=== PATIENT | male | born 1940 | race Caucasian/White ===

== ENCOUNTER 2020-02-05 08:57 | Emergency (ER) | payer OTHER, MEDICARE, SELFPAY ==
--- NOTE | ~2020-02-05 | XR_ITS ---
EXAMINATION: XR lumbar spine 2-3V DATE: 02/05/2020 09:51 INDICATION: Back pain. TECHNIQUE: 3 views of lumbar spine were obtained. COMPARISON: CT abdomen and pelvis 07/18/2018 FINDINGS: There is 6 degrees dextrocurvature of lumbar spine. There is 3 mm anterolisthesis of L5 on S1. Vertebral body heights are normal. There is mildly decreased disc height at L1-L2 and L2-L3, mode rately decreased disc height at L3-L4, and mildly decreased disc height at L4-L5. There are endplate osteophytes at all levels. There is multilevel facet joint osteoarthritis, severe in lower lumbar spi ne. Surgical clips overlie the abdomen and pelvis. IMPRESSION: 1. Moderate lumbar spondylosis. Reviewed, dictated and finalized at location A.
--- NOTE | ~2020-02-05 | XR_ITS ---
XR hip LT 2V w AP pelvis DATE: 02/05/2020 10:13 INDICATION: Left hip pain. No known injury. TECHNIQUE: AP pelvis. AP, lateral left hip COMPARISON: None FINDINGS: There is mild dextro scoliosis and multilevel degenerative disc disease of the lumbar/lumbo sacral spine. The pubic symphysis and sacroiliac joints are intact. No pelvic fracture or bone destruction is evide nt. Hip joint spaces are symmetric and relatively preserved. No fracture, dislocation, avascular necrosis or bone destruction of the left hip is evident. There is extensive abdominal aortic as well as some iliac and femoral artery calcifications. Surgical clips overlie both sides of the pelvis, likely related to prostatectomy. Status post ventral abdominal wall hernia repair. IMPRESSION: Multilevel degenerative disc disease of lumbar/lumbosacral spine Status post prostatectomy and abdominal wall repair Atherosclerosis Reviewed, dictated and finalized at location A.
[2020-02-05 09:33] VITALS: BP 149/97; PULSE 80; RESP 18; TEMP 36.9; O2SAT 96
--- NOTE | 2020-02-05 09:37 | ED.BACK ---
HPI - Back Pain/Injury General Chief Complaint: Extremity Injury, Lower Stated Complaint: Hip/leg pain Time Seen by Provider: 02/05/20 09:20 Source: patient Mode of arrival: ambulatory Limitations: no limitations History of Present Illness HPI Narrative: Patient is a 79-year-old male who presents to the emergency department with complaint of left lower back pain into his left hip. Patient reports history of sciatica in the past and states this feels similar. Patient noted onset of pain after prolonged standing when family was over to visit during the weekend. Patient had a virtual visit with his primary care physician and was prescribed a muscle relaxer and was supposed to have an x-ray done. Patient has not yet had the x-ray completed and is supposed to see his primary care physician for follow-up visit in the office Sunday. Patient has been taking acetaminophen for pain without relief. Patient states the pain is worse when he tries to walk and is better when he is sitting at rest. Pain originates in the left lower back and radiates into the left hip. He denies any radiation of pain down his thigh or leg or loss of feeling. Patient states in the past when he has had episodes like this, his prior primary care physician was given a steroid shot which would help. MD elicited complaint: back pain Pertinent past history: prior back pain and arthritis Onset (ago): day(s) Timing: constant Quality: sharp and spasming Location: left lower back (Sciatic) Radiation: buttocks (left hip) Exacerbating factors: movement and walking Relieving factors: sitting upright Context: other (After prolonged standing) Associated symptoms: denies other symptoms Treatments prior to arrival: acetaminophen Related Data Home Medications Medication Instructions Recorded Confirmed latanoprost 0.005 % eye drops 1 drop OPHTHALMIC (EYE) DAILY ml 02/04/20 02/04/20 Allergies Allergy/AdvReac Type Severity Reaction Status Date / Time grass pollen Allergy Unknown Sneezing Verified 02/04/20 14:57 pollen extracts Allergy Unknown Sneezing Verified 02/04/20 14:57 Review of Systems Review of Systems: All systems reviewed & are unremarkable except as noted in HPI and below PMFSH Past Medical History Medical History Bladder cancer COPD with asthma Essential (primary) hypertension Glaucoma Gouty arthritis Mixed hyperlipidemia Primary localized osteoarthritis of hips, bilateral Restless legs syndrome Type 2 diabetes mellitus without complications Vitamin D deficiency, unspecified Surgical History Surgical History H/O arthroscopy of knee H/O vasectomy History of bronchoscopy History of carpal tunnel surgery of right wrist History of cystoscopy With transurethral bladder resection History of hernia repair History of ileal conduit S/P radical cystoprostatectomy Family History Family History (Updated 01/23/19 @ 10:53 by DOCTOR UNKNOWN) Mother Family history of allergic disorder Father Family history of malignant neoplasm of stomach Other Asthma Family history of arthritis Social History Social History Smoking status: Former smoker Smoking end date: 09/24/90 Alcohol intake: current Gender identity (if verbalized by the patient): Male Exam Const: General: cooperative, no acute distress and alert Nutritional Appearance: well nourished Orientation/consciousness: patient oriented x3 Limitations: no limitations Resp: Effort & Inspection: normal respiratory effort Auscultation: clear to auscultation bilaterally Cardio: Rate: regular rate Rhythm: regular rhythm Back/Spine/Pelvis: Pelvis: sciatic notch tenderness on the left Skin: General skin exam: normal color Neuro: General: patient oriented x3 Cognition (Neuro): normal cognition Speech: normal spee
[2020-02-05] MEDS: ACETAMINOPHEN 325 MG TABLET 650 MG PO (10:03)
== END 2020-02-05 10:56 | disposition home or self-care (01) ==
PROVIDERS: Emergency Provider Emergency Medicine; PCP Internal Medicine
DX: M54.42 Lumbago with sciatica, left side (principal); J44.9 Chronic obstructive pulmonary disease, unspecified; I10 Essential (primary) hypertension; H40.9 Unspecified glaucoma; M10.9 Gout, unspecified; E78.2 Mixed hyperlipidemia; M16.0 Bilateral primary osteoarthritis of hip; G25.81 Restless legs syndrome; E11.9 Type 2 diabetes mellitus without complications; E55.9 Vitamin D deficiency, unspecified; M47.816 Spondylosis without myelopathy or radiculopathy, lumbar region; Z90.79 Acquired absence of other genital organ(s)
CPT/HCPCS: 72100; 73502; 99284; A9270

== ENCOUNTER 2020-08-04 07:38 | Outpatient (CLI) | payer OTHER, MEDICARE, SELFPAY ==
--- NOTE | ~2020-08-04 | CT_ITS ---
EXAMINATION: CT abdomen pelvis wo/w con EXAM DATE: 08/04/2020 08:29 INDICATION: Bladder cancer. TECHNIQUE: Spiral CT of the abdomen and pelvis was performed without and then with intravenous inject ion of 100 mL Omnipaque 350. Axial, coronal and sagittal images were reviewed. The dose-length pro duct (DLP) for this examination was 2330.36 mGy-cm. The exposure was tailored according to patient s ize (auto mA exposure control), and iterative reconstruction (ASIR) was used as additional dose reduc tion technique. Comparison is made to prior examination from 07/18/2018. FINDINGS: Cystectomy, ileal conduit. There is thickening of mid to distal aspect left ureter wall wit h some adjacent fat stranding, could be reactive from inflammation or cancer. Finding indicated on co ntrast-enhanced axial image 128, and is new compared to 2018 exam. Ileal conduit appears intact. Mult iple left renal cysts unchanged. No hydronephrosis. The liver, spleen, adrenal glands and pancreas are unremarkable. Gallbladder is unremarkable. No bi liary obstruction. Patient has likely had prostatectomy. The bladder is unremarkable. There is no retroperitoneal or pelvic lymphadenopathy. There is moderate scattered arteriosclerotic disease. The appendix is normal. The stomach and small bowel are unremarkable. There is mild sigmoid colonic diverticulosis. There is no adjacent inflammatory change to suggest diverticulitis. No free intrape ritoneal gas. The heart is normal in size. There are no pericardial or pleural effusions. Linear basilar scarring. There are no osteoblastic or osteolytic lesions identified. Anterior abdominal wal l mesh. Moderate to severe lumbar spondylosis. Mild lumbar dextroscoliosis. IMPRESSION: 1. Development of mid to distal left ureteral wall thickening, could be reactive or recurrent cancer . 2. Intact ileal conduit. Cystectomy, prostatectomy. 3. Mild sigmoid diverticulosis. Reviewed, dictated and finalized at location A. HOP IMPRESSION: 1. Development of mid to distal left ureteral wall thickening, could be reacti ve or recurrent cancer. 2. Intact ileal conduit. Cystectomy, prostatectomy. 3. Mild sigmoid diverticulosis.
--- NOTE | ~2020-08-04 | XR_ITS ---
EXAMINATION: XR chest 2V DATE: 08/04/2020 08:01 INDICATION: Bladder cancer. Asthma. TECHNIQUE: Frontal and lateral views of the chest were obtained. COMPARISON: Chest 2 views 07/28/19, CT abdomen and pelvis 08/04/2020 FINDINGS: There is mild scarring at the lung apices. There is mild atelectasis in lingula. Calcified left lung nodules are consistent with old granulomatous disease. No pleural effusion or pneumothorax. The heart size is normal. IMPRESSION: 1. Mild atelectasis in lingula and mild scarring at the lung apices. Reviewed, dictated and finalized at location B. ONATING STONE CLEANER
[2020-08-04 08:11] LABS: Estimated Glomerular Filt Rate 49
== END 2020-08-04 07:39 | disposition home or self-care (01) ==
PROVIDERS: PCP Internal Medicine; Visit Provider Urology
DX: C67.9 Malignant neoplasm of bladder, unspecified (principal); K57.30 Diverticulosis of large intestine without perforation or abscess without bleeding; R91.8 Other nonspecific abnormal finding of lung field
CPT/HCPCS: 71046; 74178; Q9967

== ENCOUNTER 2020-09-07 06:57 | Outpatient (NON) | payer OTHER, MEDICARE, SELFPAY ==
[2020-09-08 18:06] LABS: SARS-CoV-2 RNA PCR Negative
== END 2020-09-07 06:58 ==
PROVIDERS: PCP Internal Medicine; Visit Provider Internal Medicine
DX: Z20.828 Contact with and (suspected) exposure to other viral communicable diseases (principal); R09.89 Other specified symptoms and signs involving the circulatory and respiratory systems
CPT/HCPCS: 87635; C9803; U0003

== ENCOUNTER 2020-11-08 07:20 | Outpatient (CLI) | payer MEDICARE, SELFPAY ==
--- NOTE | ~2020-11-08 | XR_ITS ---
XR chest 2V DATE: 11/08/2020 07:44 INDICATION: Bladder cancer TECHNIQUE: PA and lateral views COMPARISON: 08/04/2020 PA and lateral chest FINDINGS: Normal heart size. Is aortic calcification and mild unfolding. No hilar or mediastinal enla rgement is evident. There is evidence of old pulmonary granulomatous disease. No pulmonary infiltrate or consolidation, pleural effusion or pulmonary vascular congestion or pneumothorax is detected. IMPRESSION: No active cardiopulmonary disease Reviewed, dictated and finalized at location A. HETIC PLASTERER
--- NOTE | ~2020-11-08 | CT_ITS ---
EXAMINATION: CT abdomen pelvis wo/w con DATE: 11/08/2020 08:09 INDICATION: Bladder cancer restaging TECHNIQUE: Computed tomography (CT) of the abdomen and pelvis was performed without and subsequently with 130 cc Omnipaque 350 intravenous contrast. Automated exposure control and iterative reconstructi on technique were employed. Exam dose: 1977.56 mGy-cm total exam DLP. COMPARISON: 08/04/2020 CT abdomen pelvis FINDINGS: Normal heart size. No pericardial or pleural effusion. There is mild atelectasis and/or sca rring at the lung bases. Emphysematous changes. The liver, gallbladder, bile ducts, pancreas, pancreatic duct and spleen are unremarkable. Normal morphology of the adrenal glands. There are innumerable renal cysts of variable size scattered throughout the left kidney, some septate d, some with some calcification. 11 mm upper pole right renal cyst. Status post cystectomy and ileostomy. Status post prostatectomy. There is chronic irregular soft tissue thickening at the distal left ureter; malignancy is not exclud ed. Infection would be an additional consideration. There is mesh ventral abdominal wall hernia repai r. There is atherosclerotic calcification of the abdominal aorta and at the origins of the celiac and pa rticularly the superior mesenteric and renal arteries. No abdominal aortic aneurysm. Iliac and femora l prominent arterial calcifications are noted. No intraperitoneal or retroperitoneal or pelvic mass lesion or adenopathy or ascites. Normal appendix. Diverticulosis of the sigmoid colon; no CT evidence of diverticulitis. No bowel obst ruction, bowel wall thickening, pneumatosis or intraperitoneal free air. Bilateral L5 pars interarticularis defects with minimal grade 1 anterolisthesis at L5-S1. There is de generative disc disease throughout the lumbar and lumbosacral spine as well as degenerative spurring of the lower thoracic spine. No suspicious osteolytic or osteoblastic lesions are noted. IMPRESSION: Persistent irregular soft tissue thickening of the distal left ureter, relatively stable since 08/04/2020. Malignancy is not excluded. Status post cystectomy and ileostomy Status post prostatectomy Innumerable left renal cysts again noted Diverticulosis of the sigmoid colon; no CT evidence of diverticulitis Reviewed, dictated and finalized at Location A. Reviewed, dictated and finalized at location B. GER DATABASE IMPRESSION: Persistent irregular soft tissue thickening of the distal left ure ter, relatively stable since 08/04/2020. Malignancy is not excluded. Status post cystectomy and ileostomy Status post prostatectomy Innumerable left renal cysts again noted Diverticulosis of the sigmoid colon; no CT evidence of diverticulitis
[2020-11-08 07:52] LABS: Estimated Glomerular Filt Rate 34
== END 2020-11-08 07:21 | disposition home or self-care (01) ==
PROVIDERS: PCP Internal Medicine; Visit Provider Urology
DX: C67.9 Malignant neoplasm of bladder, unspecified (principal); K57.30 Diverticulosis of large intestine without perforation or abscess without bleeding; N28.1 Cyst of kidney, acquired
CPT/HCPCS: 71046; 74178; Q9967

== ENCOUNTER 2020-11-23 13:07 | Inpatient (IN) | payer MEDICARE, SELFPAY ==
[2020-11-23] VITALS (11 sets, daily range): BP systolic 105–150; BP diastolic 60–88; PULSE 97–116; RESP 16–18; TEMP 36.3–36.8; O2SAT 89–97; BMI 27.9
--- NOTE | ~2020-11-23 | XR_ITS ---
EXAMINATION: XR chest 1V portable EXAM DATE: 11/23/2020 13:57 INDICATION: Shortness of breath. Mid abdominal pain. Bladder cancer. Asthma. Type 2 diabetes. Abdomin al distention. TECHNIQUE: Portable AP frontal chest x-ray was obtained. Comparison is made to prior examination from 11/08/2020. FINDINGS: Some prominent basilar reticulation without confluent consolidation, new compared to previo us exam. Could be mild pulmonary edema. No pneumothorax or pleural effusion. Dense mitral annular fabrice cifications. There is aortic arteriosclerosis. Cardiomediastinal silhouette is normal. There are bony degenerative changes. IMPRESSION: 1. Some prominent basilar reticulation, correlate with subsequent CT abdomen pelvis. 2. No confluent consolidation. Reviewed, dictated and finalized at location A. [employer] IMPRESSION: 1. Some prominent basilar reticulation, correlate with subsequent CT abdomen p dong. 2. No confluent consolidation.
--- NOTE | ~2020-11-23 | XR_ITS ---
EXAMINATION: XR abdomen obstructive series DATE: 11/25/2020 05:57 INDICATION: Small bowel obstruction. TECHNIQUE: Upright and supine views of the abdomen were obtained. COMPARISON: Abdomen radiographs 11/24/2020 FINDINGS: There are multiple dilated loops of small bowel. The colon is decompressed. The nasogastric tube tip is in the stomach. No free intraperitoneal gas. There are surgical clips from ventral herni a repair. Surgical clips overlie the pelvis. IMPRESSION: 1. Small bowel obstruction. Reviewed, dictated and finalized at location A. TABLE MECHANIC IMPRESSION: 1. Small bowel obstruction.
--- NOTE | ~2020-11-23 | XR_ITS ---
EXAMINATION: XR retrograde pyelo w/stent BI EXAM DATE: 11/25/2020 13:08 INDICATION: BILAT RETRO/STENT . TECHNIQUE: Fluoroscopy used during XR retrograde pyelo w/stent BI performed by Dr. Rome luther MD. The DAP for this procedure was 0.80 mGym2. FINDINGS: Images demonstrate cannulation of the left ureter and also subsequently the right ureter w ith retrograde injections. Stent or stents. Significantly distended air-filled small bowel. Correlate with procedure note. IMPRESSION: Fluoroscopy used during XR retrograde pyelo w/stent BI. Reviewed, dictated and finalized at location A. ALESCENT SITTER
--- NOTE | ~2020-11-23 | CT_ITS ---
EXAMINATION: CT abdomen pelvis wo con DATE: 11/23/2020 14:03 INDICATION: Abdominal distention and abdominal pain. TECHNIQUE: Computed tomography (CT) of the abdomen and pelvis was performed without intravenous contr ast. Automated exposure control and iterative reconstruction technique were employed. The dose-length product was 1171.18 mGy-cm. COMPARISON: 11/08/2020 FINDINGS: Again seen is mild atelectasis/scarring in the bilateral lower lungs with some architectural distorti on in the anterior right lower lobe. Heart size is normal. Atherosclerotic coronary artery calcific l esions. Aortic valve and mitral annular calcification. No pericardial or pleural effusion. Liver, gallbladder, spleen, pancreas and bilateral adrenal glands are normal. Again seen are multiple left renal cysts a few with small thin curvilinear mural calcifications. Right kidney is normal. Pos toperative change of prior cystectomy, prostatectomy and bilateral pelvic lymph node dissection. Ther e has also been ileal conduit formation which extends to a right lower quadrant ostomy. Again noted i s thickening of the distal aspect of the left ureter extending approximately 4-5 cm proximal to the a nastomosis with the ileal conduit. No hydronephrosis. Large amount of fluid distending the small bowel with reflux into the visualized distal esophagus. Th ere is dilation of the proximal small bowel measuring up to 4.7 cm in maximal diameter. There is a tr ansition to normal caliber small bowel in the anterior abdomen underlying a left paraumbilical hernia mesh repair. The remainder of the more distal small bowel is decompressed to the level of a small franki wel anastomosis in the right hemipelvis. The colon is also largely decompressed. There is mild divert iculosis with sigmoid predominance and without adjacent inflammatory change to suggest diverticulitis . Normal appendix. No free intraperitoneal gas or fluid. No pathologically enlarged abdominal or pelv ic lymphadenopathy. There is calcified atherosclerosis of the aorta and many of the other arteries. Mild lumbar dextrocurvature with severe spondylosis. IMPRESSION: 1. Small bowel obstruction with transition point in the anterior abdomen deep to a left paraumbilical ventral hernia mesh repair suggesting this may be related to effusions. 2. Persistent wall thickening of the distal left ureter extending 4-5 cm proximal to the anastomosis with a right lower quadrant ileal conduit. This could be inflammatory related to infection or recurre nt malignancy. 3. Status post cystectomy, prostatectomy and bilateral pelvic lymph node dissection. 4. Mild diverticulosis. Reviewed, dictated and finalized at location B. GENCY TECHNICIAN IMPRESSION: 1. Small bowel obstruction with transition point in the anterior abdomen deep t o a left paraumbilical ventral hernia mesh repair suggesting this may be relate d to effusions. 2. Persistent wall thickening of the distal left ureter extending 4-5 cm proxim al to the anastomosis with a right lower quadrant ileal conduit. This could be inflammatory related to infection or recurrent malignancy. 3. Status post cystectomy, prostatectomy and bilateral pelvic lymph node dissec tion. 4. Mild diverticulosis.
--- NOTE | ~2020-11-23 | US_ITS ---
EXAMINATION: US renal BI EXAM DATE: 11/26/2020 12:14 INDICATION: Elevated creatinine. TECHNIQUE: Multiple grayscale and Doppler images of the kidneys were obtained (by a technologist who performed the scan) and subsequently reviewed. Correlation is made to CT scan 11/23/2020. FINDINGS: Right kidney: There is normal contour and echogenicity. It measures 11.8 x 5.6 x 6.6 centimeters. T here are no focal renal lesions identified. There is no hydronephrosis. Left kidney: There is normal contour and echogenicity. It measures 13.5 x 7.2 x 4.9 centimeters. Mul tiple small cystic regions. There is no hydronephrosis. Bladder reportedly was resected 12 years ago. IMPRESSION: 1. Multiple left renal cystic lesions. 2. No hydronephrosis. Reviewed, dictated and finalized at location A. ION CHIEF
--- NOTE | ~2020-11-23 | XR_ITS ---
EXAMINATION: XR abdomen NG/feed tube insert EXAM DATE: 11/23/2020 15:36 INDICATION: Nasogastric tube placement. TECHNIQUE: Frontal projection(s) of the abdomen for interpretation. Comparison is made to prior exami nation from 2010. FINDINGS: Feeding tube tip projects over gastric bubble, side port is at the gastroesophageal juncti on. This could be safely advanced 5 cm. Loops of distended air-filled small bowel in the upper abdome n. Lung bases unremarkable. IMPRESSION: 1. Feeding tube tip in stomach but could be safely advanced 5 cm. 2. Dilated small bowel, determined to be obstruction by CT. Reviewed, dictated and finalized at location A. NG SUPERVISOR
--- NOTE | ~2020-11-23 | XR_ITS ---
EXAMINATION: XR abdomen obstructive series DATE: 11/24/2020 06:02 INDICATION: Small bowel obstruction. TECHNIQUE: Upright and supine views of the abdomen were obtained. COMPARISON: CT abdomen and pelvis 11/23/2020 FINDINGS: There are multiple dilated loops of small bowel. The colon is decompressed. There are surgi fabrice clips from ventral hernia repair. There are surgical clips overlying the pelvis. The nasogastric tube tip is in the stomach. No free intraperitoneal gas. IMPRESSION: 1. Small bowel obstruction. Reviewed, dictated and finalized at location A. OSOFT SYSTEMS ENGINEER IMPRESSION: 1. Small bowel obstruction.
[2020-11-23 13:24] LABS: Basophils Absolute Auto 0.1 K/mm3 (0.0-0.1); Basophils Percent Auto 0.7 % (0.2-1.2); Eosinophils Absolute Auto 0.1 K/mm3 (0-0.3); Eosinophils Percent Auto 1.2 % (0-4.4); Hematocrit 52.8 % (42.0-52.0); Hemoglobin 18.4 g/dL (14.0-18.0); Immature Granulocyte Absolute 0.11 K/mm3 (0.00-0.031); Lymphocytes Absolute Auto 0.58 K/mm3 (0.9-3.2); Lymphocytes Percent Auto 5.3 % (18.3-44.2); Mean Corpuscular HGB Conc 34.8 g/dl (32-36); Mean Corpuscular Hemoglobin 30.7 pg (26-34); Mean Corpuscular Volume 88.1 fl (80-100); Mean Platelet Volume 10.9 fl (7.4-10.4); Monocytes Percent Auto 9.1 % (2.6-8.5); Neutrophils Absolute Auto 9.1 K/mm3 (1.3-6.7); Neutrophils Percent Auto 82.7 % (45.5-73.1); Platelet Count Result 277 k/mm3 (150-375); Red Blood Count 5.99 M/mm3 (4.6-6.20); Red Cell Distribution Width 14.9 % (11.5-14.5)
--- NOTE | 2020-11-23 13:25 | ECG_ITS ---
Measurements Intervals [place] Rate: 103 P: 58 IA: 185 QRS: -60 QRSD: 97 T: 78 QT: 340 QTc: 446 Interpretive Statements SINUS TACHYCARDIA LEFT ANTERIOR FASCICULAR BLOCK BORDERLINE ST-T WAVE ABNORMALITY- HIGH LATERAL LEADS ABNORMAL ECG Electronically Signed On 11-23-2020 14:43:53 BIOMEDICAL EQUIPMENT TECHNICIAN by Marcellus Wetzel D.O.
--- NOTE | 2020-11-23 13:29 | ED.ABDPAIN ---
HPI - Abdominal Pain General Chief Complaint: Abdominal Pain Stated Complaint: blockage in his belly per his son Time Seen by Provider: 11/23/20 13:15 Source: patient Mode of arrival: ambulatory Limitations: no limitations History of Present Illness HPI narrative: This is a 80 year old male with history of bowel obstructions, bladder cancer s/p resection, hernia repair who presents for evaluation of lower abdominal pain and abdominal distension. He states his symptoms started yesterday. He developed lower abdominal pain and abdominal distension. He started having nausea and multiple episodes of emesis today. He reports initially it was nonbilious but now he is vomiting bile. He reports multiple bowel movements yesterday and today. He denies fever or chills. He reports shortness of breath due to pain with movement. He denies cough or chest pain. MD elicited complaint: abdominal pain Related Data Home Medications Medication Instructions Recorded Confirmed albuterol sulfate INHALATION 11/23/20 amlodipine 11/23/20 atorvastatin 11/23/20 brimonidine [Alphagan P] drp 11/23/20 celecoxib mg 11/23/20 colchicine mg 11/23/20 colchicine [Colcrys] mg 11/23/20 ergocalciferol (vitamin D2) 11/23/20 febuxostat mg 11/23/20 fluticasone propion-salmeterol INHALATION 11/23/20 [Wixela Inhub] icosapent ethyl [Vascepa] g PO 11/23/20 latanoprost drp 11/23/20 perindopril erbumine mg 11/23/20 pregabalin 11/23/20 ropinirole mg 11/23/20 sitagliptin [Januvia] mg 11/23/20 Allergies Allergy/AdvReac Type Severity Reaction Status Date / Time grass pollen Allergy Mild Sneezing Verified 11/23/20 18:16 pollen extracts Allergy Mild Sneezing Verified 11/23/20 18:16 Review of Systems Review of Systems: All systems reviewed & are unremarkable except as noted in HPI and below Constitutional: Constitutional: Denies chills and Denies fever(s) Cardiovascular: Cardiovascular: Denies chest pain Respiratory: Respiratory: Denies cough and Reports dyspnea Gastrointestinal: Gastrointestinal: Reports abdominal pain, Reports nausea and Reports vomiting Genitourinary: Genitourinary: Denies hematuria [facility] Past Medical History Medical History (Updated 11/23/20 @ 19:02 by Elizabeth Tarango MD) Bladder cancer 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 Chronic renal failure, stage 3 (moderate) COPD with asthma Essential (primary) hypertension Glaucoma Gouty arthritis Hepatitis Hepatitis A Mixed hyperlipidemia Other spondylosis with myelopathy, 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 Lennon in 2010 History of ileal conduit 2010 S/P radical cystoprostatectomy 2009 Family History Family History Mother Family history of allergic disorder Father Family history of malignant neoplasm of stomach Other Asthma Family history of arthritis Social History Social History Smoking status: Former smoker Smoking end date: 09/24/90 Alcohol intake: current Drinks per week: 21 Substance use: never Gender identity (if verbalized by the patient): Male Spiritual care concerns: No Exam Const: General: no acute distress and alert Orientation/consciousness: patient oriented x3 Neck: Neck: no lymphadenopathy Resp: Effort & Inspection: normal respiratory effort and no retractions Auscul
[2020-11-23 13:46] LABS: Alanine Aminotransferase 41 U/L (4-50); Albumin Level 4.8 g/dL (3.5-5.1); Alkaline Phosphatase 56 U/L (38-126); Anion Gap 14 mmol/L (8-16); Aspartate Amino Transferase 33 U/L (17-59); Bilirubin,Total 2.2 mg/dL (0.2-1.3); Blood Urea Nitrogen 44 mg/dL (9-20); Calcium 9.9 mg/dL (8.4-10.2); Carbon Dioxide 24 mmol/L (22-30); Chloride 97 mmol/L (98-107); Estimated CRCL calculation 26 ml/min; Estimated Glomerular Filt Rate 26; Glucose 182 mg/dL (75-110); Lipase 77 U/L (23-300); Potassium 4.7 mmol/L (3.4-5.0); Sodium 135 mmol/L (137-145)
[2020-11-23] MEDS: LACTATED RINGERS 1,000 ML 999 ML IV CONT ×2 (13:47→15:06)
[2020-11-23] MEDS: ONDANSETRON INJ 4 MG/2 ML VIAL IV PUSH (13:49)
[2020-11-23] MEDS: MORPHINE SULFATE (*CRX) 4 MG/ML INJ IV PUSH (13:52)
[2020-11-23 14:12] LABS: Lactic Acid Reflex 2.5 mmol/L (0.7-2.1)
[2020-11-23 14:38] LABS: Add Urine Microscopic? YES; Appearance Urine Cloudy (Clear); Bacteria Urine 2+ /hpf; Bilirubin Urine Negative (Negative); Blood Urine 2+ (Negative); Color Urine Yellow (Yellow); Glucose Urine UA Negative (Negative); Ketones Urine Negative (Negative); Leukocyte Esterase Ur 3+ LEU/UL (Negative); Mucus Urine Rare /lpf; Nitrate Urine Negative (Negative); Protein Urine 2+ mg/dL (Negative); RBC Urine 51-75 /hpf (0-2); Specific Grav Ur 1.018 (1.001-1.035); Squamous Epithelial Cell Urine Occasional /hpf (Few); Urobilinogen Urine Negative mg/dL (<2.0); WBC Urine >75 /hpf
--- NOTE | 2020-11-23 15:14 | PC.NURSE ---
Son called in regards to how father is doing, minimal information given and redirected to father. Ensured patient had phone at bedside and communicated to expect a call.
--- NOTE | 2020-11-23 16:18 | PM.CNGS ---
Assessment and Plan Assessment and plan (1) Small bowel obstruction: Code(s): K56.609 - Unspecified intestinal obstruction, unspecified as to partial versus complete obstruction Status: Acute Assessment and Plan: CT scan reviewed and discussed with the patient in detail. There is evidence of small bowel obstruction with the transition point just below the mesh of his previous ventral incisional hernia repair. This suggests that this is likely due to intraabdominal adhesions, which would be appropriate considering his previous abdominal surgeries. We will continue with conservative measures at this time, including NG tube decompression, bowel rest, IV fluids, analgesics, and antiemetics. I asked the ER nurse to advance the NG tube 5 cm. Will repeat abdominal films tomorrow morning and continue to monitor the patient with serial abdominal exams and imaging. We will also repeat a lactic acid tomorrow morning, considering this was elevated on admission. Hopefully this resolves with conservative measures, but we discussed with the patient that he could require exploratory surgery if he does not improve with the current treatment. He would be a higher risk surgical candidate due to his previous abdominal surgeries and age. Would recommend Urology consultation tomorrow as discussed below. (2) Acute kidney injury: Code(s): N17.9 - Acute kidney failure, unspecified Status: Acute Assessment and Plan: Potentially acute on chronic kidney failure. Creatinine on admission is 2.4. Continue IV fluids and avoid nephrotoxic agents. Monitor labs. Management per Hospitalist. (3) History of bladder cancer: Code(s): Z85.51 - Personal history of malignant neoplasm of bladder Status: Acute Assessment and Plan: 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. Followed by Urology as an outpatient. CT suggests an area of wall thickening in the mid to distal left ureter, which looks like it has been monitored with previous CT scans. Consider consulting Urology in the morning. If the patient fails conservative treatment for the SBO and we need to proceed with surgical exploration, then we would likely ask Urology to help with surgery due to the complexity of his history. (4) COPD with asthma: Code(s): J44.9 - Chronic obstructive pulmonary disease, unspecified Status: Acute (5) Type 2 diabetes mellitus without complications: Code(s): E11.9 - Type 2 diabetes mellitus without complications Status: Acute (6) Essential (primary) hypertension: Code(s): I10 - Essential (primary) hypertension Status: Acute Additional Plan I discussed the patient's case and plan of care with Dr. Nevarez. History of Present Illness Consult details Consult date: 11/23/20 Reason for consult: other (Small bowel obstruction) Requesting physician: Elizabeth Tarango MD Narrative: This is a 80-year-old male with a history of recently diagnosed type 2 diabetes mellitus, hypertension, and bladder cancer status post radical cystoprostatectomy with ileal conduit urinary diversion in 2009. He then had laparoscopic ventral incisional hernia repair with mesh in 2010. He reports noticing mild cramping abdominal pain yesterday afternoon. The pain continued to worsen through the night and into this morning he began to notice bloating, nausea, and multiple episodes of vomiting. The patient reports having diarrhea this morning as well, with his last BM around 11:00 am today. He then presented to the ER for further evaluation. CT scan of the abdomen and pelvis showed a small bowel obstruction with transition point in the anterior abdomen deep to a left paraumbilical ventral hernia mesh. Also noted was persistent wall thickening of the distal left ureter extending 4-5 cm proximal to the anastomosis with a right lower quadrant ileal conduit, status post cystectomy, prostatectomy and bilateral pelvic lymph node dissecti
[2020-11-23 16:59] LABS: Reflex Lactic Acid Yes or No Add Lactic
--- NOTE | 2020-11-23 17:23 | ADMGEN ---
This patient, Kevin Figueredo, was admitted to Medical Room 344-01. Patient/family oriented to hospital policies and general routines including ID bracelet, bed and alarms, visiting hours, pain management, procedures, bathroom and other care routines, personal items, smoking policy, room service/diet, and visiting hours. Information on how to activate the Rapid Response Team has been discussed. Patient/Family are encouraged to report perceived risks to care and to ask questions if they do not understand what they are told or what they should do.
[2020-11-23 17:53] LABS: Lactic Acid 2.1 mmol/L (0.7-2.1)
[2020-11-23] MEDS: LACTATED RINGERS 1,000 ML 125 ML IV CONT (18:15)
[2020-11-23 18:44] LABS: Glucose Point of Care 142 (65-105)
--- NOTE | 2020-11-23 18:54 | PM.IMHP ---
H&P: HPI History of Present Illness Date/Time: 11/23/20 18:54 Chief Complaint: Abdominal pain Narrative: Kevin Figueredo is a 80 year old male of having small-bowel obstructions in the past. He has also had bladder cancer status post resection with the ileal conduit. The patient follows with Dr. Oden. The patient stated that he was supposed to have a yearly CT scan and follow-up with Dr. Oden. The patient started having some abdominal pain today. He had lower abdominal pain and distension. Is showing me that the pain is more over his umbilical area. He started having nausea multiple episodes of emesis today. He has been vomiting bile. He had multiple bowel movements yesterday and today. He has no fever or chills. The ileal conduit is draining without difficulty. abdomen/Pelvis CT 11/23/20 14:19 IMPRESSION: 1. Small bowel obstruction with transition point in the anterior abdomen deep to a left paraumbilical ventral hernia mesh repair suggesting this may be related to effusions. 2. Persistent wall thickening of the distal left ureter extending 4-5 cm proximal to the anastomosis with a right lower quadrant ileal conduit. This could be inflammatory related to infection or recurrent malignancy. 3. Status post cystectomy, prostatectomy and bilateral pelvic lymph node dissection. 4. Mild diverticulosis. Radiologist's impression:ITS Impressions Chest X-Ray 11/23/20 13:59 IMPRESSION: 1. Some prominent basilar reticulation, correlate with subsequent CT abdomen pelvis. 2. No confluent consolidation. NG tube was placed in the right near. Surgery has been consulted and has already seen the patient. H&H is 18.4 and 52.8. Most likely hemodilutional. Patient's creatinine is 2.4 his previous 1 was 1.9. GFR 26 now had been 34. Blood sugars 142. Urine appears to be infected. IV fluids, morphine, Zofran, and Rocephin. The patient is being admitted to inpatient on the date of service of 11/23/2020 Review of Systems Review of Systems: All systems reviewed & are unremarkable except as noted in HPI and below Constitutional: Constitutional: Reports as per HPI and Reports no additional constitutional complaints Eyes: Eyes: Reports as per HPI and Reports no additional eye complaints ENT: Reports system reviewed and no additional complaints, except as documented and Reports Normal hearing present Cardiovascular: Cardiovascular: Reports no additional cardiovascular complaints Respiratory: Respiratory: Reports no additional respiratory complaints and Reports no additional respiratory complaints Gastrointestinal: Gastrointestinal: Reports as per HPI and Reports no additional gastrointestinal complaints Musculoskeletal: Musculoskeletal: Reports no additional musculoskeletal complaints Integumentary/Breasts: Skin/Breast: Reports system reviewed and no additional complaints, except as docu and Reports as per HPI Neurologic: Reports system reviewed and no additional complaints, except as documented, Reports as per HPI and Reports Normal hearing present Psychiatric: Psychiatric: Reports no additional psychiatric complaints and Reports as per HPI Endocrine: Endocrine: Reports no additional endocrine complaints Hematologic/Lymphatic: Hematologic/Lymphatic: Reports no additional hematologic/lymphatic complaints Allergic/Immunologic: Allergic/Immunologic: Reports no additional allergic/immunologic complaints [facility] Past Medical History Medical History (Updated 11/23/20 @ 19:47 by Viky Gross NP) Bladder cancer 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 Chronic renal failure, stage 3 (moderate) COPD with asthma Diabetes Essential (primary) hypertension Glaucoma Gouty arthritis Hepatitis Hepatitis A Mixed hyperlipidemia Other spondylosis with myelopathy, 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
[2020-11-23] MEDS: LATANOPROST 0.005% OP SOLN 2.5 ML BTL 1 DROP EACH EYE (21:00)
[2020-11-23 21:06] LABS: Glucose Point of Care 150 (65-105)
[2020-11-24 00:02] LABS: Glucose Point of Care 166 (65-105)
[2020-11-24] MEDS: LACTATED RINGERS 1,000 ML 125 ML IV CONT ×3 (02:14→20:41)
[2020-11-24] MEDS: MORPHINE SULFATE (*CRX) 4 MG/ML INJ IV PUSH ×3 (02:17→20:40)
[2020-11-24 05:16] LABS: Glucose Point of Care 158 (65-105)
[2020-11-24 05:53] LABS: Hematocrit 47.7 % (42.0-52.0); Hemoglobin 16.2 g/dL (14.0-18.0); Mean Corpuscular Hemoglobin 30.6 pg (26-34); Mean Platelet Volume 10.5 fl (7.4-10.4); Platelet Count Result 207 k/mm3 (150-375); Red Cell Distribution Width 15.1 % (11.5-14.5); White Blood Count 3.3 K/mm3 (4.5-10.0)
[2020-11-24 06:00] VITALS: BP 113/69; PULSE 103; RESP 18; TEMP 36.9; O2SAT 92
[2020-11-24 06:07] LABS: Lactic Acid Reflex 2.1 mmol/L (0.7-2.1)
[2020-11-24 06:08] LABS: Hemoglobin A1C 6.1 % (<5.7)
[2020-11-24 06:09] LABS: Alanine Aminotransferase 31 U/L (4-50); Albumin Level 3.9 g/dL (3.5-5.1); Alkaline Phosphatase 41 U/L (38-126); Anion Gap 12 mmol/L (8-16); Aspartate Amino Transferase 29 U/L (17-59); Bilirubin,Total 1.8 mg/dL (0.2-1.3); Blood Urea Nitrogen 59 mg/dL (9-20); Calcium 8.6 mg/dL (8.4-10.2); Carbon Dioxide 32 mmol/L (22-30); Chloride 94 mmol/L (98-107); Estimated CRCL calculation 21 ml/min; Estimated Glomerular Filt Rate 21; Glucose 153 mg/dL (75-110); Potassium 4.5 mmol/L (3.4-5.0); Sodium 138 mmol/L (137-145)
[2020-11-24 06:43] LABS: Band Neutrophils Percent 19 % (0-6); Eosinophils Absolute Manual 0.19 K/mm3 (0.02-0.5); Eosinophils Percent Manual 6 % (0-4); Lymphocytes Absolute Manual 0.29 K/mm3 (1.1-4.5); Monocytes Absolute Manual 0.26 K/mm3 (0.1-0.90); Monocytes Percent Manual 8 % (3-9); Neutrophils Absolute Manual 2.54 K/mm3 (1.3-6.7); Neutrophils Percent Manual 58 % (46-73); Total Cells Counted 100
[2020-11-24 06:44] LABS: Platelet Estimate Adequate (Adequate)
[2020-11-24 08:55] LABS: Reflex Lactic Acid Yes or No Add Lactic
[2020-11-24] MEDS: BRIMONIDINE TARTRATE 0.1% 5 ML OPHTH DROPS 1 DROP EACH EYE ×2 (09:25→18:26)
[2020-11-24 09:27] LABS: Lactic Acid 1.7 mmol/L (0.7-2.1)
--- NOTE | 2020-11-24 10:19 | PM.PNGS ---
Progress Note: A&P Assessment and Plan (1) Small bowel obstruction: Code(s): K56.609 - Unspecified intestinal obstruction, unspecified as to partial versus complete obstruction Status: Acute Assessment and Plan: Abdominal films this morning still show dilated small bowel. Still has high NG output and not showing any signs of bowel function returning as of yet. Continue NG tube decompression, bowel rest, and IV fluids today. Will repeat abdominal films tomorrow. Encouraged the patient to get up and walk the halls if he is able to tolerating clamping his NG for short amount of time. (2) Acute kidney injury: Code(s): N17.9 - Acute kidney failure, unspecified Status: Acute Assessment and Plan: Creatinine up to 2.9 today. Management per Hospitalist. (3) History of bladder cancer: Code(s): Z85.51 - Personal history of malignant neoplasm of bladder Status: Acute Assessment and Plan: 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. Followed by Urology as an outpatient. CT suggests an area of wall thickening in the mid to distal left ureter, which looks like it has been monitored with previous CT scans. Consider Urology consultation. (4) COPD with asthma: Code(s): J44.9 - Chronic obstructive pulmonary disease, unspecified Status: Acute (5) Type 2 diabetes mellitus without complications: Code(s): E11.9 - Type 2 diabetes mellitus without complications Status: Chronic (6) Essential (primary) hypertension: Code(s): I10 - Essential (primary) hypertension Status: Chronic Additional Plan I discussed the plan of care with Dr. Nevarez. Subjective Subjective Date/Time Seen: 11/24/20 10:19 Patient reports: no new complaints, feels better, pain is less, no flatus and no bowel movement Interval history: Patient feeling better today, with less abdominal pain and bloating. 575 cc documented output from NG overnight. No flatus or BM. No other complaints at this time. Review of Systems Review of Systems: All systems reviewed & are unremarkable except as noted in HPI and below Exam Const: General: no acute distress, alert and awake Orientation/consciousness: patient oriented x3 GI: Inspection: distended and scar (large midline scar) GI Palp: Yes Firmness to palpation present (GI), Yes Tenderness to palpation present (GI) (lower abdomen, improved), No Guarding due to palpation present (GI) and Yes Hernia present (soft reducible, non-tender periumbilical hernia.) Auscultation: High-pitched bowel sounds present Other: Right-sided ileal conduit with pink/moist stoma and clear yellow urine in drainage bag. Skin: General skin exam: normal color Neuro: General: moves all extremities and no focal motor deficits Extrem: General: normal to inspection and no clubbing, cyanosis or edema Psych: Mental Status: mental status grossly normal Insight: Good insight present (Psych) Judgement: Good judgement present (Psych) Objective Data Vital Signs Vital Signs: Vital Signs - 24 hr 11/23/20 13:15 11/23/20 13:31 11/23/20 14:15 Temperature 97.4 F L Pulse Rate 116 H Respiratory Rate 16 Blood Pressure 124/82 110/77 Pulse Oximetry 96 96 93 11/23/20 14:30 11/23/20 15:00 11/23/20 15:01 Temperature Pulse Rate 97 Respiratory Rate 16 Blood Pressure 148/88 H Pulse Oximetry 94 97 95 11/23/20 15:15 11/23/20 15:32 11/23/20 16:00 Temperature Pulse Rate Respiratory Rate Blood Pressure 105/77 150/82 H Pulse Oximetry 89 L 11/23/20 16:39 11/23/20 22:00 11/24/20 06:00 Temperature 98.3 F 98.5 F Pulse Rate 104 H 98 103 H Respiratory Rate 18 18 18 Blood Pressure 113/60 113/69 Pulse Oximetry 95 93 92 Intake/Output Intake/Output: Intake & Output 11/21/20 11/22/20 11/23/20 11/24/20 23:59 23:59 23:59 23:59 Intake Total 2099 1999 Output Total 2324 925 Balance -225 1075 Meds/Res
--- NOTE | 2020-11-24 12:54 | PM.IMPN ---
Progress Note: A&P Assessment and Plan (1) Small bowel obstruction: Code(s): K56.609 - Unspecified intestinal obstruction, unspecified as to partial versus complete obstruction Status: Acute Assessment and Plan: Patient has NG tube in surgery has seen the patient. The patient has had multiple abdominal surgeries in the past. Hopefully we can resolve this conservatively. Continue with pain management and IV fluids. 11/24/20 12:54 patient is 80-year-old male with history of bladder cancer status post ileal conduit with history of SBO presented emergency department with a complaint abdominal pain CT scan showed a small-bowel obstruction patient is seen by surgery team NG tube is placed for decompression, today patient states feeling little better, still not passing any gas or BM, and there is significant NG output, surgery service is recommending continue present management, will repeat abdominal x-ray tomorrow and further recommendation to follow, and also has acute kidney injury, most likely secondary to nausea, vomiting and poor p.o. intake, will gently hydrate the patient and monitor kidney function and further recommendation to follow. (2) Acute kidney injury: Code(s): N17.9 - Acute kidney failure, unspecified Status: Acute Assessment and Plan: The patient had multiple episodes of vomitus. Most likely is dehydrated. He has elevated H&H. Continue with IV fluids for now and recheck in the a.m.. It appears the patient has chronic renal failure stage 3. His creatinine and GFR worse today. (3) Acute UTI: Code(s): N39.0 - Urinary tract infection, site not specified Status: Acute Assessment and Plan: Continue with ceftriaxone and blood and urine cultures are pending (4) Diabetes: Code(s): E11.9 - Type 2 diabetes mellitus without complications Status: Chronic Assessment and Plan: Accu-Cheks q.6 hours sliding scale q.6 check A1c (5) Mixed hyperlipidemia: Code(s): E78.2 - Mixed hyperlipidemia Status: Acute Assessment and Plan: Patient is NPO. (6) Restless legs syndrome: Code(s): G25.81 - Restless legs syndrome Status: Acute Assessment and Plan: Holding home medications. (7) COPD with asthma: Code(s): J44.9 - Chronic obstructive pulmonary disease, unspecified Status: Acute Assessment and Plan: Continue with inhalers. (8) Glaucoma: Code(s): H40.9 - Unspecified glaucoma Status: Chronic Assessment and Plan: Continue with eyedrops Subjective Date/time seen: 11/24/20 12:54 patient is 80-year-old male with history of bladder cancer status post ileal conduit with history of SBO presented emergency department with a complaint abdominal pain CT scan showed a small-bowel obstruction patient is seen by surgery team NG tube is placed for decompression, today patient states feeling little better, still not passing any gas or BM, and there is significant NG output, surgery service is recommending continue present management, will repeat abdominal x-ray tomorrow and further recommendation to follow, and also has acute kidney injury, most likely secondary to nausea, vomiting and poor p.o. intake, will gently hydrate the patient and monitor kidney function and further recommendation to follow. Review of Systems Review of Systems: All systems reviewed & are unremarkable except as noted in HPI and below Exam Narrative: Exam Narrative: Elderly frail Patient is comfortable, NAD HEENT: eyes are clear and none icteric LUNGS:CTA HEART: RR S1S2 ABD: Distended bowel sounds are faint diffusely tender Lower extremities: no edema SKIN: nonjaundiced Neuro: grossly intact. Objective Data Vital Signs Vital Signs: Vital Signs - 24 hr 11/23/20 13:15 11/23/20 13:31 11/23/20 14:15 Temperature 97.4 F L Pulse Rate 116 H Respiratory Rate 16 Blood Pressure 124/82 110/77 Pulse Oximetry 9
[2020-11-24 13:43] LABS: Glucose Point of Care 152 (65-105)
[2020-11-24 14:00] VITALS: BP 118/75; PULSE 92; RESP 18; TEMP 36.9; O2SAT 95
--- NOTE | 2020-11-24 16:10 | WPDURCON ---
Assessment and Plan Assessment and plan (1) History of bladder cancer: Code(s): Z85.51 - Personal history of malignant neoplasm of bladder Status: Acute (2) Acute renal failure (ARF): Code(s): N17.9 - Acute kidney failure, unspecified Status: Acute (3) Acute UTI: Code(s): N39.0 - Urinary tract infection, site not specified Status: Acute Assessment and Plan: Continue IV antibiotics, culture results pending, tailor abx to culture results. (4) Ureteral obstruction: Code(s): N13.5 - Crossing vessel and stricture of ureter without hydronephrosis Status: Acute Assessment and Plan: If Dr. Nevarez plans to operate for his small bowel obstruction, Dr. Oden would like to also do an endoscopy of conduit, bilateral retrograde pyelogram and possible bilateral stent placement while the patient is under anesthesia. Obtain consent as a precaution. Urology Consult Note HPI Date Seen: 11/24/20 Requesting Physician: Ludy Mccoy MD Primary Care Provider: Moises Curtis Jr., MD Consult Narrative Narrative: Kevin Figueredo is a 80 year old male who was admitted and is being monitored for a small bowel obstruction. He was found to have persistent wall thickening of the distal left ureter extending 4-5 cm proximal to the anastomosis with a right lower quadrant ileal conduit. This could be inflammatory related to infection or recurrent malignancy, status post cystectomy, prostatectomy and bilateral pelvic lymph node dissection on CT from yesterday. His creatinine is elevated at 2.90 which is higher than baseline for him at 1.40 most recently in 07/2020. His WBC is normal at 3.3 and blood/urine cultures are pending. He is a patient of Dr. Oden' who did perform a cystectomy, prostatectomy and bilateral pelvic lymph node dissection on him in the past. He remains on Ceftriaxone with an NG tube in and no sign of bowel function at this time. 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 Lennon in 2010 History of ileal conduit 2009 S/P radical cystoprostatectomy 2009 Family History Family History Mother Family history of allergic disorder Father Family history of malignant neoplasm of stomach Other Asthma Family history of arthritis Social History Social History Social History: The patient lives at home with his and she is the durable power staff attorney for healthcare. He has 1 son. He is a former smoker. The patient is a full code. The patient drinks about 2 or 3 beers a night. 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 Smoking status: Former smoker Smoking end date: 09/24/90 Alcohol intake: current Drinks per week: 21 Substance use: never
[2020-11-24] MEDS: BISACODYL 10 MG SUPPOSITORY RECTAL (18:26)
[2020-11-24] MEDS: MAGNESIUM HYDROXIDE SUSP 30 ML UDC FEED TUBE (18:26)
[2020-11-24 18:41] LABS: Glucose Point of Care 146 (65-105)
[2020-11-24 20:20] VITALS: BP 112/61; PULSE 100; RESP 18; TEMP 36.5; O2SAT 94
[2020-11-24] MEDS: LATANOPROST 0.005% OP SOLN 2.5 ML BTL 1 DROP EACH EYE (20:42)
[2020-11-25] VITALS (14 sets, daily range): BP systolic 101–153; BP diastolic 53–74; PULSE 83–127; RESP 16–26; TEMP 36.4–37.2; O2SAT 90–95
[2020-11-25 00:30] LABS: Glucose Point of Care 136 (65-105)
[2020-11-25] MEDS: MORPHINE SULFATE (*CRX) 4 MG/ML INJ IV PUSH ×2 (02:53→09:00)
[2020-11-25] MEDS: LACTATED RINGERS 1,000 ML 125 ML IV CONT (05:21)
[2020-11-25 06:00] LABS: Hematocrit 44.7 % (42.0-52.0); Hemoglobin 15.3 g/dL (14.0-18.0); Mean Corpuscular HGB Conc 34.2 g/dl (32-36); Mean Corpuscular Volume 90.5 fl (80-100); Mean Platelet Volume 10.8 fl (7.4-10.4); Platelet Count Result 184 k/mm3 (150-375); Red Blood Count 4.94 M/mm3 (4.6-6.20); Red Cell Distribution Width 15.1 % (11.5-14.5)
[2020-11-25 06:30] LABS: Alanine Aminotransferase 26 U/L (4-50); Albumin Level 3.7 g/dL (3.5-5.1); Alkaline Phosphatase 47 U/L (38-126); Anion Gap 11 mmol/L (8-16); Aspartate Amino Transferase 26 U/L (17-59); Bilirubin,Total 1.5 mg/dL (0.2-1.3); Blood Urea Nitrogen 83 mg/dL (9-20); Calcium 8.2 mg/dL (8.4-10.2); Carbon Dioxide 32 mmol/L (22-30); Chloride 94 mmol/L (98-107); Estimated CRCL calculation 19 ml/min; Estimated Glomerular Filt Rate 18; Glucose 148 mg/dL (75-110); Potassium 3.8 mmol/L (3.4-5.0); Sodium 137 mmol/L (137-145)
[2020-11-25 08:30] LABS: Magnesium 2.2 mg/dL (1.6-2.3)
[2020-11-25] MEDS: PHENOL/SOD PHENO SPRAY CHERRY (*BKC) 1 SPRAY MUCOUS MEM (08:41)
[2020-11-25] MEDS: BRIMONIDINE TARTRATE 0.1% 5 ML OPHTH DROPS 1 DROP EACH EYE ×2 (08:41→22:54)
--- NOTE | 2020-11-25 09:07 | WPDHPUPDATE1 ---
History and Physical Update Update Date/Time: 11/25/20 09:07 History and Physical has been reviewed, including an updated exam of the patient. There are changes in the patient's condition. Patient's small bowel obstruction is not resolving. Also his BUN creatinine are increasing so we will be getting a nephrology consultation. Patient understands there are risks of surgery including bleeding, infection, possible injury to the misplaced her displaced ureters and possible need for open surgery. He realizes he is not getting better so he would like to proceed today. I have discussed the situation with both Dr. Stuart and Dr. Oden and we are planning to proceed this afternoon. Risks, benefits, and alternatives Of a diagnostic laparoscopy with possible lysis of adhesions and release of small-bowel obstruction. Possible laparotomy with a 50- 50 chance that we will need to do open surgery for resolution of this problem. These issues have been discussed and questions answered. Patient agrees to proceed with procedure. DJ
[2020-11-25] MEDS: LACTATED RINGERS 1,000 ML 150 ML IV CONT ×2 (10:28→22:54)
[2020-11-25] MEDS: LACTATED RINGERS 1,000 ML 30 ML IV CONT ×2 (11:10→15:11)
--- NOTE | 2020-11-25 11:29 | WPDANESEPPF ---
Anes - Initial Pre Proc Eval Procedure: Operation Date: 11/25/20 12:00 Proposed Procedures p Diagnostic Laparoscopy,Possible Lysis Of Adhesions,Release Of Small Bowel Obstruction,Possible Laparotomy - Lauro Nevarez MD s Stent Placement for Abdominal Surgery - Rome Oden MD Date/Time: 11/25/20 11:29 Pre Op Diagnosis: small bowel obstruction, UTI Patient Data Age: 80 Gender: M Height: 1.85 m Weight: 96.1 kg Last Vital Signs Temp 36.6 C 11/25/20 05:25 Pulse 127 H 11/25/20 05:25 Resp 18 11/25/20 05:25 BP 117/63 11/25/20 05:25 Pulse Ox 91 11/25/20 05:25 Allergies Allergy/AdvReac Type Severity Reaction Status Date / Time grass pollen Allergy Mild Sneezing Verified 11/23/20 18:16 pollen extracts Allergy Mild Sneezing Verified 11/23/20 18:16 Home Medications Medication Instructions Recorded Confirmed Type albuterol sulfate 1 puff INHALATION Q4-6H PRN 11/23/20 11/23/20 History amlodipine 5 mg PO DAILY 11/23/20 11/23/20 History atorvastatin 40 mg PO DAILY 11/23/20 11/23/20 History brimonidine [Alphagan P] 1 drp EACH EYE BID 11/23/20 11/23/20 History celecoxib 200 mg PO DAILY 11/23/20 11/23/20 History colchicine 0.6 mg PO BID 11/23/20 11/23/20 History ergocalciferol (vitamin D2) 1,250 mcg PO WEEKLY 11/23/20 11/23/20 History fluticasone propion-salmeterol 1 inh INHALATION BID 11/23/20 11/23/20 History [Wixela Inhub] latanoprost 1 drp EACH EYE HS 11/23/20 11/23/20 History perindopril erbumine 4 mg PO DAILY 11/23/20 11/23/20 History ropinirole 2 mg PO HS 11/23/20 11/23/20 History sitagliptin [Januvia] 50 mg PO DAILY 11/23/20 11/23/20 History Laboratory Tests 11/24/20 11/24/20 11/25/20 13:19 18:25 00:20 WBC RBC Hgb Hct MCV MCH MCHC RDW Plt Count MPV Sodium Potassium Chloride Carbon Dioxide Anion Gap BUN Creatinine Estim Creat Clear Calc Estimated GFR Glucose POC Capillary Glucose 152 mg/dl H mg/dl 146 mg/dl H mg/dl 136 mg/dl H mg/dl (65-105) (65-105) (65-105) Calcium Magnesium Total Bilirubin AST ALT Alkaline Phosphatase Total Protein Albumin 11/25/20 11/25/20 11/25/20 05:49 05:49 05:49 WBC 4.0 K/mm3 L K/mm3 (4.5-10.0) RBC 4.94 M/mm3 M/mm3 (4.6-6.20) Hgb 15.3 g/dL g/dL (14.0-18.0) Hct 44.7 % % (42.0-52.0) MCV 90.5 fl fl (80-100) MCH 31.0 pg pg (26-34) MCHC 34.2 g/dl g/dl (32-36) RDW 15.1 % H % (11.5-14.5) Plt Count 184 k/mm3 k/mm3 (150-375) MPV 10.8 fl H fl (7.4-10.4) Sodium 137 mmol/L mmol/L (137-145) Potassium 3.8 mmol/L mmol/L (3.4-5.0) Chloride 94 mmol/L L mmol/L (98-107) Carbon Dioxide 32 mmol/L H mmol/L (22-30) Anion Gap 11 mmol/L mmol/L (8-16) BUN 83 mg/dL H D mg/dL (9-20) Creatinine 3.30 mg/dL H mg/dL (0.7-1.3) Estim Creat Clear Calc 19 ml/min ml/min Estimated GFR 18 L (59 - ) Glucose 148 mg/dL H mg/dL (75-110) POC Capillary Glucose Calcium 8.2 mg/dL L mg/dL (8.4-10.2) Magnesium 2.2 mg/dL mg/dL (1.6-2.3) Total Bilirubin 1.5 mg/dL H mg/dL (0.2-1.3) AST 26 U/L U/L (17-59) ALT 26 U/L U/L (4-50) Alkaline Phosphatase 47 U/L U/L (38-126) Total Protein 7.0 g/dL g/dL (6.3-8.2) Albumin 3.7 g/dL g/dL (3.5-5.1) ECG: Date of Service: 11/23/20 Procedure(s): CA 12 lead EKG Accession Number(s): [id number] cc: ~ Measurements Intervals
[2020-11-25 11:37] LABS: Glucose Point of Care 147 (65-105)
--- NOTE | 2020-11-25 11:49 | WPDHPUPDATE1 ---
History and Physical Update Update Date/Time: 11/25/20 11:49 History and Physical has been reviewed, including an updated exam of the patient. There are NO changes in the patient's condition. Risks, benefits, and alternatives have been discussed and questions answered. Patient agrees to proceed with procedure. Will proceed with endoscopy of conduit with bilateral retrogrades and stents
--- NOTE | 2020-11-25 12:02 | PM.IMPN ---
Progress Note: A&P Assessment and Plan (1) Small bowel obstruction: Code(s): K56.609 - Unspecified intestinal obstruction, unspecified as to partial versus complete obstruction Status: Acute Assessment and Plan: 11/25/20 12:02 Patient has NG tube in surgery has seen the patient. The patient has had multiple abdominal surgeries in the past. Hopefully we can resolve this conservatively. Continue with pain management and IV fluids. 11/24/20 12:54 patient is 80-year-old male with history of bladder cancer status post ileal conduit with history of SBO presented emergency department with a complaint abdominal pain CT scan showed a small-bowel obstruction patient is seen by surgery team NG tube is placed for decompression, today patient states feeling little better, still not passing any gas or BM, and there is significant NG output, surgery service is recommending continue present management, will repeat abdominal x-ray tomorrow and further recommendation to follow, and also has acute kidney injury, most likely secondary to nausea, vomiting and poor p.o. intake, will gently hydrate the patient and monitor kidney function and further recommendation to follow. 11/25 DP since complaints of abdominal pain with nausea, no BM or passing any gas, abdominal x-ray shows persistent small bowel obstruction, there is significant NG output, discussed with Dr. Nevarez plan is to take the patient to OR for exploratory surgery as well as urologist will also reassess patient ileal conduit, patient creatinine is keep rising on IV fluid, will do renal US, will consult Dr. Ramirez for further recommendations, will continue to monitor. (2) Acute kidney injury: Code(s): N17.9 - Acute kidney failure, unspecified Status: Acute Assessment and Plan: The patient had multiple episodes of vomitus. Most likely is dehydrated. He has elevated H&H. Continue with IV fluids for now and recheck in the a.m.. It appears the patient has chronic renal failure stage 3. His creatinine and GFR worse today. (3) Acute UTI: Code(s): N39.0 - Urinary tract infection, site not specified Status: Acute Assessment and Plan: Continue with ceftriaxone and blood and urine cultures are pending (4) Diabetes: Code(s): E11.9 - Type 2 diabetes mellitus without complications Status: Chronic Assessment and Plan: Accu-Cheks q.6 hours sliding scale q.6 check A1c (5) Mixed hyperlipidemia: Code(s): E78.2 - Mixed hyperlipidemia Status: Acute Assessment and Plan: Patient is NPO. (6) Restless legs syndrome: Code(s): G25.81 - Restless legs syndrome Status: Acute Assessment and Plan: Holding home medications. (7) COPD with asthma: Code(s): J44.9 - Chronic obstructive pulmonary disease, unspecified Status: Acute Assessment and Plan: Continue with inhalers. (8) Glaucoma: Code(s): H40.9 - Unspecified glaucoma Status: Chronic Assessment and Plan: Continue with eyedrops Subjective Date/time seen: 11/25/20 12:02 Patient has NG tube in surgery has seen the patient. The patient has had multiple abdominal surgeries in the past. Hopefully we can resolve this conservatively. Continue with pain management and IV fluids. 11/24/20 12:54 patient is 80-year-old male with history of bladder cancer status post ileal conduit with history of SBO presented emergency department with a complaint abdominal pain CT scan showed a small-bowel obstruction patient is seen by surgery team NG tube is placed for decompression, today patient states feeling little better, still not passing any gas or BM, and there is significant NG output, surgery service is recommending continue present management, will repeat abdominal x-ray tomorrow and further recommendation to follow, and also has acute kidney injury, most likely secondary to nausea, vomiting and poor p.o. intake, will gently hy
[2020-11-25] MEDS: metroNIDAZOLE 500 MG/ISO 100ML 500 MG/100 ML BAG 100 MG IVPB (12:07)
[2020-11-25 12:29] LABS: Glucose Point of Care 157 (65-105)
[2020-11-25] MEDS: BUPIVACAINE/EPINEPHRINE 0.5% 30 ML VIAL 7 ML INFILTRATE (13:05)
--- NOTE | 2020-11-25 13:10 | P.OP_ITS ---
Procedure Note - Detailed Date of procedure: 11/25/20 Pre-op diagnosis: small bowel obstruction, UTI Post-op diagnosis: same Procedure performed: Endoscopy of ileal conduit, bilateral retrograde pyelograms, bilateral ureteral stents external, left ureteroscopy, Botello catheter placement Description of procedure: Patient is taken the operative suite and correctly identified. He is to be undergoing a exploration with possible adhesiolysis for small bowel obstruction. He was noted to have some thickening of the left distal ureter. We were asked to place preoperative stents and evaluate this further. He was prepped and draped usual sterile fashion. Flexible scope was inserted into the conduit. There was no tumors noted. We were able to visualize both anastomotic ureters. We placed a guidewire to both of these and followed those using fluoroscopy. We then obtained a flexible ureteral scope and looked up the left ureter. There were no tumors or other irregularities in the distal ureter at this time. We did pyelograms bilaterally to confirm placement of the stents. Five [place] stents were placed. We then placed a 16 [place] coude catheter into the conduit inflated with 8 cc of sterile water. The stents were secured using 3 0 chromic to the skin. At this point time Dr. Nevarez was to complete his portion of the procedure. He will maintain the catheter and stents and placement conduit back at termination. Anesthesia: GLMA Surgeon: Rome Oden MD Drains: Yes Packing: No Pathology: none sent Complications: No immediate complications Condition: stable Disposition: PACU
--- NOTE | 2020-11-25 13:40 | SUR.OPER ---
ILEAL CONDUIT SITE/POST PLACEMENT OF COUDE CATHETER AND BILATERAL STENTS/ATTACHED TO 2000ML U/A BAG. STENT WITH BLACK MARKING LEFT. ATTACHED TO U/A BAG. TEADERM OVER STENTS AND CATHETER RLQ/PINON SECURE TO BED/BAG TO ANESTHESIA. NO KINKS IN TUBING OR BILATERAL CATHETERS. URETERAL CATHETERS BOTH DRAINING AND SUTURED IN PLACE. NO TENSION ON PINON TUBING OR BAG.
--- NOTE | 2020-11-25 15:05 | PM.PROC ---
Procedure Note - Detailed Date of procedure: 11/25/20 Pre-op diagnosis: small bowel obstruction, UTI 2. umbilical hernia. Post-op diagnosis: same Procedure performed: 1. Laparoscopic lysis of adhesions with release of small-bowel obstruction. 2. Laparoscopic umbilical hernia repair Description of procedure: Patient was seen preoperatively any in his hospital room and marked on his belly. I entered the room after Dr. Oden had performed a [place] copy of the patient's neobladder/ileal conduit. At that point we discussed the catheters in ureters and the coude tip Botello catheter. At this point Dr. Oden and I decided to suture them to the skin and then for connected to Botello catheter bag on the right side of the table and held in place with a Tegaderm on the lateral side of the patient's abdomen. At the end of the procedure a ileostomy bag was placed around the stoma containing the 3 to is (the 2 ureteral catheters and the Botello catheter which ends in the neobladder/ileocoduit. Following this the patient's abdomen was prepped and draped widely. We made sure to place the sticky part of the drape on the blue towel inferior to the lateral left side she the right side of his abdomen so that they did not pull on the above-mentioned tubes from the ureter and ileal conduit. Following this we started by pace placing the patient slightly head-up position. His NG tube was on suction and we selected a site 2 fingerbreadths below the left costal margin for entry site for laparoscopy. Standard entry using a Veress needle was performed. This was done by carefully placing local anesthetic and then 2 towel clips on incision in the left upper quadrant these were elevated and a Veress needle was placed through the opening into the peritoneum confirming intraperitoneal access with the water drop test. Following this CO2 gas to foot to 15 mmHg pressure CO2 was insufflated. Following this a 0 degree laparoscoped over a 5 mm trocar was advanced into the abdomen without difficulty and secured. CO2 gas at 40 liters/minute was attached for operative laparoscopy. Following this we took down we placed another 5 mm port along the left lateral abdomen in a site where we could see there was free abdominal cavity approximately 8-10 cm more inferior along the anterior axillary line left abdomen. A few adhesions were lysed here it appeared that there was a wide band of adhesions of the omentum to the anterior abdominal wall up against the old mesh which was laid in the mid and lower abdomen. Following this another 5 mm port was placed again about 6 cm more inferior so they were lined up along the left anterior axillary line in along the abdomen. I then used scissors kit nurse and a [place] connected to cautery to carefully take down the adhesions from the omentum to the anterior abdominal wall and to the underlying mesh. Near the umbilicus where the CT scan reported the site of the obstruction we did run into area where there was a loop of small bowel densely adhered to the omentum into the anterior abdominal wall and mesh. This was carefully freed up with gentle dissection. At no time was there any entry into the bowel or any other enterotomies that I can tell. At this point inferiorly were able to find a loop of on this dilated small bowel and followed this back to the loop that had been somewhat kinked underneath the umbilicus. I did some more dissection on this to free it and this loop appeared to be emptying into the decompressed bowel. I followed this back further and there was only dilated bowel more proximal to this. I did not take down all the adhesions between the loops of bowel that were under this layer of omentum. I did take down to I areas of adhesions from the omentum that were up to the palpable umbilical hernia which was about a 2.5 cm defect palpable on the skin. We did not dissect too close to the ileostomy site. We left this alone. Following this since I felt that we had
--- NOTE | 2020-11-25 15:26 | SUR.PHASEI ---
1511; DR ROSEN STATES PLACE NG TO LIS. NO KUB NEEDED. NG WAS PLACED PRIOR TO SURGERY PER DR ROSEN.
--- NOTE | 2020-11-25 15:51 | SUR.PHASEI ---
SAO2 RANGES FROM 88%-92% ON ROOM AIR. O2 2L NC APPLIED. RESP EVEN UNLABORED. P,W,D.
[2020-11-25 15:56] LABS: Glucose Point of Care 125 (65-105)
--- NOTE | 2020-11-25 16:19 | PC.NURSE ---
Report given to Vannesa on IMU. Spoke with regarding patients need for a higher level of care at this time.
--- NOTE | 2020-11-25 16:27 | SUR.PHASEI ---
PT AWAKE AND ALERT. DENIES PAIN OR NAUSEA. ASKING FOR ICE CHIPS.
[2020-11-25 18:16] LABS: Glucose Point of Care 130 (65-105)
[2020-11-25] MEDS: LATANOPROST 0.005% OP SOLN 2.5 ML BTL 1 DROP EACH EYE (22:54)
[2020-11-26] VITALS (14 sets, daily range): BP systolic 119–141; BP diastolic 55–95; PULSE 81–98; RESP 18–22; TEMP 36.2–36.6; O2SAT 90–94
[2020-11-26 00:15] LABS: Glucose Point of Care 119 (65-105)
[2020-11-26] MEDS: MORPHINE SULFATE (*CRX) 2 MG/ML INJ IV PUSH ×2 (02:20→12:39)
[2020-11-26 04:54] LABS: Glucose Point of Care 129 (65-105)
[2020-11-26 04:58] LABS: Hematocrit 38.6 % (42.0-52.0); Hemoglobin 12.8 g/dL (14.0-18.0); Mean Corpuscular HGB Conc 33.2 g/dl (32-36); Mean Corpuscular Hemoglobin 30.1 pg (26-34); Mean Corpuscular Volume 90.8 fl (80-100); Mean Platelet Volume 10.5 fl (7.4-10.4); Platelet Count Result 176 k/mm3 (150-375); Red Blood Count 4.25 M/mm3 (4.6-6.20); Red Cell Distribution Width 15.1 % (11.5-14.5); White Blood Count 3.8 K/mm3 (4.5-10.0)
[2020-11-26 05:17] LABS: Lactic Acid Reflex 1.1 mmol/L (0.7-2.1)
[2020-11-26 05:33] LABS: Alanine Aminotransferase 25 U/L (4-50); Alkaline Phosphatase 57 U/L (38-126); Anion Gap 5 mmol/L (8-16); Aspartate Amino Transferase 33 U/L (17-59); Bilirubin,Total 1.6 mg/dL (0.2-1.3); Blood Urea Nitrogen 72 mg/dL (9-20); Calcium 7.6 mg/dL (8.4-10.2); Carbon Dioxide 32 mmol/L (22-30); Chloride 98 mmol/L (98-107); Estimated CRCL calculation 22 ml/min; Estimated Glomerular Filt Rate 22; Glucose 117 mg/dL (75-110); Magnesium 2.4 mg/dL (1.6-2.3); Potassium 3.7 mmol/L (3.4-5.0); Sodium 135 mmol/L (137-145)
[2020-11-26] MEDS: LACTATED RINGERS 1,000 ML 150 ML IV CONT ×2 (05:37→12:37)
[2020-11-26] MEDS: ENOXAPARIN 30 MG/0.3 ML SYRINGE SUB-Q (08:39)
[2020-11-26] MEDS: BRIMONIDINE TARTRATE 0.1% 5 ML OPHTH DROPS 1 DROP EACH EYE ×2 (08:39→17:48)
[2020-11-26] MEDS: PANTOPRAZOLE SODIUM IV 40 MG VIAL IV PUSH (08:39)
--- NOTE | 2020-11-26 09:33 | WPDANESPN ---
Anes - Prog Note Post-Op Date/Time: 11/26/20 09:33 Cardiovascular status: normal Respiratory status: other (supplemental O2 per NC) Airway patency: baseline Mental status: baseline Post-Op hydration status: normal Vital Signs: Last Vital Signs Temp 36.5 C 11/26/20 08:00 Pulse 89 11/26/20 08:00 Resp 20 11/26/20 08:00 BP 129/70 11/26/20 08:00 Pulse Ox 93 11/26/20 08:00 Pain Score (VAS): 4 I/O: Intake & Output 11/25/20 11/26/20 11/26/20 23:59 07:59 15:59 Intake Total 1100 1000 Output Total 300 1400 Balance 800 -400 Laboratory Tests 11/26/20 04:28 11/26/20 04:28 11/25/20 11/25/20 11/25/20 05:19 09:42 11:25 WBC RBC Hgb Hct MCV MCH MCHC RDW Plt Count MPV Sodium Potassium Chloride Carbon Dioxide Anion Gap BUN Creatinine Estim Creat Clear Calc Estimated GFR Glucose POC Capillary Glucose 157 H 147 H Lactic Acid Calcium Magnesium Total Bilirubin AST ALT Alkaline Phosphatase Total Protein Albumin Blood Type A Positive Antibody Screen Negative 11/25/20 11/25/20 11/26/20 15:53 18:13 00:02 WBC RBC Hgb Hct MCV MCH MCHC RDW Plt Count MPV Sodium Potassium Chloride Carbon Dioxide Anion Gap BUN Creatinine Estim Creat Clear Calc Estimated GFR Glucose POC Capillary Glucose 125 H 130 H 119 H Lactic Acid Calcium Magnesium Total Bilirubin AST ALT Alkaline Phosphatase Total Protein Albumin Blood Type Antibody Screen 11/26/20 11/26/20 11/26/20 04:28 04:28 04:28 WBC 3.8 L RBC 4.25 L Hgb 12.8 L Hct 38.6 L MCV 90.8 MCH 30.1 MCHC 33.2 RDW 15.1 H Plt Count 176 MPV 10.5 H Sodium 135 L Potassium 3.7 Chloride 98 Carbon Dioxide 32 H Anion Gap 5 L BUN 72 H D Creatinine 2.80 H Estim Creat Clear Calc 22 Estimated GFR 22 L Glucose 117 H POC Capillary Glucose Lactic Acid 1.1 Calcium 7.6 L Magnesium 2.4 H Total Bilirubin 1.6 H AST 33 ALT 25 Alkaline Phosphatase 57 Total Protein 6.0 L Albumin 3.0 L Blood Type Antibody Screen 11/26/20 04:37 WBC RBC Hgb Hct MCV MCH MCHC RDW Plt Count MPV Sodium Potassium Chloride Carbon Dioxide Anion Gap BUN Creatinine Estim Creat Clear Calc Estimated GFR Glucose POC Capillary Glucose 129 H Lactic Acid Calcium Magnesium Total Bilirubin AST ALT Alkaline Phosphatase Total Protein Albumin Blood Type Antibody Screen Post-procedural complaints: none Patient Feedback: Patient satisfied with anesthetic care.
--- NOTE | 2020-11-26 11:18 | PM.CNNEP ---
Assessment and Plan Assessment and plan (1) Acute renal failure (ARF): Code(s): N17.9 - Acute kidney failure, unspecified Status: Acute Assessment and Plan: Kevin has acute kidney injury. It looks like his creatinine is usually between 1.5 and 1.9. However on admission his creatinine was up to 2.4 and deyanira to 3.3 yesterday. There are several things that might be contributing to this rise in creatinine. He was probably dehydrated when he came in because of small-bowel obstruction, diarrhea, and not eating very well. He also was taking Celecoxib which can make the creatinine higher. his ureter was also inflamed and so may have had some obstructive issues. And finally the abdominal process may have contributed to renal insufficiency as well. Currently is getting IV fluids, he is off the celecoxib, he has had his surgery done, and his creatinine is actually a little bit better today. Hopefully this will continue to trend in the proper direction. As long as it does I do not think we needed to do any more testing besides following the creatinine at this point. (2) Ureteral obstruction: Code(s): N13.5 - Crossing vessel and stricture of ureter without hydronephrosis Status: Acute Assessment and Plan: Stents are in place (3) Complete obstruction of small intestine: Code(s): K56.601 - Complete intestinal obstruction, unspecified as to cause Status: Acute Assessment and Plan: status post laparotomy (4) Essential (primary) hypertension: Code(s): I10 - Essential (primary) hypertension Status: Chronic Assessment and Plan: blood pressure is under good control (5) Diabetes: Code(s): E11.9 - Type 2 diabetes mellitus without complications Status: Chronic Assessment and Plan: he is on Accu-Cheks and sliding-scale in History of Present Illness Reason for Consult Consult date: 11/26/20 Chief Complaint Chief complaint: small bowel obstruction History of Present Illness Narrative: Kevin is a very pleasant 80-year-old gentleman who has multiple medical problems including COPD, diabetes, hypertension, gouty arthritis, hyperlipidemia, vitamin-D deficiency, restless legs, bladder cancer status post radical cystoprostatectomy. The patient says his illness started a couple days before he came in with abdominal discomfort. He said he was eating pretty well during those 2 days but not great. He had some diarrhea during the 2 days as well. He continued to take his medications including celecoxib during these 2 days as well. The patient's symptoms became worse and so he came to the ER. He was evaluated there and admitted. It turned out he had an obstruction of the small bowel and also persistent wall thickening of the distal left ureter. The patient had an NG-tube placed and was admitted. He was seen by surgery Neurology. Yesterday he went for surgery to relieve the adhesions to improve the bowel obstruction and also had stents placed in a Botello catheter placed. The patient feels better today. He is not passing any gas. Has no chest pain or shortness of breath. Review of Systems Constitutional: Constitutional: Reports no additional constitutional complaints Eyes: Eyes: Reports no additional eye complaints ENT: Reports system reviewed and no additional complaints, except as documented Cardiovascular: Cardiovascular: Reports no additional cardiovascular complaints Respiratory: Respiratory: Reports no additional respiratory complaints Gastrointestinal: Gastrointestinal: Reports no additional gastrointestinal complaints Genitourinary: Genitourinary: Reports no additional male genitourinary complaints Musculoskeletal: Musculoskeletal: Reports no additional musculoskeletal complaints Integumentary/Breasts: Skin/Breast: Reports system reviewed and no additional complaints, except as docu Neurologic: Reports system rev
[2020-11-26 12:57] LABS: Glucose Point of Care 131 (65-105)
[2020-11-26] MEDS: BISACODYL 10 MG SUPPOSITORY RECTAL (14:54)
--- NOTE | 2020-11-26 15:20 | PM.IMPN ---
Progress Note: A&P Assessment and Plan (1) Small bowel obstruction: Code(s): K56.609 - Unspecified intestinal obstruction, unspecified as to partial versus complete obstruction Status: Acute Assessment and Plan: 11/26/20 15:20 Patient has NG tube in surgery has seen the patient. The patient has had multiple abdominal surgeries in the past. Hopefully we can resolve this conservatively. Continue with pain management and IV fluids. 11/24/20 12:54 patient is 80-year-old male with history of bladder cancer status post ileal conduit with history of SBO presented emergency department with a complaint abdominal pain CT scan showed a small-bowel obstruction patient is seen by surgery team NG tube is placed for decompression, today patient states feeling little better, still not passing any gas or BM, and there is significant NG output, surgery service is recommending continue present management, will repeat abdominal x-ray tomorrow and further recommendation to follow, and also has acute kidney injury, most likely secondary to nausea, vomiting and poor p.o. intake, will gently hydrate the patient and monitor kidney function and further recommendation to follow. 11/25 DP since complaints of abdominal pain with nausea, no BM or passing any gas, abdominal x-ray shows persistent small bowel obstruction, there is significant NG output, discussed with Dr. Nevarez plan is to take the patient to OR for exploratory surgery as well as urologist will also reassess patient ileal conduit, patient creatinine is keep rising on IV fluid, will do renal US, will consult Dr. Ramirez for further recommendations, will continue to monitor. 11/26 status post laparoscopy surgery to resolve small-bowel obstruction and repair of ileal conduit, today patient still complains of abdominal and feels nauseated, not passing any or BM, seen by surgery service patient will receive Dulcolax suppository to help with bowel movement, patient is being gently hydrated his creatinine is improving will encourage him to ambulate. patient will benefit from PT/OT. (2) Acute kidney injury: Code(s): N17.9 - Acute kidney failure, unspecified Status: Acute Assessment and Plan: The patient had multiple episodes of vomitus. Most likely is dehydrated. He has elevated H&H. Continue with IV fluids for now and recheck in the a.m.. It appears the patient has chronic renal failure stage 3. His creatinine and GFR worse today. (3) Acute UTI: Code(s): N39.0 - Urinary tract infection, site not specified Status: Acute Assessment and Plan: Continue with ceftriaxone and blood and urine cultures are pending (4) Diabetes: Code(s): E11.9 - Type 2 diabetes mellitus without complications Status: Chronic Assessment and Plan: Accu-Cheks q.6 hours sliding scale q.6 check A1c (5) Mixed hyperlipidemia: Code(s): E78.2 - Mixed hyperlipidemia Status: Acute Assessment and Plan: Patient is NPO. (6) Restless legs syndrome: Code(s): G25.81 - Restless legs syndrome Status: Acute Assessment and Plan: Holding home medications. (7) COPD with asthma: Code(s): J44.9 - Chronic obstructive pulmonary disease, unspecified Status: Acute Assessment and Plan: Continue with inhalers. (8) Glaucoma: Code(s): H40.9 - Unspecified glaucoma Status: Chronic Assessment and Plan: Continue with eyedrops Subjective Date/time seen: 11/26/20 15:20 Patient has NG tube in surgery has seen the patient. The patient has had multiple abdominal surgeries in the past. Hopefully we can resolve this conservatively. Continue with pain management and IV fluids. 11/24/20 12:54 patient is 80-year-old male with history of bladder cancer status post ileal conduit with history of SBO presented emergency department with a complaint abdominal pain CT scan showed a small-bowel obstruction patient is se
--- NOTE | 2020-11-26 15:27 | WPDUROPN2 ---
Progress Note: A&P Assessment and Plan (1) Ureteral obstruction: Code(s): N13.5 - Crossing vessel and stricture of ureter without hydronephrosis Status: Acute Assessment and Plan: Patient's endoscopy went smoothly and his urine is draining well into the catheter bag, his stents are visible through the stoma. Will keep stents in through the weekend and re-assess on Sunday. Subjective Subjective Date/Time Seen: 11/26/20 15:27 POD #1 Endoscopy of ileal conduit, bilateral retrograde pyelograms, bilateral ureteral stents external, left ureteroscopy, Botello catheter placement Patient doing well, he is up in the chair and in minimal pain. Review of Systems Cardiovascular: Cardiovascular: Denies chest pain Respiratory: Respiratory: Reports no additional respiratory complaints Gastrointestinal: Gastrointestinal: Denies abdominal pain, Denies nausea and Denies vomiting Genitourinary: Genitourinary: Denies hematuria and Denies flank pain Exam Resp: Effort & Inspection: abnormal respiratory effort Cardio: Rate: regular rate GI: GI Palp: Yes Soft to palpation and No Tenderness to palpation present (GI) : General: Yes no CVA tenderness Urinary Catheter: Urinary Catheter: patent and draining and urine pink Extrem: General: no edema Objective Data Vital Signs Vital Signs: Vital Signs - 24 hr 11/25/20 15:40 11/25/20 15:55 11/25/20 16:00 Temperature Pulse Rate 98 90 Respiratory Rate 26 H 20 Blood Pressure 123/72 117/63 Pulse Oximetry 92 94 95 11/25/20 16:18 11/25/20 16:30 11/25/20 17:12 Temperature 98 F 97.5 F L Pulse Rate 83 84 86 Respiratory Rate 18 16 18 Blood Pressure 123/61 115/57 L 115/53 L Pulse Oximetry 94 91 90 11/25/20 18:12 11/25/20 20:00 11/25/20 22:00 Temperature 97.6 F Pulse Rate 85 83 86 Respiratory Rate 16 Blood Pressure 122/59 L Pulse Oximetry 91 93 11/25/20 23:25 11/26/20 00:00 11/26/20 02:00 Temperature 97.5 F L Pulse Rate 85 90 Respiratory Rate 18 Blood Pressure 119/55 L Pulse Oximetry 93 93 11/26/20 04:00 11/26/20 06:00 11/26/20 08:00 Temperature 97.1 F L 97.7 F Pulse Rate 88 89 89 Respiratory Rate 18 20 Blood Pressure 139/59 L 129/70 Pulse Oximetry 94 93 11/26/20 09:37 11/26/20 10:00 11/26/20 12:00 Temperature 97.9 F Pulse Rate 84 81 86 Respiratory Rate 18 20 Blood Pressure 141/59 H Pulse Oximetry 93 93 11/26/20 14:00 Temperature Pulse Rate 82 Respiratory Rate Blood Pressure Pulse Oximetry Intake/Output Intake/Output: Intake & Output 11/23/20 11/24/20 11/25/20 11/26/20 23:59 23:59 23:59 23:59 Intake Total 2100 3050 3250 2050 Output Total 2325 2625 2425 1400 Balance -225 425 825 650 Meds/Results Medications: Active Medications Generic Name Dose Route Start Last Admin Trade Name Freq PRN Reason Stop Dose Admin Hydrocodone Bitart/Acetaminophen 1 tab 11/25/20 16:27 Hydrocodone/Acetaminophen (*Crx) 5-325 Mg Tablet PO Q6H PRN Pain Rated 4-6 Hydrocodone Bitart/Acetaminophen 1 tab 11/25/20 16:27 Hydrocodone/Acetaminophen (*Crx) 7.5-325 Mg Tablet PO Q6H PRN Pain Rated 7-10 Albuterol 1 puff 11/23/20 19:36 Albuterol Sulfate (*Sp) Aerosol 1 Puff INHALATION Q4-6H PRN Shortness Of Breath Or Wheezing Brimonidine Tartrate 1 drop 11/24/20 09:00 11/26/20 08:39 Brimonidine Tartrate 0.1% 5 Ml Ophth Drops EACH EYE 1 drop BID CONCHITA Administration Dextrose 12.5 gm 11/23/20 19:21 Dextrose 50% 25 Gm/50 Ml Syringe IV PUSH PRN PRN Hypoglycemia Protocol Diphenhydramine HCl 25 mg 11/25/20 16:27 Diphenhydramine Hcl Inj 50 Mg/Ml Vial IV PUSH Q6H PRN Itching Enoxaparin Sodium 30 mg 11/26/20 09:00 11/26/20 08:39 Enoxaparin 30 Mg/0.3 Ml Syringe SUB-Q 30 mg DAILY CONCHITA Administration Fentanyl Citrate 25 mcg 11/25/20 11:28 Fentanyl Citrate Inj (*Crx) 100 Mcg/2 Ml Vial IV PUSH Q2M PRN Pa
[2020-11-26 18:04] LABS: Glucose Point of Care 119 (65-105)
--- NOTE | 2020-11-26 18:45 | PM.PNGS ---
Progress Note: A&P Assessment and Plan (1) Complete obstruction of small intestine: Onset Date: ~11/22/20 Code(s): K56.601 - Complete intestinal obstruction, unspecified as to cause Status: Acute Assessment and Plan: Patient doing well postop day 1. Will begin clamping routine on his NG and check late in the day on how he tolerates it clamped.. Will perhaps either remove the NG and start sip and chips or replace it to intermittent low suction overnight and re-evaluate tomorrow morning ( Sunday) (2) Acute renal failure (ARF): Onset Date: ~11/23/20 Code(s): N17.9 - Acute kidney failure, unspecified Status: Acute Assessment and Plan: Appreciate Nephrology and Urology help. Patient appears to be improving with postop hydration and good drainage of the ureters. (3) Diabetes: Onset Date: Unknown Code(s): E11.9 - Type 2 diabetes mellitus without complications Status: Chronic Assessment and Plan: Appreciate help of hospitalist's in controlling this during postoperative period. (4) Chronic renal failure, stage 3 (moderate): Code(s): N18.30 - Chronic kidney disease, stage 3 unspecified Status: Chronic (5) Acute kidney injury: Onset Date: ~11/23/20 Code(s): N17.9 - Acute kidney failure, unspecified Status: Acute Assessment and Plan: As above and under acute renal failure. This seems to be improving (6) History of bladder cancer: Onset Date: ~2009 Code(s): Z85.51 - Personal history of malignant neoplasm of bladder Status: Acute Assessment and Plan: Status post complete cystectomy and prostatectomy with creation of ileal conduit. Question of an abnormality of the connection to the left ureter but this appeared okay on endoscopy by Dr. Oden at the time of surgery yesterday. (7) Essential (primary) hypertension: Code(s): I10 - Essential (primary) hypertension Status: Chronic (8) Type 2 diabetes mellitus without complications: Onset Date: Unknown Code(s): E11.9 - Type 2 diabetes mellitus without complications Status: Chronic Assessment and Plan: As per hospitalist. Appreciate help during the perioperative period Additional Plan hospitalist to re-evaluate use of antibiotic. If this is for possible pneumonia or UTI okay to continue if not consider stopping and re-culture ring in a few days if there are problems. Subjective Subjective Date/Time Seen: 11/26/20 18:45 Post Op day: 1 ( Doing relatively well postop day 1) Patient reports: feels better Interval history: patient is sitting up in bed when I entered the room. Thinks he has passed a little bit of flatus once through the night. Abdomen feels okay. He is not nauseated. Pain is well controlled. Review of Systems Constitutional: Constitutional: Reports no additional constitutional complaints ENT: Reports other (Mucous Membranes moist.) Cardiovascular: Cardiovascular: Denies dyspnea Respiratory: Respiratory: Denies pain on inspiration and Denies dyspnea Musculoskeletal: Musculoskeletal: Reports other (No calf swelling or edema) Integumentary/Breasts: Skin/Breast: Reports system reviewed and no additional complaints, except as docu Exam Const: General: cooperative, no acute distress, alert and awake Orientation/consciousness: patient oriented x3 and Other orientation findings ( Seems to be in good spirits.) HENMT: Mouth: Yes moist mucous membranes Neck: Neck: normal visual inspection Chest: Chest palpation & inspection: normal inspection of the chest Resp: Effort & Inspection: normal respiratory effort Auscultation: clear to auscultation bilaterally Cardio: Jugular venous distension: no JVD Rate: regular rate Rhythm: regular rhythm GI: Inspection: distended, incision ( Clean and dry with surgical glue on them) and other ( still appears moderately distended) Auscult
[2020-11-26] MEDS: FLUTICASONE/SALMETEROL 115-21 MCG INHALER 1 PUFF 2 PUFF INHALATION (19:41)
[2020-11-26] MEDS: LATANOPROST 0.005% OP SOLN 2.5 ML BTL 1 DROP EACH EYE (20:45)
[2020-11-27] VITALS (10 sets, daily range): BP systolic 128–159; BP diastolic 58–72; PULSE 71–83; RESP 15–18; TEMP 36.1–36.7; O2SAT 93–100
[2020-11-27 00:29] LABS: Glucose Point of Care 100 (65-105)
[2020-11-27] MEDS: LACTATED RINGERS 1,000 ML 150 ML IV CONT ×2 (02:55→09:53)
[2020-11-27 05:33] LABS: Hematocrit 38.4 % (42.0-52.0); Hemoglobin 12.3 g/dL (14.0-18.0); Mean Corpuscular Hemoglobin 29.6 pg (26-34); Mean Corpuscular Volume 92.3 fl (80-100); Mean Platelet Volume 10.5 fl (7.4-10.4); Platelet Count Result 181 k/mm3 (150-375); Red Blood Count 4.16 M/mm3 (4.6-6.20); White Blood Count 4.4 K/mm3 (4.5-10.0)
[2020-11-27 05:45] LABS: Alanine Aminotransferase 28 U/L (4-50); Albumin Level 3.3 g/dL (3.5-5.1); Alkaline Phosphatase 79 U/L (38-126); Anion Gap 6 mmol/L (8-16); Aspartate Amino Transferase 38 U/L (17-59); Bilirubin,Total 2.2 mg/dL (0.2-1.3); Blood Urea Nitrogen 51 mg/dL (9-20); Calcium 8.1 mg/dL (8.4-10.2); Carbon Dioxide 30 mmol/L (22-30); Chloride 104 mmol/L (98-107); Estimated CRCL calculation 31 ml/min; Estimated Glomerular Filt Rate 32; Glucose 98 mg/dL (75-110); Magnesium 2.7 mg/dL (1.6-2.3); Phosphorus 2.7 mg/dL (2.5-4.5); Potassium 3.5 mmol/L (3.4-5.0); Sodium 140 mmol/L (137-145)
[2020-11-27 06:32] LABS: Glucose Point of Care 95 (65-105)
[2020-11-27] MEDS: PANTOPRAZOLE SODIUM IV 40 MG VIAL IV PUSH (08:52)
[2020-11-27] MEDS: BRIMONIDINE TARTRATE 0.1% 5 ML OPHTH DROPS 1 DROP EACH EYE ×2 (08:52→17:11)
[2020-11-27] MEDS: FLUTICASONE/SALMETEROL 115-21 MCG INHALER 1 PUFF 2 PUFF INHALATION ×2 (08:52→20:12)
[2020-11-27] MEDS: ENOXAPARIN 30 MG/0.3 ML SYRINGE SUB-Q (08:52)
--- NOTE | 2020-11-27 11:09 | PM.IMPN ---
Progress Note: A&P Assessment and Plan (1) Small bowel obstruction: Code(s): K56.609 - Unspecified intestinal obstruction, unspecified as to partial versus complete obstruction Status: Resolved Assessment and Plan: 11/27/20 11:09 Patient has NG tube in surgery has seen the patient. The patient has had multiple abdominal surgeries in the past. Hopefully we can resolve this conservatively. Continue with pain management and IV fluids. 11/24/20 12:54 patient is 80-year-old male with history of bladder cancer status post ileal conduit with history of SBO presented emergency department with a complaint abdominal pain CT scan showed a small-bowel obstruction patient is seen by surgery team NG tube is placed for decompression, today patient states feeling little better, still not passing any gas or BM, and there is significant NG output, surgery service is recommending continue present management, will repeat abdominal x-ray tomorrow and further recommendation to follow, and also has acute kidney injury, most likely secondary to nausea, vomiting and poor p.o. intake, will gently hydrate the patient and monitor kidney function and further recommendation to follow. 11/25 DP since complaints of abdominal pain with nausea, no BM or passing any gas, abdominal x-ray shows persistent small bowel obstruction, there is significant NG output, discussed with Dr. Nevarez plan is to take the patient to OR for exploratory surgery as well as urologist will also reassess patient ileal conduit, patient creatinine is keep rising on IV fluid, will do renal US, will consult Dr. Ramirez for further recommendations, will continue to monitor. 11/26 status post laparoscopy surgery to resolve small-bowel obstruction and repair of ileal conduit, today patient still complains of abdominal and feels nauseated, not passing any or BM, seen by surgery service patient will receive Dulcolax suppository to help with bowel movement, patient is being gently hydrated his creatinine is improving will encourage him to ambulate. patient will benefit from PT/OT. 11/27 status post laparoscopy surgery to resolve small-bowel obstruction and repair of ileal conduit,on 11/25, today patient had 2 bowel movements states feeling much better abdominal pain is better no nausea or vomiting,currently on ice chips awaiting surgery team evaluation may advance diet to clear liquids, patient creatinine is improving as patient being hydrated and urinating. will PT/OT evaluate the patient and further recommendation to follow. (2) Acute kidney injury: Onset Date: ~11/23/20 Code(s): N17.9 - Acute kidney failure, unspecified Status: Acute Assessment and Plan: The patient had multiple episodes of vomitus. Most likely is dehydrated. He has elevated H&H. Continue with IV fluids for now and recheck in the a.m.. It appears the patient has chronic renal failure stage 3. His creatinine and GFR worse today. (3) Acute UTI: Code(s): N39.0 - Urinary tract infection, site not specified Status: Acute Assessment and Plan: Continue with ceftriaxone and blood and urine cultures are pending (4) Diabetes: Onset Date: Unknown Code(s): E11.9 - Type 2 diabetes mellitus without complications Status: Chronic Assessment and Plan: Accu-Cheks q.6 hours sliding scale q.6 check A1c (5) Mixed hyperlipidemia: Code(s): E78.2 - Mixed hyperlipidemia Status: Acute Assessment and Plan: Patient is NPO. (6) Restless legs syndrome: Code(s): G25.81 - Restless legs syndrome Status: Acute Assessment and Plan: Holding home medications. (7) COPD with asthma: Code(s): J44.9 - Chronic obstructive pulmonary disease, unspecified Status: Acute Assessment and Plan: Continue with inhalers. (8) Glaucoma: Code(s): H40.9 - Unspecified glaucoma Status: Chronic Assessment and Plan: Nitza
--- NOTE | 2020-11-27 11:34 | PM.PNNEP ---
Progress Note: A&P Assessment and Plan (1) Acute renal failure (ARF): Onset Date: ~11/23/20 Code(s): N17.9 - Acute kidney failure, unspecified Status: Acute Assessment and Plan: Kevin has acute kidney injury. It looks like his creatinine is usually between 1.5 and 1.9. However on admission his creatinine was up to 2.4 and deyanira to 3.3 yesterday. was likely this was mild ATN from his abdominal process, possibly pre renal azotemia from 3rd spacing, and possibly an element of obstruction. Since the surgery his belly is better and so now his kidneys are better. He is almost back to baseline. (2) Ureteral obstruction: Code(s): N13.5 - Crossing vessel and stricture of ureter without hydronephrosis Status: Acute Assessment and Plan: Stents are in place (3) Complete obstruction of small intestine: Onset Date: ~11/22/20 Code(s): K56.601 - Complete intestinal obstruction, unspecified as to cause Status: Acute Assessment and Plan: status post laparotomy His belly is starting to look better. (4) Essential (primary) hypertension: Code(s): I10 - Essential (primary) hypertension Status: Chronic Assessment and Plan: blood pressure is under good control (5) Diabetes: Onset Date: Unknown Code(s): E11.9 - Type 2 diabetes mellitus without complications Status: Chronic Assessment and Plan: he is on Accu-Cheks and sliding-scale in Subjective Date/time seen: 11/27/20 11:34 Interval history: Kevin is better today. He had a bowel movement and passed gas. he has no chest pain or shortness of Breath he is urinating well Review of Systems Cardiovascular: Cardiovascular: Reports no additional cardiovascular complaints Respiratory: Respiratory: Reports no additional respiratory complaints Gastrointestinal: Gastrointestinal: Reports no additional gastrointestinal complaints Genitourinary: Genitourinary: Reports no additional male genitourinary complaints Exam Narrative: Exam Narrative: WDWN in NAD skin no rash head ncat lungs clear bilaterally cor reg no rub abd BS+ mildly distended, nontender and soft ext no edema. Objective Data Vital Signs Vital Signs: Vital Signs - 24 hr 11/26/20 12:00 11/26/20 14:00 11/26/20 16:00 Temperature 36.6 C 36.2 C L Pulse Rate 86 82 97 Respiratory Rate 20 20 Blood Pressure 141/59 H 136/68 Pulse Oximetry 93 91 11/26/20 17:53 11/26/20 19:42 11/26/20 20:00 Temperature 36.3 C L Pulse Rate 83 91 91 Respiratory Rate 18 22 H Blood Pressure 120/95 H Pulse Oximetry 92 90 11/26/20 22:00 11/27/20 00:00 11/27/20 02:00 Temperature 36.1 C L Pulse Rate 86 76 78 Respiratory Rate 18 Blood Pressure 147/64 H Pulse Oximetry 93 11/27/20 03:54 11/27/20 04:00 11/27/20 05:48 Temperature 36.2 C L Pulse Rate 71 78 83 Respiratory Rate 15 Blood Pressure 132/64 Pulse Oximetry 95 11/27/20 08:00 11/27/20 08:51 11/27/20 10:00 Temperature 36.6 C Pulse Rate 72 78 79 Respiratory Rate 16 Blood Pressure 134/58 L Pulse Oximetry 93 Intake/Output Intake/Output: Intake & Output 11/24/20 11/25/20 11/26/20 11/27/20 23:59 23:59 23:59 23:59 Intake Total 3050 3250 3830 1450 Output Total 2625 2425 3750 850 Balance 425 825 80 600 Meds/Results Medications: Active Medications Generic Name Dose Route Start Last Admin Trade Name Freq PRN Reason Stop Dose Admin Hydrocodone Bitart/Acetaminophen 1 tab 11/25/20 16:27 Hydrocodone/Acetaminophen (*Crx) 5-325 Mg Tablet PO Q6H PRN Pain Rated 4-6 Hydrocodone Bitart/Acetaminophen 1 tab 11/25/20 16:27 Hydrocodone/Acetaminophen (*Crx) 7.5-325 Mg Tablet PO Q6H PRN Pain Rated 7-10 Albuterol 1 puff 11/23/20 19:36 Albuterol Sulfate (*Sp) Aerosol 1 Puff INHALATION Q4-6H PRN Shortness Of Breath Or Wheezing Brimonidine Tartrate 1 lucero
--- NOTE | 2020-11-27 12:20 | PM.PNGS ---
Progress Note: A&P Assessment and Plan (1) Complete obstruction of small intestine: Onset Date: ~11/22/20 Code(s): K56.601 - Complete intestinal obstruction, unspecified as to cause Status: Acute Assessment and Plan: Bowel function slowly returning. Will start clear liquids today. Increase activity. OK to transfer to Med/Surg. Await further return of bowel function. Subjective Subjective Date/Time Seen: 11/27/20 12:20 Patient reports: bowel movement Interval history: Bowels have moved twice. No nausea. Minimal bloating. Wants to get up and move more. Exam GI: Inspection: distended, incision (intact with glue) and obesity GI Palp: No Tenderness to palpation present (GI) and No Guarding due to palpation present (GI) Percussion: Yes tympanic to percussion Auscultation: Hypoactive bowel sounds present Objective Data Vital Signs Vital Signs: Vital Signs - 24 hr 11/26/20 14:00 11/26/20 16:00 11/26/20 17:53 Temperature 36.2 C L Pulse Rate 82 97 83 Respiratory Rate 20 Blood Pressure 136/68 Pulse Oximetry 91 11/26/20 19:42 11/26/20 20:00 11/26/20 22:00 Temperature 36.3 C L Pulse Rate 91 91 86 Respiratory Rate 18 22 H Blood Pressure 120/95 H Pulse Oximetry 92 90 11/27/20 00:00 11/27/20 02:00 11/27/20 03:54 Temperature 36.1 C L 36.2 C L Pulse Rate 76 78 71 Respiratory Rate 18 15 Blood Pressure 147/64 H 132/64 Pulse Oximetry 93 95 11/27/20 04:00 11/27/20 05:48 11/27/20 08:00 Temperature Pulse Rate 78 83 72 Respiratory Rate Blood Pressure Pulse Oximetry 11/27/20 08:51 11/27/20 10:00 Temperature 36.6 C Pulse Rate 78 79 Respiratory Rate 16 Blood Pressure 134/58 L Pulse Oximetry 93 Intake/Output Intake/Output: Intake & Output 11/24/20 11/25/20 11/26/20 11/27/20 23:59 23:59 23:59 23:59 Intake Total 3050 3250 3830 1450 Output Total 2625 2425 3750 850 Balance 425 825 80 600 Meds/Results Medications: Active Medications Generic Name Dose Route Start Last Admin Trade Name Freq PRN Reason Stop Dose Admin Hydrocodone Bitart/Acetaminophen 1 tab 11/25/20 16:27 Hydrocodone/Acetaminophen (*Crx) 5-325 Mg Tablet PO Q6H PRN Pain Rated 4-6 Hydrocodone Bitart/Acetaminophen 1 tab 11/25/20 16:27 Hydrocodone/Acetaminophen (*Crx) 7.5-325 Mg Tablet PO Q6H PRN Pain Rated 7-10 Albuterol 1 puff 11/23/20 19:36 Albuterol Sulfate (*Sp) Aerosol 1 Puff INHALATION Q4-6H PRN Shortness Of Breath Or Wheezing Brimonidine Tartrate 1 drop 11/24/20 09:00 11/27/20 08:52 Brimonidine Tartrate 0.1% 5 Ml Ophth Drops EACH EYE 1 drop BID CONCHITA Administration Dextrose 12.5 gm 11/23/20 19:21 Dextrose 50% 25 Gm/50 Ml Syringe IV PUSH PRN PRN Hypoglycemia Protocol Diphenhydramine HCl 25 mg 11/25/20 16:27 Diphenhydramine Hcl Inj 50 Mg/Ml Vial IV PUSH Q6H PRN Itching Enoxaparin Sodium 30 mg 11/26/20 09:00 11/27/20 08:52 Enoxaparin 30 Mg/0.3 Ml Syringe SUB-Q 30 mg DAILY CONCHITA Administration Fentanyl Citrate 25 mcg 11/25/20 11:28 Fentanyl Citrate Inj (*Crx) 100 Mcg/2 Ml Vial IV PUSH Q2M PRN Pain Glucagon 1 mg 11/23/20 19:21 Glucagon For Inj 1 Mg Vial IM PRN PRN Hypoglycemia Protocol Glucose 15 gm 11/23/20 19:21 Glucose Oral Gel 15 Gm Of Glucse In 37.5 Gm Tube PO PRN PRN Hypoglycemia Protocol Ceftriaxone Sodium/Dextrose 1 gm in 50 mls @ 100 mls/hr 11/24/20 12:00 11/26/20 13:08 Rocephin 1 Gm/D5w 50 Ml IVPB Infused Q24H CONCHITA Infusion Dextrose 1,000 mls @ 100 mls/hr 11/23/20 19:21 Dextrose 5% 1,000 Ml IVPB PRN PRN Hypoglycemia Protocol Insulin Aspart 2 - 5 units 11/23/20 19:30 11/27/20 07:43 Insulin Aspart (*Bkc) 100 Units/Ml SUB-Q Not Given Q6HR [facility] Protocol Latanoprost 1 drop 11/23/20 21:00 11/26/20 20:45 Latanoprost 0.005% Op Soln 2.5 Ml Btl EA
[2020-11-27 13:26] LABS: Glucose Point of Care 108 (65-105)
--- NOTE | 2020-11-27 15:05 | PC.NURSE ---
Patient to room via hospital chair. Patient oriented to room and policies. Belongings with patient. Report given from MIRTA Heller in IMU.
--- NOTE | 2020-11-27 15:16 | PC.NURSE ---
This patient, Kevin Figueredo, was transferred to [facility] on 11/27/20 at 1500. Personal belongings sent with patient. Report given to Angelina KIRBY. Appropriate documentation sent with patient.
[2020-11-27 17:12] LABS: Glucose Point of Care 134 (65-105)
[2020-11-27] MEDS: LATANOPROST 0.005% OP SOLN 2.5 ML BTL 1 DROP EACH EYE (20:12)
[2020-11-27 23:49] LABS: Glucose Point of Care 102 (65-105)
[2020-11-28 05:39] LABS: Hematocrit 36.9 % (42.0-52.0); Hemoglobin 12.1 g/dL (14.0-18.0); Mean Corpuscular HGB Conc 32.8 g/dl (32-36); Mean Corpuscular Hemoglobin 29.7 pg (26-34); Mean Corpuscular Volume 90.4 fl (80-100); Mean Platelet Volume 10.3 fl (7.4-10.4); Platelet Count Result 167 k/mm3 (150-375); Red Blood Count 4.08 M/mm3 (4.6-6.20); Red Cell Distribution Width 14.6 % (11.5-14.5); White Blood Count 5.7 K/mm3 (4.5-10.0)
[2020-11-28 05:58] LABS: Alanine Aminotransferase 40 U/L (4-50); Albumin Level 2.8 g/dL (3.5-5.1); Alkaline Phosphatase 94 U/L (38-126); Anion Gap 5 mmol/L (8-16); Aspartate Amino Transferase 51 U/L (17-59); Bilirubin,Total 1.8 mg/dL (0.2-1.3); Blood Urea Nitrogen 32 mg/dL (9-20); Calcium 7.6 mg/dL (8.4-10.2); Carbon Dioxide 26 mmol/L (22-30); Chloride 106 mmol/L (98-107); Estimated CRCL calculation 38 ml/min; Estimated Glomerular Filt Rate 42; Glucose 106 mg/dL (75-110); Magnesium 2.3 mg/dL (1.6-2.3); Phosphorus 2.6 mg/dL (2.5-4.5); Potassium 3.4 mmol/L (3.4-5.0); Sodium 137 mmol/L (137-145)
[2020-11-28] MEDS: FLUTICASONE/SALMETEROL 115-21 MCG INHALER 1 PUFF 2 PUFF INHALATION ×2 (07:48→20:29)
[2020-11-28] MEDS: BRIMONIDINE TARTRATE 0.1% 5 ML OPHTH DROPS 1 DROP EACH EYE ×2 (07:49→17:10)
[2020-11-28 08:00] VITALS: BP 154/65; PULSE 81; RESP 18; TEMP 36.2; O2SAT 100
[2020-11-28] MEDS: PANTOPRAZOLE SODIUM IV 40 MG VIAL IV PUSH (08:49)
[2020-11-28] MEDS: ENOXAPARIN 30 MG/0.3 ML SYRINGE SUB-Q (08:49)
[2020-11-28] MEDS: POTASSIUM CHLORIDE 20 MEQ PACKET (FOR LIQUID) 40 MEQ PO (08:49)
--- NOTE | 2020-11-28 10:41 | PM.PNNEP ---
Progress Note: A&P Assessment and Plan (1) Acute renal failure (ARF): Onset Date: ~11/23/20 Code(s): N17.9 - Acute kidney failure, unspecified Status: Acute Assessment and Plan: Kevin has acute kidney injury. It looks like his creatinine is usually between 1.5 and 1.9. This worsened with his GI and urologic issues. Now his creatinine is back to baseline. (2) Ureteral obstruction: Code(s): N13.5 - Crossing vessel and stricture of ureter without hydronephrosis Status: Acute Assessment and Plan: Stents are in place (3) Complete obstruction of small intestine: Onset Date: ~11/22/20 Code(s): K56.601 - Complete intestinal obstruction, unspecified as to cause Status: Acute Assessment and Plan: status post laparotomy Tolerating a diet now. (4) Essential (primary) hypertension: Code(s): I10 - Essential (primary) hypertension Status: Chronic Assessment and Plan: blood pressure is under good control (5) Diabetes: Onset Date: Unknown Code(s): E11.9 - Type 2 diabetes mellitus without complications Status: Chronic Assessment and Plan: he is on Accu-Cheks and sliding-scale insulin Subjective Date/time seen: 11/28/20 10:41 Interval history: Kevin is feeling well today. Passing gas and having bowel movements. Tolerating a diet. Exam Narrative: Exam Narrative: WDWN in NAD skin no rash or subcu nodules head ncat lungs clear bilaterally cor reg no rub or gallop abd BS+ mildly distended, nontender and soft ext no edema. Objective Data Vital Signs Vital Signs: Vital Signs - 24 hr 11/27/20 16:00 11/27/20 20:09 11/28/20 08:00 Temperature 36.7 C 36.2 C L 36.2 C L Pulse Rate 72 75 81 Respiratory Rate 18 18 18 Blood Pressure 128/60 159/72 H 154/65 H Pulse Oximetry 95 100 100 Intake/Output Intake/Output: Intake & Output 11/25/20 11/26/20 11/27/20 11/28/20 23:59 23:59 23:59 23:59 Intake Total 3250 3830 2922.8 1080 Output Total 2425 3750 2550 1200 Balance 825 80 372.8 -120 Meds/Results Medications: Active Medications Generic Name Dose Route Start Last Admin Trade Name Freq PRN Reason Stop Dose Admin Hydrocodone Bitart/Acetaminophen 1 tab 11/25/20 16:27 Hydrocodone/Acetaminophen (*Crx) 5-325 Mg Tablet PO Q6H PRN Pain Rated 4-6 Hydrocodone Bitart/Acetaminophen 1 tab 11/25/20 16:27 Hydrocodone/Acetaminophen (*Crx) 7.5-325 Mg Tablet PO Q6H PRN Pain Rated 7-10 Albuterol 1 puff 11/23/20 19:36 Albuterol Sulfate (*Sp) Aerosol 1 Puff INHALATION Q4-6H PRN Shortness Of Breath Or Wheezing Brimonidine Tartrate 1 drop 11/24/20 09:00 11/28/20 07:49 Brimonidine Tartrate 0.1% 5 Ml Ophth Drops EACH EYE 1 drop BID CONCHITA Administration Dextrose 12.5 gm 11/23/20 19:21 Dextrose 50% 25 Gm/50 Ml Syringe IV PUSH PRN PRN Hypoglycemia Protocol Diphenhydramine HCl 25 mg 11/25/20 16:27 Diphenhydramine Hcl Inj 50 Mg/Ml Vial IV PUSH Q6H PRN Itching Enoxaparin Sodium 30 mg 11/26/20 09:00 11/28/20 08:49 Enoxaparin 30 Mg/0.3 Ml Syringe SUB-Q 30 mg DAILY CONCHITA Administration Fentanyl Citrate 25 mcg 11/25/20 11:28 Fentanyl Citrate Inj (*Crx) 100 Mcg/2 Ml Vial IV PUSH Q2M PRN Pain Glucagon 1 mg 11/23/20 19:21 Glucagon For Inj 1 Mg Vial IM PRN PRN Hypoglycemia Protocol Glucose 15 gm 11/23/20 19:21 Glucose Oral Gel 15 Gm Of Glucse In 37.5 Gm Tube PO PRN PRN Hypoglycemia Protocol Ceftriaxone Sodium/Dextrose 1 gm in 50 mls @ 100 mls/hr 11/24/20 12:00 11/27/20 13:26 Rocephin 1 Gm/D5w 50 Ml IVPB 100 mls/hr Q24H CONCHITA Administration Dextrose 1,000 mls @ 100 mls/hr 11/23/20 19:21 Dextrose 5% 1,000 Ml IVPB PRN PRN Hypoglycemia Protocol Insulin Aspart 2 - 5 units 11/23/20 19:30 11/28/20 06:09 Insulin Aspart (*Bkc
[2020-11-28 12:22] LABS: Glucose Point of Care 117 (65-105)
--- NOTE | 2020-11-28 13:16 | PM.PNGS ---
Progress Note: A&P Assessment and Plan (1) Complete obstruction of small intestine: Onset Date: ~11/22/20 Code(s): K56.601 - Complete intestinal obstruction, unspecified as to cause Status: Acute Assessment and Plan: Advance to full liquids Increase activity Subjective Subjective Date/Time Seen: 11/28/20 13:16 Interval history: Tolerating clear liquids. Bowels moving. Pain controlled. Exam GI: Inspection: other (less distended today) GI Palp: Yes Soft to palpation, No Tenderness to palpation present (GI) and No Guarding due to palpation present (GI) Auscultation: normal bowel sounds Objective Data Vital Signs Vital Signs: Vital Signs - 24 hr 11/27/20 16:00 11/27/20 20:09 11/28/20 08:00 Temperature 36.7 C 36.2 C L 36.2 C L Pulse Rate 72 75 81 Respiratory Rate 18 18 18 Blood Pressure 128/60 159/72 H 154/65 H Pulse Oximetry 95 100 100 Intake/Output Intake/Output: Intake & Output 11/25/20 11/26/20 11/27/20 11/28/20 23:59 23:59 23:59 23:59 Intake Total 3250 3830 2972.8 1130 Output Total 2425 3750 2550 1200 Balance 825 80 422.8 -70 Meds/Results Medications: Active Medications Generic Name Dose Route Start Last Admin Trade Name Freq PRN Reason Stop Dose Admin Hydrocodone Bitart/Acetaminophen 1 tab 11/25/20 16:27 Hydrocodone/Acetaminophen (*Crx) 5-325 Mg Tablet PO Q6H PRN Pain Rated 4-6 Hydrocodone Bitart/Acetaminophen 1 tab 11/25/20 16:27 Hydrocodone/Acetaminophen (*Crx) 7.5-325 Mg Tablet PO Q6H PRN Pain Rated 7-10 Albuterol 1 puff 11/23/20 19:36 Albuterol Sulfate (*Sp) Aerosol 1 Puff INHALATION Q4-6H PRN Shortness Of Breath Or Wheezing Brimonidine Tartrate 1 drop 11/24/20 09:00 11/28/20 07:49 Brimonidine Tartrate 0.1% 5 Ml Ophth Drops EACH EYE 1 drop BID [facility] Administration Dextrose 12.5 gm 11/23/20 19:21 Dextrose 50% 25 Gm/50 Ml Syringe IV PUSH PRN PRN Hypoglycemia Protocol Diphenhydramine HCl 25 mg 11/25/20 16:27 Diphenhydramine Hcl Inj 50 Mg/Ml Vial IV PUSH Q6H PRN Itching Enoxaparin Sodium 30 mg 11/26/20 09:00 11/28/20 08:49 Enoxaparin 30 Mg/0.3 Ml Syringe SUB-Q 30 mg DAILY [facility] Administration Fentanyl Citrate 25 mcg 11/25/20 11:28 Fentanyl Citrate Inj (*Crx) 100 Mcg/2 Ml Vial IV PUSH Q2M PRN Pain Glucagon 1 mg 11/23/20 19:21 Glucagon For Inj 1 Mg Vial IM PRN PRN Hypoglycemia Protocol Glucose 15 gm 11/23/20 19:21 Glucose Oral Gel 15 Gm Of Glucse In 37.5 Gm Tube PO PRN PRN Hypoglycemia Protocol Ceftriaxone Sodium/Dextrose 1 gm in 50 mls @ 100 mls/hr 11/24/20 12:00 11/28/20 12:42 Rocephin 1 Gm/D5w 50 Ml IVPB Infused Q24H [facility] Infusion Dextrose 1,000 mls @ 100 mls/hr 11/23/20 19:21 Dextrose 5% 1,000 Ml IVPB PRN PRN Hypoglycemia Protocol Insulin Aspart 2 - 5 units 11/23/20 19:30 11/28/20 12:11 Insulin Aspart (*Bkc) 100 Units/Ml SUB-Q Not Given Q6HR [facility] Protocol Latanoprost 1 drop 11/23/20 21:00 11/27/20 20:12 Latanoprost 0.005% Op Soln 2.5 Ml Btl EACH EYE 1 drop HS [facility] Administration Morphine Sulfate 2 mg 11/25/20 16:27 11/26/20 12:39 Morphine Sulfate (*Crx) 2 Mg/Ml Inj IV PUSH 2 mg Q2H PRN Administration Pain Rated 4-6 Naloxone HCl 0.1 mg 11/25/20 16:27 Naloxone Hcl 0.4 Mg/Ml Vial IV PUSH Q2M PRN Opiate Reversal Ondansetron HCl 4 mg 11/23/20 15:28 Ondansetron Inj 4 Mg/2 Ml Vial IV PUSH Q4H PRN Nausea Ondansetron HCl 4 mg 11/25/20 11:28 Ondansetron Inj 4 Mg/2 Ml Vial IV PUSH ONCE PRN Nausea Pantoprazole Sodium 40 mg 11/26/20 09:00 11/28/20 08:49 Pantoprazole Sodium Iv 40 Mg Vial IV PUSH 40 mg QAM [facility] Administration Phenol 1 spray 11/23/20 19:21 11/25/20 08:41 Phenol/Sod Pheno [place]aez (*Bkc) MUCOUS MEM 1 spray PRN PRN Administration Yan Parks
[2020-11-28 15:16] VITALS: O2SAT 94
[2020-11-28 16:00] VITALS: BP 140/62; PULSE 75; RESP 18; TEMP 36.4; O2SAT 100
[2020-11-28 17:25] LABS: Glucose Point of Care 110 (65-105)
[2020-11-28 19:50] VITALS: BP 160/74; PULSE 75; RESP 16; TEMP 37.7; O2SAT 98
[2020-11-28] MEDS: LATANOPROST 0.005% OP SOLN 2.5 ML BTL 1 DROP EACH EYE (20:29)
[2020-11-28 20:30] VITALS: BP 146/72
[2020-11-28 23:47] LABS: Glucose Point of Care 104 (65-105)
[2020-11-29 06:13] LABS: Glucose Point of Care 119 (65-105)
[2020-11-29 06:17] LABS: Alanine Aminotransferase 68 U/L (4-50); Albumin Level 2.9 g/dL (3.5-5.1); Alkaline Phosphatase 119 U/L (38-126); Anion Gap 6 mmol/L (8-16); Aspartate Amino Transferase 74 U/L (17-59); Bilirubin,Total 1.3 mg/dL (0.2-1.3); Blood Urea Nitrogen 23 mg/dL (9-20); Calcium 7.9 mg/dL (8.4-10.2); Carbon Dioxide 25 mmol/L (22-30); Chloride 104 mmol/L (98-107); Estimated CRCL calculation 41 ml/min; Estimated Glomerular Filt Rate 45; Glucose 117 mg/dL (75-110); Magnesium 2.1 mg/dL (1.6-2.3); Potassium 3.7 mmol/L (3.4-5.0); Sodium 135 mmol/L (137-145)
[2020-11-29 06:47] LABS: Hematocrit 37.8 % (42.0-52.0); Hemoglobin 12.6 g/dL (14.0-18.0); Mean Corpuscular HGB Conc 33.3 g/dl (32-36); Mean Corpuscular Hemoglobin 30.4 pg (26-34); Mean Corpuscular Volume 91.1 fl (80-100); Mean Platelet Volume 9.8 fl (7.4-10.4); Platelet Count Result 172 k/mm3 (150-375); Red Blood Count 4.15 M/mm3 (4.6-6.20); Red Cell Distribution Width 14.7 % (11.5-14.5)
--- NOTE | 2020-11-29 07:30 | PM.PNGS ---
Progress Note: A&P Assessment and Plan (1) Complete obstruction of small intestine: Onset Date: ~11/22/20 Code(s): K56.601 - Complete intestinal obstruction, unspecified as to cause Status: Acute Assessment and Plan: Advance to soft low fat diet today Increase activity from the surgical point of view patient will be ready for discharge this afternoon once Urology has decided about removing or leaving the ureteral catheters. Additional Plan hospitalist to re-evaluate use of antibiotic. If this is for possible pneumonia or UTI okay to continue if not consider stopping and re-culturing in a few days if there are problems. Subjective Subjective Date/Time Seen: 11/29/20 07:30 Post Op day: 5 (improving nicely) Patient reports: no new complaints and feels better Review of Systems Review of Systems: All systems reviewed & are unremarkable except as noted in HPI and below Constitutional: Constitutional: Reports as per HPI, Reports no additional constitutional complaints, Denies chills, Denies fatigue, Denies fever(s) and Denies headache(s) Eyes: Eyes: Reports no additional eye complaints and Denies change in vision ENT: Denies dizziness, Denies headache(s) and Reports other (Mucous Membranes moist.) Cardiovascular: Cardiovascular: Reports no additional cardiovascular complaints, Denies chest pain, Denies leg edema, Denies lightheadedness and Denies dyspnea Respiratory: Respiratory: Reports no additional respiratory complaints, Denies cough, Denies pain on inspiration, Denies dyspnea and Denies wheezing Gastrointestinal: Gastrointestinal: Reports as per HPI, Reports no additional gastrointestinal complaints and Reports abdominal pain Comments: Although not recorded patient states that he had a good bowel movement yesterday mid morning. Genitourinary: Genitourinary: Reports no additional male genitourinary complaints and Reports hematuria ( Visible in urostomy bag today) Musculoskeletal: Musculoskeletal: Reports no additional musculoskeletal complaints, Denies deformity, Denies joint swelling, Denies radiating pain into limb, Denies tingling and Reports other (No calf swelling or edema) Integumentary/Breasts: Skin/Breast: Reports system reviewed and no additional complaints, except as docu, Denies pruritus, Denies lesions, Denies erythema, Denies wounds and Denies jaundice Neurologic: Reports system reviewed and no additional complaints, except as documented, Denies dizziness, Denies headache(s), Denies tingling and Denies tremor(s) Psychiatric: Psychiatric: Denies anxiety and Denies depression Endocrine: Endocrine: Denies fatigue Allergic/Immunologic: Allergic/Immunologic: Denies wheezing Exam Const: General: cooperative, comfortable, no acute distress, alert and awake Nutritional Appearance: overweight Orientation/consciousness: patient oriented x3 and Other orientation findings ( Seems to be in good spirits.) Limitations: no limitations HENMT: Head: normocephalic and atraumatic Ears: hearing grossly normal bilaterally and external ears normal General nose exam: Normal external nose present Mouth: Yes Normal oral and palatal mucosa present and Yes moist mucous membranes Eyes: General: appearance normal, both eyes and all related structures Conjunctivae: conjunctivae normal Sclera: sclerae normal Neck: Neck: normal visual inspection and full ROM Chest: Chest palpation & inspection: normal inspection of the chest Resp: Effort & Inspection: normal respiratory effort and able to speak in complete sentences Auscultation: clear to auscultation bilaterally Cardio: Jugular venous distension: no JVD Rate: regular rate Rhythm: regular rhythm GI: Inspection: normal to inspection, incision (intact with glue.. CLean and dry), obesity, scar (large midline scar) and other (less distended today. Site of repair of umbilical hernia w/o bulging) Auscultation: normal bowel sounds Rectal Exam: deferred Other:
[2020-11-29 08:00] VITALS: BP 156/71; PULSE 89; RESP 18; TEMP 36.2; O2SAT 98
[2020-11-29] MEDS: BRIMONIDINE TARTRATE 0.1% 5 ML OPHTH DROPS 1 DROP EACH EYE (09:18)
[2020-11-29] MEDS: PANTOPRAZOLE 40 MG TABLET PO (09:18)
[2020-11-29] MEDS: ACETAMINOPHEN 500 MG TABLET 1000 MG PO (09:19)
[2020-11-29] MEDS: ENOXAPARIN 30 MG/0.3 ML SYRINGE SUB-Q (09:19)
[2020-11-29] MEDS: FLUTICASONE/SALMETEROL 115-21 MCG INHALER 1 PUFF 2 PUFF INHALATION (09:19)
[2020-11-29 11:42] LABS: Glucose Point of Care 123 (65-105)
--- NOTE | 2020-11-29 14:51 | WPDUROPN2 ---
Progress Note: A&P Assessment and Plan (1) Ureteral obstruction: Code(s): N13.5 - Crossing vessel and stricture of ureter without hydronephrosis Status: Acute Assessment and Plan: Botello catheter removed today without difficulty as well as bilateral ureteral stents. Patient tolerated well and the procedure went without incident at the bedside. He can be discharged at any time. No further evaluation needed. Subjective Subjective Date/Time Seen: 11/29/20 14:51 POD #4 Endoscopy of ileal conduit, bilateral retrograde pyelograms, bilateral ureteral stents external, left ureteroscopy, Botello catheter placement Patient doing well, he is up in the chair and in minimal pain and ready to go home. His urine is clear but still slightly blood tinged. Review of Systems Cardiovascular: Cardiovascular: Denies chest pain Respiratory: Respiratory: Reports no additional respiratory complaints Gastrointestinal: Gastrointestinal: Denies abdominal pain Genitourinary: Genitourinary: Reports hematuria and Denies flank pain Exam Resp: Effort & Inspection: normal respiratory effort Cardio: Rhythm: regular rhythm GI: GI Palp: Yes Soft to palpation and No Tenderness to palpation present (GI) : General: Yes no CVA tenderness Urinary Catheter: Urinary Catheter: patent and draining, urine clear and urine red Extrem: General: no edema Objective Data Vital Signs Vital Signs: Vital Signs - 24 hr 11/28/20 15:16 11/28/20 16:00 11/28/20 19:50 Temperature 97.5 F L 99.8 F H Pulse Rate 75 75 Respiratory Rate 18 16 Blood Pressure 140/62 160/74 H Pulse Oximetry 94 100 98 11/28/20 20:30 11/29/20 08:00 Temperature 97.1 F L Pulse Rate 89 Respiratory Rate 18 Blood Pressure 146/72 H 156/71 H Pulse Oximetry 98 Intake/Output Intake/Output: Intake & Output 11/26/20 11/27/20 11/28/20 11/29/20 23:59 23:59 23:59 23:59 Intake Total 3830 2972.8 2400 910 Output Total 3750 2550 1200 1600 Balance 80 422.8 1200 -690 Meds/Results Medications: Active Medications Generic Name Dose Route Start Last Admin Trade Name Freq PRN Reason Stop Dose Admin Acetaminophen 1,000 mg 11/29/20 07:28 11/29/20 09:19 Acetaminophen 500 Mg Tablet PO 1,000 mg Q6H PRN Administration Mild Pain (1-3) or Fever Albuterol 1 puff 11/23/20 19:36 Albuterol Sulfate (*Sp) Aerosol 1 Puff INHALATION Q4-6H PRN Shortness Of Breath Or Wheezing Brimonidine Tartrate 1 drop 11/24/20 09:00 11/29/20 09:18 Brimonidine Tartrate 0.1% 5 Ml Ophth Drops EACH EYE 1 drop BID [facility] Administration Dextrose 12.5 gm 11/23/20 19:21 Dextrose 50% 25 Gm/50 Ml Syringe IV PUSH PRN PRN Hypoglycemia Protocol Diphenhydramine HCl 25 mg 11/25/20 16:27 Diphenhydramine Hcl Inj 50 Mg/Ml Vial IV PUSH Q6H PRN Itching Enoxaparin Sodium 30 mg 11/26/20 09:00 11/29/20 09:19 Enoxaparin 30 Mg/0.3 Ml Syringe SUB-Q 30 mg DAILY [facility] Administration Fentanyl Citrate 25 mcg 11/25/20 11:28 Fentanyl Citrate Inj (*Crx) 100 Mcg/2 Ml Vial IV PUSH Q2M PRN Pain Glucagon 1 mg 11/23/20 19:21 Glucagon For Inj 1 Mg Vial IM PRN PRN Hypoglycemia Protocol Glucose 15 gm 11/23/20 19:21 Glucose Oral Gel 15 Gm Of Glucse In 37.5 Gm Tube PO PRN PRN Hypoglycemia Protocol Ceftriaxone Sodium/Dextrose 1 gm in 50 mls @ 100 mls/hr 11/24/20 12:00 11/29/20 12:39 Rocephin 1 Gm/D5w 50 Ml IVPB Infused Q24H [facility] Infusion Dextrose 1,000 mls @ 100 mls/hr 11/23/20 19:21 Dextrose 5% 1,000 Ml IVPB PRN PRN Hypoglycemia Protocol Insulin Aspart 2 - 5 units 11/23/20 19:30 11/29/20 11:42 Insulin Aspart (*Bkc) 100 Units/Ml SUB-Q Not Given Q6HR [facility] Protocol Latanoprost 1 drop 11/23/20 21:00 11/28/20 20:29 Latanoprost 0.005% Op Soln 2.5 Ml Btl EACH EYE 1 drop HS [facility] Administration Ondansetron HCl 4 mg 11/23/20 15
--- NOTE | 2020-11-29 15:23 | PM.DS ---
DS: Admitting Diagnosis Admitting Diagnosis Admitting Diagnosis: Chief Complaint: Abdominal pain DS: Discharge Diagnosis Discharge Diagnosis (1) Small bowel obstruction: Code(s): K56.609 - Unspecified intestinal obstruction, unspecified as to partial versus complete obstruction Status: Resolved Assessment and Plan: 11/28/20 12:19 Patient has NG tube in surgery has seen the patient. The patient has had multiple abdominal surgeries in the past. Hopefully we can resolve this conservatively. Continue with pain management and IV fluids. 11/24/20 12:54 patient is 80-year-old male with history of bladder cancer status post ileal conduit with history of SBO presented emergency department with a complaint abdominal pain CT scan showed a small-bowel obstruction patient is seen by surgery team NG tube is placed for decompression, today patient states feeling little better, still not passing any gas or BM, and there is significant NG output, surgery service is recommending continue present management, will repeat abdominal x-ray tomorrow and further recommendation to follow, and also has acute kidney injury, most likely secondary to nausea, vomiting and poor p.o. intake, will gently hydrate the patient and monitor kidney function and further recommendation to follow. 11/25 DP since complaints of abdominal pain with nausea, no BM or passing any gas, abdominal x-ray shows persistent small bowel obstruction, there is significant NG output, discussed with Dr. Nevarez plan is to take the patient to OR for exploratory surgery as well as urologist will also reassess patient ileal conduit, patient creatinine is keep rising on IV fluid, will do renal US, will consult Dr. Ramirez for further recommendations, will continue to monitor. 11/26 status post laparoscopy surgery to resolve small-bowel obstruction and repair of ileal conduit, today patient still complains of abdominal and feels nauseated, not passing any or BM, seen by surgery service patient will receive Dulcolax suppository to help with bowel movement, patient is being gently hydrated his creatinine is improving will encourage him to ambulate. patient will benefit from PT/OT. 11/27 status post laparoscopy surgery to resolve small-bowel obstruction and repair of ileal conduit,on 11/25, today patient had 2 bowel movements states feeling much better abdominal pain is better no nausea or vomiting,currently on ice chips awaiting surgery team evaluation may advance diet to clear liquids, patient creatinine is improving as patient being hydrated and urinating. will PT/OT evaluate the patient and further recommendation to follow. 11/28 status post laparoscopy surgery to resolve small-bowel obstruction and repair of ileal conduit,on 11/25, on 11/27 patient had 2 bowel movements, was started on clear liquids, states feeling much better abdominal pain is better no nausea or vomiting, today stats passing lot of gas but no BM, patient will be seen by surgery team and further recommendation to follow. patient creatinine is improving as patient being hydrated and urinating. will PT/OT evaluate the patient and further recommendation to follow. (2) Acute kidney injury: Onset Date: ~11/23/20 Code(s): N17.9 - Acute kidney failure, unspecified Status: Resolved Assessment and Plan: The patient had multiple episodes of vomitus. Most likely is dehydrated. He has elevated H&H. Continue with IV fluids for now and recheck in the a.m.. It appears the patient has chronic renal failure stage 3. His creatinine and GFR worse today. (3) Acute UTI: Code(s): N39.0 - Urinary tract infection, site not specified Status: Resolved Assessment and Plan: Continue with ceftriaxone and blood and urine cultures are pending (4) Diabetes: Onset Date: Unknown Code(s): E11.9 - Type 2 diabetes mellitus without complications Status: Resolved Assessment and Plan:
== END 2020-11-29 16:07 | disposition home or self-care (01) | DRG 336 ==
LOC: ANHED 13:19 → ANH3MED 19:02 → ANHIMU 11-25 16:34 → ANH3MED 11-28 08:02 → ANHIMU 12-02 13:46
PROVIDERS: Nurse Practitioner; Nurse Practitioner Family; Surgery; Urology; Admitting Provider Internal Medicine; Emergency Provider General Practice; PCP Internal Medicine; Visit Provider Family Medicine
PROC: 0DN84ZZ Release Small Intestine, Percutaneous Endoscopic Approach (ICD-10-PCS; CPT 49320; principal; 2020-11-25 12:00)
PROC: 0T788DZ Dilation of Bilateral Ureters with Intraluminal Device, Via Natural or Artificial Opening Endoscopic (ICD-10-PCS; 2020-11-25 12:00)
DX: K56.601 Complete intestinal obstruction, unspecified as to cause (principal); N17.9 Acute kidney failure, unspecified; N39.0 Urinary tract infection, site not specified; N13.5 Crossing vessel and stricture of ureter without hydronephrosis; K42.9 Umbilical hernia without obstruction or gangrene; Z96.0 Presence of urogenital implants; J44.9 Chronic obstructive pulmonary disease, unspecified; E11.22 Type 2 diabetes mellitus with diabetic chronic kidney disease; I12.9 Hypertensive chronic kidney disease with stage 1 through stage 4 chronic kidney disease, or unspecified chronic kidney disease; N18.30 Chronic kidney disease, stage 3 unspecified; E78.2 Mixed hyperlipidemia; G25.81 Restless legs syndrome; M16.0 Bilateral primary osteoarthritis of hip; M10.9 Gout, unspecified; H40.9 Unspecified glaucoma; E55.9 Vitamin D deficiency, unspecified; Z85.51 Personal history of malignant neoplasm of bladder; Z87.891 Personal history of nicotine dependence; Z98.42 Cataract extraction status, left eye; Z98.41 Cataract extraction status, right eye; Z79.899 Other long term (current) drug therapy; Z90.6 Acquired absence of other parts of urinary tract; Z90.79 Acquired absence of other genital organ(s)
CPT/HCPCS: 36415; 71045; 74019; 74176; 74420; 76775; 80053; 81001; 82948; 83036; 83605; 83690; 83735; 84100; 85025; 85027; 86850; 86900; 86901; 87040; 87086; 87088; 93005; 94640; 96361; 96365; 96375; 97110; 97161; 97166; 97530; 99291; A9270; C1758; C1769; C9113; J0330; J0696; J1100; J1650; J2270; J2405; J2704; J2710; J3010; J7030; J7120

== ENCOUNTER 2020-12-09 09:57 | Outpatient (CLI) | payer MEDICARE, SELFPAY | END 2020-12-09 09:58 | disposition home or self-care (01) | LOC: ANHCOVIDVC 09:57 | PROVIDERS: PCP Internal Medicine | DX: Z23 Encounter for immunization (principal) | CPT/HCPCS: 0001A; 91300 ==

== ENCOUNTER 2020-12-30 09:57 | Outpatient (CLI) | payer MEDICARE, SELFPAY | END 2020-12-30 09:58 | disposition home or self-care (01) | LOC: ANHCOVIDVC 09:57 | PROVIDERS: PCP Internal Medicine | DX: Z23 Encounter for immunization (principal) | CPT/HCPCS: 0002A; 91300 ==

== ENCOUNTER 2021-08-03 06:35 | Outpatient (CLI) | payer MEDICARE, SELFPAY ==
--- NOTE | ~2021-08-03 | XR_ITS ---
EXAMINATION: XR chest 2V 08/03/2021 07:09 INDICATION: Bladder cancer PROCEDURE: 2 view chest COMPARISON: Comparison to multiple prior studies sequentially, with oldest reviewed study dated 12/2018. FINDINGS: The lungs are clear. The cardiomediastinal silhouette is within normal limits. There are no pleural effusions. There is no pneumothorax suspected. IMPRESSION: 1: NO ACUTE CARDIOPULMONARY DISEASE. Reviewed, dictated and finalized at location A. [facility]
--- NOTE | ~2021-08-03 | CT_ITS ---
EXAMINATION: CT abdomen pelvis wo/w con DATE: 08/03/2021 07:38 INDICATION: Bladder cancer TECHNIQUE: Computed tomography (CT) of the abdomen and pelvis was performed without intravenous contr ast. CT of the abdomen and pelvis was then performed with a total of 130 mL Omnipaque 350 intravenous contrast using a double-bolus technique for simultaneous opacification of the renal parenchyma and r enal collecting system. The dose-length product (DLP) was 2091.72 mGy-cm. Automated exposure control and iterative reconstruction technique were employed. COMPARISON: 11/23/2020 FINDINGS: There are patchy airspace opacities of the visualized lung bases. The heart size is normal. There is calcification of the mitral annulus. The liver, spleen, pancreas, gallbladder, and adrenal glands are normal. No stones are identified in the kidneys, ureters, or bladder. There is no hydronep hrosis or hydroureter. There are multiple stable cystic lesions of the left kidney, some of which dem onstrate thin internal septation. 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 Ther e are changes of cystectomy with ileal conduit formation. There is wall thickening and surrounding st randing involving the distal half of the left ureter. No pathologically enlarged abdominal or pelvic lymph nodes are identified. There is no free intraperitoneal gas or evidence of bowel obstruction. Th ere is severe lumbar spondylosis. IMPRESSION: 1. Right lower quadrant ileal conduit formation with wall thickening and fat stranding surrounding di stal half of the left ureter. Finding could be infectious or inflammatory however malignant involveme nt is not excluded. Reviewed, dictated and finalized at location B. [employer] IMPRESSION: 1. Right lower quadrant ileal conduit formation with wall thickening and fat st randing surrounding distal half of the left ureter. Finding could be infectious or inflammatory however malignant involvement is not excluded.
[2021-08-03 07:17] LABS: Estimated Glomerular Filt Rate 42
== END 2021-08-03 06:36 | disposition home or self-care (01) ==
PROVIDERS: PCP Family Medicine; Visit Provider Urology
DX: C67.9 Malignant neoplasm of bladder, unspecified (principal)
CPT/HCPCS: 71046; 74178; Q9967

== ENCOUNTER 2021-12-04 13:29 | Observation (INO) | payer MEDICARE, SELFPAY ==
[2021-12-04] VITALS (28 sets, daily range): BP systolic 125–146; BP diastolic 51–89; PULSE 79–108; RESP 14–17; TEMP 36.6–38.3; O2SAT 87–99; BMI 29.2
--- NOTE | ~2021-12-04 | CT_ITS ---
EXAMINATION: CT abdomen pelvis wo con DATE: 12/04/2021 15:18 INDICATION: Lower quadrant abdominal pain and weakness TECHNIQUE: Computed tomography (CT) of the abdomen and pelvis was performed without intravenous contr ast. Automated exposure control and iterative reconstruction technique were employed. The dose-length product was 1112.88 mGy-cm. COMPARISON: 08/03/2021 FINDINGS: Emphysema and mild scattered discoid atelectasis at the bilateral lung bases. Heart size is normal. A therosclerotic coronary artery calcific lesion. Dense mitral annular calcific location. No pericardia l or pleural effusion. Liver, decompressed gallbladder, spleen, pancreas and bilateral adrenal glands are normal. Status post prostatectomy and cystectomy with right lower quadrant ileal conduit formati on. Mild right hydroureter without hydronephrosis. Again seen are multiple cystic lesions of the kidn ey some demonstrating thin internal septations and minimal peripheral wall calcification consistent w ith Bosniak 2 cyst. There is persistent mild left hydroureteronephrosis extending to where the left u reter crosses the midline with wall thickening and inflammatory stranding surrounding the distal aspe ct of the left ureter. There is also bilateral perinephric stranding, moderate on the left and mild o n the right. There is altered colonic diverticulosis with a sigmoid predominance. There is no adjacen t inflammatory change to suggest diverticulitis. Right lower quadrant small bowel anastomosis likely representing the harvest site for the ileal conduit. A tiny knuckle of small bowel extends partially into a very small ventral hernia along the right side of a prior ventral hernia mesh repair. No bowel obstruction. Normal appendix. No free intraperitoneal gas or fluid. Mild increase in size of a few m ildly prominent but still normal-sized para aortic lymph nodes which are likely reactive. No patholog ically enlarged abdominal or pelvic lymphadenopathy. Surgical clips in pelvis consistent with prior b ilateral pelvic lymph node dissections. Mild lumbar dextrocurvature with severe spondylosis. IMPRESSION: 1. Status post cystectomy, prostatectomy, pelvic lymph node dissection and right lower quadrant ileal conduit formation. 2. New mild left hydroureteronephrosis and increasing left perinephric stranding likely related to ob struction at the level of the distal left ureter where there is persistent wall thickening which coul d be infectious, inflammatory or malignant in etiology. 3. Small knuckle of nonobstructed small bowel extends partially into a small ventral hernia along the right side of a prior ventral hernia mesh repair. 4. New likely reactive mild para aortic retroperitoneal lymphadenopathy low differential does include metastatic disease. 5. Emphysema. Reviewed, dictated and finalized at location A. IMPRESSION: 1. Status post cystectomy, prostatectomy, pelvic lymph node dissection and righ t lower quadrant ileal conduit formation. 2. New mild left hydroureteronephrosis and increasing left perinephric strandin g likely related to obstruction at the level of the distal left ureter where th ere is persistent wall thickening which could be infectious, inflammatory or ma lignant in etiology. 3. Small knuckle of nonobstructed small bowel extends partially into a small ve ntral hernia along the right side of a prior ventral hernia mesh repair. 4. New likely reactive mild para aortic retroperitoneal lymphadenopathy low dif ferential does include metastatic disease. 5. Emphysema.
--- NOTE | 2021-12-04 13:52 | ECG_ITS ---
Measurements Intervals [place] Rate: 94 P: 35 DE: 172 QRS: -40 QRSD: 113 T: 53 QT: 355 QTc: 446 Interpretive Statements SINUS RHYTHM MARKED LEFT AXIS DEVIATION [QRS AXIS < -30] MODERATE INTRAVENTRICULAR CONDUCTION DELAY [110+ ms QRS DURATION] COMPARED TO ECG 11/23/2020 14:16:28 SINUS RHYTHM NOW PRESENT LEFT-AXIS DEVIATION NOW PRESENT INTRAVENTRICULAR CONDUCTION DELAY NOW PRESENT Electronically Signed On 12-04-2021 17:02:11 CDT by Tita Beasley M.D.
--- NOTE | 2021-12-04 14:11 | ED.WEAKNESS ---
HPI - Weakness General Chief complaint: Weakness Stated complaint: weakness Time Seen by Provider: 12/04/21 13:40 Source: patient History of Present Illness HPI Narrative: Patient presents with abdominal pain and weakness. Patient ports that symptoms for approximately 1 week but getting progressively worse today he was been falling down so he came to the ER for evaluation. Reports his pain is in his lower abdomen left worse than right achy, constant, no clear aggravating or alleviating factors, no radiation. Denies any nausea or vomiting denies any diarrhea or constipation. Reports his weakness is primarily in his legs causing difficulty ambulating. denies any chest pain cough or shortness of breath denies any known sick contacts Related Data Home Medications Medication Instructions Recorded Confirmed Alphagan P 1 drp EACH EYE BID 11/23/20 12/04/21 albuterol sulfate 1 puff INHALATION Q4-6H PRN 11/23/20 12/04/21 latanoprost 1 drp EACH EYE HS 11/23/20 12/04/21 pregabalin [Lyrica] 75 mg PO DAILY 12/04/21 12/04/21 Allergies Allergy/AdvReac Type Severity Reaction Status Date / Time grass pollen Allergy Mild Sneezing Verified 12/04/21 20:13 pollen extracts Allergy Mild Sneezing Verified 12/04/21 20:13 Review of Systems Review of Systems: CONSTITUTIONAL: Denies fever, chills, or sweats. EYES: Denies visual changes, redness, or discharge. ENT: Denies rhinorrhea, congestion, sore throat, or otalgia. CARDIOVASCULAR: Denies chest pain, palpitations, or edema. RESPIRATORY: Denies cough or dyspnea. GASTROINTESTINAL: Denies nausea, vomiting, or diarrhea. GENITOURINARY: Denies dysuria or hematuria. SKIN: Denies rash or itching. MUSCULOSKELETAL: Denies back pain, joint pain, or myalgia. NEUROLOGIC: Denies headache, numbness, dizziness, or weakness. PSYCHIATRIC: Denies anxiety or depression. 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 Lennon in 2010 History of ileal conduit 2009 S/P radical cystoprostatectomy 2009 Family History Family History (Updated 12/04/21 @ 20:10 by Rakesh Kohli RN) Mother Family history of allergic disorder Father Family history of malignant neoplasm of stomach Social History Social History Social History: The patient lives at home with his and she is the durable power trial attorney for healthcare. He has 1 son. He is a former smoker. The patient is a full code. The patient drinks about 2 or 3 beers a night. 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 Smoking packs per day: 1.5 Smoking cigarettes per day: 30.0 Years smoked: 30 Smoking pack-years: 45.00 Smoking status: Former smoker Tobacco type: cigarettes Smoking end date: 09/24/90 Alcohol intake: current Drinks per week: 14 Alcohol use de
[2021-12-04 14:12] LABS: Basophils Absolute Auto 0.1 K/mm3 (0.0-0.1); Basophils Percent Auto 0.3 % (0.2-1.2); Eosinophils Percent Auto 0.2 % (0-4.4); Hematocrit 37.5 % (42.0-52.0); Hemoglobin 12.7 g/dL (14.0-18.0); Immature Granulocyte Absolute 0.21 K/mm3 (0.00-0.031); Immature Granulocyte Percent A 1.3 % (0-0.5); Lymphocytes Absolute Auto 0.38 K/mm3 (0.9-3.2); Lymphocytes Percent Auto 2.3 % (18.3-44.2); Mean Corpuscular HGB Conc 33.9 g/dl (32-36); Mean Corpuscular Volume 88.7 fl (80-100); Mean Platelet Volume 10.4 fl (7.4-10.4); Monocytes Absolute Auto 0.8 K/mm3 (0.1-0.6); Monocytes Percent Auto 4.6 % (2.6-8.5); Neutrophils Absolute Auto 15.2 K/mm3 (1.3-6.7); Neutrophils Percent Auto 91.3 % (45.5-73.1); Platelet Count Result 152 k/mm3 (150-375); Red Blood Count 4.23 M/mm3 (4.6-6.20); Red Cell Distribution Width 16.6 % (11.5-14.5); White Blood Count 16.7 K/mm3 (4.5-10.0)
[2021-12-04 14:21] LABS: Add Urine Microscopic? YES; Alanine Aminotransferase 24 U/L (4-50); Albumin Level 3.7 g/dL (3.5-5.1); Alkaline Phosphatase 69 U/L (38-126); Anion Gap 6 mmol/L (8-16); Appearance Urine Cloudy (Clear); Aspartate Amino Transferase 28 U/L (17-59); Bacteria Urine 3+ /hpf; Bilirubin Urine Negative (Negative); Bilirubin,Total 2.6 mg/dL (0.2-1.3); Blood Urea Nitrogen 32 mg/dL (9-20); Blood Urine 3+ (Negative); Budding Yeast Urine Present /hpf; Carbon Dioxide 21 mmol/L (22-30); Chloride 101 mmol/L (98-107); Color Urine Yellow (Yellow); Estimated CRCL calculation 31 ml/min; Estimated Glomerular Filt Rate 29; Glucose 186 mg/dL (65-110); Glucose Urine UA Negative (Negative); Ketones Urine Negative (Negative); Lactic Acid Reflex 1.2 mmol/L (0.7-2.1); Leukocyte Esterase Ur 3+ LEU/UL (Negative); Lipase 38 U/L (23-300); Mucus Urine Rare /lpf; Nitrate Urine Positive (Negative); Potassium 3.8 mmol/L (3.4-5.0); Protein Urine 2+ mg/dL (Negative); RBC Urine 21-50 /hpf (0-2); Sodium 128 mmol/L (137-145); Specific Grav Ur 1.012 (1.001-1.035); Squamous Epithelial Cell Urine Rare /hpf (Few); Urobilinogen Urine Negative mg/dL (<2.0); WBC Clumps Urine Present /HPF; WBC Urine >75 /hpf
[2021-12-04] MEDS: SODIUM CHLORIDE 0.9% IV 1,000 ML 999 ML IV CONT (14:40)
[2021-12-04] MEDS: SODIUM CHLORIDE 0.9% IV 1,000 ML 125 ML IV CONT (18:13)
--- NOTE | 2021-12-04 18:27 | PC.NURSE ---
Gave report at 182, nurse stated room was still dirty and would call back when ready.
--- NOTE | 2021-12-04 20:00 | ADMGEN ---
This patient, Kevin Figueredo, was admitted to Medical Room 245-. Patient/family oriented to hospital policies and general routines including ID bracelet, bed and alarms, visiting hours, pain management, procedures, bathroom and other care routines, personal items, smoking policy, room service/diet, and visiting hours. Information on how to activate the Rapid Response Team has been discussed. Patient/Family are encouraged to report perceived risks to care and to ask questions if they do not understand what they are told or what they should do.
--- NOTE | 2021-12-04 20:48 | PM.IMHP ---
H&P: HPI History of Present Illness Date/Time: Patient was placed observation status for expected length of stay less than 23 hours for management, will plan to re-evaluate tomorrow for improvement. 12/04/21 20:48 Chief Complaint: Weakness Narrative: Mr. Figueredo is an 81-year-old gentleman who presented to emergency room with complaints of weakness that has been increasing over the last week. Patient states that at times he has been shivering. Patient states that he has also had nasal congestion and thought he may have COVID and did at home test that was negative. Patient states that when he was shivering he did check his temperature and he never had a fever. Patient states that he has had bilateral groin pain with left being worse than right. Patient denies any flank pain. Patient denies any lightheadedness, dizziness, syncopal, or near syncopal episodes. Patient denies any chest pain, shortness a , lightheadedness, or dizziness. Upon evaluation in emergency room patient had a urinalysis performed that showed urinary tract infection and patient underwent CT of the abdomen and pelvis that showed new mild left hydroureteronephrosis and increasing left perinephric stranding likely related to obstruction at the level of the distal left ureter where there is persistent wall thickening which could be infectious, inflammatory, or malignant in etiology. New likely reactive mild periaortic retroperitoneal lymphadenopathy low differential does include metastatic disease. Patient states he has a known history of bladder cancer with ileal conduit placement approximately 14 years ago. Patient states he also has a known history of prostate cancer with prostatectomy. Patient states that he does have a history of asthma, hypertension, dyslipidemia, diabetes mellitus, restless legs syndrome, and gout. Review of Systems Review of Systems: A 12 point review of systems was completed patient all pertinent positive and negative per HPI the remainder are unremarkable. 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 Lennon in 2010 History of ileal conduit 2010 S/P radical cystoprostatectomy 2009 Family History Family History (Updated 12/04/21 @ 20:10 by Rakesh Kohli RN) Mother Family history of allergic disorder Father Family history of malignant neoplasm of stomach Social History Social History Social History: The patient lives at home with his and she is the durable power city attorney for healthcare. He has 1 son. He is a former smoker. The patient is a full code. The patient drinks about 2 or 3 beers a night. 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 Smoking packs per day: 1.5 Smoking cigarettes per day: 30.0 Years smoked: 30 Smoking pack-years: 45.00 Smoking status: Former smoker Tobacco type: cigarettes Smoking
[2021-12-04] MEDS: ATORVASTATIN 40 MG TABLET BY MOUTH (21:33)
[2021-12-04] MEDS: ERGOCALCIFEROL 50,000 UNIT CAPSULE 50000 UNITS PO (21:33)
[2021-12-04] MEDS: rOPINIRole HCL 1 MG TABLET 2 MG PO (21:33)
[2021-12-04] MEDS: LATANOPROST 0.005% OP SOLN 2.5 ML BTL 1 DROP EACH EYE (21:34)
[2021-12-04] MEDS: BRIMONIDINE TARTRATE 0.1% 5 ML OPHTH DROPS 1 DROP EACH EYE (21:35)
[2021-12-04] MEDS: HEPARIN SODIUM 5,000 UNITS/ML VIAL 5000 UNITS SUB-Q (21:35)
[2021-12-05] VITALS (7 sets, daily range): BP systolic 102–139; BP diastolic 49–85; PULSE 65–84; RESP 16–20; TEMP 36.1–37.1; O2SAT 90–99
[2021-12-05] MEDS: SODIUM CHLORIDE 0.9% IV 1,000 ML 125 ML IV CONT (02:23)
[2021-12-05 05:38] LABS: Basophils Percent Auto 0.3 % (0.2-1.2); Eosinophils Absolute Auto 0.2 K/mm3 (0-0.3); Eosinophils Percent Auto 1.8 % (0-4.4); Hematocrit 34.1 % (42.0-52.0); Immature Granulocyte Absolute 0.11 K/mm3 (0.00-0.031); Immature Granulocyte Percent A 1.1 % (0-0.5); Lymphocytes Absolute Auto 0.51 K/mm3 (0.9-3.2); Mean Corpuscular HGB Conc 32.3 g/dl (32-36); Mean Corpuscular Hemoglobin 29.6 pg (26-34); Mean Corpuscular Volume 91.9 fl (80-100); Mean Platelet Volume 10.3 fl (7.4-10.4); Monocytes Absolute Auto 0.6 K/mm3 (0.1-0.6); Neutrophils Absolute Auto 8.8 K/mm3 (1.3-6.7); Neutrophils Percent Auto 85.8 % (45.5-73.1); Platelet Count Result 135 k/mm3 (150-375); Red Blood Count 3.71 M/mm3 (4.6-6.20); Red Cell Distribution Width 16.8 % (11.5-14.5); White Blood Count 10.3 K/mm3 (4.5-10.0)
[2021-12-05 05:48] LABS: Anion Gap 5 mmol/L (8-16); Blood Urea Nitrogen 29 mg/dL (9-20); Calcium 7.6 mg/dL (8.4-10.2); Carbon Dioxide 23 mmol/L (22-30); Chloride 108 mmol/L (98-107); Estimated CRCL calculation 30 ml/min; Estimated Glomerular Filt Rate 32; Glucose 106 mg/dL (65-110); Potassium 3.3 mmol/L (3.4-5.0); Sodium 136 mmol/L (137-145)
--- NOTE | 2021-12-05 06:36 | WPDURCON ---
Assessment and Plan Assessment and plan (1) Acute kidney injury superimposed on chronic kidney disease: Code(s): N17.9 - Acute kidney failure, unspecified; N18.9 - Chronic kidney disease, unspecified Status: Acute (2) Acute pyelonephritis: Code(s): N10 - Acute pyelonephritis Status: Acute (3) Hydronephrosis: Code(s): N13.30 - Unspecified hydronephrosis Status: Acute Assessment and Plan: Clinical presentation consistent with left pyelonephritis. Finding of thickening of his left ureteral wall is unchanged since CT scan in July 2020. The scant left hydronephrosis and retroperitoneal adenopathy likely result of an upper urinary tract infection. Agree with ceftriaxone pending culture results. He appears to be improving overnight with lessening leukocytosis and improved serum creatinine. Following treatment for his current infection should follow-up in 2-3 weeks for reimaging to see if hydronephrosis and adenopathy resolved. Urology Consult Note HPI Date Seen: 12/05/21 Requesting Physician: Eren Burrows MD Primary Care Provider: Alexa Costa, Consult Narrative Narrative: Kevin Figueredo is a 81 year old male, known to Dr. Oden, long history of bladder cancer status post radical cystectomy in the remote past. Is admitted with generalized weakness, reports of low-grade fever and atypical pelvic pain. He denies nausea vomiting, change in bowel habits. Additionally he denies hematuria or foul-smelling urine. CT imaging demonstrates chronic thickening of the wall of his distal left ureter. This finding is unchanged over the last 18 months. Distally he has new scant left hydronephrosis and retroperitoneal adenopathy. Overnight, with antibiotics and supportive therapy, the patient's pelvic pain is significantly improved. Review of Systems Cardiovascular: Cardiovascular: Denies chest pain, Denies lightheadedness, Denies palpitations and Denies dyspnea Respiratory: Respiratory: Denies dyspnea Gastrointestinal: Gastrointestinal: Denies diarrhea, Denies nausea and Denies vomiting Genitourinary: Genitourinary: Denies hematuria and Denies dysuria Endocrine: Endocrine: Denies palpitations PMFSH Past Medical History Medical History Arthritis Asthma Bladder cancer 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 Cancer Chronic renal failure, stage 3 (moderate) COPD with asthma Diabetes (Unknown) Diabetes Essential (primary) hypertension Glaucoma Gouty arthritis Hepatitis Hepatitis A History of bladder cancer History of prostate cancer Mixed hyperlipidemia Other spondylosis with myelopathy, 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 Lennon in 2010 History of ileal conduit 2010 S/P radical cystoprostatectomy 2009 Family History Family History Mother Family history of allergic disorder Father Family history of malignant neoplasm of stomach Social History Social History Social History: The patient lives at home with his and she is the durable power sports attorney for healthcare. He has 1 son. He is a former smoker. The patient is a full code. The patient drinks about 2 or 3 beers a night. The patient is retired
[2021-12-05] MEDS: POTASSIUM CHLORIDE 20 MEQ TABLET PO (08:18)
[2021-12-05] MEDS: FLUTICASONE/SALMETEROL 115-21 MCG INHALER 1 PUFF 2 PUFF INHALATION ×2 (08:18→20:11)
[2021-12-05] MEDS: amLODIPine BESYLATE 5 MG TABLET BY MOUTH (08:18)
[2021-12-05] MEDS: HEPARIN SODIUM 5,000 UNITS/ML VIAL 5000 UNITS SUB-Q ×2 (08:18→20:01)
[2021-12-05] MEDS: PREGABALIN (*CRX) 75 MG CAPSULE PO (08:19)
[2021-12-05] MEDS: ACETAMINOPHEN 325 MG TABLET 650 MG PO ×2 (08:48→20:06)
[2021-12-05] MEDS: BRIMONIDINE TARTRATE 0.1% 5 ML OPHTH DROPS 1 DROP EACH EYE ×2 (08:50→17:30)
--- NOTE | 2021-12-05 10:18 | P.PNIM_ITS ---
Progress Note: A&P Assessment and Plan (1) Sepsis: Code(s): A41.9 - Sepsis, unspecified organism Status: Acute Assessment and Plan: Patient septic on presentation with fever, leukocytosis, tachycardia. Source of infection pyelonephritis. Lactic acid within normal limits * Tachycardia resolved. Patient afebrile so far today. Leukocytosis significantly improved. * He has been rehydrated with IV fluids and is now tolerating p.o. intake. Discontinue fluids at this time * Continue IV antibiotics * Blood cultures pending (2) Acute pyelonephritis: Code(s): N10 - Acute pyelonephritis Status: Acute Assessment and Plan: CT abdomen/pelvis on presentation shows new mild left hydroureteronephrosis and increased left perinephric stranding with wall thickening * Urine cultures pending * Continue IV Rocephin * Appreciate urology consultation * Supportive care. Analgesics available as needed * Per Urology, will require follow-up imaging in 2-3 weeks to assess for resolution of hydronephrosis and lymphadenopathy (3) Hydronephrosis: Code(s): N13.30 - Unspecified hydronephrosis Status: Acute Assessment and Plan: Plan as above (4) Acute kidney injury superimposed on chronic kidney disease: Code(s): N17.9 - Acute kidney failure, unspecified; N18.9 - Chronic kidney disease, unspecified Status: Acute Assessment and Plan: Baseline creatinine appears to be 1.4-1.5 * Creatinine on presentation elevated up to 2.2 * TRI me be intrinsic secondary to infection or post renal secondary to hydronephrosis * Patient has been hydrated with IV fluids and is not tolerating p.o. intake. IV fluids discontinued to avoid volume overload * Creatinine improved to 2.0 today * Continue to monitor renal function closely to ensure return back towards baseline * Consider nephrology consultation if no improvement/worsening in renal function (5) Weakness: Code(s): R53.1 - Weakness Status: Acute Assessment and Plan: Likely secondary to acute infection/sepsis * Patient reports overall improvement * He is ambulating independently now * Encourage frequent ambulation (6) Hypokalemia: Code(s): E87.6 - Hypokalemia Status: Acute Assessment and Plan: Potassium is 3.3 today * Administer 20 mEq p.o. KCl * Monitor BMP (7) Bladder cancer: Code(s): C67.9 - Malignant neoplasm of bladder, unspecified Status: Acute Assessment and Plan: 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 * He is managed by Dr. Oden * No issues with urostomy at this time (8) Diabetes: Code(s): E11.9 - Type 2 diabetes mellitus without complications Status: Acute Assessment and Plan: Last A1c September 2021 was 6.5 * Blood sugars have been well controlled this admission * Initiate Accu-Cheks, sliding scale insulin, hypoglycemic protocol * Continue home sitagliptin * Monitor glucose trends and adjust medication regimen as needed Subjective Date/time seen: 12/05/21 10:18 Interval history: Date of service: 12/05/2021 Kevin Figueredo is an 81-year-old male with a history of bladder cancer now with urostomy for many years CKD, COPD, type 2 diabetes, hypertension, hyperlipidemia, and several other medical problems who is seen in follow-up for pyelonephritis. He reports that he is feeling better today. He presented with complaints of diffuse lower abdominal tightness
--- NOTE | 2021-12-05 10:18 | PM.IMPN ---
Progress Note: A&P Assessment and Plan (1) Sepsis: Code(s): A41.9 - Sepsis, unspecified organism Status: Acute Assessment and Plan: Patient septic on presentation with fever, leukocytosis, tachycardia. Source of infection pyelonephritis. Lactic acid within normal limits Tachycardia resolved. Patient afebrile so far today. Leukocytosis significantly improved. He has been rehydrated with IV fluids and is now tolerating p.o. intake. Discontinue fluids at this time Continue IV antibiotics Blood cultures pending (2) Acute pyelonephritis: Code(s): N10 - Acute pyelonephritis Status: Acute Assessment and Plan: CT abdomen/pelvis on presentation shows new mild left hydroureteronephrosis and increased left perinephric stranding with wall thickening Urine cultures pending Continue IV Rocephin Appreciate urology consultation Supportive care. Analgesics available as needed Per Urology, will require follow-up imaging in 2-3 weeks to assess for resolution of hydronephrosis and lymphadenopathy (3) Hydronephrosis: Code(s): N13.30 - Unspecified hydronephrosis Status: Acute Assessment and Plan: Plan as above (4) Acute kidney injury superimposed on chronic kidney disease: Code(s): N17.9 - Acute kidney failure, unspecified; N18.9 - Chronic kidney disease, unspecified Status: Acute Assessment and Plan: Baseline creatinine appears to be 1.4-1.5 Creatinine on presentation elevated up to 2.2 TRI me be intrinsic secondary to infection or post renal secondary to hydronephrosis Patient has been hydrated with IV fluids and is not tolerating p.o. intake. IV fluids discontinued to avoid volume overload Creatinine improved to 2.0 today Continue to monitor renal function closely to ensure return back towards baseline Consider nephrology consultation if no improvement/worsening in renal function (5) Weakness: Code(s): R53.1 - Weakness Status: Acute Assessment and Plan: Likely secondary to acute infection/sepsis Patient reports overall improvement He is ambulating independently now Encourage frequent ambulation (6) Hypokalemia: Code(s): E87.6 - Hypokalemia Status: Acute Assessment and Plan: Potassium is 3.3 today Administer 20 mEq p.o. KCl Monitor BMP (7) Bladder cancer: Code(s): C67.9 - Malignant neoplasm of bladder, unspecified Status: Acute Assessment and Plan: 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 He is managed by Dr. Oden No issues with urostomy at this time (8) Diabetes: Code(s): E11.9 - Type 2 diabetes mellitus without complications Status: Acute Assessment and Plan: Last A1c September 2021 was 6.5 Blood sugars have been well controlled this admission Initiate Accu-Cheks, sliding scale insulin, hypoglycemic protocol Continue home sitagliptin Monitor glucose trends and adjust medication regimen as needed Subjective Date/time seen: 12/05/21 10:18 Interval history: Date of service: 12/05/2021 Kevin Figueredo is an 81-year-old male with a history of bladder cancer now with urostomy for many years CKD, COPD, type 2 diabetes, hypertension, hyperlipidemia, and several other medical problems who is seen in follow-up for pyelonephritis. He reports that he is feeling better today. He presented with complaints of diffuse lower abdominal tightness and discomfort as well as shakiness. He reports both of these symptoms have essentially resolved. He now endorses only a mild left lower quadrant pain which he rates about 5/10. He does still feel weak but significantly improved and he is able to get around better. No issues with his urostomy which has been present for over 14 years. He denies nausea, vomiting, fever, chills, dizziness, or lightheadedness. He had a regular bowel movement this morning. Denies diarr
[2021-12-05 11:14] LABS: Glucose Point of Care 96 mg/dl (65-105)
[2021-12-05 16:18] LABS: Glucose Point of Care 90 mg/dl (65-105)
[2021-12-05] MEDS: rOPINIRole HCL 1 MG TABLET 2 MG PO (20:01)
[2021-12-05] MEDS: LATANOPROST 0.005% OP SOLN 2.5 ML BTL 1 DROP EACH EYE (20:01)
[2021-12-05] MEDS: ATORVASTATIN 40 MG TABLET BY MOUTH (20:01)
[2021-12-05 21:10] LABS: Glucose Point of Care 102 mg/dl (65-105)
[2021-12-06] VITALS: BP 115/53; PULSE 72; RESP 20; TEMP 36.9; O2SAT 95
[2021-12-06 04:51] VITALS: BP 129/65; PULSE 72; RESP 20; TEMP 36.6; O2SAT 96
[2021-12-06 05:57] LABS: Hematocrit 35.2 % (42.0-52.0); Hemoglobin 11.6 g/dL (14.0-18.0); Mean Corpuscular Hemoglobin 29.3 pg (26-34); Mean Corpuscular Volume 88.9 fl (80-100); Mean Platelet Volume 11.2 fl (7.4-10.4); Platelet Count Result 172 k/mm3 (150-375); Red Blood Count 3.96 M/mm3 (4.6-6.20); Red Cell Distribution Width 16.6 % (11.5-14.5); White Blood Count 7.2 K/mm3 (4.5-10.0)
[2021-12-06 06:05] LABS: Anion Gap 6 mmol/L (8-16); Blood Urea Nitrogen 23 mg/dL (9-20); Calcium 8.2 mg/dL (8.4-10.2); Carbon Dioxide 22 mmol/L (22-30); Chloride 110 mmol/L (98-107); Estimated CRCL calculation 35 ml/min; Estimated Glomerular Filt Rate 39; Glucose 98 mg/dL (65-110); Potassium 3.6 mmol/L (3.4-5.0); Sodium 138 mmol/L (137-145)
--- NOTE | 2021-12-06 07:12 | WPDUROPN2 ---
Progress Note: A&P Assessment and Plan (1) Hydronephrosis: Code(s): N13.30 - Unspecified hydronephrosis Status: Acute (2) Acute pyelonephritis: Code(s): N10 - Acute pyelonephritis Status: Acute Assessment and Plan: Culture showing no growth and urine grew mixed stacy. Although his urine culture is unremarkable I suspect has acute pyelonephritis. I would recommend treating with cefdinir times an additional 7 days. Follow-up with Dr. Oden in 2-3 weeks to re-evaluate for resolution retroperitoneal adenopathy and left hydronephrosis. Subjective Subjective Date/Time Seen: 12/06/21 07:12 Comfortable, no complaints Review of Systems Cardiovascular: Cardiovascular: Denies chest pain, Denies lightheadedness, Denies palpitations and Denies dyspnea Respiratory: Respiratory: Denies dyspnea Gastrointestinal: Gastrointestinal: Denies diarrhea, Denies nausea and Denies vomiting Genitourinary: Genitourinary: Denies hematuria and Denies dysuria Endocrine: Endocrine: Denies palpitations Exam Const: General: no acute distress Resp: Effort & Inspection: normal respiratory effort GI: Inspection: non-distended GI Palp: No abdominal tenderness and No Guarding due to palpation present (GI) Auscultation: normal bowel sounds Objective Data Vital Signs Vital Signs: Vital Signs - 24 hr 12/05/21 08:20 12/05/21 08:24 12/05/21 15:24 Temperature 97.7 F 96.9 F L Pulse Rate 84 65 Respiratory Rate 16 16 Blood Pressure 139/70 115/62 Pulse Oximetry 94 97 98 12/05/21 20:11 12/05/21 20:29 12/06/21 00:00 Temperature 98.5 F 98.4 F Pulse Rate 83 72 Respiratory Rate 20 20 Blood Pressure 102/49 L 115/53 L Pulse Oximetry 95 94 95 12/06/21 04:51 Temperature 97.8 F Pulse Rate 72 Respiratory Rate 20 Blood Pressure 129/65 Pulse Oximetry 96 Intake/Output Intake/Output: Intake & Output 12/03/21 12/04/21 12/05/21 12/06/21 22:59 23:59 23:59 23:59 Intake Total 3160 390 Output Total 2600 1300 Balance 560 -910 Meds/Results Medications: Active Medications Generic Name Dose Route Start Last Admin Trade Name Freq PRN Reason Stop Dose Admin Acetaminophen 650 mg 12/05/21 08:30 12/05/21 20:06 Acetaminophen 325 Mg Tablet PO 650 mg Q4H PRN Administration Pain or Fever Albuterol 1 puff 12/04/21 20:44 Albuterol Sulfate (*Sp) Aerosol 1 Puff INHALATION Q4-6H PRN Shortness Of Breath Or Wheezing Amlodipine Besylate 5 mg 12/05/21 09:00 12/05/21 08:18 Amlodipine Besylate 5 Mg Tablet BY MOUTH 5 mg DAILY CONCHITA Administration Atorvastatin Calcium 40 mg 12/04/21 21:00 12/05/21 20:01 Atorvastatin 40 Mg Tablet BY MOUTH 40 mg HS CONCHITA Administration Brimonidine Tartrate 1 drop 12/04/21 20:55 12/05/21 17:30 Brimonidine Tartrate 0.1% 5 Ml Ophth Drops EACH EYE 1 drop BID CONCHITA Administration Dextrose 12.5 gm 12/05/21 10:40 Dextrose 50% 25 Gm/50 Ml Syringe IV PUSH PRN PRN Hypoglycemia Protocol Ergocalciferol 50,000 unit 12/04/21 21:00 12/04/21 21:33 Ergocalciferol 50,000 Unit Capsule PO 50,000 unit WEEKLY CONCHITA Administration Glucagon 1 mg 12/05/21 10:40 Glucagon For Inj 1 Mg Vial IM PRN PRN Hypoglycemia Protocol Glucose 15 gm 12/05/21 10:40 Glucose Oral Gel 15 Gm Of Glucse In 37.5 Gm Tube PO PRN PRN Hypoglycemia Protocol Heparin Sodium (Porcine) 5,000 units 12/04/21 21:00 12/05/21 20:01 Heparin Sodium 5,000 Units/Ml Vial SUB-Q 5,000 units Q12HR CONCHITA Administration Ceftriaxone Sodium/Dextrose 1 gm in 50 mls @ 100 mls/hr 12/05/21 18:00 12/05/21 18:01 Rocephin 1 Gm/D5w 50 Ml IVPB Infused Q24H CONCHITA Infusion Dextrose 1,000 mls @ 100 mls/hr 12/05/21 10:40 Dextrose 5% 1,000 Ml IVPB PRN PRN Hypoglycemia Protocol Insulin Aspart 2 - 5 units 12/05/21 12:00 12/05/21 17:30 Insulin Aspart (*Bkc) 100 Units/Ml SUB-Q Not
[2021-12-06 08:12] VITALS: BP 144/62; PULSE 84; RESP 16; TEMP 36.7; O2SAT 98
[2021-12-06] MEDS: FLUTICASONE/SALMETEROL 115-21 MCG INHALER 1 PUFF 2 PUFF INHALATION (08:22)
[2021-12-06 08:23] LABS: Glucose Point of Care 95 mg/dl (65-105)
[2021-12-06 08:25] VITALS: PULSE 84; O2SAT 94
[2021-12-06] MEDS: HEPARIN SODIUM 5,000 UNITS/ML VIAL 5000 UNITS SUB-Q (08:38)
[2021-12-06] MEDS: BRIMONIDINE TARTRATE 0.1% 5 ML OPHTH DROPS 1 DROP EACH EYE (08:38)
[2021-12-06] MEDS: PREGABALIN (*CRX) 75 MG CAPSULE PO (08:38)
[2021-12-06] MEDS: amLODIPine BESYLATE 5 MG TABLET BY MOUTH (08:39)
[2021-12-06] MEDS: ALBUTEROL SULFATE (*SP) AEROSOL 1 PUFF INHALATION (08:56)
--- NOTE | 2021-12-06 10:48 | P.PNIM_ITS ---
Progress Note: A&P Assessment and Plan (1) Sepsis: Code(s): A41.9 - Sepsis, unspecified organism Status: Acute Assessment and Plan: Patient septic on presentation with fever, leukocytosis, tachycardia. Source of infection pyelonephritis. Lactic acid within normal limits * Tachycardia resolved. fever resolved. Leukocytosis resolved. * He has been rehydrated with IV fluids and is now tolerating p.o. intake. Discontinued fluids * Continue IV antibiotics * Blood cultures pending (2) Acute pyelonephritis: Code(s): N10 - Acute pyelonephritis Status: Acute Assessment and Plan: CT abdomen/pelvis on presentation shows new mild left hydroureteronephrosis and increased left perinephric stranding with wall thickening * Urine cultures pending * Continue IV Rocephin * Appreciate urology consultation * Supportive care. Analgesics available as needed * Per Urology, will require follow-up imaging in 2-3 weeks to assess for resolution of hydronephrosis and lymphadenopathy (3) Hydronephrosis: Code(s): N13.30 - Unspecified hydronephrosis Status: Acute Assessment and Plan: Plan as above (4) Acute kidney injury superimposed on chronic kidney disease: Code(s): N17.9 - Acute kidney failure, unspecified; N18.9 - Chronic kidney disease, unspecified Status: Acute Assessment and Plan: Baseline creatinine appears to be 1.4-1.5 * Creatinine on presentation elevated up to 2.2, curently 1.7 and continues to improve slowly * TRI me be intrinsic secondary to infection or post renal secondary to hydronephrosis * Patient has been hydrated with IV fluids and is not tolerating p.o. intake. IV fluids discontinued to avoid volume overload * Continue to monitor renal function closely to ensure return back towards baseline * Consider nephrology consultation if no improvement/worsening in renal function (5) Weakness: Code(s): R53.1 - Weakness Status: Acute Assessment and Plan: Likely secondary to acute infection/sepsis * Patient reports overall improvement * He is ambulating independently now * Encourage frequent ambulation (6) Hypokalemia: Code(s): E87.6 - Hypokalemia Status: Acute Assessment and Plan: replace and monitor. (7) Bladder cancer: Code(s): C67.9 - Malignant neoplasm of bladder, unspecified Status: Acute Assessment and Plan: 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 * He is managed by Dr. Oden * No issues with urostomy at this time (8) Diabetes: Code(s): E11.9 - Type 2 diabetes mellitus without complications Status: Acute Assessment and Plan: Last A1c September 2021 was 6.5 * Blood sugars have been well controlled this admission * Initiate Accu-Cheks, sliding scale insulin, hypoglycemic protocol * Continue home sitagliptin * Monitor glucose trends and adjust medication regimen as needed Additional Plan DVT proph: heparin sq COde statuss: full code Subjective Date/time seen: 12/06/21 10:48 Interval history: Kevin Figueredo is an 81-year-old male with a history of bladder cancer now with urostomy for many years CKD, COPD, type 2 diabetes, hypertension, hyperlipidemia, and several other medical problems who is seen in follow-up for pyelonephritis. He reports that he is feeling better today. He presented with complaints of diffuse lower abdominal tightness and discomfort as well as shakiness. He reports bot
--- NOTE | 2021-12-06 10:48 | PM.IMPN ---
Progress Note: A&P Assessment and Plan (1) Sepsis: Code(s): A41.9 - Sepsis, unspecified organism Status: Acute Assessment and Plan: Patient septic on presentation with fever, leukocytosis, tachycardia. Source of infection pyelonephritis. Lactic acid within normal limits Tachycardia resolved. fever resolved. Leukocytosis resolved. He has been rehydrated with IV fluids and is now tolerating p.o. intake. Discontinued fluids Continue IV antibiotics Blood cultures pending (2) Acute pyelonephritis: Code(s): N10 - Acute pyelonephritis Status: Acute Assessment and Plan: CT abdomen/pelvis on presentation shows new mild left hydroureteronephrosis and increased left perinephric stranding with wall thickening Urine cultures pending Continue IV Rocephin Appreciate urology consultation Supportive care. Analgesics available as needed Per Urology, will require follow-up imaging in 2-3 weeks to assess for resolution of hydronephrosis and lymphadenopathy (3) Hydronephrosis: Code(s): N13.30 - Unspecified hydronephrosis Status: Acute Assessment and Plan: Plan as above (4) Acute kidney injury superimposed on chronic kidney disease: Code(s): N17.9 - Acute kidney failure, unspecified; N18.9 - Chronic kidney disease, unspecified Status: Acute Assessment and Plan: Baseline creatinine appears to be 1.4-1.5 Creatinine on presentation elevated up to 2.2, curently 1.7 and continues to improve slowly TRI me be intrinsic secondary to infection or post renal secondary to hydronephrosis Patient has been hydrated with IV fluids and is not tolerating p.o. intake. IV fluids discontinued to avoid volume overload Continue to monitor renal function closely to ensure return back towards baseline Consider nephrology consultation if no improvement/worsening in renal function (5) Weakness: Code(s): R53.1 - Weakness Status: Acute Assessment and Plan: Likely secondary to acute infection/sepsis Patient reports overall improvement He is ambulating independently now Encourage frequent ambulation (6) Hypokalemia: Code(s): E87.6 - Hypokalemia Status: Acute Assessment and Plan: replace and monitor. (7) Bladder cancer: Code(s): C67.9 - Malignant neoplasm of bladder, unspecified Status: Acute Assessment and Plan: 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 He is managed by Dr. Oden No issues with urostomy at this time (8) Diabetes: Code(s): E11.9 - Type 2 diabetes mellitus without complications Status: Acute Assessment and Plan: Last A1c September 2021 was 6.5 Blood sugars have been well controlled this admission Initiate Accu-Cheks, sliding scale insulin, hypoglycemic protocol Continue home sitagliptin Monitor glucose trends and adjust medication regimen as needed Additional Plan DVT proph: heparin sq COde statuss: full code Subjective Date/time seen: 12/06/21 10:48 Interval history: Kevin Figueredo is an 81-year-old male with a history of bladder cancer now with urostomy for many years CKD, COPD, type 2 diabetes, hypertension, hyperlipidemia, and several other medical problems who is seen in follow-up for pyelonephritis. He reports that he is feeling better today. He presented with complaints of diffuse lower abdominal tightness and discomfort as well as shakiness. He reports both of these symptoms have essentially resolved. He now endorses only a mild left lower quadrant pain which he rates about 5/10. He does still feel weak but significantly improved and he is able to get around better. No issues with his urostomy which has been present for over 14 years. He denies nausea, vomiting, fever, chills, dizziness, or lightheadedness. He had a regular bowel movement this morning. Denies diarrhea. He does complain of sinus congestion a
--- NOTE | 2021-12-06 11:02 | P.DS_ITS ---
DS: Admitting Diagnosis Discharge Date 12/06/2021 Admitting Diagnosis abdominal pain DS: Discharge Diagnosis Discharge Diagnosis (1) Sepsis: Code(s): A41.9 - Sepsis, unspecified organism Status: Acute Assessment and Plan: Patient septic on presentation with fever, leukocytosis, tachycardia. Source of infection pyelonephritis. Lactic acid within normal limits * Tachycardia resolved. fever resolved. Leukocytosis resolved. * He has been rehydrated with IV fluids and is now tolerating p.o. intake. Discontinued fluids * Continue IV antibiotics * Blood cultures no growth to date urine culture no growth as well (2) Acute pyelonephritis: Code(s): N10 - Acute pyelonephritis Status: Acute Assessment and Plan: CT abdomen/pelvis on presentation shows new mild left hydroureteronephrosis and increased left perinephric stranding Related to obstruction at the level of distal left ureter where there is persistent wall thickening which could be infectious inflammatory or malignant in etiology. There is associated new likely reactive mild para-aortic retroperitoneal lymphadenopathy. * Urine cultures No growth * Continue IV Rocephin will switch to cefdinir discharge for 10 days. He received 2 days course of Rocephin here in the hospital * Appreciate urology consultation * Supportive care. Analgesics available as needed * he will need to follow up with Urology and have follow-up imaging in 2-3 weeks to assess for resolution of hydronephrosis and lymphadenopathy (3) Hydronephrosis: Code(s): N13.30 - Unspecified hydronephrosis Status: Acute Assessment and Plan: Plan as above (4) Acute kidney injury superimposed on chronic kidney disease: Code(s): N17.9 - Acute kidney failure, unspecified; N18.9 - Chronic kidney disease, unspecified Status: Acute Assessment and Plan: Baseline creatinine appears to be 1.4-1.5 * Creatinine on presentation elevated up to 2.2, curently 1.7 and continues to improve slowly * TRI me be intrinsic secondary to infection or post renal secondary to hydronephrosis * Patient has been hydrated with IV fluids and is not tolerating p.o. intake. IV fluids discontinued to avoid volume overload * Continue to monitor renal function closely to ensure return back towards baseline * Consider nephrology consultation if no improvement/worsening in renal function (5) Weakness: Code(s): R53.1 - Weakness Status: Acute Assessment and Plan: Likely secondary to acute infection/sepsis * Patient reports overall improvement * He is ambulating independently now * Encourage frequent ambulation (6) Hypokalemia: Code(s): E87.6 - Hypokalemia Status: Acute Assessment and Plan: replace and monitor. (7) Bladder cancer: Code(s): C67.9 - Malignant neoplasm of bladder, unspecified Status: Acute Assessment and Plan: 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 * He is managed by Dr. Oden * No issues with urostomy at this time (8) Diabetes: Code(s): E11.9 - Type 2 diabetes mellitus without complications Status: Acute Assessment and Plan: Last A1c September 2021 was 6.5 * Blood sugars have been well controlled this admission * Initiate Accu-Cheks, sliding scale insulin, hypoglycemic protocol * Continue home sitagliptin * Monitor glucose trends and adjust medication regimen as needed DS: Summary [facility]
--- NOTE | 2021-12-06 11:02 | PM.DS ---
DS: Admitting Diagnosis Discharge Date 12/06/2021 Admitting Diagnosis abdominal pain DS: Discharge Diagnosis Discharge Diagnosis (1) Sepsis: Code(s): A41.9 - Sepsis, unspecified organism Status: Acute Assessment and Plan: Patient septic on presentation with fever, leukocytosis, tachycardia. Source of infection pyelonephritis. Lactic acid within normal limits Tachycardia resolved. fever resolved. Leukocytosis resolved. He has been rehydrated with IV fluids and is now tolerating p.o. intake. Discontinued fluids Continue IV antibiotics Blood cultures no growth to date urine culture no growth as well (2) Acute pyelonephritis: Code(s): N10 - Acute pyelonephritis Status: Acute Assessment and Plan: CT abdomen/pelvis on presentation shows new mild left hydroureteronephrosis and increased left perinephric stranding Related to obstruction at the level of distal left ureter where there is persistent wall thickening which could be infectious inflammatory or malignant in etiology. There is associated new likely reactive mild para-aortic retroperitoneal lymphadenopathy. Urine cultures No growth Continue IV Rocephin will switch to cefdinir discharge for 10 days. He received 2 days course of Rocephin here in the hospital Appreciate urology consultation Supportive care. Analgesics available as needed he will need to follow up with Urology and have follow-up imaging in 2-3 weeks to assess for resolution of hydronephrosis and lymphadenopathy (3) Hydronephrosis: Code(s): N13.30 - Unspecified hydronephrosis Status: Acute Assessment and Plan: Plan as above (4) Acute kidney injury superimposed on chronic kidney disease: Code(s): N17.9 - Acute kidney failure, unspecified; N18.9 - Chronic kidney disease, unspecified Status: Acute Assessment and Plan: Baseline creatinine appears to be 1.4-1.5 Creatinine on presentation elevated up to 2.2, curently 1.7 and continues to improve slowly TRI me be intrinsic secondary to infection or post renal secondary to hydronephrosis Patient has been hydrated with IV fluids and is not tolerating p.o. intake. IV fluids discontinued to avoid volume overload Continue to monitor renal function closely to ensure return back towards baseline Consider nephrology consultation if no improvement/worsening in renal function (5) Weakness: Code(s): R53.1 - Weakness Status: Acute Assessment and Plan: Likely secondary to acute infection/sepsis Patient reports overall improvement He is ambulating independently now Encourage frequent ambulation (6) Hypokalemia: Code(s): E87.6 - Hypokalemia Status: Acute Assessment and Plan: replace and monitor. (7) Bladder cancer: Code(s): C67.9 - Malignant neoplasm of bladder, unspecified Status: Acute Assessment and Plan: 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 He is managed by Dr. Oden No issues with urostomy at this time (8) Diabetes: Code(s): E11.9 - Type 2 diabetes mellitus without complications Status: Acute Assessment and Plan: Last A1c September 2021 was 6.5 Blood sugars have been well controlled this admission Initiate Accu-Cheks, sliding scale insulin, hypoglycemic protocol Continue home sitagliptin Monitor glucose trends and adjust medication regimen as needed DS: Summary Hospital Course Hospital Course: see above Time Spent with Patient Time attestation: Total time spent providing and/or coordinating discharge services: 45 minutes Exam Narrative: General: well-nourished, well-appearing 81 year-old male, sitting up in bed, comfortable, NARD Neuro: awake, alert and oriented x4, speech clear, no focal neuro deficits noted HEENMT: normocephalic, atraumatic, EOMI, sclerae anicteric, moist oral mucosa Respiratory: clear to auscultat
[2021-12-06 11:20] LABS: Glucose Point of Care 103 mg/dl (65-105)
== END 2021-12-06 12:19 | disposition home or self-care (01) ==
LOC: ANHED 17:10 → ANH2MED 18:08
PROVIDERS: Nurse Practitioner Adult Health; Physician Assistant; Admitting Provider Internal Medicine; Emergency Provider Emergency Medicine; PCP Family Medicine; Visit Provider Internal Medicine
DX: A41.9 Sepsis, unspecified organism (principal); N10 Acute pyelonephritis; N13.30 Unspecified hydronephrosis; N17.9 Acute kidney failure, unspecified; E87.6 Hypokalemia; R53.1 Weakness; R10.30 Lower abdominal pain, unspecified; I12.9 Hypertensive chronic kidney disease with stage 1 through stage 4 chronic kidney disease, or unspecified chronic kidney disease; E11.22 Type 2 diabetes mellitus with diabetic chronic kidney disease; N18.30 Chronic kidney disease, stage 3 unspecified; J44.9 Chronic obstructive pulmonary disease, unspecified; E78.2 Mixed hyperlipidemia; E55.9 Vitamin D deficiency, unspecified; M47.816 Spondylosis without myelopathy or radiculopathy, lumbar region; H40.9 Unspecified glaucoma; Z79.51 Long term (current) use of inhaled steroids; Z85.51 Personal history of malignant neoplasm of bladder; Z85.46 Personal history of malignant neoplasm of prostate; M16.0 Bilateral primary osteoarthritis of hip; G25.81 Restless legs syndrome; Z87.891 Personal history of nicotine dependence; Z79.84 Long term (current) use of oral hypoglycemic drugs; Z90.6 Acquired absence of other parts of urinary tract
CPT/HCPCS: 36415; 74176; 80048; 80053; 81001; 82948; 83605; 83690; 85025; 85027; 87040; 87086; 87088; 93005; 94640; 96361; 96365; 96372; 99285; A9270; G0378; J0696; J1644; J7030

== ENCOUNTER 2022-01-26 06:39 | Outpatient (CLI) | payer MEDICARE, SELFPAY ==
--- NOTE | ~2022-01-26 | CT_ITS ---
EXAMINATION: CT abdomen pelvis wo/w con DATE: 01/26/2022 07:42 INDICATION: Bladder cancer restaging TECHNIQUE: Computed tomography (CT) of the abdomen and pelvis was performed without and subsequently with 130 CC Omnipaque 350 intravenous contrast. Automated exposure control and iterative reconstructi on technique were employed. Exam dose: 1655.38 mGy-cm total exam DLP. COMPARISON: 12/04/2021 CT abdomen pelvis FINDINGS: Again noted is mild discoid atelectasis and/or scarring at the lung bases. Left lower lobe calcified pulmonary granuloma. No infiltrate or consolidation at the lung bases. Coronary artery calcification. Mitral annulus calcification. Aortic valvular and/or ascending aortic calcification. Normal heart size. No pericardial or pleural effusion. No hepatic space-occupying mass lesion or bile duct dilatation. The gallbladder appears unremarkable. Normal splenic size. No pancreatic mass lesion, calcification or ductal dilatation. Normal morphology of the adrenal glands. Approximately 12 mm upper pole right renal cyst. There are numerous left renal cysts,, measuring up to 3 cm, some septated. There is mild to moderate left hydroureteronephrosis with thickening of the distal ureteral wall and periureteral stat stranding distally. Similar findings noted on 12/04/2021 reported, with differential diagnosis of infectious, inflammatory or malignant etiology There is diverticulosis of the sigmoid colon; no CT evidence of diverticulitis. No bowel obstruction or intraperitoneal free air. Status post cystectomy, prostatectomy and ileostomy. Status post pelvic sidewall lymph node dissectio n. No abdominal aortic aneurysm. There is prominent abdominal aortic calcification and very prominent ca lcification at the origins of the celiac and particularly superior mesenteric and right renal arterie s as well as left renal artery and calcification of the iliac and femoral arteries. No diminished prominence of left periaortic lymph nodes since 12/04/2021. Intraperitoneal or retroperi toneal or pelvic mass lesion or adenopathy or ascites. Status post mesh ventral abdominal wall repair. There is herniation of fat and a portion of a short s egment of small bowel at the right lateral margin of the mesh. Degenerative change of the lower thoracic spine. Degenerative disc disease throughout the lumbar and lumbosacral area with associated minimal retrolisthesis at L3-4.. Right L5 pars interarticularis defect. Degenerative change at the apophyseal joints with grade 1 ante rolisthesis at L5-S1. Bilateral hip osteoarthritis. No suspicious osteolytic or osteoblastic lesions are noted. IMPRESSION: Status post cystectomy, prostatectomy, pelvic sidewall lymph node dissection, ileostomy Persistent mild to moderate left hydroureteronephrosis with distal left periureteral fat stranding, s ome thickening of the distal ureteral wall Diminished prominence of periaortic lymph nodes since 12/21/2021 Status post ventral abdominal wall mesh repair, with small hernia at the right lateral margin of the mesh containing fat and a portion of a short segment of small bowel Bilateral renal cysts, more numerous on the left Reviewed, dictated and finalized at [facility] Reviewed, dictated and finalized at [facility] IMPRESSION: Status post cystectomy, prostatectomy, pelvic sidewall lymph node d issection, ileostomy Persistent mild to moderate left hydroureteronephrosis with distal left periure teral fat stranding, some thickening of the distal ureteral wall Diminished prominence of periaortic lymph nodes since 12/21/2021 Status post ventral abdominal wall mesh repair, with small hernia at the right lateral margin of the mesh containing fat and a portion of a short segment of s mall franki
[2022-01-26 07:22] LABS: Estimated Glomerular Filt Rate 42
== END 2022-01-26 06:40 | disposition home or self-care (01) ==
PROVIDERS: PCP Family Medicine; Visit Provider Urology
DX: C67.9 Malignant neoplasm of bladder, unspecified (principal); R61 Generalized hyperhidrosis; N28.1 Cyst of kidney, acquired
CPT/HCPCS: 74178; Q9967

== ENCOUNTER 2022-02-03 10:16 | Outpatient (CLI) | payer MEDICARE, SELFPAY ==
[2022-02-03 10:53] LABS: INR 1.1; Prothrombin Time 13.6 Seconds (11.1-14.7)
[2022-02-03 10:54] LABS: Partial Thromboplastin Time 31.7 SECONDS (22.3-36.8)
== END 2022-02-03 10:17 | disposition home or self-care (01) ==
LOC: ANHSURGERY 10:19
PROVIDERS: Anesthesiology; PCP Family Medicine; Visit Provider Urology
DX: Z01.812 Encounter for preprocedural laboratory examination (principal); C67.9 Malignant neoplasm of bladder, unspecified; N18.30 Chronic kidney disease, stage 3 unspecified; Z51.81 Encounter for therapeutic drug level monitoring; Z79.899 Other long term (current) drug therapy
CPT/HCPCS: 36415; 85610; 85730; 87077; 87086; 87186

== ENCOUNTER 2022-02-10 09:18 | Outpatient (CLI) | payer MEDICARE, SELFPAY | END 2022-02-10 09:19 | disposition home or self-care (01) | PROVIDERS: PCP Family Medicine; Visit Provider Urology | DX: C67.9 Malignant neoplasm of bladder, unspecified (principal); Z01.818 Encounter for other preprocedural examination | CPT/HCPCS: 87086; 87088 ==

== ENCOUNTER 2022-02-14 00:46 | Day surgery (SDC) | payer MEDICARE, SELFPAY ==
[2022-02-03 08:41] VITALS: BMI 26.7
--- NOTE | 2022-02-03 09:12 | PC.NURSE ---
Report to the Outpatient Waiting Room, entrance under the green pavilion located off [facility], at time ___7:30AM____ on date __02/07/22 . OR Time: __9:30AM . - You and your visitor will be asked a series of questions to screen for COVID 19 for your protection. - Only one visitor is allowed at this time. - The patient visitor is requested to leave or wait in car when not with patient. - A mask is required within the hospital. Patients may have clear liquids (water, carbonated beverages, clear teas, apple juice) until 3 hours prior to surgery with a maximum of 20 ounces. - No food from midnight until time of surgery - Infants may have breast milk until 4 hours before surgery, formula 6 hours prior to surgery. - Children will be allowed to drink immediately following surgery. If applicable, please bring a bottle or sippy cup to assist with drinking. Juice, water, soda, and popsicles are readily available. For infants on formula, please bring formula the day of surgery. Pacifiers are allowed. Take the following medications with a SIP of water the morning of surgery: _ADVAIR DISKUS, ALBUTEROL INHALER NEEDED, AMLODIPINE, ALPHAGAN P EYE DROPS, PREGABELIN NEEDED Medications to discontinue per physician ___HOLD ALL VITAMINS/SUPPLEMENTS 3 DAYS PRE-OP Date to take last dose__02/03/22 Please no make-up, nail iraqi, hairspray, perfume, deodorant, or body powder the day of surgery. No jewelry (including any body piercings) or valuables the day of surgery, leave them at home. Please take a shower or bath the night before, or the morning of, surgery with an antibacterial soap. Wear comfortable, loose fitting clothing. Children are encouraged to wear pajamas. - Jewelry must be removed prior to entering the operating room. Rings and piercings that are not removed may be cut off. - The hospital will not accept responsibility for valuables. - Please leave all valuables, including medications, at home the day of surgery. If you are going home after surgery, a licensed [employer] delivery driver must drive you home. - NO public transportation without another adult. - We recommend that an adult stay with you for 24 hours following discharge. - We also recommend that you do not drive, make important decision, drink alcoholic beverages, or take any drugs that were not prescribed by your health care provider for at least 24 hours after your discharge time. For Pediatric surgeries, we recommend two adults accompany the child home (only one inside the building at this time). Follow any additional instructions given to you from your surgeon. If you or anyone in your household have experienced Covid symptoms in the past week, please notify your surgeon or the nurse liaison at the phone number below for possible testing. Telephone instructions given to _PATIENT and asked if any additional questions and then verbalized understanding. Patient advised to call surgeon office or pre surgery nurse liaison [phone] if any additional questions. Report to the Outpatient Waiting Room, entrance under the green pavilion located off [facility], at time on date . OR Time: . - You and your visitor will be asked a series of questions to screen for COVID 19 for your protection. - Only one visitor is allowed at this time. - The patient visitor is requested to leave or wait in car when not with patient. - A mask is required within the hospital. Patients may have clear liquids (water, carbonated beverages, clear teas, apple juice) until 3 hours prior to surgery with a maximum of 20 ounces. - No food from midnight until time of surgery - Infants may have breast milk until 4 hours before surgery, formula 6 hours prior to surgery. - Children will be allowed to drink immediately following surgery. If applicable, please bring a bottle or sippy cup to assist with dri
--- NOTE | 2022-02-03 09:16 | PC.NURSE ---
Report to the Outpatient Waiting Room, entrance under the green pavilion located off [facility], at time ___7:30AM____ on date __02/07/22 . OR Time: __9:30AM . - You and your visitor will be asked a series of questions to screen for COVID 19 for your protection. - Only one visitor is allowed at this time. - The patient visitor is requested to leave or wait in car when not with patient. - A mask is required within the hospital. Patients may have clear liquids (water, carbonated beverages, clear teas, apple juice) until 3 hours prior to surgery with a maximum of 20 ounces. - No food from midnight until time of surgery - Infants may have breast milk until 4 hours before surgery, formula 6 hours prior to surgery. - Children will be allowed to drink immediately following surgery. If applicable, please bring a bottle or sippy cup to assist with drinking. Juice, water, soda, and popsicles are readily available. For infants on formula, please bring formula the day of surgery. Pacifiers are allowed. Take the following medications with a SIP of water the morning of surgery: _ADVAIR DISKUS, ALBUTEROL INHALER NEEDED, AMLODIPINE, EYE DROPS, PREGABALIN NEEDED Medications to discontinue per physician ___HOLD ALL VITAMINS/SUPPLEMENTS 3 DAYS PRE-OP Date to take last dose___02/03/22 Please no make-up, nail syriac, hairspray, perfume, deodorant, or body powder the day of surgery. No jewelry (including any body piercings) or valuables the day of surgery, leave them at home. Please take a shower or bath the night before, or the morning of, surgery with an antibacterial soap. Wear comfortable, loose fitting clothing. Children are encouraged to wear pajamas. - Jewelry must be removed prior to entering the operating room. Rings and piercings that are not removed may be cut off. - The hospital will not accept responsibility for valuables. - Please leave all valuables, including medications, at home the day of surgery. If you are going home after surgery, a licensed grain combine driver must drive you home. - NO public transportation without another adult. - We recommend that an adult stay with you for 24 hours following discharge. - We also recommend that you do not drive, make important decision, drink alcoholic beverages, or take any drugs that were not prescribed by your health care provider for at least 24 hours after your discharge time. For Pediatric surgeries, we recommend two adults accompany the child home (only one inside the building at this time). Follow any additional instructions given to you from your surgeon. If you or anyone in your household have experienced Covid symptoms in the past week, please notify your surgeon or the nurse liaison at the phone number below for possible testing. Telephone instructions given to _PATIENT and asked if any additional questions and then verbalized understanding. Patient advised to call surgeon office or pre surgery nurse liaison [phone] if any additional questions.
[2022-02-14] VITALS (10 sets, daily range): BP systolic 114–165; BP diastolic 61–81; PULSE 61–71; RESP 12–18; TEMP 36.2–36.4; O2SAT 95–100
--- NOTE | ~2022-02-14 | XR_ITS ---
EXAMINATION: XR retrograde pyelogram LT DATE: 02/14/2022 08:22 INDICATION: Bladder cancer post ileal conduit formation with left hydronephrosis TECHNIQUE: 15 fluoroscopic images of the abdomen and pelvis were obtained during procedure performed by Dr. Oden. Radiologist was not present for the imaging or procedure. The amount of fluoroscopy time used during this procedure was 0.8 minutes. COMPARISON: CT dated 01/26/2022 FINDINGS: Initial informatics educator image demonstrates postoperative changes of a prior ventral hernia repair. Subsequent i mages demonstrate cannulation of the right lower quadrant ileal conduit with wire was advanced into t he left and right ureters. On one of the images catheter was advanced into the left ureter with retro grade injection of small amount of contrast demonstrating dilation of the proximal most left ureter. Additional surgical clips in the pelvis likely related to a pelvic lymph node dissection. IMPRESSION: 1. Left retrograde urogram performed via a right lower quadrant ileal conduit which demonstrates mild proximal left hydroureter. See procedure note for further detail. Reviewed, dictated and finalized at location B. IMPRESSION: 1. Left retrograde urogram performed via a right lower quadrant ileal conduit w the [facility] demonstrates mild proximal left hydroureter. See procedure note for furthe r detail.
[2022-02-14 06:32] LABS: Glucose Point of Care 128 mg/dl (65-105)
--- NOTE | 2022-02-14 07:01 | WPDANESEPPF ---
Anes - Initial Pre Proc Eval Procedure: Operation Date: 02/14/22 07:30 Proposed Procedures p Endoscopy Ileal Conduit with Bilateral Retrograde Pyelogram, Bilateral Ureteroscopy - Rome Oden MD Date/Time: 02/14/22 07:01 Surgeon: Rome Oden MD Pre Op Diagnosis: bladder cancer Patient Data Age: 81 Gender: M Height: 1.85 m Weight: 91.9 kg Last Vital Signs Temp 36.4 C L 02/14/22 06:07 Pulse 70 02/14/22 06:07 Resp 18 02/14/22 06:07 BP 142/73 H 02/14/22 06:07 Pulse Ox 99 02/14/22 06:07 O2 Del Method Room Air 02/14/22 06:07 Allergies Allergy/AdvReac Type Severity Reaction Status Date / Time grass pollen Allergy Mild Sneezing Verified 02/14/22 06:13 pollen extracts Allergy Mild Sneezing Verified 02/14/22 06:13 Home Medications Medication Instructions Recorded Confirmed Type brimonidine 0.1 % eye drops 1 drp EACH EYE BID 11/23/20 02/14/22 History (Alphagan P) latanoprost 0.005 % eye drops 1 drp EACH EYE HS 11/23/20 02/14/22 History ergocalciferol (vitamin D2) 1,250 1,250 mcg PO WEEKLY #3 caps 03/07/21 02/14/22 Rx mcg (50,000 unit) capsule fluticasone 250 mcg-salmeterol 50 1 inh inhalation BID #60 ea 03/14/21 02/14/22 Rx mcg/dose blistr powdr for inhalation (Advair Diskus) pregabalin 75 mg capsule (Lyrica) 75 mg PO BID 12/04/21 02/14/22 History metronidazole 0.75 % topical gel 1 applic topical DAILY #45 grams 01/16/22 02/14/22 Rx albuterol sulfate 90 mcg/actuation 1 - 2 puff inhalation Q4-6H PRN 02/02/22 02/14/22 Rx aerosol inhaler Shortness Of Breath Or Wheezing #8.5 grams amlodipine 5 mg tablet 5 mg PO QAM 02/03/22 02/14/22 History atorvastatin 40 mg tablet 40 mg PO HS 02/03/22 02/14/22 History colchicine 0.6 mg tablet 0.6 mg PO BID 02/03/22 02/14/22 History ropinirole 2 mg tablet 2 mg PO HS 02/03/22 02/14/22 History sitagliptin 50 mg tablet (Januvia) 50 mg PO BID 02/03/22 02/14/22 History nitrofurantoin 100 mg PO BID 02/07/22 02/14/22 History monohydrate/macrocrystals 100 mg capsule Laboratory Tests 02/14/22 06:28 POC Capillary Glucose 128 mg/dl H mg/dl (65-105) Patient hx anesthesia problems: none Family hx anesthesia problems: none Results Review: All pre-operative results and documents have been reviewed as part of the pre-operative evaluation. 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 Lennon in 2010 History of ileal conduit 2010 S/P radical cystoprostatectomy 2009 Family History Family History Mother Family history of allergic disorder Father Family history of malignant neoplasm of stomach Social History Social History Social History: The patient lives at home with his and she is the durable power employee benefits attorney for healthcare. He has 1 s
--- NOTE | 2022-02-14 07:28 | WPDHPUPDATE1 ---
History and Physical Update Update Date/Time: 02/14/22 07:28 History and Physical has been reviewed, including an updated exam of the patient. There are NO changes in the patient's condition. Risks, benefits, and alternatives have been discussed and questions answered. Patient agrees to proceed with procedure.
[2022-02-14] MEDS: ceFAZolin 2 GM/D5W 50 ML 2 GM/50 ML BAG IVPB (07:37)
--- NOTE | 2022-02-14 08:22 | W.PM.PROC2 ---
Procedure Note - Detailed Date of Procedure 02/14/22 Pre-op Diagnosis bladder cancer, left hydronephrosis Post-op Diagnosis Same Procedure Performed Endoscopy of ileal conduit, left retrograde pyelogram, left ureteroscopy Surgeon Rome Oden MD Anesthesia General Findings No ureteral tumors noted at this time, no tumors of ileal conduit Description of Procedure Patient is taken the operative suite correctly identified. Once anesthesia was obtained was prepped draped usual sterile fashion. A flexible cystoscope was inserted into the ileal conduit. It tracks a little laterally prior to going medially. We were able to visualized the entire conduit without any evidence of tumors. The right ureteral orifice was visualized. A guidewire was inserted into the for identification. The left orifice was also visualized the guidewire placed. He was dilated with an [address] a 2nd wire. In the mini flexible ureteral scope was then inserted all the way up to the kidney. The kidney was inspected. There was no tumors noted pyelogram was performed in case we wanted to place a stent. Inspection of the ureter revealed no evidence of tumors. There was some mild erythema at the insertion site due to the dilation. Otherwise no tumors were noted. Wires were removed. Patient is taken recovery stable condition. I will have Kevin follow up in 6 months time and make a decision whether to reimage him at that time. Estimated Blood Loss 0 Drains No Packing No Pathology None sent Complications No immediate complications Condition Stable Disposition PACU
[2022-02-14] MEDS: LACTATED RINGERS 1,000 ML 30 ML IV CONT ×2 (08:27→09:00)
[2022-02-14 09:43] LABS: Glucose Point of Care 112 mg/dl (65-105)
[2022-02-14] MEDS: oxyCODONE HCL (*CRX) 5 MG TAB IR PO (09:51)
== END 2022-02-14 10:35 | disposition home or self-care (01) ==
PROVIDERS: PCP Family Medicine; Visit Provider Urology
PROC: (CPT 52352; principal; 2022-02-14 07:30)
DX: Z08 Encounter for follow-up examination after completed treatment for malignant neoplasm (principal); N13.30 Unspecified hydronephrosis; Z85.51 Personal history of malignant neoplasm of bladder; I12.9 Hypertensive chronic kidney disease with stage 1 through stage 4 chronic kidney disease, or unspecified chronic kidney disease; E11.22 Type 2 diabetes mellitus with diabetic chronic kidney disease; N18.30 Chronic kidney disease, stage 3 unspecified; J44.9 Chronic obstructive pulmonary disease, unspecified; E78.2 Mixed hyperlipidemia; E55.9 Vitamin D deficiency, unspecified; G25.81 Restless legs syndrome; H40.9 Unspecified glaucoma; M10.9 Gout, unspecified; Z87.891 Personal history of nicotine dependence; Z79.51 Long term (current) use of inhaled steroids; Z79.84 Long term (current) use of oral hypoglycemic drugs
CPT/HCPCS: 52005; 36415; 74420; 82948; 85610; 85730; 87077; 87086; 87088; 87186; A9270; C1769; J0690; J1100; J2370; J2405; J2704; J3010; J7120; Q9966

== ENCOUNTER → 2022-05-30 09:29 | Outpatient (CLI) | payer MEDICARE, SELFPAY ==
--- NOTE | ~2022-05-30 | XR_ITS ---
EXAMINATION: XR chest 2V DATE: 05/30/2022 09:43 INDICATION: Abnormal lung sounds. TECHNIQUE: Frontal and lateral views of the chest were obtained. COMPARISON: CT abdomen and pelvis 01/26/2022 FINDINGS: A calcified left lung nodule and calcified left hilar lymph nodes are consistent with old g ranulomatous disease. No pleural effusion or pneumothorax. The heart size is normal. IMPRESSION: 1. No acute cardiopulmonary disease. Reviewed, dictated and finalized at location A.
== END ==
PROVIDERS: PCP Internal Medicine; Visit Provider Internal Medicine
DX: R09.89 Other specified symptoms and signs involving the circulatory and respiratory systems (principal)
CPT/HCPCS: 71046

== ENCOUNTER 2022-08-09 07:13 | Outpatient (CLI) | payer MEDICARE, SELFPAY ==
--- NOTE | ~2022-08-09 | CT_ITS ---
EXAMINATION: CT abdomen pelvis wo/w con DATE: 08/09/2022 08:04 INDICATION: Status post cystectomy for bladder cancer TECHNIQUE: Computed tomography (CT) of the abdomen and pelvis was performed without and subsequently with 130 CC Omnipaque 350 intravenous contrast. Automated exposure control and iterative reconstructi on technique were employed. Exam dose: 1673.53 mGy-cm total exam DLP. COMPARISON: 02/10/2022 left retrograde pyelogram 01/26/2022 CT abdomen pelvis without and with IV contrast material FINDINGS: New focal patchy infiltrate in the posterior lateral right lung base, right lower lobe. Chr onic discoid atelectasis or scarring, posterior left lung base. Normal heart size. Aortic valvular and/or proximal ascending aortic calcification is again noted. Jeffy ral annulus calcification. No pericardial or pleural effusion. The liver, gallbladder, bile ducts, pancreas, pancreatic duct and spleen appear normal. Normal morphology of the adrenal glands. No right renal space-occupying mass lesion. There are numerous left renal cysts. Status post cystectomy, bilateral pelvic sidewall lymph node resection and ileal conduit. Mild left p elviectasis and left ureterectasis. There is atherosclerotic calcification of the abdominal aorta and at the origin of the celiac and par ticularly superior mesenteric and renal arteries. No abdominal aortic aneurysm. No intraperitoneal or retroperitoneal or pelvic mass lesion or adenopathy or ascites. There is diverticulosis of the sigmoid colon; no CT evidence of diverticulitis. No bowel obstruction or intraperitoneal free air is detected. Status post ventral abdominal wall repair. The right lateral margin of the abdominal wall hernia repa ir there is partial herniation of a small bowel segments without strangulation or obstruction. Moderately severe to severe degenerative disc disease throughout the lumbar and lumbosacral spine. Ri ght L5 pars interarticularis defect and minimal grade 1 anterolisthesis at L5-S1. IMPRESSION: Small focal infiltrate, right lower lobe Chronic mild discoid atelectasis or scarring, posterior basilar left lower lobe Emphysema Status post cystectomy and ileal conduit as well as stable mild left hydroureter and pelviectasis Numerous left renal cysts Diverticulosis of sigmoid colon; no CT evidence of diverticulitis Reviewed, dictated and finalized at Location A. Reviewed, dictated and finalized at location A. CAL PARASITOLOGIST IMPRESSION: Small focal infiltrate, right lower lobe Chronic mild discoid atelectasis or scarring, posterior basilar left lower lobe Emphysema Status post cystectomy and ileal conduit as well as stable mild left hydrourete r and pelviectasis Numerous left renal cysts Diverticulosis of sigmoid colon; no CT evidence of diverticulitis
[2022-08-09 07:42] LABS: Estimated Glomerular Filt Rate 39
== END 2022-08-09 07:14 | disposition home or self-care (01) ==
PROVIDERS: PCP Internal Medicine; Visit Provider Urology
DX: C67.9 Malignant neoplasm of bladder, unspecified (principal); R91.8 Other nonspecific abnormal finding of lung field; J43.9 Emphysema, unspecified; N28.1 Cyst of kidney, acquired; K57.30 Diverticulosis of large intestine without perforation or abscess without bleeding
CPT/HCPCS: 74178; Q9967

== ENCOUNTER 2022-08-30 09:12 | Outpatient (CLI) | payer MEDICARE, SELFPAY ==
[2022-08-30 18:47] LABS: Hematocrit 42.4 % (42.0-52.0); Hemoglobin 14.1 g/dL (14.0-18.0); Mean Corpuscular HGB Conc 33.3 g/dl (32-36); Mean Corpuscular Hemoglobin 30.3 pg (26-34); Mean Platelet Volume 10.3 fl (7.4-10.4); Platelet Count Result 275 k/mm3 (150-375); Red Blood Count 4.66 M/mm3 (4.6-6.20); Red Cell Distribution Width 14.9 % (11.5-14.5); White Blood Count 6.9 K/mm3 (4.5-10.0)
[2022-08-30 19:08] LABS: Hemoglobin A1C 6.6 % (<5.7)
[2022-08-30 19:53] LABS: Alanine Aminotransferase 44 U/L (6-50); Albumin Level 4.3 g/dL (3.5-5.1); Alkaline Phosphatase 80 U/L (38-126); Anion Gap 7 mmol/L (8-16); Aspartate Amino Transferase 62 U/L (17-59); Blood Urea Nitrogen 24 mg/dL (9-20); Calcium 9.1 mg/dL (8.4-10.2); Carbon Dioxide 27 mmol/L (22-30); Chloride 105 mmol/L (98-107); Cholesterol 121 mg/dL (0-200); Estimated Glomerular Filt Rate 39; Glucose 112 mg/dL (65-110); HDL Direct 40 mg/dL; Potassium 4.3 mmol/L (3.4-5.0); Sodium 139 mmol/L (137-145); Triglycerides 89 mg/dL (<150)
[2022-08-30 20:06] LABS: LDL Cholesterol Direct 51 mg/dL
[2022-08-30 20:25] LABS: Prostate Specific Antigen < 0.1 ng/mL (< OR = 4.0)
== END 2022-08-30 09:13 | disposition home or self-care (01) ==
LOC: ANHGOSHLAB 09:14
PROVIDERS: PCP Internal Medicine; Visit Provider Internal Medicine
DX: E03.9 Hypothyroidism, unspecified (principal); E11.21 Type 2 diabetes mellitus with diabetic nephropathy; Z90.79 Acquired absence of other genital organ(s); Z12.5 Encounter for screening for malignant neoplasm of prostate
CPT/HCPCS: 36415; 80053; 80061; 83036; 84153; 84443; 85027; G0103

== ENCOUNTER 2022-09-02 12:55 | Observation (INO) | payer MEDICARE, SELFPAY ==
[2022-09-02] VITALS (19 sets, daily range): BP systolic 111–148; BP diastolic 56–88; PULSE 90–114; RESP 16–25; TEMP 36.8–39.3; O2SAT 92–98; BMI 27.6
--- NOTE | ~2022-09-02 | CT_ITS ---
EXAMINATION: CT abdomen pelvis wo con DATE: 09/02/2022 15:29 INDICATION: LLQ pain, fever TECHNIQUE: Computed tomography (CT) of the abdomen and pelvis was performed without intravenous contr ast. Automated exposure control and iterative reconstruction technique were employed. The dose-length product was 1121.43 mGy-cm. COMPARISON: 08/09/2022 and 01/26/2022. FINDINGS: Lower thorax: Emphysematous and senescent change. Bibasilar scar/atelectasis. Aortic valve and nam ry artery calcifications. Liver: Normal. Biliary/Gallbladder: Gallbladder is mostly contracted, with some wall thickening and surrounding fat stranding. No bile duct dilation. Pancreas: No mass or duct dilation. Spleen: Normal. Adrenals:No mass. Kidneys: Increased left perinephric stranding. Slightly increased left ureteral stranding. Multiple l eft renal cysts that appear grossly stable. GI tract: Right lower quadrant ostomy. Ileal conduit No small or large bowel dilation. Normal appendi x. Diverticulosis without diverticulitis. Mesentery/Peritoneum: No ascites, mass, or free air. Retroperitoneum: No mass. Retroperitoneal lymphadenopathy adjacent to the left kidney. Atheroscleroti c abdominal aortic and/or arterial calcifications. Pelvis: Bladder and prostate are surgically absent. Bilateral pelvic sidewall lymph node resection Soft Tissues: Anterior abdominal wall hernia mesh. Bones: No acute osseous finding. IMPRESSION: 1. Worsening left perinephric stranding and left periureteral stranding with adjacent lymphadenopathy which may be secondary to ascending infection. Inflammatory or malignant causes should also be consi dered in the differential. 2. Contracted but possibly mildly inflamed gallbladder, correlate with biliary labs. Reviewed, dictated and finalized at location K. LATORY AND COMPLIANCE TECHNICIAN IMPRESSION: 1. Worsening left perinephric stranding and left periureteral stranding with ad jacent lymphadenopathy which may be secondary to ascending infection. Inflammat ory or malignant causes should also be considered in the differential. 2. Contracted but possibly mildly inflamed gallbladder, correlate with biliary labs.
--- NOTE | ~2022-09-02 | US_ITS ---
EXAMINATION: US renal BI DATE: 09/04/2022 09:55 INDICATION: Acute kidney injury TECHNIQUE: Multiple ultrasound grayscale images of the kidneys were obtained. COMPARISON: CT dated 09/02/2022 FINDINGS: The right kidney measures 13.8 x 5.8 x 4.8 cm. The left kidney measures 14.0 x 6.7 x 5.2 cm. The kidn eys demonstrate normal echogenicity. Again seen are multiple anechoic cysts at the left kidney, the l argest measuring 2.6 cm in maximal diameter. There is no hydronephrosis in either kidney. No stones identified. The bladder is nonvisualized consistent with provided history of prior cystoprostatectomy . IMPRESSION: 1. Several left renal cyst. Left hydronephrosis seen on prior CT has resolved. 2. Normal right kidney with no hydronephrosis. Reviewed, dictated and finalized at location A. NESS SERVICES OFFICER
[2022-09-02 13:19] LABS: Basophils Percent Auto 0.3 % (0.2-1.2); Eosinophils Absolute Auto 0.1 K/mm3 (0-0.3); Eosinophils Percent Auto 0.4 % (0-4.4); Hematocrit 35.3 % (42.0-52.0); Hemoglobin 11.8 g/dL (14.0-18.0); Immature Granulocyte Absolute 0.21 K/mm3 (0.00-0.031); Immature Granulocyte Percent A 1.3 % (0-0.5); Lymphocytes Absolute Auto 0.41 K/mm3 (0.9-3.2); Lymphocytes Percent Auto 2.6 % (18.3-44.2); Mean Corpuscular HGB Conc 33.4 g/dl (32-36); Mean Corpuscular Hemoglobin 30.4 pg (26-34); Mean Platelet Volume 10.3 fl (7.4-10.4); Monocytes Absolute Auto 0.8 K/mm3 (0.1-0.6); Monocytes Percent Auto 4.8 % (2.6-8.5); Neutrophils Absolute Auto 14.4 K/mm3 (1.3-6.7); Neutrophils Percent Auto 90.6 % (45.5-73.1); Platelet Count Result 210 k/mm3 (150-375); Red Blood Count 3.88 M/mm3 (4.6-6.20); Red Cell Distribution Width 15.3 % (11.5-14.5); White Blood Count 15.9 K/mm3 (4.5-10.0)
[2022-09-02 13:41] LABS: Alanine Aminotransferase 44 U/L (6-50); Albumin Level 3.8 g/dL (3.5-5.1); Alkaline Phosphatase 120 U/L (38-126); Anion Gap 8 mmol/L (8-16); Aspartate Amino Transferase 37 U/L (17-59); Bilirubin,Total 1.2 mg/dL (0.2-1.3); Blood Urea Nitrogen 19 mg/dL (9-20); Calcium 8.1 mg/dL (8.4-10.2); Carbon Dioxide 21 mmol/L (22-30); Chloride 103 mmol/L (98-107); Estimated CRCL calculation 30 ml/min; Estimated Glomerular Filt Rate 32; Glucose 236 mg/dL (65-110); Lipase 59 U/L (23-300); Potassium 3.9 mmol/L (3.4-5.0); Sodium 132 mmol/L (137-145)
[2022-09-02 13:53] LABS: Appearance Urine Clear (Clear); Bilirubin Urine Negative (Negative); Blood Urine 3+ (Negative); Color Urine Yellow (Yellow); Glucose Urine UA Negative (Negative); Ketones Urine Trace mg/dL (Negative); Leukocyte Esterase Ur 3+ LEU/UL (Negative); Nitrate Urine Positive (Negative); Protein Urine 3+ mg/dL (Negative); Specific Grav Ur 1.015 (1.001-1.035); Urobilinogen Urine 0.2 mg/dL (<2.0); pH Urine 5.5 (5.0-9.0)
[2022-09-02 13:56] LABS: Bacteria Urine Trace /hpf; Mucus Urine Rare /lpf; RBC Urine >75 /hpf (0-2); WBC Urine >75 /hpf
[2022-09-02 13:58] LABS: Add Urine Microscopic? YES
--- NOTE | 2022-09-02 14:27 | ED.ABDPAIN ---
HPI - Abdominal Pain General Chief Complaint: Abdominal Pain Stated Complaint: abdominal pain Time Seen by Provider: 09/02/22 13:52 History of Present Illness HPI narrative: Patient is an 82-year-old male with a history of bladder and prostate cancer status post cystectomy with urostomy in place, asthma, hypertension, gout, hyperlipidemia presenting with abdominal pain. Patient states that for the last couple of days he has had on and off fevers and chills. States that he has had worsening lower abdominal pain that he states is worse in the left lower quadrant. States that it feels like something is pressing against his bowels. Last had a bowel movement this morning and still passing flatus. Endorses an episode of nausea but no vomiting. Patient and his is concerned that he has a kidney infection as this is how he has presented in the past. He denies headache, chest pain, shortness of breath, cough, rashes, leg swelling. Related Data Home Medications Medication Instructions Recorded Confirmed brimonidine 0.1 % eye drops 1 drp EACH EYE BID 11/23/20 09/02/22 (Alphagan P) latanoprost 0.005 % eye drops 1 drp EACH EYE HS 11/23/20 09/02/22 amlodipine 10 mg tablet 10 mg PO DAILY 05/21/22 09/02/22 Allergies Allergy/AdvReac Type Severity Reaction Status Date / Time grass pollen Allergy Mild Sneezing Verified 09/02/22 22:09 pollen extracts Allergy Mild Sneezing Verified 09/02/22 22:09 Review of Systems Review of Systems: All systems reviewed & are unremarkable except as noted in HPI and below PMFSH Past Medical History Medical History Acquired hypothyroidism Allergies Arthritis Asthma Bladder cancer 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 Cancer Chronic renal failure, stage 3 (moderate) COPD with asthma Diabetes (Unknown) Essential (primary) hypertension Glaucoma Gouty arthritis Hepatitis Hepatitis A History of bladder cancer History of prostate cancer Mixed hyperlipidemia Other spondylosis with myelopathy, 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 Lennon in 2010 History of ileal conduit 2009 S/P radical cystoprostatectomy 2009 Status of other artificial opening of urinary tract Family History Family History Mother Family history of allergic disorder Father Family history of malignant neoplasm of stomach Hypertension Social History Social History (Updated 09/02/22 @ 23:59 by Viky Gross NP) Social History: The patient lives at home with his and she is the durable power assistant county attorney for healthcare. He has 1 son. He is a former smoker. The patient is a full code. The patient drinks about 2 or 3 beers a night. 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 Code status full code Smoking packs per day: 2 Smoking cigarettes per day: 40.0 Years smoked: 30 Smoking pack-years: 60.00 Smoking status: Former smoker Tobacco type: cigarettes Smoking end date: 09/02/82 Alcohol intake: current Drinks per week: 21 Alcohol use details: 3 CANS BEER/DAY Substance use: never Substance use type: does not use Lack of Transportation: No Lack of Food: Never True Current Housing: I Do Not Have Housing Concerned About Future Housing: No Difficulty Paying Gas/Cara
[2022-09-02] MEDS: cefTRIAXone 2 GM in SODIUM CHLORIDE 0.9% IV 100 ML 200 ML IVPB (15:39)
--- NOTE | 2022-09-02 17:50 | PM.IMHP ---
H&P: HPI History of Present Illness Date/Time: 09/02/22 17:50 Chief Complaint: Abdominal pain Narrative: This is a 82-year-old male patient who has a history of bladder and prostate cancer status post cystectomy and urostomy tube in place. He has a history of hypertension and asthma. The patient has been having abdominal pain for last couple days and having fever and chills as well. Patient feels distended. He did have a bowel movement this morning and was passing a lot of gas. Patient also had nausea but no vomiting. There was concern about a kidney infection. The patient stated that he has had 2 kidney infections since his ileostomy. His white count is 15.9. H&H is 11.8 and 35.3. Sodium 132. His creatinine is 2.0 with a baseline around 1.7. GFR is 32 with a baseline around 39. His blood sugar was 236. A1c earlier this month was 6.6. Urine was positive for infection. The patient was negative for influenza A/B and COVID. The patient was started on Rocephin and IV fluids. He is also given IV Tylenol. The patient is being admitted for observation status on the date of service of 09/02/2022. Review of Systems Review of Systems: See HPI All systems reviewed & are unremarkable except as noted in HPI and below Constitutional: Constitutional: Reports as per HPI and Reports no additional constitutional complaints Eyes: Eyes: Reports as per HPI and Reports no additional eye complaints ENT: Reports system reviewed and no additional complaints, except as documented and Reports Normal hearing present Cardiovascular: Cardiovascular: Reports no additional cardiovascular complaints Respiratory: Respiratory: Reports no additional respiratory complaints and Reports no additional respiratory complaints Gastrointestinal: Gastrointestinal: Reports as per HPI and Reports no additional gastrointestinal complaints Musculoskeletal: Musculoskeletal: Reports no additional musculoskeletal complaints Integumentary/Breasts: Skin/Breast: Reports system reviewed and no additional complaints, except as docu and Reports as per HPI Neurologic: Reports system reviewed and no additional complaints, except as documented, Reports as per HPI and Reports Normal hearing present Psychiatric: Psychiatric: Reports no additional psychiatric complaints and Reports as per HPI Endocrine: Endocrine: Reports no additional endocrine complaints Hematologic/Lymphatic: Hematologic/Lymphatic: Reports no additional hematologic/lymphatic complaints Allergic/Immunologic: Allergic/Immunologic: Reports no additional allergic/immunologic complaints [facility] Past Medical History Medical History Acquired hypothyroidism Allergies Arthritis Asthma Bladder cancer 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 Cancer Chronic renal failure, stage 3 (moderate) COPD with asthma Diabetes (Unknown) Essential (primary) hypertension Glaucoma Gouty arthritis Hepatitis Hepatitis A History of bladder cancer History of prostate cancer Mixed hyperlipidemia Other spondylosis with myelopathy, 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 Lennon in 2010 History of ileal conduit 2010 S/P radical cystoprostatectomy 2010 Status of other artificial opening of urinary tract Family History Family History (Reviewed 09/02/22 @ 23:58 by Viky Gross, N
[2022-09-02] MEDS: SODIUM CHLORIDE 0.9% IV 1,000 ML 999 ML IV CONT (18:06)
[2022-09-02 18:42] LABS: Influenza A QL RT-PCR Negative (Negative); Influenza B QL RT-PCR Negative (Negative); SARS-CoV-2 RNA PCR Negative
--- NOTE | 2022-09-02 21:39 | PC.NURSE ---
Patient Arrived on unit at 21:15
[2022-09-03] VITALS (9 sets, daily range): BP systolic 95–130; BP diastolic 43–84; PULSE 73–97; RESP 18–20; TEMP 35.9–37.1; O2SAT 88–98
[2022-09-03 03:17] LABS: Glucose Point of Care 118 mg/dl (65-105)
[2022-09-03 04:52] LABS: Hemoglobin A1C 6.7 % (<5.7)
[2022-09-03 07:08] LABS: Basophils Absolute Auto 0.1 K/mm3 (0.0-0.1); Basophils Percent Auto 0.5 % (0.2-1.2); Eosinophils Absolute Auto 0.1 K/mm3 (0-0.3); Eosinophils Percent Auto 0.8 % (0-4.4); Hematocrit 31.9 % (42.0-52.0); Hemoglobin 10.3 g/dL (14.0-18.0); Immature Granulocyte Absolute 0.24 K/mm3 (0.00-0.031); Immature Granulocyte Percent A 1.9 % (0-0.5); Lymphocytes Absolute Auto 0.92 K/mm3 (0.9-3.2); Lymphocytes Percent Auto 7.1 % (18.3-44.2); Mean Corpuscular HGB Conc 32.3 g/dl (32-36); Mean Corpuscular Hemoglobin 29.3 pg (26-34); Mean Corpuscular Volume 90.6 fl (80-100); Mean Platelet Volume 10.3 fl (7.4-10.4); Monocytes Absolute Auto 0.9 K/mm3 (0.1-0.6); Monocytes Percent Auto 6.8 % (2.6-8.5); Neutrophils Absolute Auto 10.7 K/mm3 (1.3-6.7); Neutrophils Percent Auto 82.9 % (45.5-73.1); Platelet Count Result 188 k/mm3 (150-375); Red Blood Count 3.52 M/mm3 (4.6-6.20); Red Cell Distribution Width 15.3 % (11.5-14.5); White Blood Count 12.9 K/mm3 (4.5-10.0)
[2022-09-03 07:17] LABS: Alanine Aminotransferase 34 U/L (6-50); Alkaline Phosphatase 97 U/L (38-126); Anion Gap 5 mmol/L (8-16); Aspartate Amino Transferase 22 U/L (17-59); Bilirubin,Total 1.1 mg/dL (0.2-1.3); Blood Urea Nitrogen 20 mg/dL (9-20); Carbon Dioxide 22 mmol/L (22-30); Chloride 110 mmol/L (98-107); Estimated CRCL calculation 28 ml/min; Estimated Glomerular Filt Rate 30; Glucose 117 mg/dL (65-110); Phosphorus 3.1 mg/dL (2.5-4.5); Potassium 3.4 mmol/L (3.4-5.0); Sodium 137 mmol/L (137-145)
[2022-09-03 08:16] LABS: Glucose Point of Care 138 mg/dl (65-105)
[2022-09-03] MEDS: amLODIPine BESYLATE 5 MG TABLET 10 MG PO (08:42)
[2022-09-03] MEDS: BRIMONIDINE TARTRATE 0.1% 5 ML OPHTH DROPS 1 DROP EACH EYE ×2 (08:42→17:11)
[2022-09-03] MEDS: PREGABALIN (*CRX) 75 MG CAPSULE PO ×2 (08:43→17:11)
--- NOTE | 2022-09-03 10:15 | WPDURCON ---
Assessment and Plan Assessment and plan (1) Pyelonephritis: Code(s): N12 - Tubulo-interstitial nephritis, not specified as acute or chronic Status: Acute Assessment and Plan: Kevin is feeling better today. Cultures are pending. Will continue with IV antibiotics pending the culture. If his white count improves and remains afebrile possibly being discharged tomorrow with oral antibiotics. (2) Leukocytosis (leucocytosis): Qualifiers: Leukocytosis type: unspecified Qualified Code(s): D72.829 - Elevated white blood cell count, unspecified Code(s): D72.829 - Elevated white blood cell count, unspecified Status: Acute Assessment and Plan: See above Urology Consult Note HPI Date Seen: 09/03/22 Requesting Physician: Jada Silveira PA-C Primary Care Provider: Arsen Viveros DO Consult Narrative Narrative: Kevin Figueredo is a 82 year old male with history of bladder and prostate carcinoma who had a radical cystoprostatectomy with ileal conduit at least 10-15 years ago. Kevin was admitted with some chills and elevated white count. In addition a CT scan revealed increasing stranding around the left kidney consistent with possible pyelonephritis. Cultures are pending at this time. patient is actually feeling much better this morning. 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 Lennon in 2010 History of ileal conduit 2010 S/P radical cystoprostatectomy 2010 Status of other artificial opening of urinary tract Family History Family History Mother Family history of allergic disorder Father Family history of malignant neoplasm of stomach Hypertension Social History Social History (Updated 09/02/22 @ 23:59 by Viky Gross NP) Social History: The patient lives at home with his and she is the durable power hand alterations tailor for healthcare. He has 1 son. He is a former smoker. The patient is a full code. The patient drinks about 2 or 3 beers a night. 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 Code status full code Smoking packs per day: 2 Smoking cigarettes per day: 40.0 Years smoked: 30 Smoking pack-years: 60.00 Smoking status: Former smoker Tobacco type: cigarettes Smoking end date: 09/02/82 Alcohol intake: current Drinks per week: 21 Alcohol use details: 3 CANS BEER/DAY Substance use: never Substance use type: does not use Lack of Transportation: No Lack of Food: Never True Current Housing: I Do Not Have Housing Concerned About Future Housing: No Difficulty Paying Gas/Electric Bills: No Difficulty Paying for Meds: No Currently Unemployed: No Education: High
[2022-09-03 11:57] LABS: Glucose Point of Care 160 mg/dl (65-105)
--- NOTE | 2022-09-03 16:24 | PM.IMPN ---
Progress Note: A&P Assessment and Plan (1) Sepsis: Code(s): A41.9 - Sepsis, unspecified organism Status: Acute Assessment and Plan: Patient septic on presentation evident by fever, leukocytosis, elevated serum creatinine In the setting of pyelonephritis lactic is within normal limits blood culture pending patient was appropriately rehydrated with IV fluids continue IV antibiotics as below (2) Pyelonephritis: Code(s): N12 - Tubulo-interstitial nephritis, not specified as acute or chronic Status: Acute Assessment and Plan: Urinalysis abnormal on presentation CT of the abdomen/ pelvis showed worsening left perinephric stranding and left Sharri ureteral stranding concerning for ascending infection appreciate urology consultation continue with IV ceftriaxone urine culture pending, will await results and tailor antibiotics accordingly (3) Presence of urostomy: Code(s): Z93.6 - Other artificial openings of urinary tract status Status: Acute Assessment and Plan: secondary to history of bladder and prostate cancer appreciate urology consultation bloody output noted which patient believes is due to manipulation of urostomy bag rather than hematuria. Monitor (4) Acute kidney injury superimposed on chronic kidney disease: Code(s): N17.9 - Acute kidney failure, unspecified; N18.9 - Chronic kidney disease, unspecified Status: Acute Assessment and Plan: baseline creatinine appears to be 1.6-1.7 creatinine on presentation is 2.0 creatinine today is 2.1. likely secondary to acute infection. Patient is not on any nephrotoxic agents. continue with IV fluids. will obtain renal ultrasound consider urology consultation if no improvement (5) Diabetes: Qualifiers: Diabetes mellitus type: type 2 Diabetes mellitus usp insulin use: without usp use Diabetes mellitus complication status: with kidney complications Diabetes mellitus complication detail: with chronic kidney disease Chronic kidney disease stage: stage 3 (moderate) Chronic kidney disease stage 3 subtype: stage 3b (GFR 30-44) Qualified Code(s): E11.22 - Type 2 diabetes mellitus with diabetic chronic kidney disease; N18.32 - Chronic kidney disease, stage 3b Code(s): E11.9 - Type 2 diabetes mellitus without complications Status: Acute Assessment and Plan: A1c is 6.7. continue with Accu-Cheks, sliding scale insulin, hypoglycemic protocol (6) Essential (primary) hypertension: Code(s): I10 - Essential (primary) hypertension Status: Chronic Assessment and Plan: blood pressure stable. Continue home amlodipine Subjective Date/time seen: 09/03/22 16:24 Interval history: date of service: 09/03/2022 Kevin Figueredo is an 82-year-old male with a history of bladder cancer and prostate cancer s/p cystoprostatectomy and ileal conduit, type 2 diabetes mellitus, hypertension, hypothyroidism, hepatitis, and several other medical problems who is seen in follow-up for pyelonephritis. He is feeling better today. He previously endorsed abdominal pain in left flank pain but reports marked improvement today. States his pain is maybe 3/10. He is having bloody output from his urostomy. Denies nausea, vomiting, fever, or chills. Tolerating his diet. No shortness of breath, cough, chest pain. Review of Systems Review of Systems: All systems reviewed & are unremarkable except as noted in HPI and below Exam Narrative: General: Well-nourished, well-appearing 82-year-old male, sitting up in bed, comfortable, NARD Neuro: awake, alert and oriented x4, speech clear, no focal neuro deficits noted HEENMT: normocephalic, atraumatic, EOMI, sclerae anicteric, moist oral mucosa Respiratory: clear to auscultation bilaterally, nonlabored breathing Cardio: regular rate, regular rhythm with S1-S2 Abdomen: nond
[2022-09-03 16:29] LABS: Glucose Point of Care 127 mg/dl (65-105)
[2022-09-03] MEDS: SODIUM CHLORIDE 0.9% IV 1,000 ML 95 ML IV CONT (19:54)
[2022-09-03] MEDS: LATANOPROST 0.005% OP SOLN 2.5 ML BTL 1 DROP EACH EYE (19:55)
[2022-09-03 20:43] LABS: Glucose Point of Care 150 mg/dl (65-105)
[2022-09-04] VITALS: PULSE 71
[2022-09-04 04:00] VITALS: PULSE 67
[2022-09-04 06:00] VITALS: BP 90/57; PULSE 85; RESP 18; TEMP 36.2; O2SAT 97
[2022-09-04 06:59] LABS: Basophils Absolute Auto 0.1 K/mm3 (0.0-0.1); Basophils Percent Auto 0.8 % (0.2-1.2); Eosinophils Absolute Auto 0.4 K/mm3 (0-0.3); Hematocrit 36.8 % (42.0-52.0); Hemoglobin 11.6 g/dL (14.0-18.0); Immature Granulocyte Absolute 0.16 K/mm3 (0.00-0.031); Immature Granulocyte Percent A 1.8 % (0-0.5); Lymphocytes Absolute Auto 0.74 K/mm3 (0.9-3.2); Lymphocytes Percent Auto 8.1 % (18.3-44.2); Mean Corpuscular HGB Conc 31.5 g/dl (32-36); Mean Corpuscular Hemoglobin 29.3 pg (26-34); Mean Corpuscular Volume 92.9 fl (80-100); Mean Platelet Volume 10.6 fl (7.4-10.4); Monocytes Absolute Auto 0.5 K/mm3 (0.1-0.6); Monocytes Percent Auto 5.2 % (2.6-8.5); Neutrophils Absolute Auto 7.3 K/mm3 (1.3-6.7); Neutrophils Percent Auto 80.1 % (45.5-73.1); Platelet Count Result 238 k/mm3 (150-375); Red Blood Count 3.96 M/mm3 (4.6-6.20); Red Cell Distribution Width 15.5 % (11.5-14.5); White Blood Count 9.1 K/mm3 (4.5-10.0)
[2022-09-04 07:00] LABS: Alanine Aminotransferase 64 U/L (6-50); Albumin Level 3.6 g/dL (3.5-5.1); Alkaline Phosphatase 132 U/L (38-126); Anion Gap 11 mmol/L (8-16); Aspartate Amino Transferase 60 U/L (17-59); Bilirubin,Total 0.9 mg/dL (0.2-1.3); Blood Urea Nitrogen 23 mg/dL (9-20); Calcium 8.2 mg/dL (8.4-10.2); Carbon Dioxide 20 mmol/L (22-30); Chloride 108 mmol/L (98-107); Estimated CRCL calculation 31 ml/min; Estimated Glomerular Filt Rate 34; Glucose 103 mg/dL (65-110); Magnesium 2.3 mg/dL (1.6-2.3); Potassium 3.3 mmol/L (3.4-5.0); Sodium 139 mmol/L (137-145)
[2022-09-04] MEDS: SODIUM CHLORIDE 0.9% IV 1,000 ML 95 ML IV CONT ×2 (07:31→19:54)
[2022-09-04 07:37] LABS: Glucose Point of Care 109 mg/dl (65-105)
[2022-09-04 08:45] VITALS: PULSE 76
[2022-09-04] MEDS: PREGABALIN (*CRX) 75 MG CAPSULE PO ×2 (08:51→16:35)
[2022-09-04] MEDS: POTASSIUM CHLORIDE 20 MEQ TABLET PO (08:51)
[2022-09-04] MEDS: BRIMONIDINE TARTRATE 0.1% 5 ML OPHTH DROPS 1 DROP EACH EYE ×2 (08:52→16:35)
[2022-09-04 11:21] LABS: Glucose Point of Care 155 mg/dl (65-105)
--- NOTE | 2022-09-04 13:39 | PM.IMPN ---
Progress Note: A&P Assessment and Plan (1) Sepsis: Code(s): A41.9 - Sepsis, unspecified organism Status: Acute Assessment and Plan: Patient septic on presentation evident by fever, leukocytosis, elevated serum creatinine in the setting of pyelonephritis lactic is within normal limits blood culture pending, negative to date patient was appropriately rehydrated with IV fluids continue IV antibiotics as below (2) Pyelonephritis: Code(s): N12 - Tubulo-interstitial nephritis, not specified as acute or chronic Status: Acute Assessment and Plan: Urinalysis abnormal on presentation and CT of the abdomen/ pelvis showed worsening left perinephric stranding and left periureteral stranding concerning for ascending infection appreciate urology consultation continue with IV ceftriaxone urine culture with mixed genital stacy isolated. Will continue with IV ceftriaxone. Unlikely to be beneficial to repeat urine culture as patient has received 48 hours of antibiotics, but will defer to Urology recommendations (3) Presence of urostomy: Code(s): Z93.6 - Other artificial openings of urinary tract status Status: Acute Assessment and Plan: secondary to history of bladder and prostate cancer appreciate urology consultation 09/03 bloody output noted which patient believes is due to manipulation of urostomy bag rather than hematuria. Urine output is clear today (4) Acute kidney injury superimposed on chronic kidney disease: Code(s): N17.9 - Acute kidney failure, unspecified; N18.9 - Chronic kidney disease, unspecified Status: Acute Assessment and Plan: baseline creatinine appears to be 1.6-1.7 creatinine elevated up to 2.1 slowly trending down today, creatinine 1.9 likely secondary to acute infection. Patient is not on any nephrotoxic agents. continue with IV fluids. renal ultrasound with several left renal cysts, resolution of left hydronephrosis seen on initial CT scan, and normal right kidney consider nephrology consultation if no improvement (5) Diabetes: Qualifiers: Diabetes mellitus type: type 2 Diabetes mellitus ferry terminal agent insulin use: without ferry terminal agent use Diabetes mellitus complication status: with kidney complications Diabetes mellitus complication detail: with chronic kidney disease Chronic kidney disease stage: stage 3 (moderate) Chronic kidney disease stage 3 subtype: stage 3b (GFR 30-44) Qualified Code(s): E11.22 - Type 2 diabetes mellitus with diabetic chronic kidney disease; N18.32 - Chronic kidney disease, stage 3b Code(s): E11.9 - Type 2 diabetes mellitus without complications Status: Acute Assessment and Plan: A1c is 6.7. continue with Accu-Cheks, sliding scale insulin, hypoglycemic protocol (6) Essential (primary) hypertension: Code(s): I10 - Essential (primary) hypertension Status: Chronic Assessment and Plan: blood pressure slightly soft this morning. Improved this afternoon with last BP 123/78 Home amlodipine not given this morning due to systolic BP in the 90s Continue amlodipine with parameters Subjective Date/time seen: 09/04/22 13:39 Interval history: date of service: 09/04/2022 Kevin Figueredo is an 82-year-old male with a history of bladder cancer and prostate cancer s/p cystoprostatectomy and ileal conduit, type 2 diabetes mellitus, hypertension, hypothyroidism, hepatitis, and several other medical problems who is seen in follow-up for pyelonephritis. He is feeling better today. He has no abdominal or flank pain. Notes output from his urostomy bag is clear today. Denies nausea or vomiting. Does complain of increased thirst, though states this is typical for him to drink lots of water. He is tolerating his diet He denies shortness of breath. No chest pain. No dizziness or lightheadedness. He has some mouth sores from his dentures that
[2022-09-04 13:57] VITALS: BP 123/78; PULSE 77; RESP 18; TEMP 36.4; O2SAT 100
--- NOTE | 2022-09-04 16:13 | WPDUROPN2 ---
Progress Note: A&P Assessment and Plan (1) Pyelonephritis: Code(s): N12 - Tubulo-interstitial nephritis, not specified as acute or chronic Status: Acute Assessment and Plan: CT shows left pyelonephritis, however urine and blood cultures are negative, he is afebrile. Ok to discharge from a urologic standpoint. F/U in one month in the office, otherwise no need to follow at this time. (2) Sepsis: Code(s): A41.9 - Sepsis, unspecified organism Status: Acute (3) Presence of urostomy: Code(s): Z93.6 - Other artificial openings of urinary tract status Status: Acute Subjective Subjective Date/Time Seen: 09/04/22 16:13 Patient presenting with pyelonephritis on CT from 09/02/22, however urine and blood cultures are negative. Patient doing well, afebrile. Review of Systems Cardiovascular: Cardiovascular: Denies chest pain Gastrointestinal: Gastrointestinal: Denies abdominal pain, Denies nausea and Denies vomiting Genitourinary: Genitourinary: Denies hematuria, Denies genital pain, Denies dysuria, Denies flank pain, Denies urinary frequency, Denies urinary hesitancy and Denies urinary urgency Exam Const: General: cooperative and comfortable Resp: Effort & Inspection: normal respiratory effort Cardio: Rate: regular rate GI: GI Palp: Yes Soft to palpation and No Tenderness to palpation present (GI) : General: Yes no CVA tenderness Urinary Catheter: Urinary Catheter: urine clear and other (urostomy) Extrem: Right lower extremity: no edema Left lower extremity: no edema Objective Data Vital Signs Vital Signs: Vital Signs - 24 hr 09/03/22 20:05 09/03/22 22:00 09/03/22 20:00 Temperature 98.7 F Pulse Rate 75 73 Respiratory Rate 18 Blood Pressure 95/43 L Pulse Oximetry 88 L Oxygen Delivery Room Air 09/04/22 00:00 09/04/22 04:00 09/04/22 06:00 Temperature 97.1 F L Pulse Rate 71 67 85 Respiratory Rate 18 Blood Pressure 90/57 L Pulse Oximetry 97 Oxygen Delivery 09/04/22 08:45 09/04/22 13:57 Temperature 97.5 F L Pulse Rate 76 77 Respiratory Rate 18 Blood Pressure 123/78 Pulse Oximetry 100 Oxygen Delivery Intake/Output Intake/Output: Intake & Output 09/01/22 09/02/22 09/03/22 09/04/22 23:59 23:59 23:59 23:59 Intake Total 1100 2490 2440 Output Total 1999 1124 Balance 4038 398 5896 Meds/Results Medications: Active Medications Generic Name Dose Route Start Last Admin Trade Name Freq PRN Reason Stop Dose Admin Albuterol 1 - 2 puff 09/02/22 23:59 Albuterol Sulfate (*Sp) Aerosol 1 Puff INHALATION Q4-6H PRN Shortness Of Breath Or Wheezing Amlodipine Besylate 10 mg 09/03/22 09:00 09/03/22 08:42 Amlodipine Besylate 5 Mg Tablet PO 10 mg DAILY CONCHITA Administration Benzocaine 1 applic 09/04/22 12:01 Benzocaine 20% Dental Gel 9 Gm Tube BY MOUTH QID PRN Oral Pain Brimonidine Tartrate 1 drop 09/03/22 09:00 09/04/22 08:52 Brimonidine Tartrate 0.1% 5 Ml Ophth Drops EACH EYE 1 drop BID CONCHITA Administration Dextrose 12.5 gm 09/03/22 01:26 Dextrose 50% 25 Gm/50 Ml Syringe IV PUSH PRN PRN Hypoglycemia Protocol Ergocalciferol 50,000 units 09/12/22 09:00 Ergocalciferol 50,000 Units Capsule PO Tu@0900 CONCHITA Glucagon 1 mg 09/03/22 01:26 Glucagon For Inj 1 Mg Vial IM PRN PRN Hypoglycemia Protocol Glucose 15 gm 09/03/22 01:26 Glucose Oral Gel 15 Gm Of Glucse In 37.5 Gm Tube PO PRN PRN Hypoglycemia Protocol Ceftriaxone Sodium/Dextrose 1 gm in 50 mls @ 100 mls/hr 09/03/22 12:00 09/04/22 11:38 Rocephin 1 Gm/D5w 50 Ml IVPB 100 mls/hr Q24H CONCHITA Administration Dextrose 1,000 mls @ 100 mls/hr 09/03/22 01:26 Dextrose 5% 1,000 Ml IVPB PRN PRN Hypoglycemia Protocol Sodium Chloride 1,000 mls @ 95 mls/hr 09/03/22 16:35 09/04/22 07:31 Normal Saline Iv IV CONT 95 mls/hr
[2022-09-04 16:34] LABS: Glucose Point of Care 71 mg/dl (65-105)
[2022-09-04] MEDS: LATANOPROST 0.005% OP SOLN 2.5 ML BTL 1 DROP EACH EYE (19:55)
[2022-09-04 20:22] LABS: Glucose Point of Care 168 mg/dl (65-105)
[2022-09-04 22:00] VITALS: BP 114/57; PULSE 78; RESP 16; TEMP 37.4; O2SAT 95
[2022-09-05 06:00] VITALS: BP 128/58; PULSE 78; RESP 20; TEMP 36.8; O2SAT 94
[2022-09-05 06:08] LABS: Hemoglobin 10.8 g/dL (14.0-18.0); Mean Corpuscular HGB Conc 32.7 g/dl (32-36); Mean Corpuscular Hemoglobin 29.9 pg (26-34); Mean Corpuscular Volume 91.4 fl (80-100); Mean Platelet Volume 10.2 fl (7.4-10.4); Platelet Count Result 241 k/mm3 (150-375); Red Blood Count 3.61 M/mm3 (4.6-6.20); Red Cell Distribution Width 15.4 % (11.5-14.5); White Blood Count 6.3 K/mm3 (4.5-10.0)
[2022-09-05 06:13] LABS: Anion Gap 6 mmol/L (8-16); Blood Urea Nitrogen 20 mg/dL (9-20); Carbon Dioxide 22 mmol/L (22-30); Chloride 108 mmol/L (98-107); Estimated CRCL calculation 35 ml/min; Estimated Glomerular Filt Rate 39; Glucose 113 mg/dL (65-110); Potassium 3.7 mmol/L (3.4-5.0); Sodium 136 mmol/L (137-145)
[2022-09-05 07:32] LABS: Glucose Point of Care 114 mg/dl (65-105)
[2022-09-05] MEDS: amLODIPine BESYLATE 5 MG TABLET 10 MG PO (08:21)
[2022-09-05] MEDS: PREGABALIN (*CRX) 75 MG CAPSULE PO (08:22)
[2022-09-05] MEDS: BRIMONIDINE TARTRATE 0.1% 5 ML OPHTH DROPS 1 DROP EACH EYE (08:22)
--- NOTE | 2022-09-05 11:14 | PM.DS ---
DS: Admitting Diagnosis Discharge Date 09/05/2022 Admitting Diagnosis pyelonephritis DS: Discharge Diagnosis Discharge Diagnosis (1) Sepsis: Code(s): A41.9 - Sepsis, unspecified organism Status: Acute Assessment and Plan: Patient septic on presentation evident by fever, leukocytosis, elevated serum creatinine in the setting of pyelonephritis lactic within normal limits blood culture negative patient was appropriately rehydrated with IV fluids continue antibiotics as below (2) Pyelonephritis: Code(s): N12 - Tubulo-interstitial nephritis, not specified as acute or chronic Status: Acute Assessment and Plan: Urinalysis abnormal on presentation and CT of the abdomen/ pelvis showed worsening left perinephric stranding and left periureteral stranding concerning for ascending infection seen in consultation by urology received IV ceftriaxone urine culture with mixed genital stacy isolated. Repeat urine culture not collected as patient received 48 hours of antibiotics continue cefdinir to complete 7 day course (3) Presence of urostomy: Code(s): Z93.6 - Other artificial openings of urinary tract status Status: Acute Assessment and Plan: secondary to history of bladder and prostate cancer appreciate urology consultation 09/03 bloody output noted which patient believes is due to manipulation of urostomy bag rather than hematuria. This resolved and subsequent urine output clear (4) Acute kidney injury superimposed on chronic kidney disease: Code(s): N17.9 - Acute kidney failure, unspecified; N18.9 - Chronic kidney disease, unspecified Status: Acute Assessment and Plan: baseline creatinine appears to be 1.6-1.7 creatinine elevated up to 2.1 renal function improved with IV flu back to baseline colchicine held likely secondary to acute infection renal ultrasound with several left renal cysts, resolution of left hydronephrosis seen on initial CT scan, and normal right kidney (5) Diabetes: Qualifiers: Diabetes mellitus type: type 2 Diabetes mellitus intermodal customer service insulin use: without snf use Diabetes mellitus complication status: with kidney complications Diabetes mellitus complication detail: with chronic kidney disease Chronic kidney disease stage: stage 3 (moderate) Chronic kidney disease stage 3 subtype: stage 3b (GFR 30-44) Qualified Code(s): E11.22 - Type 2 diabetes mellitus with diabetic chronic kidney disease; N18.32 - Chronic kidney disease, stage 3b Code(s): E11.9 - Type 2 diabetes mellitus without complications Status: Acute Assessment and Plan: A1c is 6.7. Accu-Cheks, sliding scale insulin, hypoglycemic protocol (6) Essential (primary) hypertension: Code(s): I10 - Essential (primary) hypertension Status: Chronic Assessment and Plan: Continue amlodipine DS: Summary Hospital Course Hospital Course: date of admission: 09/02/2022 date of discharge: 09/05/2022 Kevin Figueredo is an 82-year-old male with a history of bladder cancer and prostate cancer s/p cystoprostatectomy and ileal conduit, type 2 diabetes mellitus, hypertension, hypothyroidism, hepatitis, and several other medical problems? who presented to the emergency department on 09/02/2022 with complaints of fever and chills with worsening left flank pain. On presentation to the ED, he was febrile at 102.7?, tachycardic, additional vital signs stable, white blood cell count 15.9, creatinine 2.0, urinalysis was abnormal, CT of the abdomen/ pelvis showed worsening left perinephric stranding and left periureteral stranding likely secondary to ascending infection. He was admitted to the hospitalist service for further evaluation and management was seen in consultation by Urology. Please see above for further details. He was treated with IV ceftriaxone with symptomatic improvement. Sepsis resolved
[2022-09-05 11:30] LABS: Glucose Point of Care 159 mg/dl (65-105)
== END 2022-09-05 11:50 | disposition home or self-care (01) ==
LOC: ANHED 13:53 → ANH3MEDSUR 09-03 08:07
PROVIDERS: Nurse Practitioner; Admitting Provider Internal Medicine; Emergency Provider Emergency Medicine; PCP Internal Medicine; Visit Provider Physician Assistant
DX: N12 Tubulo-interstitial nephritis, not specified as acute or chronic (principal); A41.9 Sepsis, unspecified organism; R10.9 Unspecified abdominal pain; I21.9 Acute myocardial infarction, unspecified; Z90.6 Acquired absence of other parts of urinary tract; Z93.6 Other artificial openings of urinary tract status; J45.909 Unspecified asthma, uncomplicated; D63.1 Anemia in chronic kidney disease; N28.1 Cyst of kidney, acquired; Z20.822 Contact with and (suspected) exposure to COVID-19; E87.1 Hypo-osmolality and hyponatremia; E03.9 Hypothyroidism, unspecified; I12.9 Hypertensive chronic kidney disease with stage 1 through stage 4 chronic kidney disease, or unspecified chronic kidney disease; N17.9 Acute kidney failure, unspecified; E11.22 Type 2 diabetes mellitus with diabetic chronic kidney disease; N18.30 Chronic kidney disease, stage 3 unspecified; D72.829 Elevated white blood cell count, unspecified; G25.81 Restless legs syndrome; M19.90 Unspecified osteoarthritis, unspecified site; M10.9 Gout, unspecified; Z90.79 Acquired absence of other genital organ(s); E78.2 Mixed hyperlipidemia; E55.9 Vitamin D deficiency, unspecified; R50.9 Fever, unspecified; R94.4 Abnormal results of kidney function studies; F10.90 Alcohol use, unspecified, uncomplicated; Z87.891 Personal history of nicotine dependence; Z79.899 Other long term (current) drug therapy; Z85.51 Personal history of malignant neoplasm of bladder; Z85.46 Personal history of malignant neoplasm of prostate
CPT/HCPCS: 36415; 74176; 76775; 80048; 80053; 81001; 82948; 83036; 83605; 83690; 83735; 84100; 84443; 85025; 85027; 87040; 87086; 87088; 87636; 96361; 96365; 96366; 96376; 97161; 99285; A9270; G0378; J0696; J7030

== ENCOUNTER 2022-09-07 10:30 | Outpatient (CLI) | payer MEDICARE, SELFPAY ==
[2022-09-07 20:48] LABS: Add Urine Microscopic? YES; Appearance Urine Clear (Clear); Bilirubin Urine Negative (Negative); Blood Urine 2+ (Negative); Color Urine Light Yellow (Yellow); Glucose Urine UA Negative (Negative); Ketones Urine Negative (Negative); Leukocyte Esterase Ur Trace LEU/UL (NEGATIVE); Nitrate Urine Negative (Negative); Protein Urine Negative (Negative); Urobilinogen Urine 0.2 mg/dL (<2.0)
[2022-09-07 21:00] LABS: Bacteria Urine Trace /hpf
== END 2022-09-07 10:31 | disposition home or self-care (01) ==
LOC: ANHGOSHLAB 10:32
PROVIDERS: PCP Internal Medicine; Visit Provider Internal Medicine
DX: N12 Tubulo-interstitial nephritis, not specified as acute or chronic (principal)
CPT/HCPCS: 81001

== ENCOUNTER → 2022-10-26 15:50 | Outpatient (CLI) | payer MEDICARE, SELFPAY ==
--- NOTE | ~2022-10-26 | XR_ITS ---
EXAMINATION: XR knee LT 3V DATE: 10/26/2022 16:02 INDICATION: Left knee pain and swelling. TECHNIQUE: 3 views of left knee were obtained. COMPARISON: None. FINDINGS: Bone alignment is normal. No fracture. There is mild tricompartmental osteoarthritis charac terized by tiny osteophytes. No joint space narrowing. There is a moderate-sized knee joint effusion. IMPRESSION: 1. Mild left knee osteoarthritis. 2. Moderate-sized left knee joint effusion. Reviewed, dictated and finalized at location A. IFIED JUVENILE PROBATION OFFICER
== END ==
PROVIDERS: PCP Internal Medicine; Visit Provider Clinical Nurse Specialist
DX: M17.12 Unilateral primary osteoarthritis, left knee (principal); M25.462 Effusion, left knee
CPT/HCPCS: 73562

== ENCOUNTER 2023-02-09 08:12 | Outpatient (CLI) | payer MEDICARE, SELFPAY ==
[2023-02-05 08:50] LABS: Estimated Glomerular Filt Rate 25
--- NOTE | ~2023-02-09 | CT_ITS ---
EXAMINATION: CT abdomen pelvis wo con DATE: 02/09/2023 09:07 INDICATION: Bladder cancer TECHNIQUE: Computed tomography (CT) of the abdomen and pelvis was performed without intravenous contr ast. The dose-length product was 838.29 mGy-cm. Automated exposure control and iterative reconstructi on technique were employed. COMPARISON: CT dated 09/02/2022. FINDINGS: Bibasilar atelectasis. Heart size normal. No significant pleural or pericardial effusion. T here are changes of cystoprostatectomy with ureteral diversion. There is mild bilateral perinephric s tranding. The left ureter is thickened with surrounding inflammation, suspicious for ascending urinar y tract infection. There are multiple left renal cysts. There are multiple left renal calcifications. There are changes of ventral abdominal wall hernia repair with recurrent herniations to the right lat eral margin of the mesh. Nonobstructive bowel gas. There is left lower lobe atelectasis/scarring. The liver, spleen, pancreas, adrenal glands are unrema rkable. Diverticulosis without evidence for diverticulitis. There is atherosclerosis of the aorta wit hout aneurysm. No significant lymphadenopathy. IMPRESSION: 1. Progression of left hydronephrosis with urothelial thickening and surrounding inflammation, suspic ious for ascending urinary tract infection. Underlying recurrent malignancy not excluded. Status post cystoprostatectomy. 2: Right anterior abdominal wall hernia containing nonobstructed bowel. The hernia is just to the rig ht and lateral of mesh from previous ventral hernia repair. Reviewed, dictated and finalized at location B. IMPRESSION: 1. Progression of left hydronephrosis with urothelial thickening and surroundin g inflammation, suspicious for ascending urinary tract infection. Underlying re current malignancy not excluded. Status post cystoprostatectomy. 2: Right anterior abdominal wall hernia containing nonobstructed bowel. The her aleksandr is just to the right and lateral of mesh from previous ventral hernia misael carballo
[2023-02-09 08:52] LABS: Estimated Glomerular Filt Rate 20
== END 2023-02-09 08:13 | disposition home or self-care (01) ==
PROVIDERS: PCP Internal Medicine; Visit Provider Urology
DX: C67.9 Malignant neoplasm of bladder, unspecified (principal)
CPT/HCPCS: 74176

== ENCOUNTER 2023-03-05 12:24 | Outpatient (CLI) | payer MEDICARE, SELFPAY ==
--- NOTE | ~2023-03-05 | NM_ITS ---
EXAMINATION: KARRIE tierney renal scan DATE: 03/05/2023 14:36 INDICATION: Left hydronephrosis. TECHNIQUE: 8.1 mCi Tc-99m MAG3 was administered IV. 40 mg furosemide was administered IV immediately afterward. The patient was scanned in the supine position. A posterior abdominal radionuclide angiog tarun was obtained. A subsequent time course of static images of the kidneys, ureters, and bladder was obtained. COMPARISON: CT abdomen and pelvis 02/09/2023, 11/08/2020 FINDINGS: The posterior abdominal radionuclide angiogram and sequential static images show mild atrop hy of left kidney. Peak renal parenchymal uptake was 2 min in right kidney and 7 min in left kidney ( normal peak 3-5 minutes). The relative early renal uptake was 80% on the right and 20% on the left ( <40% is abnormal). No abnormalities of the ureters or bladder are seen. T1/2 for clearance of activity from the right kidney and proximal collecting system was 7 minutes. T1/2 for clearance of activity from the left kidney and proximal collecting system was >>20 minutes. IMPRESSION: 1. Decreased left kidney function, which is 20% of total renal function. 2. Delayed contrast clearance from left kidney, which is an expected result given the decreased left kidney function. This finding does not rule in or rule out fixed ureteral obstruction. Reviewed, dictated and finalized at location A. IMPRESSION: 1. Decreased left kidney function, which is 20% of total renal function. 2. Delayed contrast clearance from left kidney, which is an expected result gi karen the decreased left kidney function. This finding does not rule in or rule o ut fixed ureteral obstruction.
== END 2023-03-05 12:25 | disposition home or self-care (01) ==
PROVIDERS: PCP Internal Medicine; Visit Provider Urology
DX: N13.30 Unspecified hydronephrosis (principal); R93.422 Abnormal radiologic findings on diagnostic imaging of left kidney
CPT/HCPCS: 78708; A9562; J1940

== ENCOUNTER 2023-09-04 07:13 | Outpatient (CLI) | payer MEDICARE, SELFPAY ==
--- NOTE | ~2023-09-04 | CT_ITS ---
EXAMINATION: CT abdomen pelvis wo con DATE: 09/04/2023 08:34 INDICATION: Bladder cancer TECHNIQUE: Computed tomography (CT) of the abdomen and pelvis was performed without intravenous contr ast. The dose-length product (DLP) was 490.64 mGy-cm. Automated exposure control and iterative recons truction technique were employed. COMPARISON: 02/09/2023 FINDINGS: Minimal dependent atelectasis is present in the lung bases. The heart size is normal. The l iver, spleen, pancreas, gallbladder, and adrenal glands are normal. Cysts of the kidneys measure up t o 2.7 cm on the left. There are changes of cystectomy and right lower quadrant ileal conduit formatio n. There is chronic moderate dilation of the proximal left ureter and chronic moderate left hydroneph rosis. There is a focal area of eccentric wall thickening of the left ureter which has a somewhat chr onic appearance and may reflect chronic inflammation (image 96). No pathologically enlarged abdominal or pelvic lymph nodes are identified. Colonic diverticulosis is present without evidence of divertic ulitis. No free intraperitoneal gas or evidence of bowel obstruction. There are changes of mesh ventr al hernia repair with herniation of a short segment of nondistended small bowel the right of the mesh . There is severe lumbar spondylosis. IMPRESSION: 1. Chronic moderate left hydronephrosis and proximal left hydroureter with wall thickening in the mid left ureter which could reflect chronic inflammation versus urothelial lesion. 2. Mesh ventral hernia repair with small recurrent ventral hernia containing nonobstructed small jareth l. Reviewed, dictated and finalized at location L. ENGRAVER IMPRESSION: 1. Chronic moderate left hydronephrosis and proximal left hydroureter with wall thickening in the mid left ureter which could reflect chronic inflammation hannah mark urothelial lesion. 2. Mesh ventral hernia repair with small recurrent ventral hernia containing no nobstructed small bowel.
[2023-09-04 07:42] LABS: Estimated Glomerular Filt Rate 21
== END 2023-09-04 07:14 | disposition home or self-care (01) ==
PROVIDERS: PCP Internal Medicine; Visit Provider Urology
DX: C67.9 Malignant neoplasm of bladder, unspecified (principal); N13.30 Unspecified hydronephrosis; K43.2 Incisional hernia without obstruction or gangrene
CPT/HCPCS: 74176

== ENCOUNTER 2023-09-26 09:58 | Outpatient (CLI) | payer MEDICARE, SELFPAY | END 2023-09-26 09:59 | disposition home or self-care (01) | LOC: ANHLAB 09:59 | PROVIDERS: PCP Internal Medicine; Visit Provider Internal Medicine Nephrology | DX: R82.81 Pyuria (principal); M54.89 Other dorsalgia | CPT/HCPCS: 87077; 87086; 87186 ==

== ENCOUNTER → 2023-10-11 12:04 | Outpatient (CLI) | payer MEDICARE, SELFPAY ==
--- NOTE | ~2023-10-11 | XR_ITS ---
XR chest 2V DATE: 10/11/2023 12:17 INDICATION: Chest symptoms and signs TECHNIQUE: 2 views COMPARISON: 05/30/2022 2 view chest FINDINGS: Heart size is within normal limits. There is aortic arch calcification, mild aortic unfoldi ng. The lungs are moderately hyperinflated. No pulmonary infiltrate or consolidation, pleural effusion or pulmonary vascular congestion or pneumothorax is detected. Diffuse osteopenia. There is degenerative spurring of the thoracic spine.. IMPRESSION: No active cardiac pulmonary disease or significant change since 05/30/2022 Reviewed, dictated and finalized at location L. SHABLE FRUIT INSPECTOR
== END ==
PROVIDERS: PCP Clinical Nurse Specialist; Visit Provider Clinical Nurse Specialist
DX: R09.89 Other specified symptoms and signs involving the circulatory and respiratory systems (principal)
CPT/HCPCS: 71046

== ENCOUNTER 2024-09-15 08:23 | Outpatient (CLI) | payer MEDICARE, SELFPAY ==
--- NOTE | ~2024-09-15 | CT_ITS ---
CT abdomen pelvis wo con Ordering provider: Rome Oden MD History: 84 years Male with . BLADDER CANCER . Comparison: September 04, 2023 Technique: CT abdomen and pelvis without IV and without oral contrast. Automated exposure control and iterative reconstruction technique were employed. The dose-length product was 1024.00 mGy-cm. Findings: VISUALIZED LOWER CHEST: Nodule versus fibrotic changes seen in the oblique fissure on the right and l eft side. Follow-up advised. 6 months follow-up CT is advised. UPPER ABDOMINAL ORGANS: Liver: Normal. Gallbladder: Normal. Spleen: Normal. Stomach/duodenum: Normal. Pancreas: Normal. Adrenals: Slightly prominent medial limb of the left adrenal gland. Kidneys: Hydronephrotic changes in the left kidney with slightly smaller size than the right. Ileal c onduit is seen on the right side. Cyst is seen in the left kidney lower pole area. PELVIC ORGANS: Status post cystectomy. BOWEL AND MESENTERY: Colon: No evidence of diverticulitis. Fecal material is loaded in the colon which may indicate coliti s patient. No evidence of appendicitis. Small Bowel: Normal. No obstruction. Peritoneum/mesentery: No free air or free fluid. No mesenteric lymphadenopathy. RETROPERITONEUM: Moderate atheromatous disease of the abdominal aorta. No retroperitoneal lymphaden opathy. MUSCULOSKELETAL: Superficial soft tissues: Hernia repair is seen in the anterior abdominal wall. Small bowel loop is s een to the right of the mesh suggestive of herniation. Slightly enlarged inguinal lymph nodes the lar gest on the left measures 1.4 cm. Otherwise, The superficial soft tissues are normal. Bones: Age appropriate degenerative changes of the spine. IMPRESSION: 1. No evidence of appendicitis, diverticulitis or intestinal obstruction. 2. Status post cystectomy. Right ileal conduit is noted. 3. Left hydronephrotic changes unchanged from previous examination. 4. Pleural thickening is seen in the area of the oblique fissures. No change from previous examinati on. 6-12 months follow-up advised. 5. Slightly enlarged left inguinal nodes Reviewed, dictated and finalized at location A. C DEVELOPER IMPRESSION: 1. No evidence of appendicitis, diverticulitis or intestinal obstruction. 2. Status post cystectomy. Right ileal conduit is noted. 3. Left hydronephrotic changes unchanged from previous examination. 4. Pleural thickening is seen in the area of the oblique fissures. No change f rom previous examination. 6-12 months follow-up advised. 5. Slightly enlarged left inguinal nodes
== END 2024-09-15 08:24 | disposition home or self-care (01) ==
PROVIDERS: PCP Clinical Nurse Specialist; Visit Provider Urology
DX: C67.9 Malignant neoplasm of bladder, unspecified (principal); J92.9 Pleural plaque without asbestos; Z90.6 Acquired absence of other parts of urinary tract
CPT/HCPCS: 74176

== ENCOUNTER 2025-01-14 08:54 | Outpatient (CLI) | payer MEDICARE, SELFPAY ==
--- OUTSIDE RECORDS SUMMARY | 2025-01-14 09:34 | XMS_ITS | Clinical Summary ---
Author Organization [facility] Address [address], [place] [address] Phone Care Team Providers Care Records Clerk Name Role Phone Alxea Costa MD Primary Care Provider [phone] Allergies No known active allergies Medications albuterol HFA (PROVENTIL HFA) 108 (90 Base) MCG/ACT inhaler INHALE 1 PUFF BY MOUTH EVERY 4 TO 6 HOURS NEEDED FOR SHORTNESS OF BREATH OR WHEEZING 1 Active atorvastatin (LIPITOR) 40 MG tablet Take 40 mg by mouth 1 (one) time each day 1 Active Alphagan P 0.1 % ophthalmic solution INSTILL 1 DROP INTO EACH EYE TWICE DAILY 1 Active ergocalciferol (VITAMIN D2) 1.25 MG (17016 UT) capsule TAKE 1 CAPSULE ONCE WEEKLY 1 Active Febuxostat (ULORIC) 40 MG tablet 1 Active Wixela Inhub 250-50 MCG/DOSE diskus inhaler INHALE 1 PUFF BY MOUTH TWICE DAILY. RINSE AND SPIT 1 Active latanoprost (XALATAN) 0.005 % ophthalmic solution Administer 1 drop into both eyes every night 1 Active perindopril (ACEON) 4 MG tablet Take 4 mg by mouth 1 (one) time each day 1 Active pregabalin (LYRICA) 75 MG capsule Take 75 mg by mouth 2 (two) times a day 1 Active rOPINIRole (REQUIP) 2 MG tablet Take 2 mg by mouth every night 1 Active Januvia 50 MG tablet Take 50 mg by mouth 1 (one) time each day 1 Active amLODIPine (NORVASC) 10 MG tablet Take 1 tablet (10 mg total) by mouth 1 (one) time each day 90 tablet 3 2 Active Active Problems Problem Noted Date Diagnosed Date Other and unspecified hyperlipidemia 05/06/2021 Stage 3a chronic kidney disease 01/06/2021 Immunizations Immunization Administration Dates Next Due Influenza TIV (IM) 05/25/2021 Pneumococcal Conjugate 13-Valent 05/25/2019 Social History Tobacco Use Types Packs/Day Years Used Date Smoking Tobacco: Former Smokeless Tobacco: Never Alcohol Use Standard Drinks/Week Comments Yes 14 (1 standard drink = 0.6 oz pu re alcohol) Sex and Gender Information Value Date Recorded Sex Assigned at Not on file Legal Sex Male 12:43 PM MDT Gender Identity Not on file Sexual Orientation Not on file Last Filed Vital Signs Vital Sign Reading Time Taken Comments Blood Pressure 136/70 05/08/2022 9:25 AM CDT Pulse 84 05/08/2022 9:25 AM CDT Temperature 36.4 C (97.5 F) 05/08/2022 9:25 AM CDT Respiratory Rate - - Oxygen Saturation - - Inhaled Oxygen Concentration - - Weight 91.6 kg (202 lb) 05/08/2022 9:25 AM CDT Height 185.4 cm (6' 1 ) 05/08/2022 9:25 AM CDT Body Mass Index 26.65 05/08/2022 9:25 AM CDT Plan of Treatment Health Maintenance Due Date Last Done Comments Pneumococcal PPSV23/PCV13 65 + Years / Low and Medium Risk (2 of 3 - PPSV23) 05/25/2020 05/25/2019 Influenza Vaccine (Season Ended) 2025 05/25/20 21 Insurance [employer] MEDICARE Care Teams Records Clerk Relationship Specialty Start Date End Date Alexa Costa MD [address] [place] [id number] PCP - General Family Medicine 11/07/21
[2025-01-14 20:58] LABS: Anion Gap 11 mmol/L (4-12); Blood Urea Nitrogen 32 mg/dL (9-20); Calcium 8.7 mg/dL (8.4-10.2); Carbon Dioxide 23 mmol/L (22-30); Chloride 98 mmol/L (98-107); Estimated Glomerular Filt Rate 37; Glucose 92 mg/dL (65-110); Potassium 4.4 mmol/L (3.4-5.0); Sodium 132 mmol/L (137-145)
== END 2025-01-14 08:55 | disposition home or self-care (01) ==
LOC: ANHGOSHLAB 08:55
PROVIDERS: PCP Clinical Nurse Specialist; Visit Provider Clinical Nurse Specialist
DX: N18.30 Chronic kidney disease, stage 3 unspecified (principal)
CPT/HCPCS: 36415; 80048

== ENCOUNTER 2025-01-14 09:22 | Outpatient (CLI) | payer MEDICARE, SELFPAY ==
--- NOTE | ~2025-01-14 | CT_ITS ---
CT Scan of the Chest without Contrast: Clinical Indication: COPD Technique: Contiguous sections were acquired throughout the chest without intravenous contrast. Dose reduction technique was used on this scan by utilizing automated exposure control and iterative recon struction technique. The dose-length product (DLP) was 334.73 mGy-cm. Findings: There is no evidence of any significant mediastinal, hilar or axillary lymphadenopathy. There are ext ensive atherosclerotic calcifications of the aorta and coronary arteries. There is no evidence of pleural or pericardial effusion. There is moderate to advanced emphysema. Probable opacification of several left upper lobe segmental bronchi with surrounding consolidation. There are tree-in-bud opacities in the left upper lobe. Images through the upper abdomen reveal no abnormalities. Impression: Moderate to advanced emphysema. Probable opacification of several left upper lobe segmental bronchi with surrounding consolidation, w hich could reflect neoplasm versus atelectasis or pneumonia. Consider contrast enhanced exam or PET/C T for further evaluation. Comparison with any prior chest CT to be useful to assess for interval kyle ge. Tree-in-bud opacities left upper lobe, compatible with scars infectious process. Reviewed, dictated and finalized at [facility]. Impression: Moderate to advanced emphysema. Probable opacification of several left upper lobe segmental bronchi with surrou nding consolidation, which could reflect neoplasm versus atelectasis or pneumon ia. Consider contrast enhanced exam or PET/CT for further evaluation. Compariso n with any prior chest CT to be useful to assess for interval change. Tree-in-bud opacities left upper lobe, compatible with scars infectious process .
--- NOTE | ~2025-01-14 | XR_ITS ---
3 VIEWS THORACIC SPINE Ordering provider: JAKE [place] History: . G89.29 - Other chronic pain . Comparison: None. FINDINGS: VERTEBRAL BODIES: Normal height and alignment. No visible fracture or subluxation. Degenerative park es of the spine. DISK SPACES: Normal. Multilevel narrowing of the disc spaces in the midthoracic area. Soft tissues: Normal. IMPRESSION: No acute osseous abnormality of the thoracic spine. Multilevel Degenerative disc disease Reviewed, dictated and finalized at location A.
== END 2025-01-14 09:23 | disposition home or self-care (01) ==
LOC: GOSHIMG 09:23
PROVIDERS: PCP Clinical Nurse Specialist; Visit Provider Clinical Nurse Specialist
DX: M51.34 Other intervertebral disc degeneration, thoracic region (principal); G89.29 Other chronic pain; J43.9 Emphysema, unspecified; J44.9 Chronic obstructive pulmonary disease, unspecified; R07.81 Pleurodynia; M79.2 Neuralgia and neuritis, unspecified
CPT/HCPCS: 71250; 72070

== ENCOUNTER 2025-01-17 21:08 | Emergency (ER) | payer MEDICARE, SELFPAY ==
--- NOTE | ~2025-01-17 | CT_ITS ---
EXAMINATION: CT abdomen pelvis w con DATE: 01/18/2025 05:33 INDICATION: Abdominal pain. Bandlike regions of burning sensation across the umbilicus. TECHNIQUE: Computed tomography (CT) of the abdomen and pelvis was performed with 100 mL Omnipaque-350 intravenous contrast. Automated exposure control and iterative reconstruction technique were employe d. The dose-length product was 830.60 mGy-cm. COMPARISON: 09/15/2024 FINDINGS: Emphysema with bibasilar atelectasis, left greater than right. Heart size is normal. Atherosclerotic coronary artery calcium location and dense mitral annular calcification. No pericardial or pleural ef fusion. Liver, gallbladder, spleen, pancreas and bilateral adrenal glands are normal. 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 Postoperative change of prior cystectomy and right lowe r quadrant ileal conduit. Multiple surgical clips in the pelvis consistent with associated pelvic lym ph node dissections. There is persistent moderate left hydronephrosis which extends to a 3.7 x 2.1 cm enhancing mass along the mid left ureter which focally dilated ureter with peripheral spiculated mar gins concerning for recurrent malignancy. There is moderate cortical atrophy at the left kidney with multiple renal cysts the largest measuring up to 3.0 cm. No bowel obstruction. There are few divertic gema along the sigmoid colon without adjacent from trace stranding to suggest diverticulitis. Ventral hernia mesh repair. No free intraperitoneal gas or fluid. Bilateral hydroceles. No pathologically enl arged abdominal or pelvic lymphadenopathy. Severe lumbar spondylosis. Bilateral L5 pars interarticula ris defects without spondylolisthesis. IMPRESSION: 1. Moderate left hydronephrosis which appears to result from a 3.7 x 2.1 cm enhancing mass within the mid left ureter which is concerning for recurrent malignancy. 2. Status post cystectomy with pelvic lymph node dissection and right lower quadrant ileal conduit fo rmation. 3. Moderate-sized bilateral hydroceles. 4. Emphysema. Reviewed, dictated and finalized at location A. IMPRESSION: 1. 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 2. Status post cystectomy with pelvic lymph node dissection and right lower hugo drant ileal conduit formation. 3. Moderate-sized bilateral hydroceles. 4. Emphysema.
--- NOTE | ~2025-01-17 | XR_ITS ---
EXAMINATION: XR chest 1V portable DATE: 01/18/2025 03:49 INDICATION: Syncope TECHNIQUE: frontal view of the chest was obtained. COMPARISON: Chest radiograph dated 10/11/[address] dated 10/11/2023 FINDINGS: Chronic elevation the left hemidiaphragm. Airspace opacities in the left mid and lower lung zone cons istent with pneumonia. Right lung remains clear. No pleural effusion or pneumothorax. The cardiomedia stinal silhouette is normal. Moderate thoracic spondylosis. IMPRESSION: 1. Opacity left mid and lower lung zones consistent with pneumonia. Reviewed, dictated and finalized at location A.
--- NOTE | ~2025-01-17 | CT_ITS ---
EXAMINATION: CT brain wo con DATE: 01/18/2025 03:10 INDICATION: Fall TECHNIQUE: Computed tomography (CT) of the head was performed without intravenous contrast. Sagittal and coronal reconstructions were performed. The mA was adjusted according to patient size. Iterative reconstruction technique was employed. The dose-length product was 605.33 mGy-cm. COMPARISON: None FINDINGS: No acute intracranial hemorrhage, acute infarction or abnormal extra axial fluid collection. There is mild scattered white matter hypoattenuation consistent with chronic small vessel ischemic disease. S ymmetric prominence of the sulci and ventricles consistent with mild age-appropriate diffuse cerebral volume loss. Ventricles are normal and symmetric. No mass/mass effect. Changes of left intraocular l ens replacement, possibly also on the right of the right globe is only incompletely visualized. The m astoid air cells and middle ear cavities are clear. There is mucosal thickening in the partially visu alized right maxillary sinus. IMPRESSION: 1. Normal aging brain. No acute intracranial process. Reviewed, dictated and finalized at location A.
--- OUTSIDE RECORDS SUMMARY | 2025-01-17 21:12 | XMS_ITS | Clinical Summary ---
Author Organization [facility] Address [address], [place] [address] Phone Care Team Providers Care Rubber Roller Grinder Operator Name Role Phone Alexa Costa MD Primary Care Provider [phone]- [phone] Allergies No known active allergies Medications albuterol [...] 1 Active ergocalciferol (VITAMIN D2) 1.25 MG (61516 UT) capsule TAKE 1 CAPSULE ONCE WEEKLY [...] 21 Insurance [employer] MEDICARE Care Teams Rubber Roller Grinder Operator Relationship Specialty Start Date End Date Alexa Costa MD [address] [place] [phone] PCP - General Family Medicine 11/07/21
[2025-01-17 21:31] VITALS: BP 113/80; PULSE 80; RESP 18; TEMP 36.4; O2SAT 98
[2025-01-18 02:04] VITALS: BP 111/52; BP 111/55; PULSE 75; PULSE 77; RESP 13; RESP 15; O2SAT 100
[2025-01-18 02:16] VITALS: BP 118/60; PULSE 78; RESP 16; O2SAT 95
[2025-01-18 02:31] VITALS: BP 118/64; PULSE 75; RESP 15; O2SAT 94
--- OUTSIDE RECORDS SUMMARY | 2025-01-18 02:40 | XMS_ITS | Clinical Summary ---
Author Organization [facility] Address [address], [place] [address] Phone Care Team Providers Care Leaf Sorter Name Role Phone Alexa Costa MD Primary Care Provider [phone]- [phone] Allergies No known active allergies Medications albuterol [...] 1 Active ergocalciferol (VITAMIN D2) 1.25 MG (62116 UT) capsule TAKE 1 CAPSULE ONCE WEEKLY [...] 22 Insurance [employer] MED[employer]ARE Care Teams Leaf Sorter Relationship Specialty Start Date End Date Alexa Costa MD [address] [place] [phone] PCP - General Family Medicine 11/07/21
[2025-01-18 04:41] LABS: Basophils Absolute Auto 0.1 K/mm3 (0.0-0.1); Basophils Percent Auto 0.7 % (0.2-1.2); Eosinophils Absolute Auto 0.3 K/mm3 (0-0.3); Hematocrit 34.9 % (42.0-52.0); Hemoglobin 11.1 g/dL (14.0-18.0); Immature Granulocyte Absolute 0.24 K/mm3 (0.00-0.031); Immature Granulocyte Percent A 2.4 % (0-0.5); Lymphocytes Absolute Auto 0.81 K/mm3 (0.9-3.2); Lymphocytes Percent Auto 8.3 % (18.3-44.2); Mean Corpuscular HGB Conc 31.8 g/dl (32-36); Mean Corpuscular Volume 87.9 fl (80-100); Mean Platelet Volume 9.6 fl (7.4-10.4); Monocytes Absolute Auto 0.7 K/mm3 (0.1-0.6); Monocytes Percent Auto 7.1 % (2.6-8.5); Neutrophils Absolute Auto 7.7 K/mm3 (1.3-6.7); Neutrophils Percent Auto 78.5 % (45.5-73.1); Platelet Count Result 243 k/mm3 (150-375); Red Blood Count 3.97 M/mm3 (4.6-6.20); Red Cell Distribution Width 16.2 % (11.5-14.5); White Blood Count 9.8 K/mm3 (4.5-10.0)
[2025-01-18] MEDS: SODIUM CHLORIDE 0.9% IV 1,000 ML 999 ML IV CONT (04:44)
[2025-01-18 04:45] VITALS: PULSE 78; RESP 17; O2SAT 98
[2025-01-18 04:51] LABS: Alanine Aminotransferase 32 U/L (6-50); Albumin Level 3.9 g/dL (3.5-5.1); Alkaline Phosphatase 70 U/L (38-126); Anion Gap 10 mmol/L (4-12); Aspartate Amino Transferase 24 U/L (17-59); Bilirubin,Total 0.8 mg/dL (0.2-1.3); Blood Urea Nitrogen 32 mg/dL (9-20); Carbon Dioxide 21 mmol/L (22-30); Chloride 101 mmol/L (98-107); Estimated CRCL calculation 30 ml/min; Estimated Glomerular Filt Rate 35; Glucose 104 mg/dL (65-110); Lipase 167 U/L (23-300); Potassium 4.2 mmol/L (3.4-5.0); Sodium 132 mmol/L (137-145)
[2025-01-18 04:55] LABS: Partial Thromboplastin Time 29.3 Seconds (22.3-36.8)
[2025-01-18 04:57] LABS: Add Urine Microscopic? YES; Appearance Urine Clear (Clear); Bacteria Urine None Seen /hpf; Bilirubin Urine Negative (Negative); Blood Urine 1+ (Negative); Color Urine Yellow (Yellow); Glucose Urine UA 3+ mg/dL (Negative); Ketones Urine Negative (Negative); Leukocyte Esterase Ur Trace LEU/UL (Negative); Nitrate Urine Negative (Negative); Non Pathogenic Casts 0-2; Protein Urine Trace mg/dL (Negative); RBC Urine 0-2 /hpf (0-2); Squamous Epithelial Cell Urine None Seen /hpf (Few); Urobilinogen Urine 0.2 mg/dL (<2.0); WBC Urine 0-5 /hpf (0-3); pH Urine 5.5 (5.0-9.0)
[2025-01-18 05:01] LABS: Device ROOM AIR; Fractional Inspired Oxygen 21 %; PO2 VBG 33.3 mmHg (35.0-45.0); pH VBG 7.401 (7.300-7.400)
[2025-01-18 05:03] LABS: NT Pro B Type Natriuretic Pept 477 pg/mL (19.9-100); Troponin I < 0.012 ng/mL (0.000-0.034)
--- NOTE | 2025-01-18 05:23 | ED.GENADULT ---
HPI - General Adult General Chief complaint: Fall <Malik Gutierrez MD - Last Filed: 01/30/25 19:00> Stated complaint: fall stool to ground, -loc, skin tear to L elbow <Malik Gutierrez MD - Last Filed: 01/30/25 19:00> Time Seen by Provider: 01/18/25 01:59 <Malik Gutierrez MD - Last Filed: 01/30/25 19:00> History of Present Illness HPI narrative: An 84-year-old male presenting after a ground level fall. Patient says that he got up with his kitchen he dizzy. He fell to his knees. He did not lose consciousness. He did not strike his head. He did not have palpitations chest pain or difficulty breathing. He denies any fevers chills nausea vomiting or diarrhea. He does have a burning pain that is bandlike across his abdomen which he attributes to shingles. The patient had brought up his primary care physician she decide of steroids which improved his pain. Says and <Malik Gutierrez MD - Last Filed: 01/30/25 19:00> Related Data Home medications: Home Medications ?Medication ?Instructions ?Recorded ?Confirmed ?Last Taken ?Type brimonidine 0.1 % eye drops 1 drp EACH EYE BID 11/23/20 01/01/25 09/02/22 08:00 History (Alphagan P) latanoprost 0.005 % eye drops 1 drp EACH EYE HS 11/23/20 01/01/25 09/01/22 20:00 History <Malik Gutierrez MD - Last Filed: 01/30/25 19:00> Allergies/adverse reactions: Allergies Allergy/AdvReac Type Severity Reaction Status Date / Time grass pollen Allergy Mild Sneezing Verified 01/20/25 09:48 pollen extracts Allergy Mild Sneezing Verified 01/20/25 09:48 <Malik Gutierrez MD - Last Filed: 01/30/25 19:00> [facility] Past Medical History Medical History: Medical History DM renal manif type II Acquired hypothyroidism Allergies Sepsis Cancer Arthritis Asthma History of prostate cancer History of bladder cancer Diabetes (Unknown) Chronic renal failure, stage 3 (moderate) Hepatitis Hepatitis A Other spondylosis with myelopathy, lumbar region Bladder cancer 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 Lennon in 2010 History of ileal conduit 2010 S/P radical cystoprostatectomy 2009 History of bronchoscopy History of cystoscopy With transurethral bladder resection History of carpal tunnel surgery of right wrist H/O vasectomy H/O arthroscopy of knee <Malik Gutierrez MD - Last Filed: 01/30/25 19:00> Family History Family History: Family History Mother Family history of allergic disorder Father Family history of malignant neoplasm of stomach Hypertension <Malik Gutierrez MD - Last Filed: 01/30/25 19:00> Social History Social History: Social History Social History: The patient lives at home with his and she is the durable power associate attorney for healthcare. He has 1 son. He is a former smoker. The patient is a full code. The patient drinks about 2 or 3 beers a night. 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 Code status full code Smoking packs per day: 2 Smoking cigarettes per day: 40.0 Years smoked: 30 Smoking pack-years: 60.00 Smoking status: Former smoker Tobacco type: cigarettes Smoking end date: 09/02/82 Alcohol intake: current Drinks per week: 21 Alcohol use details: 3 CANS BEER/DAY Substance use: never Substance use type: does not use Do You Feel Safe in your Home?: Yes Lack of Transportation: No Lack of Food: Never True Current Housing: I Do Not Have Housing Concerned About Future Housing: No Difficulty Paying Gas/Electric Bills: No Difficulty Paying for Meds: No Currently Unemployed: No Education: High School Diploma/GED Difficulty w/ Childcare or Family Care: No Living arrangements: with family Additional living arrangements comments: Occupation/Education: retired Gender identity (if verbalized by the patient): Male Spiritual care concerns: No Agree to blood products: Yes <Malik Gutierrez MD - Last Filed: 01/30/25 19:00> Exam Narrative: APPEARANCE: No apparent distress. Head: atraumatic. EYES: EOMI, NOSE: Atraumatic NECK: Trachea midline RESPIRATORY: No increased rate of breathing CTAB CARDIOVASCULAR: RRR, no peripheral edema ABDOMINAL: Soft nontender, urostomy bag in place, ventral hernia, no CVA tenderness MUSCULOSKELETAl: No obvious deformities NEURO: Alert. Cranial nerves 2-12 grossly intact. Sensation light touch, motor function cerebellar function intact for 4 extremities. Gait exam was normal. SKIN:: Warm, dry. Normal color PSYCHIATRIC: Normal affect <Malik Gutierrez MD - Last Filed: 01/30/25 19:00> Course Reevaluation(s) Reevaluation #1: On re-evaluation patient states he does feel improved patient was able to ambulate in the emergency department about that issue. At time of sign out disposition was pending the patient's repeat troponin. Patient's troponin at 9:00 a.m. was 0.012. Patient was comfortable the plan with discharge and follow-up. All questions concerns were addressed. <Erick Rosado MD - Last Filed: 01/18/25 11:13> Vital Signs Vital signs: Vital Signs Temperature 97.6 F 01/17/25 21:31 Pulse Rate 80 01/17/25 21:31 Respiratory Rate 18 01/17/25 21:31 Blood Pressure 113/80 01/17/25 21:31 Pulse Oximetry 98 01/17/25 21:31 Oxygen Delivery Room Air 01/17/25 21:31 Temperature 97.6 F 01/17/25 21:31 Pulse Rate 88 01/18/25 08:15 Respiratory Rate 14 01/18/25 08:15 Blood Pressure 135/75 01/18/25 08:15 Pulse Oximetry 98 01/18/25 08:15 Oxygen Delivery Room Air 01/17/25 21:31 <Malik Gutierrez MD - Last Filed: 01/30/25 19:00> Vital Signs Temperature 97.6 F 01/17/25 21:31 Pulse Rate 80 01/17/25 21:31 Respiratory Rate 18 01/17/25 21:31 Blood Pressure 113/80 01/17/25 21:31 Pulse Oximetry 98 01/17/25 21:31 Oxygen Delivery Room Air 01/17/25 21:31 Temperature 97.6 F 01/17/25 21:31 Pulse Rate 88 01/18/25 08:15 Respiratory Rate 14 01/18/25 08:15 Blood Pressure 135/75 01/18/25 08:15 Pulse Oximetry 98 01/18/25 08:15 Oxygen Delivery Room Air 01/17/25 21:31 <Erick Rosado MD - Last Filed: 01/18/25 11:13> Medical Decision Making MDM Narrative Medical decision making narrative: -Course: A a 4-year-old male presenting after an episode of dizziness and a fall. Patient is also complaining of a burning sensation over his abdomen that has been present for several weeks. He believes shingles although does not consistent with classic shingles presentation. This is being managed by his primary care physician and I do not think is contributory to his presentation today. Patient says he received a shot from his primary care physician which improved his pain for several days is requesting another 1. Given 40 mg of IM triamcinolone. Workup did not reveal a definitive cause of his dizziness and fall. CT brain negative for acute traumatic injury. White count 9.8. VBG within normal limits. Kidney function baseline. Lactic 1.0. Initial troponin negative. BNP within age adjusted limits. Urine not indicative infection. Viral swabs negative. On re-evaluation patient has been resting comfortably in our emergency department for 10 hours. He was able to ambulate around the department without feeling weak or dizzy. At this time no findings on his workup. Patient signed out to the on-call physician for a repeat troponin and an official read of his imaging. If that is negative for the patient can be discharged home. This was discussed with patient and he is in agreement. We discussed admission versus discharge and the patient is comfortable being discharged home to follow up with primary care physician. -DDX includes but is not limited to: Sepsis dehydration pneumonia UTI viral syndrome acute kidney injury intracranial hemorrhage Independent EKG interpretation: Rhythm [sinus], Rate [83], [place] -[normal], CO -[normal], QRS [narrow], QTC [normal], T waves -[negative for concerning inversions], ST Segments - [Negative for concerning elevations] Final interpretations: Normal sinus rhythm with occasional PACs. By the computer as atrial fibrillation which I disagree with. <Malik Gutierrez MD - Last Filed: 01/30/25 19:00> Vital Signs Vital Signs: Vital Signs Temperature 97.6 F 01/17/25 21:31 Pulse Rate 80 01/17/25 21:31 Respiratory Rate 18 01/17/25 21:31 Blood Pressure 113/80 01/17/25 21:31 Pulse Oximetry 98 01/17/25 21:31 Oxygen Delivery Room Air 01/17/25 21:31 Temperature 97.6 F 01/17/25 21:31 Pulse Rate 88 01/18/25 08:15 Respiratory Rate 14 01/18/25 08:15 Blood Pressure 135/75 01/18/25 08:15 Pulse Oximetry 98 01/18/25 08:15 Oxygen Delivery Room Air 01/17/25 21:31 <Malik Gutierrez MD - Last Filed: 01/30/25 19:00> Vital Signs Temperature 97.6 F 01/17/25 21:31 Pulse Rate 80 01/17/25 21:31 Respiratory Rate 18 01/17/25 21:31 Blood Pressure 113/80 01/17/25 21:31 Pulse Oximetry 98 01/17/25 21:31 Oxygen Delivery Room Air 01/17/25 21:31 Temperature 97.6 F 01/17/25 21:31 Pulse Rate 88 01/18/25 08:15 Respiratory Rate 14 01/18/25 08:15 Blood Pressure 135/75 01/18/25 08:15 Pulse Oximetry 98 01/18/25 08:15 Oxygen Delivery Room Air 01/17/25 21:31 <Erick Rosado MD - Last Filed: 01/18/25 11:13> Lab Data Result diagrams: 01/18/25 04:33 01/18/25 04:33 <Malik Gutierrez MD - Last Filed: 01/30/25 19:00> Labs: Lab Results 01/18/25 01/18/25 01/18/25 Range/Units 04:33 04:41 09:04 WBC 9.8 (4.5-10.0) K/mm3 RBC 3.97 L (4.6-6.20) M/mm3 Hgb 11.1 L (14.0-18.0) g/dL Hct 34.9 L (42.0-52.0) % MCV 87.9 (80-100) fl MCH 28.0 (26-34) pg MCHC 31.8 L (32-36) g/dl RDW 16.2 H (11.5-14.5) % Plt Count 243 (150-375) k/mm3 MPV 9.6 (7.4-10.4) fl Immature Gran % (Auto) 2.4 H (0-0.5) % Neut % (Auto) 78.5 H (45.5-73.1) % Lymph % (Auto) 8.3 L (18.3-44.2) % Bradley % (Auto) 7.1 (2.6-8.5) % Eos % (Auto) 3.0 (0-4.4) % Baso % (Auto) 0.7 (0.2-1.2) % Lymph # (Auto) 0.81 L (0.9-3.2) K/mm3 Bradley # (Auto) 0.7 H (0.1-0.6) K/mm3 Eos # (Auto) 0.3 (0-0.3) K/mm3 Baso # (Auto) 0.1 (0.0-0.1) K/mm3 Abs Immat Gran (auto) 0.24 H (0.00-0.031) K/mm3 Absolute Neuts (auto) 7.7 H (1.3-6.7) K/mm3 Absolute Nucleated RBC 0.000 (0.0-0.012) K/mm3 Nucleated RBC % 0.0 (0.0-0.2) % APTT 29.3 (22.3-36.8) Seconds Sodium 132 L (137-145) mmol/L Potassium 4.2 (3.4-5.0) mmol/L Chloride 101 (98-107) mmol/L Carbon Dioxide 21 L (22-30) mmol/L Anion Gap 10 (4-12) mmol/L BUN 32 H (9-20) mg/dL Creatinine 1.86 H (0.7-1.3) mg/dL Estim Creat Clear Calc 30 ml/min Estimated GFR 35 L (59 - ) Glucose 104 (65-110) mg/dL Lactic Acid 1.0 (0.7-2.0) mmol/L Calcium 9.0 (8.4-10.2) mg/dL Magnesium 2.0 (1.6-2.3) mg/dL Total Bilirubin 0.8 (0.2-1.3) mg/dL AST 24 (17-59) U/L ALT 32 (6-50) U/L Alkaline Phosphatase 70 (38-126) U/L Troponin I < 0.012 < 0.012 (0.000-0.034) ng/mL NT-Pro-B Natriuret Pep 477 H (19.9-100) pg/mL Total Protein 7.0 (6.3-8.2) g/dL Albumin 3.9 (3.5-5.1) g/dL Lipase 167 (23-300) U/L Urine Color Yellow (Yellow) Urine Appearance Clear (Clear) Urine pH 5.5 (5.0-9.0) Ur Specific Fletcher 1.010 (1.001-1.035) Urine Protein Trace (Negative) mg/dL Urine Glucose (UA) 3+ H (Negative) mg/dL Urine Ketones Negative (Negative) mg/dL Ur Blood (Man) 1+ H (Negative) Urine Nitrate Negative (Negative) Urine Bilirubin Negative (Negative) Urine Urobilinogen 0.2 (<2.0) mg/dL Leukocyte Esterase Rfl Trace H (Negative) RAZA/UL Urine RBC 0-2 (0-2) /hpf Urine WBC 0-5 (0-3) /hpf Ur Squamous Epith Cells None seen (Few) /hpf Urine Bacteria None seen /hpf Urine Casts 0-2 Influenza A (RT-PCR) Negative (Negative) Influenza B (RT-PCR) Negative (Negative) RSV (RT-PCR) Negative (Negative) SARS-CoV-2 RNA (RT-PCR) Negative (Negative) <Malik Gutierrez MD - Last Filed: 01/30/25 19:00> Lab Results 01/18/25 01/18/25 01/18/25 Range/Units 04:33 04:41 09:04 WBC 9.8 (4.5-10.0) K/mm3 RBC 3.97 L (4.6-6.20) M/mm3 Hgb 11.1 L (14.0-18.0) g/dL Hct 34.9 L (42.0-52.0) % MCV 87.9 (80-100) fl MCH 28.0 (26-34) pg MCHC 31.8 L (32-36) g/dl RDW 16.2 H (11.5-14.5) % Plt Count 243 (150-375) k/mm3 MPV 9.6 (7.4-10.4) fl Immature Gran % (Auto) 2.4 H (0-0.5) % Neut % (Auto) 78.5 H (45.5-73.1) % Lymph % (Auto) 8.3 L (18.3-44.2) % Bradley % (Auto) 7.1 (2.6-8.5) % Eos % (Auto) 3.0 (0-4.4) % Baso % (Auto) 0.7 (0.2-1.2) % Lymph # (Auto) 0.81 L (0.9-3.2) K/mm3 Bradley # (Auto) 0.7 H (0.1-0.6) K/mm3 Eos # (Auto) 0.3 (0-0.3) K/mm3 Baso # (Auto) 0.1 (0.0-0.1) K/mm3 Abs Immat Gran (auto) 0.24 H (0.00-0.031) K/mm3 Absolute Neuts (auto) 7.7 H (1.3-6.7) K/mm3 Absolute Nucleated RBC 0.000 (0.0-0.012) K/mm3 Nucleated RBC % 0.0 (0.0-0.2) % APTT 29.3 (22.3-36.8) Seconds Sodium 132 L (137-145) mmol/L Potassium 4.2 (3.4-5.0) mmol/L Chloride 101 (98-107) mmol/L Carbon Dioxide 21 L (22-30) mmol/L Anion Gap 10 (4-12) mmol/L BUN 32 H (9-20) mg/dL Creatinine 1.86 H (0.7-1.3) mg/dL Estim Creat Clear Calc 30 ml/min Estimated GFR 35 L (59 - ) Glucose 104 (65-110) mg/dL Lactic Acid 1.0 (0.7-2.0) mmol/L Calcium 9.0 (8.4-10.2) mg/dL Magnesium 2.0 (1.6-2.3) mg/dL Total Bilirubin 0.8 (0.2-1.3) mg/dL AST 24 (17-59) U/L ALT 32 (6-50) U/L Alkaline Phosphatase 70 (38-126) U/L Troponin I < 0.012 < 0.012 (0.000-0.034) ng/mL NT-Pro-B Natriuret Pep 477 H (19.9-100) pg/mL Total Protein 7.0 (6.3-8.2) g/dL Albumin 3.9 (3.5-5.1) g/dL Lipase 167 (23-300) U/L Urine Color Yellow (Yellow) Urine Appearance Clear (Clear) Urine pH 5.5 (5.0-9.0) Ur Specific Fletcher 1.010 (1.001-1.035) Urine Protein Trace (Negative) mg/dL Urine Glucose (UA) 3+ H (Negative) mg/dL Urine Ketones Negative (Negative) mg/dL Ur Blood (Man) 1+ H (Negative) Urine Nitrate Negative (Negative) Urine Bilirubin Negative (Negative) Urine Urobilinogen 0.2 (<2.0) mg/dL Leukocyte Esterase Rfl Trace H (Negative) RAZA/UL Urine RBC 0-2 (0-2) /hpf Urine WBC 0-5 (0-3) /hpf Ur Squamous Epith Cells None seen (Few) /hpf Urine Bacteria None seen /hpf Urine Casts 0-2 Influenza A (RT-PCR) Negative (Negative) Influenza B (RT-PCR) Negative (Negative) RSV (RT-PCR) Negative (Negative) SARS-CoV-2 RNA (RT-PCR) Negative (Negative) <Erick Rosado MD - Last Filed: 01/18/25 11:13> ABG Data ABG results: 01/18/25 04:33 VBG pH 7.401 H VBG pCO2 33.0 L VBG pO2 33.3 L VBG HCO3 20.0 L O2 Delivery Device Room air O2 Liters/Min Not Reportable FiO2 21 <Malik Gutierrez MD - Last Filed: 01/30/25 19:00> 01/18/25 04:33 VBG pH 7.401 H VBG pCO2 33.0 L VBG pO2 33.3 L VBG HCO3 20.0 L O2 Delivery Device Room air O2 Liters/Min Not Reportable FiO2 21 <Erick Rosado MD - Last Filed: 01/18/25 11:13> Discharge Plan Discharge Clinical Impression: Fall, Dizziness <Malik Gutierrez MD - Last Filed: 01/30/25 19:00> Patient Disposition: Home <Malik Gutierrez MD - Last Filed: 01/30/25 19:00> Condition: Stable <Malik Gutierrez MD - Last Filed: 01/30/25 19:00> Instructions: Antibiotic Form, Fall Prevention (ED) <Malik Gutierrez MD - Last Filed: 01/30/25 19:00> Additional Instructions: You were seen emergency department after a fall. Your workup here was reassuring. If you develop any new or worsening symptoms please return to ED for re-evaluation. You continue to have burning abdominal pain. Please follow-up with your primary care physician in 24-48 hours for further management. You can take a dose of Medrol Dosepak to see if that improves your pain. Please continue to check her sugars at home esterase can elevate her blood sugar. <Malik Gutierrez MD - Last Filed: 01/30/25 19:00> Patient Language: Yakut <Malik Gutierrez MD - Last Filed: 01/30/25 19:00> Prescriptions: New methylprednisolone [Medrol (Anurag)] 4 mg tablets,dose pack See Rx Instructions .ROUTE .COMPLEX Qty: 21 0RF Rx Instructions: for 6 days No Action ergocalciferol (vitamin D2) 1,250 mcg (50,000 unit) capsule 50,000 unit PO WEEKLY Qty: 12 1RF clobetasol 0.05 % cream 1 applic topical DAILY PRN (Reason: dry skin on hands) Qty: 30 1RF allopurinol 100 mg tablet 100 mg PO DAILY Qty: 90 3RF Rx Instructions: start 6 days after starting the colchicine methylprednisolone [Medrol (Anurag)] 4 mg tablets,dose pack See Rx Instructions PO PER PKG DIR Qty: 21 0RF Rx Instructions: PO PER PKG DIR tramadol 50 mg tablet 50 mg PO Q12H PRN (Reason: pain) Qty: 20 0RF fluticasone propion-salmeterol [Wixela Inhub] 500-50 mcg/dose blister with device 1 inh inhalation Q12H Qty: 60 12RF Rx Instructions: rinse and spit Jardiance 10 mg tablet 10 mg PO DAILY Qty: 90 1RF metronidazole 0.75 % gel 1 applic topical DAILY Qty: 45 2RF latanoprost 0.005 % drops 1 drp EACH EYE HS Alphagan P 0.1 % drops 1 drp EACH EYE BID diltiazem HCl 240 mg capsule,extended release 24hr 240 mg PO DAILY Qty: 30 11RF hydrochlorothiazide 12.5 mg capsule 12.5 mg PO DAILY Qty: 30 11RF amlodipine 10 mg tablet See Rx Instructions .ROUTE .COMPLEX Qty: 90 3RF Dose Instruction: TAKE 1 TABLET(10 MG) BY MOUTH 1 TIME EACH DAY Rx Instructions: TAKE 1 TABLET(10 MG) BY MOUTH 1 TIME EACH DAY albuterol sulfate 90 mcg/actuation HFA aerosol inhaler 1 - 2 puff INHALATION Q4-6H PRN (Reason: Shortness Of Breath Or Wheezing) Qty: 8.5 5RF perindopril erbumine 8 mg tablet See Rx Instructions .ROUTE .COMPLEX Qty: 180 3RF Dose Instruction: TAKE 1 TABLET BY MOUTH TWICE DAILY Rx Instructions: TAKE 1 TABLET BY MOUTH TWICE DAILY ropinirole 2 mg tablet See Rx Instructions .ROUTE .COMPLEX Qty: 90 1RF Dose Instruction: TAKE 1 TABLET BY MOUTH EVERY DAY AT BEDTIME Rx Instructions: TAKE 1 TABLET BY MOUTH EVERY DAY AT BEDTIME atorvastatin 40 mg tablet 40 mg PO DAILY Qty: 90 1RF pregabalin 75 mg capsule 75 mg PO BID Qty: 180 1RF <Malik Gutierrez MD - Last Filed: 01/30/25 19:00> Follow-up/Referrals: Deepika Guerrero, PSYCHOLOGY LECTURER-C [Primary Care Provider] - <Malik Gutierrez MD - Last Filed: 01/30/25 19:00>
[2025-01-18 05:27] LABS: Influenza A QL RT-PCR Negative (Negative); Influenza B QL RT-PCR Negative (Negative); RSV RNA, RT-PCR Negative (Negative); SARS-CoV-2 RNA PCR Negative (Negative)
--- NOTE | 2025-01-18 06:45 | ECG_ITS ---
Test Date: 2025-01-18 06:58:11 Measurements Intervals [place] Rate: 83 P: 0 UT: 0 QRS: -46 QRSD: 111 T: 55 QT: 368 QTc: 434 Interpretive Statements SINUS RHYTHM WITH ATRIAL PREMATURE COMPLEXES LEFT ANTERIOR FASCICULAR BLOCK BASELINE ARTIFACT- I, II, III, AVR, AVL, AVF, V-V3 ABNORMAL ECG No previous ECG available for comparison Electronically Signed On 01-18-2025 07:58:21 CDT by Marcellus Wetzel D.O.
--- NOTE | 2025-01-18 07:06 | PC.NURSE ---
patient able to ambulate with a steady unassisted gait. edp dr. myers witnessed ambulation test.
[2025-01-18] MEDS: TRIAMCINOLONE ACET INJ SUSP 50 MG/5 ML VIAL 40 MG IM (08:04)
[2025-01-18 08:15] VITALS: BP 135/75; PULSE 88; RESP 14; O2SAT 98
[2025-01-18 09:32] LABS: Troponin I < 0.012 ng/mL (0.000-0.034)
== END 2025-01-18 10:12 | disposition home or self-care (01) ==
PROVIDERS: Emergency Provider Emergency Medicine; PCP Clinical Nurse Specialist
DX: R42 Dizziness and giddiness (principal); Z20.822 Contact with and (suspected) exposure to COVID-19; E11.22 Type 2 diabetes mellitus with diabetic chronic kidney disease; I12.9 Hypertensive chronic kidney disease with stage 1 through stage 4 chronic kidney disease, or unspecified chronic kidney disease; N18.30 Chronic kidney disease, stage 3 unspecified; J44.9 Chronic obstructive pulmonary disease, unspecified; E11.39 Type 2 diabetes mellitus with other diabetic ophthalmic complication; H42 Glaucoma in diseases classified elsewhere; E55.9 Vitamin D deficiency, unspecified; E78.2 Mixed hyperlipidemia; G25.81 Restless legs syndrome; M16.0 Bilateral primary osteoarthritis of hip; Z85.51 Personal history of malignant neoplasm of bladder; Z85.46 Personal history of malignant neoplasm of prostate; Z87.891 Personal history of nicotine dependence; Z98.42 Cataract extraction status, left eye; Z98.41 Cataract extraction status, right eye; Z79.899 Other long term (current) drug therapy; Z79.84 Long term (current) use of oral hypoglycemic drugs; I49.1 Atrial premature depolarization; I44.4 Left anterior fascicular block; W18.39XA Other fall on same level, initial encounter
CPT/HCPCS: 36415; 70450; 71045; 74177; 80053; 81001; 82803; 83605; 83690; 83735; 83880; 84484; 85025; 85730; 87040; 87637; 93005; 96360; 96372; 99284; J3301; J7030; Q9967

== ENCOUNTER 2025-02-05 08:54 | Outpatient (CLI) | payer MEDICARE, SELFPAY ==
--- NOTE | ~2025-02-05 | PE_ITS ---
EXAMINATION: PET skull to mid thigh DATE: 02/05/2025 10:52 INDICATION: Malignant neoplasm of the prostate TECHNIQUE: Blood glucose level was 96 mg/dL. 10.854 mCi of 18-fluorodeoxyglucose (18-FDG) was adminis tered i.v. Low dose computed tomography (CT) images were acquired from the base of the brain to the p roximal thighs for attenuation correction and anatomic localization. Positron emission tomography (PE T) images were acquired in the same distribution beginning 57 minutes after injection. Images includi ng fused PET/CT images were reconstructed in axial, coronal, and sagittal planes. Automated exposure control technique was employed. The dose-length product was 1102.49mGy-cm. COMPARISON: CT abdomen pelvis dated 01/18/[address] dated 01/14/2025 FINDINGS: Head/neck: There is symmetric increased activity in the nares, oral cavity, palatine tonsils, laryngeal muscles, ocular muscles and cervical paraspinal muscles without CT correlate, likely physiologic. 5 mm nodule in the deep inferior left parotid with increased FDG uptake with maximal SUV of 8.6. Nonspecific sma ll focus of increased uptake with maximal SUV of 9.4 along the posterior helix of the left ear which without radiologic correlate. No pathologically enlarged cervical lymphadenopathy or other suspicious foci of increased FDG uptake in the visualized head or neck. Chest: Emphysema with prominent bullous change in the right suprahilar region. Dependent atelectasis in both lungs. There is FDG avid soft tissue density filling the left upper lobar bronchus and proximal aspe ct of the left upper lobar segmental bronchi with maximal SUV of 21.3 which is concerning for maligna ncy. No pleural effusion. Heart size is normal. Atherosclerotic coronary artery calcifications. Aorti c valve and mitral annular calcification. No pericardial effusion. Thoracic aorta is normal in calibe r. Aside from potentially at the superior left hilum there is no pathologically enlarged or FDG avid thoracic lymphadenopathy. Abdomen/pelvis/proximal thighs: Postoperative change of prior cystectomy and right lower quadrant ileal conduit formation. Multiple s urgical clips in the pelvis consistent bilateral pelvic lymph node dissections. There is also been pr ior ventral hernia mesh repair. A short segment of nonobstructed small bowel extends right small vent ral hernia along the right side of the prior mesh repair. There is asymmetric physiologic renal accum ulation and excretion of FDG activity in the right kidney extending down the right ureter and into th e ileal conduit. There is severe left hydroureteronephrosis likely secondary moderate diffuse left re nal atrophy with minimal parenchymal accumulation of activity and no evident excreted activity in the renal collecting system. There is prominent FDG uptake associated with maximal SUV of 31.3 such with obstructing 3.0 x 2.7 cm mass with spiculated margins located at the mid aspect of the remaining rig ht ureter. The mass abuts the more posterior left common iliac artery with no discernible intervening fat planes. There are couple exophytic cyst at the left kidney the larger measuring 3.0 cm. Normal degree and heterogenous pattern of increased uptake throughout the liver without radiologic co rrelate or dominant FDG avid lesion. The gallbladder, pancreas, spleen and bilateral adrenal glands a re normal. Mild to moderate uptake scattered throughout the bowels without radiologic correlate, also likely physiologic. There is mild diverticulosis along the sigmoid: Without adjacent comparison to s uggest diverticulitis. Moderate-sized left and large right hydroceles. No other abnormal foci of incr eased FDG uptake or pathologically enlarged lymphadenopathy in the abdomen, pelvis or proximal thighs . Musculoskeletal: There are couple small foci of mild uptake without evident radiologic correlate on the right axillary and brachial neurovascular bundles matter representing lymphatic activity related to minimal extrava sation of activity at the site of injection at the right antecubital fossa. Mild lumbar dextrocurvatu re with severe spondylosis. Additional severe cervical and moderate thoracic spondylosis. No suspicio us lytic, blastic or abnormally FDG avid bone lesions. IMPRESSION: 1. Status post cystectomy and right lower quadrant ileal conduit formation. 2. Severe left hydronephrosis with moderate rectal atrophy and markedly decreased FDG uptake in the l eft kidney secondary to an obstructing 3.0 cm FDG avid spiculated mass along the mid aspect of the re maining left ureter which concerning for malignancy, either primary or metastatic. 3. Endobronchial soft tissue mass occluding the left upper lobar approximately proximal aspect of the segmental bronchi with prominent increased FDG uptake concerning for a malignant endobronchial lesio n which again could be either primary or metastatic. Recommend further evaluation with bronchoscopic biopsy. 4. Indeterminate 5 mm FDG avid nodule at the inferior left parotid gland which could represent either a reactive or metastatic lymph node or primary parotid neoplasm cells which could also be either nichole ign or malignant. 5. Small focus of uptake along the posterior calyx of the left ear without radiologic correlate. Chip mmend correlation with physical exam. 6. Short nonobstructed segment of small bowel extends into a ventral hernia on the right side of a pr ior ventral hernia mesh repair. 7. Moderate-sized left and large right hydroceles. Reviewed, dictated and finalized at location A. IMPRESSION: 1. Status post cystectomy and right lower quadrant ileal conduit formation. 2. Severe left hydronephrosis with moderate rectal atrophy and markedly decreas ed FDG uptake in the left kidney secondary to an obstructing 3.0 cm FDG avid sp iculated mass along the mid aspect of the remaining left ureter which concernin g for malignancy, either primary or metastatic. 3. Endobronchial soft tissue mass occluding the left upper lobar approximately proximal aspect of the segmental bronchi with prominent increased FDG uptake co ncerning for a malignant endobronchial lesion which again could be either prima ry or metastatic. Recommend further evaluation with bronchoscopic biopsy. 4. Indeterminate 5 mm FDG avid nodule at the inferior left parotid gland which could represent either a reactive or metastatic lymph node or primary parotid n eoplasm cells which could also be either benign or malignant. 5. Small focus of uptake along the posterior calyx of the left ear without radi ologic correlate. Recommend correlation with physical exam. 6. Short nonobstructed segment of small bowel extends into a ventral hernia on the right side of a prior ventral hernia mesh repair. 7. Moderate-sized left and large right hydroceles.
--- OUTSIDE RECORDS SUMMARY | 2025-02-05 09:00 | XMS_ITS | Clinical Summary ---
Author Organization [facility] Address [address] [place] [address] Phone Care Team Providers Care Stock Dealer Name Role Phone Alexa Costa MD Primary Care Provider [phone] Allergies No known active allergies Medications albuterol [...] 1 Active ergocalciferol (VITAMIN D2) 1.25 MG (28467 UT) capsule TAKE 1 CAPSULE ONCE WEEKLY [...] 21 Insurance [employer] MEDICARE Care Teams Stock Dealer Relationship Specialty Start Date End Date Alexa Costa MD [address] [place] [id number] PCP - General Family Medicine 11/07/21
[2025-02-05 10:51] LABS: Glucose Point of Care 96 mg/dl (65-105)
== END 2025-02-05 08:55 | disposition home or self-care (01) ==
PROVIDERS: PCP Clinical Nurse Specialist; Visit Provider Clinical Nurse Specialist
DX: C61 Malignant neoplasm of prostate (principal); R93.0 Abnormal findings on diagnostic imaging of skull and head, not elsewhere classified; Z90.6 Acquired absence of other parts of urinary tract; N13.30 Unspecified hydronephrosis; K62.89 Other specified diseases of anus and rectum; N28.89 Other specified disorders of kidney and ureter
CPT/HCPCS: 78815; A9552

== ENCOUNTER 2025-03-08 19:44 | Inpatient (IN) | payer OTHER, MEDICARE, SELFPAY ==
--- NOTE | ~2025-03-08 | XR_ITS ---
CHEST RADIOGRAPH CLINICAL HISTORY: syncopal episode . COMPARISON: Reference is made to a PET/CT dated 02/05/2025 demonstrating a left hilar mass. TECHNIQUE: Single portable view of the chest. FINDINGS Redemonstration of patient's known left hilar mass. Calcification of the mitral annulus. The remainder of the cardiomediastinal silhouette is otherwise unremarkable. The lungs are clear. IMPRESSION: No focal infiltrate or effusion. Reviewed, dictated and finalized at location A.
--- NOTE | ~2025-03-08 | US_ITS ---
EXAMINATION: US carotid duplex BI DATE: 03/09/2025 12:19 INDICATION: Syncope TECHNIQUE: Grayscale, color Doppler, and pulsed Doppler images of the cervical carotid arteries were obtained. The degree of vessel stenosis is placed in one of the following categories: normal, <50%, 5 0-69%, >=70% but less than near-occlusion, near-occlusion, or total occlusion. Note that percent sten osis relative to normal distal artery lumen diameter is indirectly measured from velocity measurement s as described by Sridhar, et al. Radiology 2003; 229:340-346. COMPARISON: None. FINDINGS: RIGHT: The right common carotid artery (CCA) peak systolic velocity (PSV) is 90 cm/s. The right internal car otid artery (ICA) PSV is 54 cm/s. The right ICA end-diastolic velocity (EDV) is 9 cm/s. The right ICA /CCA PSV ratio is 0.9. Grayscale and color Doppler images yield an estimate of <50% diameter reductio n from plaque in the ICA. The external carotid artery (ECA) PSV is 93 cm/s. There is antegrade flow i n the right vertebral artery. LEFT: The left CCA PSV is 84 cm/s. The left ICA PSV is 120 cm/s. The left ICA EDV is 17 cm/s. The left ICA/ CCA PSV ratio is 1.4. Grayscale and color Doppler images yield an estimate of <50% diameter reduction from plaque in the ICA. The ECA PSV is 142 cm/s. There is antegrade flow in the left vertebral arter y. IMPRESSION: 1. <50% stenosis in the right internal carotid artery. 2. <50% stenosis in the left internal carotid artery. Reviewed, dictated and finalized at location A.
--- NOTE | ~2025-03-08 | CT_ITS ---
History: Syncope PROCEDURE: CT head without contrast. COMPARISON: 01/18/2025 TECHNIQUE: Axial imaging of the head performed from the skull base to the vertex without IV contrast. Sagittal a nd coronal reformations obtained. DLP: 605 mGy-cm FINDINGS: The ventricles are enlarged. The dilatation of the ventricles is proportional to the degree of sulcal prominence, not uncommon in the senescent brain. Decreased attenuation is identified within the periventricular white matter, likely secondary to micr ovascular ischemic disease, in a patient of this age. There is no mass, mass effect or midline shift. There is no abnormal extra-axial fluid collection or intracranial hemorrhage. Visualized paranasal sinuses are clear. The mastoid air cells are well aerated. No acute displaced fractures within the overlying cranium. Impression: No acute intracranial hemorrhage or suspicious mass effect. Reviewed, dictated and finalized at location A. Impression: No acute intracranial hemorrhage or suspicious mass effect.
[2025-03-08 19:47] VITALS: BP 119/61; PULSE 83; RESP 20; TEMP 36.6; O2SAT 98
--- NOTE | 2025-03-08 20:33 | ED_ITS ---
HPI - Syncope General Chief Complaint: Syncope <Radha Bland APRN - Last Filed: 03/08/25 23:47> Stated Complaint: syncope <Radha Bland APRN - Last Filed: 03/08/25 23:47> Time Seen by Provider: 03/08/25 19:52 <Radha Bland APRN - Last Filed: 03/08/25 23:47> History of Present Illness HPI narrative: Patient is an 84-year-old male who presents to the ER following a syncopal episode. He has a history of restless leg syndrome and took a medication approximately 30 minutes prior to the event. Patient reports he was getting ready to go upstairs when he started experiencing dizziness. Patient's family reports he had decreased functioning and was not giving them any feedback when they would try did interact with him. This went on for approximately 2 minutes. Patient did not fall or hit his head during this time. They report patient started to come around once EMS arrived. Patient denies any chest pain, shortness of breath, headache, recent fevers. His family reports he has been diagnosed with a left kidney mass and is currently awaiting results of lung biopsy. Patient has acute pain around his waistline that has been going on for several weeks. His family reports he also has a hernia in that area. Patient's family reports his urine was red earlier but has started to lighten up. <Radha Bland APRN - Last Filed: 03/08/25 23:47> Related Data Home Medications: Home Medications ?Medication ?Instructions ?Recorded ?Confirmed ?Last Taken ?Type brimonidine 0.1 % eye drops 1 drp EACH EYE BID 11/23/20 03/09/25 03/08/25 History (Alphagan P) latanoprost 0.005 % eye drops 1 drp EACH EYE HS 11/23/20 03/09/25 03/08/25 History <Radha Bland APRN - Last Filed: 03/08/25 23:47> Allergies/Adverse Reactions: Allergies Allergy/AdvReac Type Severity Reaction Status Date / Time grass pollen Allergy Mild Sneezing Verified 01/20/25 09:48 pollen extracts Allergy Mild Sneezing Verified 01/20/25 09:48 <Radha Bland APRN - Last Filed: 03/08/25 23:47> Review of Systems 2 Review of Systems: All systems reviewed & are unremarkable except as noted in HPI and below <Radha Bland, ORNAMENT STAPLER - Last Filed: 03/08/25 23:47> [facility] Past Medical History Medical History: Medical History Acquired hypothyroidism Allergies Arthritis Chronic renal failure, stage 3 (moderate) Hepatitis Hepatitis A Other spondylosis with myelopathy, lumbar region Bladder cancer 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 Glaucoma COPD with asthma Vitamin D deficiency, unspecified Type 2 diabetes mellitus without complications (Unknown) Essential (primary) hypertension Gouty arthritis Mixed hyperlipidemia Primary localized osteoarthritis of hips, bilateral Restless legs syndrome <Radha Bland, ORNAMENT STAPLER - Last Filed: 03/08/25 23:47> Surgical History Surgical History: Surgical History History of ileal conduit (2009) History of arthroplasty of right knee History of vasectomy Status post radical cystoprostatectomy (2009) History of cataract extraction Status of other artificial opening of urinary tract History of bladder cancer (~2009) History of hernia repair (2010) laparoscopic ventral incisional hernia repair with mesh by Dr. Lennon History of bronchoscopy History of cystoscopy With transurethral bladder resection History of carpal tunnel surgery of right wrist <Radha Bland, ORNAMENT STAPLER - Last Filed: 03/08/25 23:47> Family History Family History: Family History Mother Family history of allergic disorder Father Family history of malignant neoplasm of stomach Hypertension <Radha Bland, ORNAMENT STAPLER - Last Filed: 03/08/25 23:47> Social History Social History: Social History Social History: Surrogate medical decision maker: Narcisa Figueredo, spouse. Code status: Full code. Smoking packs per day: 2 Smoking cigarettes per day: 40.0 Years smoked: 30 Smoking pack-years: 60.00 Smoking status: Former smoker Tobacco type: cigarettes Second hand tobacco smoke exposure: No Smoking end date: 09/02/82 Alcohol intake: current Drinks per week: 10 Alcohol use details: 3 cans of beer/day Substance use: never Substance use type: does not use Do You Feel Safe in your Home?: Yes Lack of Transportation: No Lack of Food: Never True Current Housing: I Have Housing Concerned About Future Housing: No Difficulty Paying Gas/Electric Bills: No Difficulty Paying for Meds: No Currently Unemployed: No Education: High School Diploma/GED Difficulty w/ Childcare or Family Care: No Living arrangements: with family Additional living arrangements comments: lives with spouse in [place] Occupation/Education: 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 HEAD: Normocephalic, atraumatic. NECK: Supple. No adenopathy, no masses. RESPIRATORY: Airway patent, respirations nonlabored. Clear to auscultation bilaterally, no rales, rhonchi, wheezing. CARDIOVASCULAR: Regular rate and rhythm without murmurs, rubs, or gallops. Peripheral pulses 2+ and equal bilaterally. ABDOMINAL: Soft, nontender, distended, no hepatosplenomegaly. Normoactive BS. MUSCULOSKELETAL: Moves all extremities. Strength/ROM intact without gross deformities. SKIN: Warm, dry, normal color. No rashes. NEURO: A&O X3. Speech clear. Cranial nerves II-XII intact. No ataxic movements. PSYCHIATRIC: Appropriate mood and affect. Normal interaction. <Radha Bland APRN - Last Filed: 03/08/25 23:47> Course Reevaluation(s) Reevaluation #1: Patient presents with presyncope and generalized weakness, overall has not been feeling well. Broad workup initiated, notable only for possible urinary tract infection, creatinine is baseline, sodium 129 but not far from baseline either. Antibiotics and fluids given. Patient would like to be admitted given his symptoms he feels unsafe going home at this time, discussed with hospitalist for admission. <Jeanne Jose MD - Last Filed: 03/09/25 05:44> Vital Signs Vital signs: Vital Signs Temperature 97.9 F 03/08/25 19:47 Pulse Rate 83 03/08/25 19:47 Respiratory Rate 20 03/08/25 19:47 Blood Pressure 119/61 03/08/25 19:47 Pulse Oximetry 98 03/08/25 19:47 Oxygen Delivery Room Air 03/08/25 19:47 Temperature 97.7 F 03/09/25 03:00 Pulse Rate 85 03/09/25 04:00 Respiratory Rate 18 03/09/25 03:00 Blood Pressure 127/70 03/09/25 03:00 Pulse Oximetry 95 03/09/25 03:00 Oxygen Delivery Room Air 03/08/25 19:47 <Radha Bland APRN - Last Filed: 03/08/25 23:47> Vital Signs Temperature 97.9 F 03/08/25 19:47 Pulse Rate 83 03/08/25 19:47 Respiratory Rate 20 03/08/25 19:47 Blood Pressure 119/61 03/08/25 19:47 Pulse Oximetry 98 03/08/25 19:47 Oxygen Delivery Room Air 03/08/25 19:47 Temperature 97.7 F 03/09/25 03:00 Pulse Rate 85 03/09/25 04:00 Respiratory Rate 18 03/09/25 03:00 Blood Pressure 127/70 03/09/25 03:00 Pulse Oximetry 95 03/09/25 03:00 Oxygen Delivery Room Air 03/08/25 19:47 <Jeanne Jose MD - Last Filed: 03/09/25 05:44> MDM - Syncope MDM Narrative Medical decision making narrative: Patient is an 84-year-old male who presents to the ER following a syncopal episode. He has a history of restless leg syndrome and took a medication approximately 30 minutes prior to the event. Patient reports he was getting ready to go upstairs when he started experiencing dizziness. Patient's family reports he had decreased functioning and was not giving them any feedback when they would try did interact with him. This went on for approximately 2 minutes. Patient did not fall or hit his head during this time. They report patient started to come around once EMS arrived. Patient denies any chest pain, shortness of breath, headache, recent fevers. His family reports he has been diagnosed with a left kidney mass and is currently awaiting results of lung biopsy. Patient has acute pain around his waistline that has been going on for several weeks. His family reports he also has a hernia in that area. Patient's family reports his urine was red earlier but has started to lighten up. Labs Ordered: CBC, CMP, CRP, lactic, blood cultures, UA, magnesium, PTT Imaging Ordered: Chest x-ray, CT brain Medications Ordered: 2.5 L normal saline IV bolus, ceftriaxone 1 g IV Results: Pt's CT brain indicates No acute intracranial hemorrhage or suspicious mass effect. Pt's chest x-ray indicates No focal infiltrate or effusion. Diagnosis: altered mental status, syncopal episode, urinary tract infection Risks: HEART score, PECARN score, CURB-65 score Consults: <Radha Bland APRN - Last Filed: 03/08/25 23:47> Lab Data Result diagrams: 03/08/25 21:21 03/08/25 21:21 <Radha Bland APRN - Last Filed: 03/08/25 23:47> Labs: Lab Results 03/08/25 03/08/25 03/08/25 Range/Units 21:21 21:24 22:44 WBC 10.8 H (4.5-10.0) K/mm3 RBC 3.61 L (4.6-6.20) M/mm3 Hgb 10.0 L (14.0-18.0) g/dL Hct 30.9 L (42.0-52.0) % MCV 85.6 (80-100) fl MCH 27.7 (26-34) pg MCHC 32.4 (32-36) g/dl RDW 16.5 H (11.5-14.5) % Plt Count 250 (150-375) k/mm3 MPV 9.5 (7.4-10.4) fl Immature Gran % (Auto) 3.0 H (0-0.5) % Neut % (Auto) 78.7 H (45.5-73.1) % Lymph % (Auto) 7.4 L (18.3-44.2) % [place] % (Auto) 8.1 (2.6-8.5) % Eos % (Auto) 2.0 (0-4.4) % Baso % (Auto) 0.8 (0.2-1.2) % Lymph # (Auto) 0.80 L (0.9-3.2) K/mm3 [place] # (Auto) 0.9 H (0.1-0.6) K/mm3 Eos # (Auto) 0.2 (0-0.3) K/mm3 Baso # (Auto) 0.1 (0.0-0.1) K/mm3 Abs Immat Gran (auto) 0.32 H (0.00-0.031) K/mm3 Absolute Neuts (auto) 8.5 H (1.3-6.7) K/mm3 Absolute Nucleated RBC 0.000 (0.0-0.012) K/mm3 Nucleated RBC % 0.0 (0.0-0.2) % PT 14.1 (11.1-14.7) Seconds INR 1.1 APTT 26.0 (22.3-36.8) Seconds Sodium 129 L (137-145) mmol/L Potassium 4.3 (3.4-5.0) mmol/L Chloride 101 (98-107) mmol/L Carbon Dioxide 21 L (22-30) mmol/L Anion Gap 7 (4-12) mmol/L BUN 32 H (9-20) mg/dL Creatinine 1.72 H (0.7-1.3) mg/dL Estim Creat Clear Calc 32 ml/min Estimated GFR 38 L (59 - ) Glucose 135 H (65-110) mg/dL POC Capillary Glucose 136 H (65-105) mg/dl Calcium 8.5 (8.4-10.2) mg/dL Magnesium 2.4 H (1.6-2.3) mg/dL Total Bilirubin 0.5 (0.2-1.3) mg/dL AST 23 (17-59) U/L ALT 23 (6-50) U/L Alkaline Phosphatase 72 (38-126) U/L Total Protein 5.9 L (6.3-8.2) g/dL Albumin 3.3 L (3.5-5.1) g/dL Urine Color Yellow (Yellow) Urine Appearance Turbid H (Clear) Urine pH 7.0 (5.0-9.0) Ur Specific [place] 1.006 (1.001-1.035) Urine Protein 1+ H (Negative) mg/dL Urine Glucose (UA) 2+ H (Negative) mg/dL Urine Ketones Negative (Negative) mg/dL Ur Blood (Man) 3+ H (Negative) Urine Nitrate Negative (Negative) Urine Bilirubin Negative (Negative) Urine Urobilinogen 0.2 (<2.0) mg/dL Add Ur Microanalysis Reviewed Leukocyte Esterase Rfl 3+ H (Negative) RAZA/UL Urine RBC 3-5 H (0-2) /hpf Urine WBC >100 H (0-3) /hpf Urine WBC Clumps Present H (None) /HPF Ur Squamous Epith Cells None seen (Few) /hpf Urine Bacteria Rare /hpf Urine Casts 11-20 <Radha Bland, ORNAMENT STAPLER - Last Filed: 03/08/25 23:47> Lab Results 03/08/25 03/08/25 03/08/25 Range/Units 21:21 21:24 22:44 WBC 10.8 H (4.5-10.0) K/mm3 RBC 3.61 L (4.6-6.20) M/mm3 Hgb 10.0 L (14.0-18.0) g/dL Hct 30.9 L (42.0-52.0) % MCV 85.6 (80-100) fl MCH 27.7 (26-34) pg MCHC 32.4 (32-36) g/dl RDW 16.5 H (11.5-14.5) % Plt Count 250 (150-375) k/mm3 MPV 9.5 (7.4-10.4) fl Immature Gran % (Auto) 3.0 H (0-0.5) % Neut % (Auto) 78.7 H (45.5-73.1) % Lymph % (Auto) 7.4 L (18.3-44.2) % [place] % (Auto) 8.1 (2.6-8.5) % Eos % (Auto) 2.0 (0-4.4) % Baso % (Auto) 0.8 (0.2-1.2) % Lymph # (Auto) 0.80 L (0.9-3.2) K/mm3 [place] # (Auto) 0.9 H (0.1-0.6) K/mm3 Eos # (Auto) 0.2 (0-0.3) K/mm3 Baso # (Auto) 0.1 (0.0-0.1) K/mm3 Abs Immat Gran (auto) 0.32 H (0.00-0.031) K/mm3 Absolute Neuts (auto) 8.5 H (1.3-6.7) K/mm3 Absolute Nucleated RBC 0.000 (0.0-0.012) K/mm3 Nucleated RBC % 0.0 (0.0-0.2) % PT 14.1 (11.1-14.7) Seconds INR 1.1 APTT 26.0 (22.3-36.8) Seconds Sodium 129 L (137-145) mmol/L Potassium 4.3 (3.4-5.0) mmol/L Chloride 101 (98-107) mmol/L Carbon Dioxide 21 L (22-30) mmol/L Anion Gap 7 (4-12) mmol/L BUN 32 H (9-20) mg/dL Creatinine 1.72 H (0.7-1.3) mg/dL Estim Creat Clear Calc 32 ml/min Estimated GFR 38 L (59 - ) Glucose 135 H (65-110) mg/dL POC Capillary Glucose 136 H (65-105) mg/dl Calcium 8.5 (8.4-10.2) mg/dL Magnesium 2.4 H (1.6-2.3) mg/dL Total Bilirubin 0.5 (0.2-1.3) mg/dL AST 23 (17-59) U/L ALT 23 (6-50) U/L Alkaline Phosphatase 72 (38-126) U/L Total Protein 5.9 L (6.3-8.2) g/dL Albumin 3.3 L (3.5-5.1) g/dL Urine Color Yellow (Yellow) Urine Appearance Turbid H (Clear) Urine pH 7.0 (5.0-9.0) Ur Specific [place] 1.006 (1.001-1.035) Urine Protein 1+ H (Negative) mg/dL Urine Glucose (UA) 2+ H (Negative) mg/dL Urine Ketones Negative (Negative) mg/dL Ur Blood (Man) 3+ H (Negative) Urine Nitrate Negative (Negative) Urine Bilirubin Negative (Negative) Urine Urobilinogen 0.2 (<2.0) mg/dL Add Ur Microanalysis Reviewed Leukocyte Esterase Rfl 3+ H (Negative) RAZA/UL Urine RBC 3-5 H (0-2) /hpf Urine WBC >100 H (0-3) /hpf Urine WBC Clumps Present H (None) /HPF Ur Squamous Epith Cells None seen (Few) /hpf Urine Bacteria Rare /hpf Urine Casts 11-20 <Jeanne Jose MD - Last Filed: 03/09/25 05:44> Discharge Plan Discharge Clinical Impression: Generalized weakness, Pre-syncope, Acute UTI <Radha Bland APRN - Last Filed: 03/08/25 23:47> Patient Disposition: Still a Patient <Radha Bland APRN - Last Filed: 03/08/25 23:47> Condition: Stable <Radha Bland APRN - Last Filed: 03/08/25 23:47>
--- OUTSIDE RECORDS SUMMARY | 2025-03-08 20:58 | XMS_ITS | Encounter Summary ---
Author Organization [facility] Address [address] [facility] [address] [place] [address] Phone Care Team Providers Care Lead Refiner Name Role Phone Deepika Guerrero NP Unavailable [phone] Deepika Guerrero NP Primary Care Provider [phone] Raghav Andre MD Unavailable [phone] Encounter Details Date Type Department Care Team (Late st Contact Info) Description 02/19/2025 Results Follow-Up [facility] Surgery [address] [place] [address] [address] [place] [address] Raghav Andre MD [address] [facility] [place] [id number] PET Outside Consult Social History Tobacco Use Types Packs/Day Years Used Date Smoking Tobacco: Never Assessed Sex and Gender Information Value Date Recorded Sex Assigned at Not on file Legal 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 Gender Identity Not on file Sexual Orientation Not on file documented as of this encounter Plan of Treatment Not on file documented as of this encounter Visit Diagnoses Not on filedocumented in this encounter Care Teams Lead Refiner Relationship Specialty Start Date End Date Deepika Guerrero NP [address] [facility] [address] [place] [address] [place] [phone] PCP - General Cardiovascular Disease 02/13/25 Deepika Guerrero NP [facility] [address] [place] [address] [place] [id number] Nurse Practitioner Cardiovascular Disease 02/12/25 Raghav Andre MD [address] [place] [address] Consulting Physician Urology 02/24/25 documented as of this encounter
--- OUTSIDE RECORDS SUMMARY | 2025-03-08 20:58 | XMS_ITS | Clinical Summary ---
Author Organization [facility] Address [address], [place] [address] Phone Care Team Providers Care Tire Rebuilder Name Role Phone Alexa Costa MD Primary Care Provider [phone] Allergies No known active allergies Medications albuterol [...] 1 Active ergocalciferol (VITAMIN D2) 1.25 MG (97581 UT) capsule TAKE 1 CAPSULE ONCE WEEKLY [...] 9:25 AM CDT Height 185.4 cm (6' 1) 05/08/2022 9:25 AM CDT Body Mass Index 26.65 05/08/2022 9:25 AM CDT Plan of Treatment Health Maintenance Due Date Last Done Comments Pneumococcal PPSV23/PCV13 65 + Years / Low and Medium Risk (2 of 3 - PPSV23) 05/25/2020 05/25/2019 Influenza Vaccine (Season Ended) 2025 05/25/20 21 Insurance [employer] MEDICARE Care Teams Tire Rebuilder Relationship Specialty Start Date End Date Alexa Costa MD [address] [place] [id number] PCP - General Family Medicine 11/07/21
--- OUTSIDE RECORDS SUMMARY | 2025-03-08 20:59 | XMS_ITS | Encounter Summary ---
Author Organization [facility] Healthcare Address [address] [place] [address] Care Team Providers Care Stonecutter Name Role Phone Deepika Guerrero NP Unavailable [phone] Deepika Guerrero NP Primary Care Provider [phone] Raghav Andre MD Unavailable [phone] Encounter Details Date Type Department Care Team (Late st Contact Info) Description 02/25/2025 Telephone Radiology [address] [place] [address] Lillian Donis, RT Social History Tobacco Use Types Packs/Day Years Used Date Smoking Tobacco: Never Assessed AUDIT-C Answer Date Recorded Q1: How often do you have a drink containing alcohol? 4 or more times a week 02/26/2025 Q2: How many drinks containi ng alcohol do you have on a typical day when you are drinking? 1 or 2 Q3: How often do you have si x or more drinks on one occasion? Never 02/26/2025 Sex and Gender Information Value Date Recorded Sex Assigned at Not on file Legal Sex Male 3:43 AM VASC TECH Gender Identity Not on file Sexual Orientation Not on file documented as of this encounter Functional Status * Audit-C Score Answer Date of Assessment Author 4 02/26/2025 3:11 PM Jolanta Lucia RN * Question Answer Date of Assessment Author Q1: How often do you have a drink containing alcohol? 4 or more times a week 02/26/2025 3:11 PM Jolanta Lucia RN Q2: How many drinks containing alcohol do you have on a typical day when you are drinking? 1 or 2 02/26/2025 3:11 PM CDT Jolanta Carrion RN Q3: How often do you have six or more drinks on one occasion? Never 02/26/2025 3:11 PM CDT Jolanta Carrion RN documented as of this encounter Miscellaneous Notes * Telephone Encounter - Lillian Donis, - 02/25/2025 8:08 AM CDT Biopsy request- Dr. Andre RP mass Outside PET in EPIC History of bladder cancer Not on blood thinners documented in this encounter Plan of Treatment Not on file documented as of this encounter Visit Diagnoses Not on filedocumented in this encounter Care Teams Stonecutter Relationship Specialty Start Date End Date Deepika Guerrero NP [address] [place] [address] [address] [place] [id number] PCP - General Cardiovascular Disease 02/13/25 Deepika Guerrero NP [address] [place] [address] [address] [place] [address] Nurse Practitioner Cardiovascular Disease 02/12/25 Raghav Andre MD [address] [address] Consulting Physician Urology 02/24/25 documented as of this encounter
--- OUTSIDE RECORDS SUMMARY | 2025-03-08 20:59 | XMS_ITS | Clinical Summary ---
Author Organization [facility] Address [address] [place] [address] Care Team Providers Care Pizza Cook Name Role Phone Deepika Guerrero NP Unavailable [phone] Deepika Guerrero NP Primary Care Provider [phone] Raghav Andre MD Unavailable [phone] Allergies No known active allergies Medications albuterol HFA (PROVENTIL HFA,VENTOLIN HFA,PROAIR HFA) 90 mcg/actuation inhalerIndicati ons:Chronic Obstructive Pulmonary Disease Inhale 2 puffs every 6 (six) hours as needed for shortness of breath or wheezing 1 Active amLODIPine (NORVASC) 10 mg tabletIndicatio ns:hypertension Take 1 tablet (10 mg total) by 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 before 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 2 Active atorvastatin (LIPITOR) 40 mg tabletIndicatio ns:hyperlipidem ia Take 1 tablet (40 mg total) by mouth nightly 1 Active brimonidine (ALPHAGAN) 0.2 % ophthalmic solutionIndicat ions:open angle glaucoma Administer 1 drop into both eyes 3 (three) times a day 5 Active Jardiance 10 mg tabletIndicatio ns:type 2 diabetes mellitus Take 1 tablet (10 mg total) by 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 before breakfast 5 Active pregabalin (LYRICA) 75 mg capsuleIndicati ons:Diabetic Peripheral Neuropathy Take 1 capsule (75 mg total) by mouth 2 (two) times a day 1 Active rOPINIRole (REQUIP) 2 mg tabletIndicatio ns:Restless Legs Syndrome Take 1 tablet (2 mg total) by mouth nightly 1 Active SITagliptin phosphate (Januvia) 50 mg tabletIndicatio ns:type 2 diabetes mellitus Take 1 tablet (50 mg total) by 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 before breakfast 1 Active traMADoL (ULTRAM) 50 mg tabletIndicatio ns:Neuropathic Pain Take 1 tablet (50 mg total) by mouth every 6 (six) hours as needed for pain 5 Active latanoprost (XALATAN) 0.005 % ophthalmic solutionIndicat ions:open angle glaucoma Administer 1 drop into both eyes nightly Active cholecalciferol , vitamin D3, 1,000 unit tablet,chewable Indications:Vit mayes D Deficiency Take 5 tablet/chew tab by mouth 2 (two) times a day Active fluticasone propion-salmete roL (ADVAIR DISKUS) 500-50 mcg/dose diskus inhalerIndicati ons:Bronchospas m Prevention with COPD,Maintenanc e Therapy for Asthma Inhale 1 puff 2 (two) times a day Rinse mouth with water after use. Do not swallow. Active ergocalciferol (VITAMIN D) 50,000 unit capsuleIndicati ons:Vitamin D Deficiency Take 1 capsule (50,000 Units total) by mouth once a week 1 02/27/20 25 Discontin ued(Thera py completed ) Active Problems Patient Care Coordination No te Formatting of this note migh t be different from the original. Referring provider: Dr. Raghav Andre Mr. Celeste Byrd is an 84-year-old with a lung nodule. He presented to the emergency room after an episode of dizziness and fall. He also reports symptoms of a burning sensation over his abdomen. In the emergency room he underwent a CT of the abdomen which noted a 3.7 x 2.1 cm mass within the left mid ureter concerning for recurrent malignancy. He also underwent a CT of the head which was negative. On 01/14/2025 the patient underwent a CT of the chest which showed moderate to advanced emphysema. There was probable opacification of several left upper lobe segmental bronchi with surrounding consolidation which could reflect a neoplasm versus atelectasis or pneumonia. On 02/05/2025 the patient underwent a PET scan which showed a markedly hypermetabolic left endobronchial mass, suspicious for underlying malignancy. There was no suspicious FDG avid local regional thoracic lymphadenopathy. There is a subcentimeter right hilar lymph node that is mildly avid and favored to be reactive. There is markedly intense FDG uptake and a retroperitoneal mass that encases the mid left ureter resulting in severe upstream hydroureteronephrosis concerning for underlying urothelial malignancy. The left kidney is atrophic and has decreased FDG tracer excretion which suggest underlying renal dysfunction. There is focal uptake in the left parotid gland which may represent a primary parotid neoplasm such as a Warthin's tumor. Patient has a history of bladder cancer in 2009 and is status post radical cystoprostatectomy with ileal conduit urinary diversion. Patient is a former smoker with a 60 pack year smoking history. He drinks about 3 beers a day. Patient presents today for further surgical evaluation. Problem Noted Date Diagnosed Date Lung nodule 02/26/2025 Encounters Date Type Department Care Team Description 03/02/2025 8:30 AM CDT - 03/02/2025 10:05 AM CDT Surgery [facility] Operating Room [address] [place] [address] Kelsi Morejon MD BRONCHOSCOPY ENDOBRONCHIAL ULTRASOUND with biopsy 03/02/2025 8:30 AM CDT Anesthesia Event [facility] Operating Room [address] [place] [address] Ayse Evangelista MD Sargent, Brooke Lynae, NP 03/02/2025 6:02 AM CDT - 03/02/2025 10:37 AM CDT Hospital Encounter [facility] Operating Room [address] [place] [address] Jonathan Gayle MD Brandt, Whitney Stina, MD Lung nodule Discharge Disposition: Discharge to home or self care 02/27/2025 Telephone [facility] [address] [place] [address] Brenda Johnson RMA 02/26/2025 9:30 AM CDT Office Visit [facility] [address] [place] [address] [address] [place] [address] Jonathan Gayle MD Lung nodule (Primary Dx) 02/26/2025 Orders Only [facility] [address] [place] [address] [address] [place] [phone] Raghav Andre MD Renal mass (Primary Dx) 02/26/2025 Results Follow-Up [facility] [address] [place] [address] [address] [place] [address] Raghav Andre MD NM Diuretic Renal Imaging (Lasix Renal Scan) 02/25/2025 10:29 AM CDT - 02/25/2025 11:59 PM CDT Hospital Encounter [facility] Nuclear Medicine [address] [place] [address] Mass of ureter; Malignant neoplasm of urinary bladder, unspecified site (HCC); Prostate cancer (HCC) Discharge Disposition: Discharge to home or self care 02/25/2025 Telephone Radiology [address] [place] [address] Lillian Donis, RT 02/24/2025 Orders Only [facility] Surgery [address] [place] [address] [address] [place] [phone] Ragahv Andre MD Retroperitoneal mass (Primary Dx) 02/20/2025 Orders Only [facility] Oncology [address] [place] [address] Office Bld[address] B [facility] [address] [place] [phone] Cari Marlow CLT 02/20/2025 Orders Only [facility] Oncology [address] [place] [address] Office Bl [address] [facility] [address] [place] [phone] Tigre Mccarthy MD 02/20/2025 Orders Only [facility] Oncology [address] [place] [address] Office [address] [place] [phone] Deepika Guerrero INSTRUMENTAL MUSIC TEACHER 02/20/2025 Telephone [facility] [address] [place] [address] Brenda Johnson MIRIAN 02/20/2025 Orders Only [facility] [address] [place] [address] Jonathan Gayle MD Malignant neoplasm of urinary bladder, unspecified site (HCC) (Primary Dx) 02/19/2025 Results Follow-Up [facility] [address] [place] [address] [address] [place] [phone] Raghav Andre MD PET Outside Consult 02/18/2025 2:40 PM CDT Office Visit [facility] [address] [place] [address] [address] [place] [phone] Raghav Andre MD Malignant neoplasm of overlapping sites of bladder (HCC) (Primary Dx); Mass of ureter; Malignant neoplasm of urinary bladder, unspecified site (HCC); Prostate cancer (HCC); Lung mass 02/18/2025 1:54 PM CDT - 02/18/2025 11:59 PM CDT Hospital Encounter [facility] [address] [place] [address] Discharge Disposition: Discharge to home or self care 02/18/2025 1:52 PM CDT - 02/18/2025 11:59 PM CDT Hospital Encounter [facility] Radiology [facility] [address] [place] [address] Diagnosis unknown Discharge Disposition: Discharge to home or self care 02/18/2025 1:50 PM CDT - 02/18/2025 11:59 PM CDT Hospital Encounter [facility] [address] [place] [address] Diagnosis unknown Discharge Disposition: Discharge to home or self care 02/18/2025 1:05 PM CDT Lab [facility] Office Building [address] [place] [address] Mass of ureter; Malignant neoplasm of urinary bladder, unspecified site (HCC); Prostate cancer (HCC) 02/18/2025 Orders Only [facility] Oncology [address] [facility] Medical Office Bldg [address] [place] [address] Cari Marlow, HARINI Prostate cancer (HCC) (Primary Dx) 02/11/[address] [address] Anita Levi, MIRTA Scheduling Appointments from Last 3 Months Surgical History Surgery Date Site/Laterality Comments PROSTATE BIOPSY 09/24/2008 - 10/24/2008 HERNIA REPAIR 09/24/2009 - 09/23/2010 BLADDER FULGURATION 09/24/2008 - 10/24/2008 Medical History Medical History Date Comments Bladder cancer (HCC) Asthma Hypertension Type 2 diabetes mellitus (HCC) Osteoarthritis Tinnitus Social History Tobacco Use Types Packs/Day Years Used Date Smoking Tobacco: Never Passive Smoke Exposure: Never Smokeless Tobacco: Never Tobacco Cessation:Counseling Given: Not Answered AUDIT-C Answer Date Recorded Q1: How often do you have a drink containing alcohol? 4 or more times a week 02/26/2025 Q2: How many drinks containi ng alcohol do you have on a typical day when you are drinking? 1 or 2 Q3: How often do you have si x or more drinks on one occasion? Never 02/26/2025 Personal Safety Answer Date Recorded Have you ever been in or are you currently in a harmful physical or emotional relationship or is someone making you feel afraid or unsafe? 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 Gender Identity Not on file Sexual Orientation Not on file Obstetrics History Last Filed Vital Signs Vital Sign Reading Time Taken Comments Blood Pressure 113/54 03/02/2025 10:10 AM CDT Pulse 80 03/02/2025 10:20 AM CDT Temperature 36.5 C (97.7 F) 03/02/2025 10:00 AM CDT Respiratory Rate 19 03/02/2025 10:20 AM CDT Oxygen Saturation 94% 03/02/2025 10:20 AM CDT Inhaled Oxygen Concentration - - Weight 82.1 kg (181 lb) 03/02/2025 6:35 AM CDT Height 182.9 cm (6') 02/26/2025 3:00 PM CDT Body Mass Index 24.55 02/26/2025 3:00 PM CDT Plan of Treatment Health Maintenance Due Date Last Done Comments Depression Screening 1940 Hepatitis B Screening 1958 Zoster Vaccine (1 of 2) 1991 Well Visit 65+ 2006 DTaP/Tdap/Td Vaccine (1 - Tdap) 11/06/2017 11/05/2017, 09/19/2007, 07/08/1996 Covid-19 Vaccine (2023-2 5 season) 2024 05/21/2023, 06/14/2022, 08/13/2021, Additional history exists Fall Risk Assessment 03/02/2026 03/02/2025 Pneumococcal vaccine 65+ Completed 019, 11/04/2015, 07/09/2002 Influenza Vaccine Completed 06/27/2024, , 06/14/2022, Additional history exists Medical Devices Implanted Type Area Software Test Specialist Device Identifier Shelf Expiration Date Model / Serial / Lot Schrapnel Bilateral: Leg Procedures Procedure Name Priority Date/Time Associated Diagnosis Comments POCT GLUCOSE DEVICE Routine 03/02/2025 1 0:03 AM CDT ANESTHESIA INTUBATION Routine 03/02/2025 9:07 AM CDT CYTOLOGY Routine 03/02/2025 9:01 AM CDT Lung nodule SURGICAL PATHOLOGY Routine 03/02/2025 8: 54 AM CDT Lung nodule CYTOLOGY Routine 03/02/2025 8:53 AM CDT Lung nodule BRONCHOSCOPY 03/02/2025 8:33 AM CDT Lung nodule Case Notes 02/27@1301: Per Elen via phone call, case moved to first start. SR BRONCHOSCOPY ENDOBRONCHIAL ULTRASOUND 03/02/2025 8:33 AM CDT Lung nodule Case Notes 02/27@1301: Per Elen via phone call, case moved to first start. SR POCT GLUCOSE DEVICE Routine 03/02/2025 7 :43 AM CDT NM DIURETIC RENAL IMAGING (LASIX RENAL SCAN) Schedule OFELIA, Read Routine (Patient lives out of area) 02/25/2025 12:23 PM CDT Mass of ureter Malignant neoplasm of urinary bladder, unspecified site (HCC) Prostate cancer (HCC) XR TRANSFER OF OUTSIDE FILMS Routine 02/18/2025 1:54 PM CDT Diagnosis unknown PET OUTSIDE CONSULT Routine 02/18/2025 1 :52 PM CDT Diagnosis unknown CT BODY OUTSIDE CONSULT Routine 02/18/2025 1:50 PM CDT Diagnosis unknown EGFR Routine 02/18/2025 1:07 PM CDT Mass of ureter Malignant neoplasm of urinary bladder, unspecified site (HCC) Prostate cancer (HCC) COMPREHENSIVE METABOLIC PANEL Routine 02/18/2025 1:07 PM CDT Mass of ureter Malignant neoplasm of urinary bladder, unspecified site (HCC) Prostate cancer (HCC) from Last 3 Months Results * POCT glucose (03/02/2025 10:03 AM CDT) Glucose, POC 114 70 - 199 mg/dL Blood 03/02/2025 10:0 3 AM CDT 03/02/2025 10:03 AM CDT us Jonathan Gayle MD LAB POCT ORDERABLES - DEVICE Fin al Result [facility] [place] [address] * Airway (03/02/2025 9:07 AM CDT) Narrative Sha Yanes MD - 03/02/2025 9:07 AM CDT Sha Yanes MD 03/02/2025 9:08 AM Airway Patient location: OR Urgency: elective Indications for airway management: anesthesia Difficult airway: no Staff: Supervising provider: Ayse Evangelista MD Placed by: Resident: Sha Yanes MD Emergent airway documentation: Risks and benefits discussed: yes Consent obtained: yes Consent given by: patient Airway prep: Preoxygenated: yes Patient position: sniffing Mask difficulty assessment: 0 - not attempted Spontaneous ventilation during airway: absent Sedation level during airway: GA Final airway details: Final airway type: endotracheal airway Tube type: ETT ETT size: 9.0 mm Cuffed: yes Technique used for successful ETT placement: direct laryngoscopy Insertion site: oral Blade type: Phoenix Blade size: 4 Cormack-Lehane (direct): grade I - full view of glottis Cuff volume: 8 mL Cuff inflated with: air ETT to gums: 23 cm Placement verified by: auscultation and CO2 detection Airway secured with: silk tape Number of attempts: 1 Planned trial extubation: yes Ayse Evangelista MD ANESTHESIA ORDERABLES F inal Result * Cytology (03/02/2025 9:01 AM CDT) Fluid (Lung (Cytology)) 03/02/2025 9:01 AM CDT Narrative PATHOLOGY [facility] - 03/02/2025 3:45 PM CDT EPIC results best viewed via link to PDF [facility] Radha Sch[facility] [place] [address] Note to Patients: This report may contain a detailed description of human tissue sent by a health care provider to the laboratory for pathologic evaluation. The content of this report is essential for diagnosis and may provide important critical findings. This information may be unfamiliar to patients to review without a medical professional present. It is advised that the patient review this report in the presence of a health care provider who can answer questions and explain the details. CYTOPATHOLOGY REPORT FINAL Patient Name: CELESTE BYRD Gender: M : 1940 (Age: 84) Address: [address] [place] [phone] [facility] #: [id number] Taken:03/02/2025 Received:03/02/2025 Reported: 03/02/2025 Patient Type: [facility] SDS Service: Cardiothoracic Location: [facility] OR POD 3 Physician(s): Apurva García, JAKE Blevins Od FINAL DIAGNOSIS A. Bronchial washings: - Negative for malignancy or opportunistic infection hrk/03/02/2025 15:18 By this signature, I attest that the above diagnosis is based upon my personal examination of the slides(and/or other material indicated in the diagnosis). Ary Farnsworth M.D. Report Electronically Reviewed and Signed Out By Ary Farnsworth M.D. 03/02/2025 15:45:29 Laurie Graf, HENRY(ASCP) Gross Description A. Bronchial washings: 15 ml cloudy fluid - 1 Pap stained ThinPrep. (ep) Clinical Diagnosis and History The patient is a 84 year old man with a lung nodule. REPORT IMAGES AND SCANNED DOCUMENTS, IF INCLUDED, ONLY VIEWABLE IN PDF VERSION OF REPORT The performance characteristics of some immunohistochemical stains, in-situ hybridization and fluorescence in-situ hybridization tests and immunophenotyping by flow cytometry cited in this report (if any) were determined by the Surgical Pathology and Flow Cytometry Departments at [facility] as part of an ongoing manufacturing quality technician program and in compliance with federally mandated regulations drawn from the Clinical Laboratory Improvement Act of 1988 (CLIA '88). Some of these tests rely on the use of analyte specific reagents and are subject to specific labeling requirements by the US Food and Drug Administration. Such diagnostic tests may only be performed in a facility that is certified by the Department of Health and Human Services as a high complexity laboratory under CLIA '88. The FDA has determined that such clearance or approval is not necessary. This test is used for clinical purposes. It should not be regarded as investigational or for research. Nevertheless, federal rules concerning the medical use of analyte specific reagents require that the following disclaimer be attached to the report: This test was developed and its performance characteristics determined by the Surgical Pathology and Flow Cytometry Departments of [facility]. It has not been cleared or approved by the U. S. Food and Drug Administration. Kelsi Morejon MD LAB CYTOLOGY ORDERABLES Final Result PATHOLOGY [facility] 3rd Floor [place], [place] [phone] * Surgical pathology (03/02/2025 8:54 AM CDT) Tissue (Lung, additional bronchial margin) 03/02/2025 8:54 AM CDT Narrative PATHOLOGY [facility] - 03/05/2025 11:01 AM CDT EPIC results best viewed via link to PDF [facility] Radha Schofield Laboratory [place] [address] Note to Patients: This report may contain a detailed description of human tissue sent by a health care provider to the laboratory for pathologic evaluation. The content of this report is essential for diagnosis and may provide important critical findings. This information may be unfamiliar to patients to review without a medical professional present. It is advised that the patient review this report in the presence of a health care provider who can answer questions and explain the details. SURGICAL PATHOLOGY REPORT FINAL Patient Name: CELESTE BYRD Gender: Cassius : 1940 (Age: 84) Address: [address] [place] [address] Hospital #: [id number] Taken:03/02/2025 Received:03/02/2025 Reported: 03/05/2025 Patient Type: [facility] Service: Cardiothoracic Location: [facility] OR POD 3 Physician(s): Apurva García, JAKE Blevins Od Diagnosis: A. Lung, left bronchus, biopsy: - Squamous cell carcinoma axwe/03/05/2025 09:39 By this signature, I attest that the above diagnosis is based upon my personal examination of the slides(and/or other material indicated in the diagnosis). Paco T. Bernadt, M.D. Report Electronically Reviewed and Signed Out By Paco Keith M.D. 03/05/2025 11:01:50 Intraoperative Consultation: Frozen Section Diagnosis AFR1: Left bronchial mass - Positive for malignancy, favor squamous cell carcinoma By Corbin Varner M.D., Deboarh Jean MD PhD Gross Consultation A: Left bronchial mass - Received fresh for intraoperative consult is a 0.1 x 0.1 x 0.1 cm lopez-pink soft tissue. Entirely submitted for frozen sectioning as AFR1. By Corbin Varner M.D., Deborah Jean MD PhD I personally examined the relevant preparation(s) or a microscopic image of the relevant preparation(s) for the specimen(s) while the surgical procedure was still underway and rendered or confirmed the diagnosis(es) Report Electronically reviewed and Signed out by Deborah Jean MD PhD (A) Microscopic Description and Comment: Permanent sections confirm the frozen section diagnosis. The frozen section remnant is scant but shows an atypical squamous proliferation. To confirm the morphologic findings, immunohistochemical studies for TTF-1 and P 40 are performed with appropriate controls. 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 Pranav Gonzalez M.D., PhD History: The patient is an 84-year-old man with history of lung nodule. Operative Procedure: Bronchoscopy and endobronchial ultrasound. Specimen(s) Received: A: Left bronchial mass Gross Description: Received in formalin labeled with the patient's identifiers and left bronchial mass is a cassette with wrapped frozen section remnant labeled AFR1. Jar 0. 03/03/2025 09:00 PA(s): Nicolasa Dotson MS, PA (ASCP) By this signature, I attest that the above diagnosis is based upon my personal examination of the slides(and/or other material). Addenda/Procedures The performance characteristics of some immunohistochemical stains, fluorescence in-situ hybridization tests and immunophenotyping by flow cytometry cited in this report (if any) were determined by the Surgical Pathology and Flow Cytometry Departments at [facility] as part of an ongoing manufacturing quality technician program and in compliance with federally mandated regulations drawn from the Clinical Laboratory Improvement Act of 1988 (CLIA '88). Some of these tests rely on the use of analyte specific reagents and are subject to specific labeling requirements by the US Food and Drug Administration. Such diagnostic tests may only be performed in a facility that is certified by the Department of Health and Human Services as a high complexity laboratory under CLIA '88. The FDA has determined that such clearance or approval is not necessary. This test is used for clinical purposes. It should not be regarded as investigational or for research. Nevertheless, federal rules concerning the medical use of analyte specific reagents require that the following disclaimer be attached to the report: This test was developed and its performance characteristics determined by the Surgical Pathology and Flow Cytometry Departments of [facility]. It has not been cleared or approved by the U. S. Food and Drug Administration. IMAGES AND SCANNED DOCUMENTS, IF INCLUDED, ONLY VIEWABLE IN PDF VERSION OF REPORT us Kelsi Morejon MD LAB PATHOLOGY ORDERABLES Final Result PATHOLOGY [facility] [address] [place], [place] [phone] * Cytology (03/02/2025 8:53 AM CDT) Fluid (Lymph Node (Cytology)) 03/02/2025 9:28 AM CDT Narrative PATHOLOGY [facility] - 03/04/2025 4:04 PM CDT EPIC results best viewed via link to PDF [facility] Radha Schofield Laboratory [place] [address] Note to Patients: This report may contain a detailed description of human tissue sent by a health care provider to the laboratory for pathologic evaluation. The content of this report is essential for diagnosis and may provide important critical findings. This information may be unfamiliar to patients to review without a medical professional present. It is advised that the patient review this report in the presence of a health care provider who can answer questions and explain the details. CYTOPATHOLOGY REPORT FINAL Patient Name: CELESTE BYRD Gender: Cassius : 1940 (Age: 84) Address: [address] [place], [place] [phone] [facility] #: [id number] Taken:03/02/2025 Received:03/02/2025 Reported: 03/04/2025 Patient Type: [facility] Service: Cardiothoracic Location: [facility] OR POD 3 Physician(s): Kelsi Morejon M.D. FINAL DIAGNOSIS A. Lymph node, left hilar, 11L, endobronchial ultrasound-guided fine needle aspiration: - Negative for metastatic carcinoma - Lymphoid component present Comments The cell block is paucicellular. pamo/03/03/2025 13:16 By this signature, I attest that the above diagnosis is based upon my personal examination of the slides(and/or other material indicated in the diagnosis). Ary Farnsworth M.D. Report Electronically Reviewed and Signed Out By Ary Farnsworth M.D. 03/04/2025 16:04:35 Luisa Lau MS, CT (ASCP) Gross Description A. Lymph node, hilar, left, 11L, endobronchial ultrasound guided, fine needle aspiration: 3 Pap stained smears and 3 Diff-Quik stained smears. 1 cell block prepared from needle rinse tube. Aspirated by clinician. (ML) Clinical Diagnosis and History The patient is a 84-year-old man with a lung nodule. Immediate Evaluation A. Lymph node, hilar, left, 11L, endobronchial ultrasound guided, fine needle aspiration: Evaluation Episode 1 Overall Adequacy: Indeterminate Total Evaluation Episodes: 1 Preliminary Diagnosis: Indeterminate Ary Farnsworth M.D. 03/02/2025 REPORT IMAGES AND SCANNED DOCUMENTS, IF INCLUDED, ONLY VIEWABLE IN PDF VERSION OF REPORT The performance characteristics of some immunohistochemical stains, in-situ hybridization and fluorescence in-situ hybridization tests and immunophenotyping by flow cytometry cited in this report (if any) were determined by the Surgical Pathology and Flow Cytometry Departments at [facility] as part of an ongoing manufacturing quality technician program and in compliance with federally mandated regulations drawn from the Clinical Laboratory Improvement Act of 1988 (CLIA '88). Some of these tests rely on the use of analyte specific reagents and are subject to specific labeling requirements by the US Food and Drug Administration. Such diagnostic tests may only be performed in a facility that is certified by the Department of Health and Human Services as a high complexity laboratory under CLIA '88. The FDA has determined that such clearance or approval is not necessary. This test is used for clinical purposes. It should not be regarded as investigational or for research. Nevertheless, federal rules concerning the medical use of analyte specific reagents require that the following disclaimer be attached to the report: This test was developed and its performance characteristics determined by the Surgical Pathology and Flow Cytometry Departments of [facility]. It has not been cleared or approved by the U. S. Food and Drug Administration. Kelsi Morejon MD LAB CYTOLOGY ORDERABLES Final Result Performing Organization Address [facility] de Phone Number PATHOLOGY [facility] 3rd Floor [place], [place] [phone] * POCT glucose (03/02/2025 7:43 AM CDT) Glucose, POC 110 70 - 199 mg/dL Blood 03/02/2025 7:43 AM CDT 03/02/2025 7:43 AM CDT Jonathan Gayle MD LAB POCT ORDERABLES - DEVICE Fin al Result Performing Organization Address [facility] de Phone Number [facility] Department [place] [address] * NM Diuretic Renal Imaging (Lasix Renal Scan) (02/25/2025 12:23 PM CDT) Anatomical Region Laterality Modality Body N/A Nuclear Medicine 02/25/2025 12:3 2 PM CDT Narrative 02/25/2025 12:39 PM CDT EXAM DESCRIPTION: NM DIURETIC RENAL IMAGING (LASIX RENAL SCAN) REASON FOR STUDY: Left hydronephrosis, obstructing left ureter mass on PET-CT 02/05/2025. History of radical cystectomy with ileal conduit 2008 with right lower quadrant urostomy pouch, bladder and prostate cancer. RADIOPHARMACEUTICAL: 11 mCi Tc-99m MAG3 via a right antecubital IV site. TECHNIQUE: After ensuring adequate hydration the patient received intravenous administration of the radiotracer and dynamic flow images were obtained of the bilateral kidneys in posterior projection. Imaging was performed in posterior projection for a total of 45 minutes. Regions of interest were drawn around the kidneys with time activity curves and statistics derived. 40 mg of Lasix IV was administered between 13 and 15 minutes. COMPARISON: PET-CT 02/05/2025. CT 01/14/2025. FINDINGS: Grossly normal dynamic flow of the right kidney with activity seen 1 frame following abdominal aortic activity. There is no radiotracer uptake of the left kidney. On split function differential the left kidney is calculated half 0% radiotracer uptake in the right kidney 100%. No convincing activity seen in the left kidney throughout the examination. Right kidney has a slightly delayed time to peak of approximately 5 minutes. Following the peak there is excretion and clearance of radiotracer with a time from max to half max of approximately 10.8 minutes which is near normal (normal less than 10 minutes). Following Lasix administration there is further excretion and clearance without obstruction. The slightly delayed time to peak and top normal time from peak to half peak may be related to the urodynamics of the right lower quadrant urostomy. IMPRESSION: 1. Nonfunctioning left kidney with no radiotracer uptake. 2. Slightly delayed time to peak of the right kidney with top normal half-time clearance without obstruction may be related to minimally patulous right kidney related to the urostomy. THIS IS AN ELECTRONICALLY VERIFIED FINAL REPORT 02/25/2025 12:39 PM - Electronically signed by Tiburcio Hobson M.D. CH: Report ID: [id number] Reading Location: [place] [address] Procedure Note Tiburcio Hobson Jr., MD - 02/25/2025 EXAM DESCRIPTION: NM DIURETIC RENAL IMAGING (LASIX RENAL SCAN) REASON FOR STUDY: Left hydronephrosis, obstructing left ureter mass onPET-CT 02/05/2025. History of radical cystectomy with ileal conduit 2008 withright lower quadrant urostomy pouch, bladder and prostate cancer. RADIOPHARMACEUTICAL: 11 mCi Tc-99m MAG3 via a right antecubital IVsite. TECHNIQUE: After ensuring adequate hydration the patient receivedintravenous administration of the radiotracer and dynamic flow images were obtained ofthe bilateral kidneys in posterior projection. Imaging was performed inposterior projection for a total of 45 minutes. Regions of interest were drawnaround the kidneys with time activity curves and statistics derived. 40 mg ofLasix IV was administered between 13 and 15 minutes. COMPARISON: PET-CT 02/05/2025. CT 01/14/2025. FINDINGS: Grossly normal dynamic flow of the right kidney with activityseen 1 frame following abdominal aortic activity. There is no radiotracer uptakeof the left kidney. On split function differential the left kidney iscalculated half 0% radiotracer uptake in the right kidney 100%. No convincingactivity seen in the left kidney throughout the examination. Right kidney has a slightly delayed time to peak of approximately 5minutes. Following the peak there is excretion and clearance of radiotracer with atime from max to half max of approximately 10.8 minutes which is near normal (normal less than 10 minutes). Following Lasix administration there is further excretion and clearance without obstruction. The slightly delayed time to peak and top normal time from peak to half peak may be related tothe urodynamics of the right lower quadrant urostomy. IMPRESSION: 1. Nonfunctioning left kidney with no radiotracer uptake. 2. Slightly delayed time to peak of the right kidney with top normal half-time clearance without obstruction may be related to minimallypatulous right kidney related to the urostomy. THIS IS AN ELECTRONICALLY VERIFIED FINAL REPORT 02/25/2025 12:39 PM - Electronically signed by Tiburcio Hobson M.D. CH: Report ID: [id number] Reading Location: [place] [address] [facility] Elsie Andre MD IMG NM PROCEDURES Fi nal Result * XR Outside Reference (02/18/2025 1:54 PM CDT) Impressions RAD_PACS_[facility] - 02/18/2025 1:54 PM CDT These images are for Reference purposes only and have not been reviewed by [facility]. There will be no report generated by a [facility]ologist. Narrative RAD_PACS_[facility] - 02/18/2025 1:54 PM CDT EXAMINATION: Images For Reference Purposes Only us Raghav Zimmerman Thai LOWRY IMG XR PROCEDURES Fi nal Result RAD_PACS_[facility] * PET Outside Consult (02/18/2025 1:52 PM CDT) Anatomical Region Laterality Modality N/A Nuclear Medicine 02/18/2025 4:53 PM CDT Impressions 02/18/2025 5:23 PM CDT 1. Markedly hypermetabolic left endobronchial mass, suspicious for underlying malignancy. Tissue sampling is warranted. No suspicious FDG avid locoregional thoracic lymphadenopathy. There is a subcentimeter right hilar lymph node with mild avidity, favored reactive. Recommend attention on follow-up. 2. Markedly hyperintense retroperitoneal mass that encases the mid left ureter resulting in severe upstream hydroureteronephrosis, concerning for an underlying urothelial malignancy. The left kidney is atrophic and has decreased FDG tracer excretion which suggests underlying renal dysfunction. 3 Focal uptake within the left parotid gland, which may represent a primary parotid neoplasm such as a Warthin's tumor. The findings, conclusions and recommendations within this report do not replace the initial findings, conclusions and recommendations made at the facility where the study was performed based upon the imaging and clinical condition at that time. Comparison with the prior report and clinical history is necessary. The provided images may or may not represent the knik source data set and thus may contain changes that may lower the accuracy of this second-opinion interpretation. Dictated by: Rosa Niño MD The radiology attending physician has personally reviewed this study, and had reviewed and/or edited this written report and agrees with it. Electronically signed by: Sarah Garcia M.D. Narrative 02/18/2025 5:23 PM CDT EXAMINATION: RADIOLOGY CONSULTATION ON OUTSIDE IMAGING STUDY . STUDY INITIALLY PERFORMED: 02/05/2025, images acquired at [facility] TYPE OF STUDY: FDG-PET/CT. The images available for review consisted of axial attenuation-corrected and uncorrected PET images and axial CT images. The total scanned area was skull base to the proximal thighs. The mean liver SUV (reported for supplier quality engineer purposes) is 2.7. The study was interpreted on the [employer] workstation. The protocol was adequate to address the clinical question. The outside final report was not available at the time of this second opinion interpretation. DATE OF CONSULTATION: 02/18/2025 HISTORY: 84-year-old man undergoing evaluation for a mid left ureter enhancing mass. Patient has history of prior radical cystectomy and ileoconduit in 2008. This outside hospital PET/CT report described severe left hydronephrosis and marked atrophy secondary to an obstructing left mid ureter mass. Endobronchial soft tissue occluding the left upper lobe as well as a left parotid gland nodule was also concerning for cancer. Initial treatment strategy. All reported SUVs are maximum SUVs, unless otherwise specified. COMPARISON: CT dated 12/25/2022 DESCRIPTORS OF LESION FDG AVIDITY: Minimal: <= blood pool Mild: > blood pool and <= liver Moderate: > liver and <= 2x SUVmax liver Moderate to marked: >2x SUVmax liver and <= 3x SUVmax liver Marked: > 3x SUVmax liver FINDINGS: There is a markedly hypermetabolic left endobronchial mass that measures approximately 2.7 x 2.2 cm in size with SUV maximum of 21.3. There is an area of calcification that is closely associated with this lesion. There is a 8 mm right hilar lymph node (image 108) with SUV maximum of 3.8. Markedly hyperintense area of soft tissue along the mid left ureter; this measures approximately 3.4 x 3.0 cm in size with SUV maximum of 31.3. Upstream there is severe left hydroureteronephrosis with decreased left kidney FDG tracer excretion. The left kidney is also atrophic; given lack of prior imaging, it is unclear if this is acute or chronic. This area soft tissue thickening courses midline near the aortic bifurcation with close abutment of the left common iliac artery. There is focal uptake within a 8mm left parotid lesion with SUV maximum of 8.6. There are postsurgical changes of cystectomy, prostatectomy, and ileoconduit creation. There are bilateral hydroceles with mild uptake. Additional CT findings: Bilateral lens replacements. Moderate calcific atherosclerotic disease of the thoracic aorta. Calcified hilar and pulmonary lymph nodes, likely due to old granulomatous disease. Bibasilar atelectasis. Streaky groundglass opacities along the dependent portions of the left upper lobe, that likely infectious/inflammatory. Severe calcific atherosclerotic disease of the aortoiliac vessels. Postsurgical changes of ileal conduit creation. Colonic diverticula without evidence of acute diverticulitis. Changes of prior hernia repair. Moderate multilevel degenerative changes within the thoracolumbar spine. Procedure Note Sarah Garcia MD - 02/18/2025 EXAMINATION: RADIOLOGY CONSULTATION ON OUTSIDE IMAGING STUDY . STUDY INITIALLY PERFORMED: 02/05/2025, images acquired at [facility] TYPE OF STUDY: FDG-PET/CT. The images available for review consisted of axial attenuation-corrected and uncorrected PET images and axial CT images. The total scanned area was skull base to the proximal thighs. The mean liver SUV (reported for supplier quality engineer purposes) is 2.7. The study was interpreted on the [employer] workstation. The protocol was adequate to address the clinical question. The outside final report was not available at the time of this second opinion interpretation. DATE OF CONSULTATION: 02/18/2025 HISTORY: 84-year-old man undergoing evaluation for a mid left ureter enhancing mass. Patient has history of prior radical cystectomy and ileoconduit in 2008. This outside hospital PET/CT report described severe left hydronephrosis and marked atrophy secondary to an obstructing left mid ureter mass. Endobronchial soft tissue occluding the left upper lobe as well as a left parotid gland nodule was also concerning for cancer. Initial treatment strategy. All reported SUVs are maximum SUVs, unless otherwise specified. COMPARISON: CT dated 12/25/2022 DESCRIPTORS OF LESION FDG AVIDITY: Minimal: <= blood pool Mild: > blood pool and <= liver Moderate: > liver and <= 2x SUVmax liver Moderate to marked: >2x SUVmax liver and <= 3x SUVmax liver Marked: > 3x SUVmax liver FINDINGS: There is a markedly hypermetabolic left endobronchial mass that measures approximately 2.7 x 2.2 cm in size with SUV maximum of 21.3. There is an area of calcification that is closely associated with this lesion. There is a 8 mm right hilar lymph node (image 108) with SUV maximum of 3.8. Markedly hyperintense area of soft tissue along the mid left ureter; this measures approximately 3.4 x 3.0 cm in size with SUV maximum of 31.3. Upstream there is severe left hydroureteronephrosis with decreased left kidney FDG tracer excretion. The left kidney is also atrophic; given lack of prior imaging, it is unclear if this is acute or chronic. This area soft tissue thickening courses midline near the aortic bifurcation with close abutment of the left common iliac artery. There is focal uptake within a 8mm left parotid lesion with SUV maximum of 8.6. There are postsurgical changes of cystectomy, prostatectomy, and ileoconduit creation. There are bilateral hydroceles with mild uptake. Additional CT findings: Bilateral lens replacements. Moderate calcific atherosclerotic disease of the thoracic aorta. Calcified hilar and pulmonary lymph nodes, likely due to old granulomatous disease. Bibasilar atelectasis. Streaky groundglass opacities along the dependent portions of the left upper lobe, that likely infectious/inflammatory. Severe calcific atherosclerotic disease of the aortoiliac vessels. Postsurgical changes of ileal conduit creation. Colonic diverticula without evidence of acute diverticulitis. Changes of prior hernia repair. Moderate multilevel degenerative changes within the thoracolumbar spine. IMPRESSION: 1. Markedly hypermetabolic left endobronchial mass, suspicious for underlying malignancy. Tissue sampling is warranted. No suspicious FDG avid locoregional thoracic lymphadenopathy. There is a subcentimeter right hilar lymph node with mild avidity, favored reactive. Recommend attention on follow-up. 2. Markedly hyperintense retroperitoneal mass that encases the mid left ureter resulting in severe upstream hydroureteronephrosis, concerning for an underlying urothelial malignancy. The left kidney is atrophic and has decreased FDG tracer excretion which suggests underlying renal dysfunction. 3 Focal uptake within the left parotid gland, which may represent a primary parotid neoplasm such as a Warthin's tumor. The findings, conclusions and recommendations within this report do not replace the initial findings, conclusions and recommendations made at the facility where the study was performed based upon the imaging and clinical condition at that time. Comparison with the prior report and clinical history is necessary. The provided images may or may not represent the knik source data set and thus may contain changes that may lower the accuracy of this second-opinion interpretation. Dictated by: Rosa Niño MD The radiology attending physician has personally reviewed this study, and had reviewed and/or edited this written report and agrees with it. Electronically signed by: Sarah Garcia M.D. us Andressef Elsie Andre MD IMG PET PROCEDURES F inal Result * CT Body Outside Consult (02/18/2025 1:50 PM CDT) Anatomical Region Laterality Modality Body N/A Computed Tomogra phy 02/19/2025 10:0 5 AM CDT Impressions 02/19/2025 11:45 AM CDT This study was initially nominated as a consult on outside images via Outside Image Sharing Service. However, a consult was not performed because a more recent PET/CT was nominated for consultation and interpreted; this examination will be used for comparison. Accordingly, there will be no separate report of this study generated by a [facility]. Dictated by: Kieran Gee M.D. The radiology attending physician has personally reviewed this study, and had reviewed and/or edited this written report and agrees with it. Electronically signed by: Erika Godfrey M.D. Narrative 02/19/2025 11:45 AM CDT EXAMINATION: CHANGE CONSULT ON OUTSIDE IMAGES TO REFERENCE IMAGES Procedure Note Erika Godfrey MD - 02/19/2025 EXAMINATION: CHANGE CONSULT ON OUTSIDE IMAGES TO REFERENCE IMAGES IMPRESSION: This study was initially nominated as a consult on outside images via Outside Image Sharing Service. However, a consult was not performed because a more recent PET/CT was nominated for consultation and interpreted; this examination will be used for comparison. Accordingly, there will be no separate report of this study generated by a [facility]. Dictated by: Kieran Gee M.D. The radiology attending physician has personally reviewed this study, and had reviewed and/or edited this written report and agrees with it. Electronically signed by: Erika Godfrey M.D. us Andressef Elsie Andre MD IMG CT PROCEDURES Fi nal Result * (ABNORMAL) eGFR (02/18/2025 1:07 PM CDT) eGFR 35(L) >=60 mL/min/1. 73 m2 Comment: Interpretive Data Reference Interval Normal >/= 90 mL/min/1.73m2 Mildly decreased* 60 - 89 mL/min/1.73m2 Mildly to moderately decreased 45 - 59 mL/min/1.73m2 Moderately to severely decreased 30 - 44 mL/min/1.73m2 Severely decreased 15 - 29 mL/min/1.73m2 Kidney Failure < 15 mL/min/1.73m2 *Relative to young adult level Estimated glomerular filtration rate is determined by the 2020 CKD-EPI equation recommended by the National Kidney Foundation (A Unifying Approach to GFR Estimation: Recommendations of the NKF-ASK Task Force on Reassessing the Inclusion of Race in Diagnosing Kidney Disease, JASN 2020). The CKD-EPI equation should not be used for patients with unstable renal function and has not been validated in children and those over 70. Current interpretive data was last reviewed 2021. Testing performed by: [address] [address] Blood 02/18/2025 1:07 PM CDT 02/18/2025 1:40 PM CDT us Yousef Elsie Andre MD LAB BLOOD ORDERABLES Final Result [facility] [address] [facility] Department [place] [address] * (ABNORMAL) Comprehensive metabolic panel (02/18/2025 1:07 PM CDT) Sodium 131(L) 135 - 145 mmol/L Comment:Testing performed by : [address] [address] Potassium, pl 4.6 3.3 - 4.9 mmol/L [facility] Comment:Testing performed by : [address] [address] Chloride 98 97 - 110 mmol/L [facility] Comment:Testing performed by : [address] [address] CO2 21(L) 22 - 32 mmol/L [facility] Comment:Testing performed by : [address] [address] Anion gap 12 2 - 15 mmol/L [facility] Comment:Testing performed by : [address] [address] BUN 42(H) 6 - 25 mg/dL [facility] Comment:Testing performed by : [address] [address] Creatinine 1.89(H) 0.80 - 1.30 mg/dL [facility] Comment:Testing performed by : [address] [address] Glucose 116 70 - 199 mg/dL [facility] Comment: Interpretive Data Fasting glucose >/= 126 mg/dl is diagnostic for diabetes. Fasting is defined as no caloric intake for at least 8 hours. Fasting glucose between 100 mg/dl to 125 mg/dl is diagnostic of prediabetes. In a patient with classic symptoms of hyperglycemia or hyperglycemic crisis, a random glucose >/= 200 mg/dl is diagnostic for diabetes. In the absence of unequivocal hyperglycemia, results should be confirmed by repeat testing. The classification and Diagnosis of Diabetes Diabetes Care 202; 46: S19-S40. Current interpretive data was last revised 2022. Testing performed by: [address] [address] Calcium 9.5 8.5 - 10.3 mg/dL [facility] Comment:Testing performed by : [address] [address] Bilirubin, total 0.6 0.1 - 1.2 mg/dL [facility] Comment:Testing performed by : [address] [address] Protein, pl 6.8 6.5 - 8.5 g/dL [facility] Comment:Testing performed by : [address] [address] Albumin 3.8 3.5 - 5.0 g/dL [facility] Comment:Testing performed by : [address] [address] Alk phos 83 40 - 130 Units/L [facility] Comment:Testing performed by : [address] [address] ALT 34 7 - 55 Units/L [facility] Comment:Testing performed by : [address] [address] AST 23 10 - 50 Units/L [facility] Comment:Testing performed by : [facility], [address] [place] [address], [place]., [address] Blood 02/18/2025 1:07 PM CDT 02/18/2025 1:40 PM CDT us Raghav Andre MD LAB BLOOD ORDERABLES Final Result Performing Organization Address City/State/[facility] Co de Phone Number MAURAANDREA ELZA [address] [facility] Department [place] [address] from Last 3 Months Insurance [facility] Address: [address] [address] [place] [address] [facility] Address: [address] [address] [place] [address] Care Teams Pizza Cook Relationship Specialty Start Date End Date Deepika Guerrero, INSTRUMENTAL MUSIC TEACHER [address] [place] [address] PCP - General Cardiovascular Disease 02/13/25 Deepika Guerrero, INSTRUMENTAL MUSIC TEACHER [address] [place] [address] Nurse Practitioner Cardiovascular Disease 02/12/25 Raghav Andre MD [address] [place] [address] Consulting Physician Urology 02/24/25
--- OUTSIDE RECORDS SUMMARY | 2025-03-08 20:59 | XMS_ITS | Encounter Summary ---
Author Organization [facility] Address [address] [facility] [address] [place] [address] Phone Care Team Providers Care Radar Technician Name Role Phone Deepika Guerrero NP Unavailable [phone] Deepika Guerrero NP Primary Care Provider [phone] aRghav Andre MD Unavailable [phone] Encounter Details Date Type Department Care Team (Late st Contact Info) Description 02/26/2025 Results Follow-Up [facility] Surgery [address] [place] [address] [address] [place] [address] Raghav Andre MD [address] [facility] [place] [address] NM Diuretic Renal Imaging (Lasix Renal Scan) Social History Tobacco Use Types Packs/Day Years Used Date Smoking Tobacco: Never Passive Smoke Exposure: Never Smokeless Tobacco: Never AUDIT-C Answer Date Recorded Q1: How often [...] on file Legal Sex 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 1 or 2 02/26/2025 3:11 PM Jolanta Lucia RN Q3: How often do you have six or more drinks on one occasion? Never 02/26/2025 3:11 PM Jolanta Lucia RN documented as of this encounter Plan of Treatment Not on file documented as of this encounter Visit Diagnoses Not on filedocumented in this encounter Care Teams Radar Technician Relationship Specialty Start Date End Date Deepika Guerrero NP [address] [place] [address] [address] [place] [address] PCP - General Cardiovascular Disease 02/13/25 Deepika Guerrero NP [address] [place] [address] [address] LU[address] [place] [address] Nurse Practitioner Cardiovascular Disease 02/12/25 Raghav Andre MD [address] [place] [address] Consulting Physician Urology 02/24/25 documented as of this encounter
--- OUTSIDE RECORDS SUMMARY | 2025-03-08 20:59 | XMS_ITS | Referral Summary ---
Author Organization [facility] Address [facility] [place] [address] Care Team Providers Care Software Licensing Executive Name Role Phone Deepika Guerrero NP Unavailable [phone] Deepika Guerrero NP Primary Care Provider [phone] Raghav Andre MD Unavailable [phone] Encounters Date Type Department Care Team Description 03/02/2025 8:30 AM CDT - 03/02/2025 10:05 AM CDT Surgery [facility] Operating Room [address] [place] [phone] Kelsi Morejon MD BRONCHOSCOPY ENDOBRONCHIAL ULTRASOUND with biopsy 03/02/2025 8:30 AM CDT Anesthesia Event [facility] Operating Room 1 [place] [phone] Ayse Evangelista MD Sargent, Brooke Lynae, NP 03/02/2025 6:02 AM CDT - 03/02/2025 10:37 AM CDT Hospital Encounter [facility] Operating Room [address] [place] [phone] Jonathan Gayle MD Brandt, Whitney Stina, MD Lung nodule Discharge Disposition: Discharge to home or self care 02/27/2025 Telephone [facility] Surgery [address] [facility] [address] [place] [phone] Brenda Johnson RMA 02/26/2025 Orders Only [facility] Surgery [address] [facility] [address] [place] [phone] Raghav Andre MD Renal mass (Primary Dx) 02/26/2025 Results Follow-Up [facility] Surgery [address] [place] [address] [address] [place] [phone] Raghav Andre MD NM Diuretic Renal Imaging (Lasix Renal Scan) 02/26/2025 9:30 AM CDT Office Visit [facility] Surgery [address] [place] [address] [address] [place] [address] Jonathan Gayle MD Lung nodule (Primary Dx) 02/25/2025 Telephone Radiology 1 [place] [address] Lillian Donis, RT 02/25/2025 10:29 AM CDT - 02/25/2025 11:59 PM CDT Hospital Encounter [facility] Nuclear Medicine [address] [place] [address] Mass of ureter; Malignant neoplasm of urinary bladder, unspecified site (HCC); Prostate cancer (HCC) Discharge Disposition: Discharge to home or self care 02/24/2025 Orders Only [facility] Surgery [address] [place] [address] [address] [place] [phone] Raghav Andre MD Retroperitoneal mass (Primary Dx) 02/20/2025 Orders Only [facility] Oncology [address] [place] [address] Office [facility] [address] [place] [phone] Cari Marlow, HARINI 02/20/2025 Orders Only [facility] Oncology [address] [place] [address] Office [facility] [address] [place] [phone] Tigre Mccarthy MD 02/20/2025 Orders Only [facility] Oncology [address] [place] [address] Office [facility] [address] [place] [address] SenDeepika romero NP 02/20/2025 Telephone [facility] Surgery [address] [facility] [address] [place] [phone] Brenda Johnson RMA 02/20/2025 Orders Only [facility] Surgery [address] [facility] [address] [place] [phone] Jonathan Gayle MD Malignant neoplasm of urinary bladder, unspecified site (HCC) (Primary Dx) 02/19/2025 Results Follow-Up [facility] Surgery [address] [facility] [address] [place] [address] Raghav Andre MD PET Outside Consult 02/18/2025 Orders Only [facility] Oncology [address] [place] [address] [address] [phone] Cari Marlow, KERMITT Prostate cancer (HCC) (Primary Dx) 02/18/2025 1:54 PM CDT - 02/18/2025 11:59 PM CDT Hospital Encounter [facility] [address] [place] [address] Discharge Disposition: Discharge to home or self care 02/18/2025 1:52 PM CDT - 02/18/2025 11:59 PM CDT Hospital Encounter [facility] [address] [place] [address] Diagnosis unknown Discharge Disposition: Discharge to home or self care 02/18/2025 1:50 PM CDT - 02/18/2025 11:59 PM CDT Hospital Encounter [facility] [address] [place] [address] Diagnosis unknown Discharge Disposition: Discharge to home or self care 02/18/2025 1:05 PM CDT Lab [facility] Medical Office Building 1 Lab [address] [place] [address] Mass of ureter; Malignant neoplasm of urinary bladder, unspecified site (HCC); Prostate cancer (HCC) 02/18/2025 2:40 PM CDT Office Visit [facility] Surgery [address] [facility] [address] [place] [phone] Raghav Andre MD Malignant neoplasm of overlapping sites of bladder (HCC) (Primary Dx); Mass of ureter; Malignant neoplasm of urinary bladder, unspecified site (HCC); Prostate cancer (HCC); Lung mass 02/11/[address] [address] Anita Levi RN Scheduling Appointments from Last 3 Months Allergies No known active allergies Medications albuterol HFA (PROVENTIL HFA,VENTOLIN HFA,PROAIR HFA) 90 mcg/actuation inhalerIndicati ons:Chronic Obstructive Pulmonary Disease Inhale 2 puffs every 6 (six) hours as needed for shortness of breath or wheezing 1 Active amLODIPine (NORVASC) 10 mg tabletIndicatio ns:hypertension Take 1 tablet (10 mg total) by mouth air pollution engineer before breakfast 2 Active atorvastatin (LIPITOR) 40 mg tabletIndicatio ns:hyperlipidem ia Take 1 tablet (40 mg total) by mouth nightly 1 Active brimonidine (ALPHAGAN) 0.2 % ophthalmic solutionIndicat ions:open angle glaucoma Administer 1 drop into both eyes 3 (three) times a day 5 Active Jardiance 10 mg tabletIndicatio ns:type 2 diabetes mellitus Take 1 tablet (10 mg total) by mouth air pollution engineer before breakfast 5 Active pregabalin (LYRICA) 75 [...] 1 tablet (50 mg total) by mouth air pollution engineer before breakfast 1 Active traMADoL (ULTRAM) 50 [...] Noted Date Diagnosed Date Lung nodule 02/26/2025 Social History Tobacco Use Types Packs/Day Years [...] on file 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 Gender Identity Not on file Sexual Orientation [...] 02/26/2025 3:00 PM CDT Plan of Treatment Not on file Medical Devices Implanted Type Area Director Strategic Planning Device Identifier Shelf Expiration Date Model / [...] Diagnosis unknown PET OUTSIDE CONSULT Routine 02/18/2025 1:52 PM CDT Diagnosis unknown CT BODY OUTSIDE [...] POCT ORDERABLES - DEVICE Fin al Result [facility] [place] [address] * Airway (03/02/2025 9:07 AM CDT) Narrative [...] of attempts: 1 Planned trial extubation: yes us Ayse Evangelista MD ANESTHESIA ORDERABLES F inal Result * Cytology (03/02/2025 9:01 AM CDT) Fluid (Lung (Cytology)) 03/02/2025 9:01 AM CDT Narrative PATHOLOGY [facility] - 03/02/2025 3:45 PM CDT EPIC results best viewed via link to PDF [facility] Radha Schofield [facility] [place] [address] Note to Patients: This report may contain [...] Gender: M : 1940 (Age: 84) Address: [address] [place] [address] Hospital #: [id number] Taken:03/02/2025 Received:03/02/2025 Reported: 03/02/2025 Patient Type: [facility] Service: Cardiothoracic Location: [facility] OR POD 3 Physician(s): Apurva García, JAKE [...] Ary Farnsworth M.D. 03/02/2025 15:45:29 Laurie Graf, OR([facility]) Gross Description A. Bronchial washings: 15 ml [...] Surgical Pathology and Flow Cytometry Departments at [facility] as part of an ongoing quality review trainer program and in compliance with federally mandated [...] Surgical Pathology and Flow Cytometry Departments of [facility]. It has not been cleared or approved by the U. S. Food and Drug Administration. Kelsi Morejon MD LAB CYTOLOGY ORDERABLES Final Result PATHOLOGY [facility] [address] [place], [place] [phone] * Surgical pathology (03/02/2025 8:54 AM CDT) Tissue (Lung, additional bronchial margin) 03/02/2025 8:54 AM CDT Narrative PATHOLOGY [facility] - 03/05/2025 11:01 AM CDT EPIC results best viewed via link to PDF [facility] Rad[facility] Sch[facility] [place] [address] Note to Patients: This report may contain [...] Gender: Cassius : 1940 (Age: 84) Address: [address] [place] [address] Hospital #: [id number] Taken:03/02/2025 Received:03/02/2025 Reported: 03/05/2025 Patient Type: [facility] Service: Cardiothoracic Location: [facility] OR POD 3 Physician(s): Apurva García FNP-C Oluseye K. Od Diagnosis: A. Lung, left bronchus, biopsy: - Squamous cell carcinoma axwe/03/05/2025 09:39 By this signature, I attest that the above diagnosis is based upon my personal examination of the slides(and/or other material indicated in the diagnosis). Paco Keith M.D. Report Electronically Reviewed and Signed Out By Paco Keith M.D. 03/05/2025 11:01:50 Intraoperative Consultation: Frozen Section Diagnosis AFR1: Left bronchial mass - Positive for malignancy, favor squamous cell carcinoma By Corbin Varner M.D., Deborah Jean MD PhD Gross Consultation A: Left [...] AFR1. Jar 0. 03/03/2025 09:00 PA(s): Nicolasa Dotson, MS, PA (ASCP) By this signature, I attest that the above diagnosis is based upon my personal examination of the slides(and/or other material). Addenda/Procedures The performance characteristics of some immunohistochemical stains, fluorescence in-situ hybridization tests and immunophenotyping by flow cytometry cited in this report (if any) were determined by the Surgical Pathology and Flow Cytometry Departments at [facility] as part of an ongoing quality review trainer program and in compliance with federally mandated [...] Surgical Pathology and Flow Cytometry Departments of [facility]. It has not been cleared or approved by the U. S. Food and Drug Administration. IMAGES AND SCANNED DOCUMENTS, IF INCLUDED, ONLY VIEWABLE IN PDF VERSION OF REPORT Kelsi Morejon MD LAB PATHOLOGY ORDERABLES Final Result PATHOLOGY [facility] 3rd Floor [place], [place] [phone] * Cytology (03/02/2025 8:53 AM CDT) Fluid (Lymph Node (Cytology)) 03/02/2025 9:28 AM CDT Narrative PATHOLOGY [facility] - 03/04/2025 4:04 PM CDT EPIC results best viewed via link to PDF [facility] Radha Schofield [facility] [place] [address] Note to Patients: This report may contain [...] Gender: M : 1940 (Age: 84) Address: [address] [place], [place] [phone] Hospital #: [id number] Taken:03/02/2025 Received:03/02/2025 Reported: 03/04/2025 Patient Type: [facility] Service: Cardiothoracic Location: [facility] OR POD 3 Physician(s): Kelsi Morejon M.D. [...] M.D. 03/04/2025 16:04:35 Luisa Lau MS, CT ([facility]) Gross Description A. Lymph node, hilar, left, [...] Surgical Pathology and Flow Cytometry Departments at [facility] as part of an ongoing quality review trainer program and in compliance with federally mandated [...] Surgical Pathology and Flow Cytometry Departments of [facility]. It has not been cleared or approved by the U. S. Food and Drug Administration. Kelsi Morejon MD LAB CYTOLOGY ORDERABLES Final Result [facility] 3rd Floor [place], [place] [phone] * POCT glucose (03/02/2025 7:43 AM CDT) Glucose, POC 110 70 - 199 mg/dL Blood 03/02/2025 7:43 AM CDT 03/02/2025 7:43 AM CDT Jonathan Gayle MD LAB POCT ORDERABLES - DEVICE Fin al Result [facility] [place] [address] * NM Diuretic Renal Imaging (Lasix Renal [...] Electronically signed by Tiburcio Hobson M.D. CH: MEET Report ID: [id number] Reading Location: [id number] Procedure Note Tiburcio Hobson Jr., MD - 02/25/2025 EXAM DESCRIPTION: NM DIURETIC RENAL IMAGING (LASIX RENAL SCAN) REASON FOR STUDY: Left hydronephrosis, obstructing left ureter mass onPET-CT 02/05/2025. History of radical cystectomy with ileal conduit 2009 withright lower quadrant urostomy pouch, bladder and [...] Electronically signed by Tiburcio Hobson M.D. CH: MEET Report ID: [id number] Reading Location: [place] [address] Raghav Andre MD IM NM PROCEDURES Fi nal Result * XR Outside Reference (02/18/2025 1:54 PM CDT) Impressions [facility] - 02/18/2025 1:54 PM CDT These images are for Reference purposes only and have not been reviewed by [facility] Radiology. There will be no report generated by a [facility] Radiologist. Narrative [facility] - 02/18/2025 1:54 PM CDT EXAMINATION: Images For Reference Purposes Only [facility] Elsie Andre MD IM XR PROCEDURES Fi nal Result [facility] * [...] images may or may not represent the [place] source data set and thus may contain [...] STUDY INITIALLY PERFORMED: 02/05/2025, images acquired at [facility] TYPE OF STUDY: FDG-PET/CT. The images available for review consisted of axial attenuation-corrected and uncorrected PET images and axial CT images. The total scanned area was skull base to the proximal thighs. The mean liver SUV (reported for quality review trainer purposes) is 2.7. The study was interpreted on the [employer] workstation. The protocol was adequate to address [...] STUDY INITIALLY PERFORMED: 02/05/2025, images acquired at [facility] TYPE OF STUDY: FDG-PET/CT. The images available for review consisted of axial attenuation-corrected and uncorrected PET images and axial CT images. The total scanned area was skull base to the proximal thighs. The mean liver SUV (reported for quality review trainer purposes) is 2.7. The study was interpreted on the [employer] workstation. The protocol was adequate to address [...] images may or may not represent the [place] source data set and thus may contain changes that may lower the accuracy of this second-opinion interpretation. Dictated by: Rosa Niño MD The radiology attending physician has personally reviewed this study, and had reviewed and/or edited this written report and agrees with it. Electronically signed by: Sarah Garcia M.D. us Raghav Andre MD IMG PET PROCEDURES F inal [...] report of this study generated by a [facility] Radiologist. Dictated by: Kieran Gee M.D. The [...] report of this study generated by a [facility] Radiologist. Dictated by: Kieran Gee M.D. The radiology attending physician has personally reviewed this study, and had reviewed and/or edited this written report and agrees with it. Electronically signed by: Erika Godfrey M.D. us Raghav Andre MD IMG CT PROCEDURES Fi nal [...] was last reviewed 2021. Testing performed by: [facility], [address] [place] [address], [place]., [address] Blood 02/18/2025 1:07 PM CDT 02/18/2025 1:40 PM CDT us Raghav Andre MD LAB BLOOD ORDERABLES Final Result [facility] [address] [facility] Department of Laboratories [place] [phone] * (ABNORMAL) Comprehensive metabolic panel (02/18/2025 1:07 PM CDT) Sodium 131(L) 135 - 145 mmol/L Comment:Testing performed by : [address] [address] Potassium, pl 4.6 3.3 - 4.9 mmol/L [facility] Comment:Testing performed by : [address] [address] Chloride 98 97 - 110 mmol/L [facility] Comment:Testing performed by : [address], [place]., [address] CO2 21(L) 22 - 32 mmol/L [facility] Comment:Testing performed by : [address], [place]., [address] Anion gap 12 2 - 15 mmol/L [facility] Comment:Testing performed by : [address] [address] BUN 42(H) 6 - 25 mg/dL [facility] Comment:Testing performed by : [address], [place]., [address] Creatinine 1.89(H) 0.80 - 1.30 mg/dL [facility] Comment:Testing performed by : [address] [address] Glucose 116 70 - 199 mg/dL [facility] Comment: Interpretive Data Fasting glucose >/= 126 [...] was last revised 2022. Testing performed by: [address], [place]., [address] Calcium 9.5 8.5 - 10.3 mg/dL [facility] Comment:Testing performed by : [facility], [address] [place] [address]., [address] Bilirubin, total 0.6 0.1 - 1.2 mg/dL [facility] Comment:Testing performed by : [address] [address] Protein, pl 6.8 6.5 - 8.5 g/dL [facility] Comment:Testing performed by : [address], [address] Albumin 3.8 3.5 - 5.0 g/dL [facility] Comment:Testing performed by : [address], [facility], [address] Alk phos 83 40 - 130 Units/L [facility] Comment:Testing performed by : [address], [address] ALT 34 7 - 55 Units/L [facility] Comment:Testing performed by : [address], [address] AST 23 10 - 50 Units/L [facility] Comment:Testing performed by : [address] [address] Blood 02/18/2025 1:07 PM CDT 02/18/2025 1:40 PM CDT us Yousef Elsie Andre MD LAB BLOOD ORDERABLES Final Result Performing Organization Address City/State/[facility] Co va Phone Number [facility] [address] [facility] Department [place] [address] from Last 3 Months Insurance [facility] ADVANTAGE [facility] Address: [address] [address] [place] [address] [facility] MEDICARE ADVANTAGE [facility] Address: [address] [address] [place] [address] Care Teams Software Licensing Executive Relationship Specialty Start Date End Date Deepika Guerrero, SHIPPING SPECIALIST [address] [place] [address] [address] [place] [address] PCP - General Cardiovascular Disease 02/13/25 Deepika Guerrero, SHIPPING SPECIALIST [address] [place] [address] [address] [place] [address] Nurse Practitioner Cardiovascular Disease 02/12/25 Raghav Andre MD [address] [place] [place] [address] Consulting Physician Urology 02/24/25
[2025-03-08] MEDS: SODIUM CHLORIDE 0.9% IV 1,000 ML 999 ML IV CONT (21:26)
[2025-03-08 21:27] LABS: Basophils Absolute Auto 0.1 K/mm3 (0.0-0.1); Basophils Percent Auto 0.8 % (0.2-1.2); Eosinophils Absolute Auto 0.2 K/mm3 (0-0.3); Hematocrit 30.9 % (42.0-52.0); Immature Granulocyte Absolute 0.32 K/mm3 (0.00-0.031); Lymphocytes Percent Auto 7.4 % (18.3-44.2); Mean Corpuscular HGB Conc 32.4 g/dl (32-36); Mean Corpuscular Hemoglobin 27.7 pg (26-34); Mean Corpuscular Volume 85.6 fl (80-100); Mean Platelet Volume 9.5 fl (7.4-10.4); Monocytes Absolute Auto 0.9 K/mm3 (0.1-0.6); Monocytes Percent Auto 8.1 % (2.6-8.5); Neutrophils Absolute Auto 8.5 K/mm3 (1.3-6.7); Neutrophils Percent Auto 78.7 % (45.5-73.1); Platelet Count Result 250 k/mm3 (150-375); Red Blood Count 3.61 M/mm3 (4.6-6.20); Red Cell Distribution Width 16.5 % (11.5-14.5); White Blood Count 10.8 K/mm3 (4.5-10.0)
[2025-03-08 21:28] LABS: Glucose Point of Care 136 mg/dl (65-105)
[2025-03-08 21:38] LABS: INR 1.1; Prothrombin Time 14.1 Seconds (11.1-14.7)
[2025-03-08 22:38] LABS: Alanine Aminotransferase 23 U/L (6-50); Albumin Level 3.3 g/dL (3.5-5.1); Alkaline Phosphatase 72 U/L (38-126); Anion Gap 7 mmol/L (4-12); Aspartate Amino Transferase 23 U/L (17-59); Bilirubin,Total 0.5 mg/dL (0.2-1.3); Blood Urea Nitrogen 32 mg/dL (9-20); Calcium 8.5 mg/dL (8.4-10.2); Carbon Dioxide 21 mmol/L (22-30); Chloride 101 mmol/L (98-107); Estimated CRCL calculation 32 ml/min; Estimated Glomerular Filt Rate 38; Glucose 135 mg/dL (65-110); Magnesium 2.4 mg/dL (1.6-2.3); Potassium 4.3 mmol/L (3.4-5.0); Sodium 129 mmol/L (137-145); Total Protein 5.9 g/dL (6.3-8.2)
[2025-03-08 23:05] LABS: Add Urine Microscopic? YES; Appearance Urine Turbid (Clear); Bacteria Urine Rare /hpf; Bilirubin Urine Negative (Negative); Blood Urine 3+ (Negative); Color Urine Yellow (Yellow); Glucose Urine UA 2+ mg/dL (Negative); Ketones Urine Negative (Negative); Leukocyte Esterase Ur 3+ LEU/UL (Negative); Need Manual Microscopic Reviewed; Nitrate Urine Negative (Negative); Protein Urine 1+ mg/dL (Negative); Specific Grav Ur 1.006 (1.001-1.035); Squamous Epithelial Cell Urine None Seen /hpf (Few); Urobilinogen Urine 0.2 mg/dL (<2.0); WBC Clumps Urine Present /HPF; WBC Urine >100 /hpf (0-3)
[2025-03-09] VITALS (13 sets, daily range): BP systolic 116–146; BP diastolic 59–87; PULSE 83–100; RESP 16–18; TEMP 36.5–37.4; O2SAT 94–99; BMI 24.9
--- NOTE | 2025-03-09 00:05 | PM.IMHP ---
H&P: HPI History of Present Illness Date/Time: 03/09/25 02:00 Chief Complaint: Syncope. Narrative: This is an 84-year-old male with history of hypertension, hyperlipidemia, asthma with COPD, chronic kidney disease, type 2 diabetes mellitus, restless leg syndrome, and bladder cancer status post radical cystoprostatectomy with ileal conduit in 2009 who presented to the emergency department for evaluation after syncopal episode. Last evening he took his ropinirole for his restless legs and about 30 minutes later stood up to go upstairs and within seconds he began to feel ?woozy.? Son was standing nearby and helps him back down into his chair where it sounds as though the patient had a brief syncopal episode. He did come to but was not very responsive for upwards of 10 to 12 minutes thereafter. Son and state that he was pale, cool, and clammy. EMS was summoned and on their arrival his systolic blood pressure was reportedly in the 80s although there is no documentation to support that in his EMR. At the time of my evaluation he feels okay. He does complain of burning discomfort around his waistline but states that has been ongoing for months. He also reports intermittent blood in his urine which was in greater quantities today. He denies fever, cold and flu symptoms, chest and pleuritic pain, palpitations, shortness of breath, current nausea, vomiting, and diarrhea. Of note, he had a PET scan on 02/05/2025 which showed severe left hydronephrosis and marked atrophy secondary to obstructing left mid ureter mass measuring 3 cm as well as endobronchial soft tissue occluding the left upper lobe concerning for cancer and indeterminate left parotid gland nodule concerning for malignancy. He recently had a lung biopsy for which they are still awaiting the complete pathology report but he was told the biopsy was indeed malignant. In the ED: Vital signs on arrival include temperature 97.9?, blood pressure 119/61, pulse 83, respiratory 20, SpO2 98% on room air. Labs are significant for a WBC count of 10.8, hemoglobin 10.0, sodium 129, carbon dioxide 21, BUN 32, creatinine 1.72, glucose 135. Urinalysis was positive for 1+ protein, 2+ glucose, 3+ blood, 3+ leukocyte esterase, 3 to 5 RBC, greater than 100 WBC, and WBC clumps with rare bacteria. Head CT and chest x-ray were without acute findings. Orthostatic vital signs were unremarkable. He was given ceftriaxone 1 g for suspected urinary tract infection and a 2 L normal saline bolus. He is being admitted in this setting for further workup and close monitoring. Review of Systems Review of Systems: The patient has been admitted under observation status. [facility] Past Medical History Medical History Acquired hypothyroidism Allergies Arthritis Chronic renal failure, stage 3 (moderate) Hepatitis Hepatitis A Other spondylosis with myelopathy, lumbar region Bladder cancer 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 Glaucoma COPD with asthma Vitamin D deficiency, unspecified Type 2 diabetes mellitus without complications (Unknown) Essential (primary) hypertension Gouty arthritis Mixed hyperlipidemia Primary localized osteoarthritis of hips, bilateral Restless legs syndrome Surgical History Surgical History History of ileal conduit (2009) History of arthroplasty of right knee History of vasectomy Status post radical cystoprostatectomy (2009) History of cataract extraction Status of other artificial opening of urinary tract History of bladder cancer (~2009) History of hernia repair (2010) laparoscopic ventral incisional hernia repair with mesh by Dr. Lennon History of bronchoscopy History of cystoscopy With transurethral bladder resection History of carpal tunnel surgery of right wrist Family History Family History Mother Family history of allergic disorder Father Family history of malignant neoplasm of stomach Hypertension Social History Social History Social History: Surrogate medical decision maker: Narcisa Terell, spouse. Code status: Full code. Smoking packs per day: 2 Smoking cigarettes per day: 40.0 Years smoked: 30 Smoking pack-years: 60.00 Smoking status: Former smoker Tobacco type: cigarettes Second hand tobacco smoke exposure: No Smoking end date: 09/02/82 Alcohol intake: current Drinks per week: 10 Alcohol use details: 3 cans of beer/day Substance use: never Substance use type: does not use Do You Feel Safe in your Home?: Yes Lack of Transportation: No Lack of Food: Never True Current Housing: I Have Housing Concerned About Future Housing: No Difficulty Paying Gas/Electric Bills: No Difficulty Paying for Meds: No Currently Unemployed: No Education: High School Diploma/GED Difficulty w/ Childcare or Family Care: No Living arrangements: with family Additional living arrangements comments: lives with spouse in [place] Occupation/Education: 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 Spiritual care concerns: No Agree to blood products: Yes Meds Home Medications and Allergies Home Medications ?Medication ?Instructions ?Recorded ?Confirmed ?Type brimonidine 0.1 % eye drops 1 drp EACH EYE BID 11/23/20 03/09/25 History (Alphagan P) latanoprost 0.005 % eye drops 1 drp EACH EYE HS 11/23/20 03/09/25 History clobetasol 0.05 % topical cream 1 applic topical DAILY PRN dry 01/23/23 03/09/25 Rx skin on hands #30 grams ergocalciferol (vitamin D2) 1,250 50,000 unit PO WEEKLY #12 caps 01/23/23 03/09/25 Rx mcg (50,000 unit) capsule diltiazem HCl 240 mg 240 mg PO DAILY #30 caps 04/02/23 03/09/25 Rx capsule,extended release 24 hr hydrochlorothiazide 12.5 mg capsule 12.5 mg PO DAILY #30 caps 04/13/23 03/09/25 Rx allopurinol 100 mg tablet 100 mg PO DAILY #90 tabs 01/08/24 03/09/25 Rx fluticasone 500 mcg-salmeterol 50 1 inh inhalation Q12H #60 ea 05/29/24 03/09/25 Rx mcg/dose blistr powdr for inhalation (Wixela Inhub) amlodipine 10 mg tablet See Rx Instructions .Route 08/25/24 03/09/25 Rx .COMPLEX #90 tabs empagliflozin 10 mg tablet 10 mg PO DAILY #90 tabs 08/25/24 03/09/25 Rx (Jardiance) albuterol sulfate 90 mcg/actuation 1 - 2 puff inhalation Q4-6H PRN 10/20/24 03/09/25 Rx aerosol inhaler Shortness Of Breath Or Wheezing #8.5 grams perindopril erbumine 8 mg tablet See Rx Instructions .Route 10/27/24 03/09/25 Rx .COMPLEX #180 tabs ropinirole 2 mg tablet See Rx Instructions .Route 10/27/24 03/09/25 Rx .COMPLEX #90 tabs atorvastatin 40 mg tablet 40 mg PO DAILY #90 tabs 12/01/24 03/09/25 Rx pregabalin 75 mg capsule 75 mg PO BID #180 caps 12/22/24 03/09/25 Rx tramadol 50 mg tablet 50 mg PO Q12H PRN pain #20 tabs 02/18/25 03/09/25 Rx Allergies Allergy/AdvReac Type Severity Reaction Status Date / Time grass pollen Allergy Mild Sneezing Verified 01/20/25 09:48 pollen extracts Allergy Mild Sneezing Verified 01/20/25 09:48 Vital Signs Vital Signs - 24 hr 03/08/25 19:47 Temperature 97.9 F Pulse Rate 83 Respiratory Rate 20 Blood Pressure 119/61 Pulse Oximetry 98 Oxygen Delivery Room Air Exam Narrative: General: Nontoxic-appearing male sitting up in bed in no acute distress. Weight: 87.7 kg. BMI: 26.2. HEENT: PERRL, EOMI. Sclera anicteric. Oral mucosa moist. Neck: Supple. No obvious carotid bruits. Respiratory: Respirations are nonlabored he speaking in full sentences. Lung sounds are a bit coarse in the left upper lobe with scattered rhonchi. Cardiovascular: Regular rate and rhythm with S1-S2. Gastrointestinal: Abdomen is soft, nontender, and nondistended with positive bowel sounds. Ileo conduit draining dark yellow/slightly austen colored urine. Skin: Warm and dry. Faint hyperpigmentation of the lower legs. Extremities: No cyanosis or clubbing. Trace divya ankle edema on the left. No palpable knots or cords. Negative Eric sign bilaterally. Radial and pedal pulses intact. Neurological: Alert. Cranial nerves 2-12 are grossly intact. Speech is clear. No facial asymmetry. No gross focal deficits to casual conversation. Psychiatric: Pleasant and cooperative with normal mood and affect. Judgment and insight intact. H&P: Results Labs Labs: Short CBC 03/08/25 Range/Units 21:21 WBC 10.8 H (4.5-10.0) K/mm3 Hgb 10.0 L (14.0-18.0) g/dL Hct 30.9 L (42.0-52.0) % Plt Count 250 (150-375) k/mm3 BMP 03/08/25 21:21 Sodium 129 L Potassium 4.3 Chloride 101 Carbon Dioxide 21 L BUN 32 H Creatinine 1.72 H Glucose 135 H Calcium 8.5 Liver Function 03/08/25 Range/Units 21:21 Total Bilirubin 0.5 (0.2-1.3) mg/dL AST 23 (17-59) U/L ALT 23 (6-50) U/L Alkaline Phosphatase 72 (38-126) U/L Albumin 3.3 L (3.5-5.1) g/dL Urine 03/08/25 Range/Units 22:44 Urine Color Yellow (Yellow) Urine Appearance Turbid H (Clear) Urine pH 7.0 (5.0-9.0) Ur Specific Froid 1.006 (1.001-1.035) Urine Protein 1+ H (Negative) mg/dL Urine Glucose (UA) 2+ H (Negative) mg/dL Imaging Head CT 03/08/25 20:48 Impression: No acute intracranial hemorrhage or suspicious mass effect. Chest X-Ray 03/08/25 20:56 IMPRESSION: No focal infiltrate or effusion. Assessment and Plan Assessment and plan (1) Syncope: Code(s): R55 - Syncope and collapse Status: Acute (2) Hyponatremia: Code(s): E87.1 - Hypo-osmolality and hyponatremia Status: Acute (3) Pyuria: Code(s): R82.81 - Pyuria Status: Acute (4) Normocytic anemia: Code(s): D64.9 - Anemia, unspecified Status: Acute (5) Chronic renal failure, stage 3 (moderate): Code(s): N18.30 - Chronic kidney disease, stage 3 unspecified Status: Chronic (6) COPD with asthma: Code(s): J44.9 - Chronic obstructive pulmonary disease, unspecified Status: Chronic (7) Type 2 diabetes mellitus: Code(s): E11.9 - Type 2 diabetes mellitus without complications Status: Acute (8) Essential (primary) hypertension: Code(s): I10 - Essential (primary) hypertension Status: Chronic Plan The patient presented to the emergency department for evaluation after syncopal episode as detailed in HPI. Labs, imaging, EKG, and all reports were personally reviewed. The patient's brief syncopal episode may be related to orthostatic hypotension as it occurred not long after he stood up from a seated position. Vasovagal episode or cardiac dysrhythmia remain possibilities as does pulmonary emboli given his history of malignancy. Monitor on telemetry. Echocardiogram ordered. Check orthostatic vital signs. Sodium has been drifting down over the last couple of months, possibly related to malignancy or known lung mass. Urine and serum osmolalities, urine sodium, and TSH are pending. Hold hydrochlorothiazide for now. He received adequate IV fluids in the ED and we will repeat a BMP later this morning. Renal function is stable on review of previous labs. Check iron studies, B12, and folate for evaluation of normocytic anemia. Continue empiric antibiotics for possible urinary tract infection. No acute issues with regards to COPD. Initiate sliding scale insulin, Accu-Cheks, and hypoglycemic protocol. His home medications will be reviewed and resumed as appropriate. Findings and treatment plan were discussed with the patient. Questions were solicited and answered to satisfaction. The patient's medical management will be taken over by the hospitalist team in a.m. Quality VTE Prophylaxis VTE prophylaxis: mechanical ordered If No VTE Prophylaxis Answer both mechanical and pharmacologic: Reason no pharmacologic proph: medical contraindication (intermittent hematuria) The patient has been admitted under observation status. Hospitalist MIPS Advance Care Plan I have confirmed that the patient's Advanced Care Plan is present, code status is documented, or surrogate decision maker is listed in patient medical record.: Yes Medication Reconciliation I have utilized all available resources to obtain, update and review the patients current medications (includes all prescriptions, OTC, herbals, cannabis, and nutritional supplements).: Yes
[2025-03-09] MEDS: SODIUM CHLORIDE 0.9% IV 1,000 ML 999 ML IV CONT (00:10)
[2025-03-09] MEDS: ACETAMINOPHEN 325 MG TABLET 650 MG PO ×2 (01:35→10:29)
[2025-03-09 01:45] LABS: Lactic Acid Reflex 0.9 mmol/L (0.7-2.0)
[2025-03-09] MEDS: SODIUM CHLORIDE 0.9% IV 700 ML 999 ML IV CONT (02:08)
--- NOTE | 2025-03-09 02:16 | ECHO_ITS ---
Patient Info Name: Kevin Figueredo Age: 84 years : 1940 Gender: Male Ht: 72 in Wt: 193 lbs BSA: 2.12 m2 HR: 89 bpm BP: 118 / 62 mmHg Heart Rhythm: Sinus Rhythm Technical Quality: Fair Exam Date: 03/09/2025 3:03 PM Patient Status: I Admit Date: 03/09/2025 Exam Type: CA echo doppler color flow Complete two-dimensional, color flow and Doppler transthoracic echocardiogram is performed. Staff Referring Physician: Lanette Dominguez [facility] [place]: Terri Fitzgerald Attending Provider: Ryan Davidson Summary 1. Complete two-dimensional, color flow and Doppler transthoracic echocardiogram is performed. 2. Left ventricular chamber dimension is normal. 3. Left ventricular systolic function is normal, estimated at 60-65. 4. There is mild concentric increased left ventricular wall thickness. 5. The left ventricular diastolic function is grade I diastolic dysfunction. 6. E/e' 18 is elevated. 7. There is moderate aortic valve sclerosis. 8. There is trace aortic valve regurgitation. 9. The mitral valve has a moderately calcified annulus. 10. There is trace tricuspid valve regurgitation. Left Ventricle E/e' 18 is elevated. Left ventricular chamber dimension is normal. Left ventricular systolic function is normal, estimated at 60-65. There is mild concentric increased left ventricular wall thickness. The left ventricular diastolic function is grade I diastolic dysfunction. Right Ventricle Right ventricular chamber dimension is normal. Right ventricular systolic function is normal and with normal TAPSE 2.5 cm. Left Atria Left atrial chamber dimension is normal. Right Atria Right atrial chamber dimension is normal. Aortic Valve The aortic valve is trileaflet. There is moderate aortic valve sclerosis. There is no aortic valve stenosis. There is trace aortic valve regurgitation. Pulmonic Valve There is no pulmonic regurgitation. Mitral Valve The mitral valve has a moderately calcified annulus. There is no mitral valve stenosis. There is no mitral valve regurgitation. Tricuspid Valve There is trace tricuspid valve regurgitation. RVSP is not measured due to an inadequate TR jet. Pericardium/Pleural There is no pericardial effusion. Inferior Vena Cava Normal inferior vena cava with >50% collapse upon inspiration consistent with normal right atrial pressure, 5 mmHg. Aorta The aortic root size at the sinus of Valsalva is normal. Left Ventricular Outflow Tract Name Value Normal LVOT 2D LVOT Diameter 1.9 cm LVOT Doppler LVOT Peak Velocity 102 cm/s LVOT Peak Gradient 4 mmHg LVOT Mean Gradient 2 mmHg LVOT VTI 23 cm LVOT VTI/AV VTI Ratio 0.8 LVOT Stroke Volume 66 ml LVOT CO 5.2 l/min LVOT CI 2.5 l/min/m2 Pulmonic Valve Name Value Normal RVOT Doppler RVOT Peak Velocity 77 cm/s RVOT Peak Gradient 2 mmHg PV Doppler PV Peak Velocity 109 cm/s PV Peak Gradient 5 mmHg Mitral Valve Name Value Normal MV Diastolic Function MV E Peak Velocity 100 cm/s MV A Peak Velocity 165 cm/s MV E/A 0.6 MV Decel Time (PW) 215 ms MV Annular TDI MV E/e' (Septal) 20.5 MV E/e' (Lateral) 17.6 MV E/e' (Average) 19.0 Tricuspid Valve Name Value Normal Estimated PAP/RSVP RA Pressure 5 mmHg <=5 TV Annular TDI TV Lateral Vanda s' Velocity 10.6 cm/s >=9.5 Aorta Name Value Normal Ascending Aorta Ao Root Diameter (MM) 3.7 cm Ao Root Diam Index (MM) 1.8 cm/m2 Aortic Valve Name Value Normal AV Doppler AV Peak Velocity 156 cm/s AV Peak Gradient 10 mmHg AV Mean Gradient 4 mmHg AV VTI 27 cm AV Area (Cont Eq VTI) 2.4 cm2 >=3.0 AV Area (Cont Eq Cordell) 1.9 cm2 AV DI (Cordell) 0.65 AV Regurgitation 2D LVOT Area 2.9 cm2 Ventricles Name Value Normal LV Dimensions 2D/MM IVS Diastolic Thickness (2D) 1.2 cm 0.6-1.0 LVID Diastole (2D) 3.5 cm 4.2-5.8 LVIW Diastolic Thickness (2D) 1.0 cm 0.6-1.0 LVID Systole (2D) 2.5 cm 2.5-4.0 LVOT Diameter 1.9 cm LV Mass (2D Cubed) 122.73 g 88.00-224.00 LV Mass Index (2D Cubed) 58 g/m2 49-115 Relative Wall Thickness (2D) 0.59 <=0.42 LV Fractional Shortening/Ejection Fraction 2D/MM LV Fractional Shortening (2D) 29 % 25-43 LV EF (2D Teichholz) 57 % LV Diastolic Volume (4C MOD) 76 ml LV EF (4C MOD) 65 % LV Diastolic Volume (2C MOD) 66 ml LV EF (2C MOD) 63 % LV Diastolic Volume (BP MOD) 72 ml 62-150 LV Diastolic Volume Index (BP MOD) 34 ml/m2 34-74 LV Systolic Volume (BP MOD) 26 ml 21-61 LV Systolic Volume Index (BP MOD) 12 ml/m2 11-31 LV EF (BP MOD) 64 % 52-72 LV Diastolic Length (4C) 7.8 cm LV Systolic Length (4C) 6.8 cm LV Stroke Volume (4C MOD) 50 ml Atria Name Value Normal LA Dimensions LA Dimension (MM) 4.4 cm 3.0-4.0 LA Volume (4C A-L) 62 ml LA Volume (BP A-L) 74 ml RA Dimensions RA Area (4C) 15.3 cm2 <=18.0 Report Signatures
[2025-03-09] MEDS: SODIUM CHLORIDE 0.9% IV 1,000 ML 125 ML IV CONT (02:45)
--- NOTE | 2025-03-09 02:52 | ADMGEN ---
This patient, Kevin Figueredo, was admitted to [facility] Surg Room 330-02. Patient/family oriented to hospital policies and general routines including ID bracelet, bed and alarms, visiting hours, pain management, procedures, bathroom and other care routines, personal items, smoking policy, room service/diet, and visiting hours. Information on how to activate the Rapid Response Team has been discussed. Patient/Family are encouraged to report perceived risks to care and to ask questions if they do not understand what they are told or what they should do.
[2025-03-09 03:16] LABS: CRP 1.8 mg/dL (<1.0)
[2025-03-09 03:42] LABS: Urea Random Urine 207 MG/DL
[2025-03-09 05:48] LABS: Sodium Urine Random 55 meq/L
[2025-03-09 06:05] LABS: Basophils Absolute Auto 0.1 K/mm3 (0.0-0.1); Basophils Percent Auto 0.9 % (0.2-1.2); Eosinophils Absolute Auto 0.3 K/mm3 (0-0.3); Eosinophils Percent Auto 3.5 % (0-4.4); Hematocrit 34.3 % (42.0-52.0); Hemoglobin 10.6 g/dL (14.0-18.0); Immature Granulocyte Absolute 0.34 K/mm3 (0.00-0.031); Immature Granulocyte Percent A 4.4 % (0-0.5); Lymphocytes Absolute Auto 0.85 K/mm3 (0.9-3.2); Mean Corpuscular HGB Conc 30.9 g/dl (32-36); Mean Corpuscular Hemoglobin 27.1 pg (26-34); Mean Corpuscular Volume 87.7 fl (80-100); Mean Platelet Volume 9.7 fl (7.4-10.4); Monocytes Absolute Auto 0.6 K/mm3 (0.1-0.6); Monocytes Percent Auto 7.3 % (2.6-8.5); Neutrophils Absolute Auto 5.7 K/mm3 (1.3-6.7); Neutrophils Percent Auto 72.9 % (45.5-73.1); Platelet Count Result 257 k/mm3 (150-375); Red Blood Count 3.91 M/mm3 (4.6-6.20); Red Cell Distribution Width 16.5 % (11.5-14.5); White Blood Count 7.8 K/mm3 (4.5-10.0)
[2025-03-09 06:23] LABS: Anion Gap 7 mmol/L (4-12); Blood Urea Nitrogen 26 mg/dL (9-20); Calcium 8.5 mg/dL (8.4-10.2); Carbon Dioxide 21 mmol/L (22-30); Chloride 108 mmol/L (98-107); Estimated CRCL calculation 36 ml/min; Estimated Glomerular Filt Rate 43; Glucose 97 mg/dL (65-110); Potassium 4.2 mmol/L (3.4-5.0); Sodium 136 mmol/L (137-145)
[2025-03-09 06:41] LABS: Hemoglobin A1C 6.6 % (<5.7)
[2025-03-09 07:48] LABS: Glucose Point of Care 85 mg/dl (65-105)
[2025-03-09] MEDS: traMADol HCL (*CRX) 50 MG TABLET PO ×2 (11:29→22:09)
[2025-03-09 11:40] LABS: Iron 28 ug/dL (49-181)
[2025-03-09 11:50] LABS: Percent Iron Saturation 10 % (20-50)
[2025-03-09 11:58] LABS: Glucose Point of Care 84 mg/dl (65-105)
--- NOTE | 2025-03-09 13:57 | WPDURCON ---
Assessment and Plan Assessment and plan (1) Ureteral mass: Code(s): N28.89 - Other specified disorders of kidney and ureter Status: Acute (2) Suspected UTI: Code(s): R39.89 - Other symptoms and signs involving the genitourinary system Status: Acute (3) Chronic kidney disease, stage 3b: Code(s): N18.32 - Chronic kidney disease, stage 3b Status: Acute Plan - Possible urinary tract infection with gross hematuria, present on admission - Left mid-ureteral mass (3 cm) with severe left hydronephrosis and marked renal atrophy - Stoma irritation with periostomial bleeding - Chronic burning sensation around waistline, possibly related to hernia - Baseline CKD, Cr stable at baseline Plan: - Continue IV ceftriaxone pending blood and urine culture results - Coordinate care with [facility] regarding potential left nephrectomy (follow-up scheduled for early March 2025). Family is planning on establishing with [facility] for med/onc management of newly diagnosed left lung cancer, office visit later this week. - Follow-up with Dr. Oden at [facility] (he is planning on seeing tomorrow). - Monitor stoma for continued bleeding. Patient notes history of bleeding with UTI. - No urgent urological intervention needed at this time. Urology Consult Note HPI Date Seen: 03/09/25 Requesting Physician: Ryan Davidson MD Primary Care Provider: JAKE [place] Consult Narrative Reason for consult: Left ureteral mass, possible UTI Narrative: Kevin Figueredo is an 84-year-old male with significant urological history including radical cystoprostatectomy with ileal conduit in 2008 for bladder cancer. He was admitted on 03/09/2025 for evaluation of syncope and is currently being treated for a urinary tract infection with IV ceftriaxone. He reports persistent burning sensation around his waistline that has been present for approximately two months. The burning sensation is particularly located around his hernia area. He describes stoma irritation with bleeding around the stoma when the conduit gets twisted or pulled. 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 Additionally, he has been newly diagnosed with a left mid-ureteral mass and is being considered for a potential left nephrectomy by [facility]. -PERTINENT LABS: 03/08/2025 - UA: 3+ blood, 3+ LE, 3-5 RBCs, >100 WBC 03/09/2025 - WBC 7.8, HGB 10.6, Cr 1.55 -PERTINENT IMAGIN01/18/2025 CT ABD PEL W CON - Moderate left hydronephrosis with 3.7 x 2.1 cm enhancing mass along mid left ureter concerning for recurrent malignancy, moderate cortical atrophy of left kidney, bilateral hydroceles 02/05/2025 PET scan - Severe left hydronephrosis and marked atrophy secondary to obstructing left mid ureter mass measuring 3 cm Review of Systems Constitutional: Constitutional: Reports lethargy Eyes: Eyes: Reports no additional eye complaints ENT: Reports Normal hearing present Cardiovascular: Cardiovascular: Denies chest pain Respiratory: Respiratory: Denies dyspnea Gastrointestinal: Gastrointestinal: Denies nausea and Denies vomiting Genitourinary: Genitourinary: Reports as per HPI and Reports hematuria Musculoskeletal: Musculoskeletal: Reports back pain (low back ache) Neurologic: Comments: lower extremity neuropathy Psychiatric: Psychiatric: Reports no additional psychiatric complaints [facility] Past Medical History Medical History Acquired hypothyroidism Allergies Arthritis Chronic renal failure, stage 3 (moderate) Hepatitis Hepatitis A Other spondylosis with myelopathy, lumbar region Bladder cancer 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 Glaucoma COPD with asthma Vitamin D deficiency, unspecified Type 2 diabetes mellitus without complications (Unknown) Essential (primary) hypertension Gouty arthritis Mixed hyperlipidemia Primary localized osteoarthritis of hips, bilateral Restless legs syndrome Surgical History Surgical History History of ileal conduit (2009) History of arthroplasty of right knee History of vasectomy Status post radical cystoprostatectomy (2009) History of cataract extraction Status of other artificial opening of urinary tract History of bladder cancer (~2009) History of hernia repair (2010) laparoscopic ventral incisional hernia repair with mesh by Dr. Lennon History of bronchoscopy History of cystoscopy With transurethral bladder resection History of carpal tunnel surgery of right wrist Family History Family History Mother Family history of allergic disorder Father Family history of malignant neoplasm of stomach Hypertension Social History Social History Social History: Surrogate medical decision maker: Narcisa Figueredo, spouse. Code status: Full code. Smoking packs per day: 2 Smoking cigarettes per day: 40.0 Years smoked: 30 Smoking pack-years: 60.00 Smoking status: Former smoker Tobacco type: cigarettes Second hand tobacco smoke exposure: No Smoking end date: 09/02/82 Alcohol intake: current Drinks per week: 10 Alcohol use details: 3 cans of beer/day Substance use: never Substance use type: does not use Do You Feel Safe in your Home?: Yes Lack of Transportation: No Lack of Food: Never True Current Housing: I Have Housing Concerned About Future Housing: No Difficulty Paying Gas/Electric Bills: No Difficulty Paying for Meds: No Currently Unemployed: No Education: High School Diploma/GED Difficulty w/ Childcare or Family Care: No Living arrangements: with family Additional living arrangements comments: lives with spouse in [place] Occupation/Education: retired 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 Spiritual care concerns: No Agree to blood products: Yes Meds Home Medications and Allergies Home Medications ?Medication ?Instructions ?Recorded ?Confirmed ?Type brimonidine 0.1 % eye drops 1 drp EACH EYE BID 11/23/20 03/09/25 History (Alphagan P) latanoprost 0.005 % eye drops 1 drp EACH EYE HS 11/23/20 03/09/25 History clobetasol 0.05 % topical cream 1 applic topical DAILY PRN dry 01/23/23 03/09/25 Rx skin on hands #30 grams ergocalciferol (vitamin D2) 1,250 50,000 unit PO WEEKLY #12 caps 01/23/23 03/09/25 Rx mcg (50,000 unit) capsule diltiazem HCl 240 mg 240 mg PO DAILY #30 caps 04/02/23 03/09/25 Rx capsule,extended release 24 hr hydrochlorothiazide 12.5 mg capsule 12.5 mg PO DAILY #30 caps 04/13/23 03/09/25 Rx allopurinol 100 mg tablet 100 mg PO DAILY #90 tabs 01/08/24 03/09/25 Rx fluticasone 500 mcg-salmeterol 50 1 inh inhalation Q12H #60 ea 05/29/24 03/09/25 Rx mcg/dose blistr powdr for inhalation (Wixela Inhub) amlodipine 10 mg tablet See Rx Instructions .Route 08/25/24 03/09/25 Rx .COMPLEX #90 tabs empagliflozin 10 mg tablet 10 mg PO DAILY #90 tabs 08/25/24 03/09/25 Rx (Jardiance) albuterol sulfate 90 mcg/actuation 1 - 2 puff inhalation Q4-6H PRN 10/20/24 03/09/25 Rx aerosol inhaler Shortness Of Breath Or Wheezing #8.5 grams perindopril erbumine 8 mg tablet See Rx Instructions .Route 10/27/24 03/09/25 Rx .COMPLEX #180 tabs ropinirole 2 mg tablet See Rx Instructions .Route 10/27/24 03/09/25 Rx .COMPLEX #90 tabs atorvastatin 40 mg tablet 40 mg PO DAILY #90 tabs 12/01/24 03/09/25 Rx pregabalin 75 mg capsule 75 mg PO BID #180 caps 12/22/24 03/09/25 Rx tramadol 50 mg tablet 50 mg PO Q12H PRN pain #20 tabs 02/18/25 03/09/25 Rx Allergies Allergy/AdvReac Type Severity Reaction Status Date / Time grass pollen Allergy Mild Sneezing Verified 01/20/25 09:48 pollen extracts Allergy Mild Sneezing Verified 01/20/25 09:48 Vital Signs Vital Signs - 24 hr 03/08/25 19:47 03/09/25 00:08 03/09/25 01:32 Temperature 97.9 F Pulse Rate 83 100 Respiratory Rate 20 18 Blood Pressure 119/61 116/62 121/87 Pulse Oximetry 98 99 Oxygen Delivery Room Air 03/09/25 02:12 03/09/25 02:16 03/09/25 03:00 Temperature 97.7 F Pulse Rate 88 Respiratory Rate 18 Blood Pressure 129/59 L 133/66 127/70 Pulse Oximetry 95 Oxygen Delivery 03/09/25 04:00 03/09/25 06:00 03/09/25 08:00 Temperature 97.7 F Pulse Rate 85 89 Respiratory Rate 18 Blood Pressure 118/62 Pulse Oximetry 97 97 Oxygen Delivery Room Air 03/09/25 08:00 03/09/25 12:00 Temperature Pulse Rate 96 90 Respiratory Rate Blood Pressure Pulse Oximetry Oxygen Delivery Exam Const: General: comfortable and no acute distress HENMT: Face/Nose/Sinus: Normal nares present Eyes: General: appearance normal, both eyes and all related structures Resp: Effort & Inspection: normal respiratory effort GI: Other: Umbilical hernia : Other: right ileal conduit, some divya-stomal blood noted, draining blood-tinged yellow urine Skin: Other: scattered ecchymosis noted to BUE Neuro: Speech: normal speech Psych: Speech and movement: Normal speech and movement present Affect: normal affect Results Labs 03/09/25 05:46 03/09/25 05:46 Labs: Short CBC 03/08/25 03/09/25 Range/Units 21:21 05:46 WBC 10.8 H 7.8 (4.5-10.0) K/mm3 Hgb 10.0 L 10.6 L (14.0-18.0) g/dL Hct 30.9 L 34.3 L (42.0-52.0) % Plt Count 250 257 (150-375) k/mm3 BMP 03/08/25 03/09/25 21:21 05:46 Sodium 129 L 136 L Potassium 4.3 4.2 Chloride 101 108 H Carbon Dioxide 21 L 21 L BUN 32 H 26 H Creatinine 1.72 H 1.55 H Glucose 135 H 97 Calcium 8.5 8.5 Liver Function 03/08/25 Range/Units 21:21 Total Bilirubin 0.5 (0.2-1.3) mg/dL AST 23 (17-59) U/L ALT 23 (6-50) U/L Alkaline Phosphatase 72 (38-126) U/L Albumin 3.3 L (3.5-5.1) g/dL Urine 03/08/25 Range/Units 22:44 Urine Color Yellow (Yellow) Urine Appearance Turbid H (Clear) Urine pH 7.0 (5.0-9.0) Ur Specific [place] 1.006 (1.001-1.035) Urine Protein 1+ H (Negative) mg/dL Urine Glucose (UA) 2+ H (Negative) mg/dL
[2025-03-09] MEDS: BISACODYL 5 MG TABLET EC PO (14:49)
[2025-03-09 16:35] LABS: Glucose Point of Care 83 mg/dl (65-105)
--- NOTE | 2025-03-09 18:18 | P.PNIM_ITS ---
Progress Note: A&P Assessment and Plan (1) Syncope: Code(s): R55 - Syncope and collapse Status: Acute (2) Hyponatremia: Code(s): E87.1 - Hypo-osmolality and hyponatremia Status: Acute (3) Pyuria: Code(s): R82.81 - Pyuria Status: Acute (4) Normocytic anemia: Code(s): D64.9 - Anemia, unspecified Status: Acute (5) Chronic renal failure, stage 3 (moderate): Code(s): N18.30 - Chronic kidney disease, stage 3 unspecified Status: Chronic (6) COPD with asthma: Code(s): J44.9 - Chronic obstructive pulmonary disease, unspecified Status: Chronic (7) Type 2 diabetes mellitus: Code(s): E11.9 - Type 2 diabetes mellitus without complications Status: Acute (8) Essential (primary) hypertension: Code(s): I10 - Essential (primary) hypertension Status: Chronic Plan Syncope ECHO, carotid duplex, and orthostatic vital signs PT/OT cardiology consulted Hyponatremia, resolved Na 136 COPD continue bronchodilators HTN titrate home meds with clinical course DM2 SSI with accucheks Empaglizozin CKD stage III Cr 1.55 Iron deficiency anemia Ferritin 22, Isat 10 Venofer 500/1000 monitor H and H Left kidney and lung ca oncology consulted Bladder ca Following Urology outpatient DVT prophylaxis on Sq Lovenox Subjective Date/time seen: 03/09/25 18:18 Interval history: Comfortable at bedside Review of Systems Review of Systems: The patient has been admitted under observation status. Exam Narrative: General: Nontoxic-appearing male sitting up in bed in no acute distress. Weight: 87.7 kg. BMI: 26.2. HEENT: PERRL, EOMI. Sclera anicteric. Oral mucosa moist. Neck: Supple. No obvious carotid bruits. Respiratory: Respirations are nonlabored he speaking in full sentences. Lung sounds are a bit coarse in the left upper lobe with scattered rhonchi. Cardiovascular: Regular rate and rhythm with S1-S2. Gastrointestinal: Abdomen is soft, nontender, and nondistended with positive bowel sounds. Ileo conduit draining dark yellow/slightly austen colored urine. Skin: Warm and dry. Faint hyperpigmentation of the lower legs. Extremities: No cyanosis or clubbing. Trace divya ankle edema on the left. No palpable knots or cords. Negative Eric sign bilaterally. Radial and pedal pulses intact. Neurological: Alert. Cranial nerves 2-12 are grossly intact. Speech is clear. No facial asymmetry. No gross focal deficits to casual conversation. Psychiatric: Pleasant and cooperative with normal mood and affect. Judgment and insight intact. Objective Data Vital Signs Vital Signs: Vital Signs - 24 hr 03/08/25 19:47 03/09/25 00:08 03/09/25 01:32 Temperature 97.9 F Pulse Rate 83 100 Respiratory Rate 20 18 Blood Pressure 119/61 116/62 121/87 Pulse Oximetry 98 99 Oxygen Delivery Room Air 03/09/25 02:12 03/09/25 02:16 03/09/25 03:00 Temperature 97.7 F Pulse Rate 88 Respiratory Rate 18 Blood Pressure 129/59 L 133/66 127/70 Pulse Oximetry 95 Oxygen Delivery 03/09/25 04:00 03/09/25 06:00 03/09/25 08:00 Temperature 97.7 F Pulse Rate 85 89 Respiratory Rate 18 Blood Pressure 118/62 Pulse Oximetry 97 97 Oxygen Delivery Room Air 03/09/25 08:00 03/09/25 12:00 03/09/25 14:00 Temperature 99.4 F Pulse Rate 96 90 86 Respiratory Rate 18 Blood Pressure 131/60 Pulse Oximetry 96 Oxygen Delivery 03/09/25 16:00 Temperature Pulse Rate 83 Respiratory Rate Blood Pressure Pulse Oximetry Oxygen Delivery Intake/Output Intake/Output: Intake & Output 03/06/25 03/07/25 03/08/25 03/09/25 23:59 23:59 23:59 23:59 Intake Total 2650 Output Total 2800 Balance -150 Meds/Results Medications: Active Medications Generic Name Dose Route Start Last Admin Trade Name Freq PRN Reason Stop Dose Admin Acetaminophen 650 mg 03/09/25 00:08 03/09/25 10:29 Acetaminophen 325 Mg Tablet PO 650 mg Q4H PRN Administration Mild Pain (1-3) or Fever Bisacodyl 5 mg 03/09/25 13:51 03/09/25 14:49 Bisacodyl 5 Mg Tablet Ec PO 5 mg QAM PRN Administration Constipation Dextrose 12.5 gm 03/09/25 02:20 Dextrose 50% 25 Gm/50 Ml Syringe IV PUSH PRN PRN Hypoglycemia Protocol Glucagon 1 mg 03/09/25 02:20 Glucagon For Inj 1 Mg Vial IM PRN PRN Hypoglycemia Protocol Glucose 15 gm 03/09/25 02:20 Glucose Oral Gel 15 Gm Of Glucse In 37.5 Gm Tube PO PRN PRN Hypoglycemia Protocol Ceftriaxone Sodium 1 gm in 50 mls @ 100 mls/hr 03/10/25 01:00 Rocephin 1 Gm/Ns 50 Ml IVPB Q24H CONCHITA Dextrose 1,000 mls @ 100 mls/hr 03/09/25 02:20 Dextrose 5% 1,000 Ml IVPB PRN PRN Hypoglycemia Protocol Insulin Aspart 3 - 6 units 03/09/25 08:00 03/09/25 16:42 Insulin Aspart (*Bkc) 100 Units/Ml SUB-Q Not Given TIDWM CONCHITA Protocol Insulin Aspart 1 - 3 units 03/09/25 21:00 Insulin Aspart (*Bkc) 100 Units/Ml SUB-Q HS CONCHITA Protocol Perflutren Lipid Microsphere 0 ml 03/09/25 02:16 Perflutren Lipid Microspheres 1.5 Ml Vial Diluted To 10 Ml Total Volume IV PUSH 03/12/25 02:16 ONCE PRN adequate visualization Protocol Polyethylene Glycol 17 gm 03/09/25 14:09 Polyethylene Glycol 3350 17 Gm Powd.Pack PO QAM CONCHITA Tramadol HCl 50 mg 03/09/25 10:42 03/09/25 11:29 Tramadol Hcl (*Crx) 50 Mg Tablet PO 50 mg Q12H PRN Administration Pain Rated 4-10 Radiology Results: ITS Impressions Head CT 03/08/25 20:48 Impression: No acute intracranial hemorrhage or suspicious mass effect. Chest X-Ray 03/08/25 20:56 IMPRESSION: No focal infiltrate or effusion. Carotid Doppler Study 03/09/25 12:37 IMPRESSION: 1. <50% stenosis in the right internal carotid artery. 2. <50% stenosis in the left internal carotid artery. Labs Labs: Laboratory Results - last 24 hr 03/08/25 03/08/25 03/08/25 21:21 21:24 22:44 WBC 10.8 H RBC 3.61 L Hgb 10.0 L Hct 30.9 L MCV 85.6 MCH 27.7 MCHC 32.4 RDW 16.5 H Plt Count 250 MPV 9.5 Immature Gran % (Auto) 3.0 H Neut % (Auto) 78.7 H Lymph % (Auto) 7.4 L Eddy % (Auto) 8.1 Eos % (Auto) 2.0 Baso % (Auto) 0.8 Lymph # (Auto) 0.80 L Eddy # (Auto) 0.9 H Eos # (Auto) 0.2 Baso # (Auto) 0.1 Abs Immat Gran (auto) 0.32 H Absolute Neuts (auto) 8.5 H Absolute Nucleated RBC 0.000 Nucleated RBC % 0.0 PT 14.1 INR 1.1 APTT 26.0 Sodium 129 L Potassium 4.3 Chloride 101 Carbon Dioxide 21 L Anion Gap 7 BUN 32 H Creatinine 1.72 H Estim Creat Clear Calc 32 Estimated GFR 38 L Glucose 135 H POC Capillary Glucose 136 H Hemoglobin A1c Lactic Acid Calcium 8.5 Magnesium 2.4 H Iron TIBC % Saturation Ferritin Total Bilirubin 0.5 AST 23 ALT 23 Alkaline Phosphatase 72 C-Reactive Protein Total Protein 5.9 L Albumin 3.3 L Vitamin B12 Folate TSH (Reflex) Urine Color Yellow Urine Appearance Turbid H Urine pH 7.0 Ur Specific [place] 1.006 Urine Protein 1+ H Urine Glucose (UA) 2+ H Urine Ketones Negative Ur Blood (Man) 3+ H Urine Nitrate Negative Urine Bilirubin Negative Urine Urobilinogen 0.2 Add Ur Microanalysis Reviewed Leukocyte Esterase Rfl 3+ H Urine RBC 3-5 H Urine WBC >100 H Urine WBC Clumps Present H Ur Squamous Epith Cells None seen Urine Bacteria Rare Urine Casts 11-20 Ur Random Sodium Ur Random Urea Urine Creatinine 03/09/25 03/09/25 03/09/25 01:20 03:24 05:46 WBC 7.8 RBC 3.91 L Hgb 10.6 L Hct 34.3 L MCV 87.7 MCH 27.1 MCHC 30.9 L RDW 16.5 H Plt Count 257 MPV 9.7 Immature Gran % (Auto) 4.4 H Neut % (Auto) 72.9 Lymph % (Auto) 11.0 L Eddy % (Auto) 7.3 Eos % (Auto) 3.5 Baso % (Auto) 0.9 Lymph # (Auto) 0.85 L Eddy # (Auto) 0.6 Eos # (Auto) 0.3 Baso # (Auto) 0.1 Abs Immat Gran (auto) 0.34 H Absolute Neuts (auto) 5.7 Absolute Nucleated RBC 0.000 Nucleated RBC % 0.0 PT INR APTT Sodium 136 L Potassium 4.2 Chloride 108 H Carbon Dioxide 21 L Anion Gap 7 BUN 26 H Creatinine 1.55 H Estim Creat Clear Calc 36 Estimated GFR 43 L Glucose 97 POC Capillary Glucose Hemoglobin A1c 6.6 H Lactic Acid 0.9 Calcium 8.5 Magnesium Iron 28 L TIBC 277 % Saturation 10 L Ferritin 22.50 Total Bilirubin AST ALT Alkaline Phosphatase C-Reactive Protein 1.8 H Total Protein Albumin Vitamin B12 202.0 L Folate 12.0 TSH (Reflex) 1.860 Urine Color Urine Appearance Urine pH Ur Specific [place] Urine Protein Urine Glucose (UA) Urine Ketones Ur Blood (Man) Urine Nitrate Urine Bilirubin Urine Urobilinogen Add Ur Microanalysis Leukocyte Esterase Rfl Urine RBC Urine WBC Urine WBC Clumps Ur Squamous Epith Cells Urine Bacteria Urine Casts Ur Random Sodium 55 Ur Random Urea 207 Urine Creatinine 24.0 03/09/25 03/09/25 03/09/25 07:30 11:24 16:17 WBC RBC Hgb Hct MCV MCH MCHC RDW Plt Count MPV Immature Gran % (Auto) Neut % (Auto) Lymph % (Auto) Eddy % (Auto) Eos % (Auto) Baso % (Auto) Lymph # (Auto) Eddy # (Auto) Eos # (Auto) Baso # (Auto) Abs Immat Gran (auto) Absolute Neuts (auto) Absolute Nucleated RBC Nucleated RBC % PT INR APTT Sodium Potassium Chloride Carbon Dioxide Anion Gap BUN Creatinine Estim Creat Clear Calc Estimated GFR Glucose POC Capillary Glucose 85 84 83 Hemoglobin A1c Lactic Acid Calcium Magnesium Iron TIBC % Saturation Ferritin Total Bilirubin AST ALT Alkaline Phosphatase C-Reactive Protein Total Protein Albumin Vitamin B12 Folate TSH (Reflex) Urine Color Urine Appearance Urine pH Ur Specific [place] Urine Protein Urine Glucose (UA) Urine Ketones Ur Blood (Man) Urine Nitrate Urine Bilirubin Urine Urobilinogen Add Ur Microanalysis Leukocyte Esterase Rfl Urine RBC Urine WBC Urine WBC Clumps Ur Squamous Epith Cells Urine Bacteria Urine Casts Ur Random Sodium Ur Random Urea Urine Creatinine Quality VTE Prophylaxis VTE prophylaxis: mechanical ordered
[2025-03-09] MEDS: IRON SUCROSE COMPLEX 400 MG, IRON SUCROSE COMPLEX 100 MG in SODIUM CHLORIDE 0.9% IV 250 ML 78.57 MG IVPB (20:44)
[2025-03-09] MEDS: rOPINIRole HCL 1 MG TABLET 2 MG BY MOUTH (20:45)
[2025-03-09 22:06] LABS: Glucose Point of Care 93 mg/dl (65-105)
[2025-03-10] VITALS (9 sets, daily range): BP systolic 111–145; BP diastolic 62–74; PULSE 55–103; RESP 14–24; TEMP 35.8–36.8; O2SAT 94–99
[2025-03-10 06:36] LABS: Basophils Absolute Auto 0.1 K/mm3 (0.0-0.1); Eosinophils Absolute Auto 0.3 K/mm3 (0-0.3); Eosinophils Percent Auto 3.7 % (0-4.4); Hematocrit 35.5 % (42.0-52.0); Immature Granulocyte Absolute 0.22 K/mm3 (0.00-0.031); Immature Granulocyte Percent A 2.4 % (0-0.5); Lymphocytes Absolute Auto 0.52 K/mm3 (0.9-3.2); Lymphocytes Percent Auto 5.6 % (18.3-44.2); Mean Corpuscular Hemoglobin 26.8 pg (26-34); Mean Corpuscular Volume 86.6 fl (80-100); Mean Platelet Volume 9.5 fl (7.4-10.4); Monocytes Absolute Auto 0.4 K/mm3 (0.1-0.6); Monocytes Percent Auto 4.4 % (2.6-8.5); Neutrophils Absolute Auto 7.7 K/mm3 (1.3-6.7); Neutrophils Percent Auto 82.9 % (45.5-73.1); Platelet Count Result 262 k/mm3 (150-375); Red Cell Distribution Width 16.3 % (11.5-14.5); White Blood Count 9.3 K/mm3 (4.5-10.0)
[2025-03-10 07:02] LABS: Alanine Aminotransferase 21 U/L (6-50); Albumin Level 3.6 g/dL (3.5-5.1); Alkaline Phosphatase 81 U/L (38-126); Anion Gap 8 mmol/L (4-12); Aspartate Amino Transferase 24 U/L (17-59); Bilirubin,Total 0.6 mg/dL (0.2-1.3); Blood Urea Nitrogen 22 mg/dL (9-20); Carbon Dioxide 21 mmol/L (22-30); Chloride 105 mmol/L (98-107); Estimated CRCL calculation 41 ml/min; Estimated Glomerular Filt Rate 51; Glucose 96 mg/dL (65-110); Magnesium 2.2 mg/dL (1.6-2.3); Potassium 3.9 mmol/L (3.4-5.0); Sodium 134 mmol/L (137-145); Total Protein 6.3 g/dL (6.3-8.2)
[2025-03-10 08:04] LABS: Glucose Point of Care 94 mg/dl (65-105)
--- NOTE | 2025-03-10 08:33 | P.PNIM_ITS ---
Progress Note: A&P Assessment and Plan (1) Syncope: Code(s): R55 - Syncope and collapse Status: Acute Assessment and Plan: ECHO, carotid duplex, and orthostatic vital signs PT/OT eval and plan cardiology consulted awaiting recommendations (2) Hyponatremia: Code(s): E87.1 - Hypo-osmolality and hyponatremia Status: Acute Assessment and Plan: Hyponatremia, resolved - Na 136 stable - will trend (3) Pyuria: Code(s): R82.81 - Pyuria Status: Acute (4) Normocytic anemia: Code(s): D64.9 - Anemia, unspecified Status: Acute Assessment and Plan: - r/t Iron deficiency anemia - Ferritin 22, Isat 10 - Venofer 500/1000 - monitor H and H (5) Chronic renal failure, stage 3 (moderate): Code(s): N18.30 - Chronic kidney disease, stage 3 unspecified Status: Chronic Assessment and Plan: - monitor labs daily - creat 1.55 (6) COPD with asthma: Code(s): J44.9 - Chronic obstructive pulmonary disease, unspecified Status: Chronic Assessment and Plan: continue bronchodilators (7) Type 2 diabetes mellitus: Code(s): E11.9 - Type 2 diabetes mellitus without complications Status: Acute Assessment and Plan: - DM2 - SSI with accucheks - Empaglizozin (8) Essential (primary) hypertension: Code(s): I10 - Essential (primary) hypertension Status: Chronic Assessment and Plan: continue home medications - monitor vital signs (9) Ureteral mass: Code(s): N28.89 - Other specified disorders of kidney and ureter Status: Acute Assessment and Plan: Left Kidney mass - will be seeing Bhavik - Left mid-ureteral mass (3 cm) with severe left hydronephrosis and marked renal atrophy - Stoma irritation with periostomial bleeding - Chronic burning sensation around waistline, possibly related to hernia - Hgb and Cr remain stable - Urine culture NEGATIVE for infection - Continue IV ceftriaxone pending blood culture results - Coordinate care with [facility] regarding potential left nephrectomy (follow-up scheduled for early March 2025). Family is planning on establishing with [facility] for med/onc management of newly diagnosed left lung cancer, office visit later this week. - Follow-up with Dr. Oden at [facility]. - Monitor stoma for continued bleeding. - No urgent urological intervention needed at this time. Plan DVT prophylaxis on Sq Lovenox code status - full code Discharge - patient can be discharged once stable, check H&h in am, if cleared by cardiology will follow up outpatient with urology and oncology Time Spent With Patient Time with patient: 25 - 35 minutes Subjective Date/time seen: 03/10/25 08:33 Interval history: Patient is sitting in bed today, reports last pm he pulled on his ostomy, causing some bleeding. he reports no pain or distress. He does report some burning in the lower abdomen that radiates into his thighs bilaterally, patient states he has had this sensation for well over a month. they have tried multiple medications to attempt to relief the pain. patient reports he is comfortable at this time. Review of Systems Review of Systems: The patient has been admitted under observation status. Exam Narrative: General: Nontoxic-appearing male sitting up in bed in no acute distress. Weight: 87.7 kg. BMI: 26.2. HEENT: PERRL, EOMI. Sclera anicteric. Oral mucosa moist. Neck: Supple. No obvious carotid bruits. Respiratory: Respirations are nonlabored he speaking in full sentences. Lung sounds are a bit coarse in the left upper lobe with scattered rhonchi. Cardiovascular: Regular rate and rhythm with S1-S2. Gastrointestinal: Abdomen is soft, nontender, and nondistended with positive bowel sounds. Ileo conduit draining dark yellow/slightly austen colored urine. Skin: Warm and dry. Faint hyperpigmentation of the lower legs. Extremities: No cyanosis or clubbing. Trace divya ankle edema on the left. No palpable knots or cords. Negative Eric sign bilaterally. Radial and pedal pulses intact. Neurological: Alert. Cranial nerves 2-12 are grossly intact. Speech is clear. No facial asymmetry. No gross focal deficits to casual conversation. Psychiatric: Pleasant and cooperative with normal mood and affect. Judgment and insight intact. Objective Data Vital Signs Vital Signs: Vital Signs - 24 hr 03/09/25 12:00 03/09/25 14:00 03/09/25 16:00 Temperature 99.4 F Pulse Rate 90 86 83 Respiratory Rate 18 Blood Pressure 131/60 Pulse Oximetry 96 03/09/25 20:00 03/09/25 22:00 03/10/25 00:00 Temperature 99.2 F Pulse Rate 87 89 103 H Respiratory Rate 16 Blood Pressure 146/67 H Pulse Oximetry 94 03/10/25 04:00 03/10/25 06:00 Temperature 97.9 F Pulse Rate 94 55 L Respiratory Rate 24 H Blood Pressure 145/68 H Pulse Oximetry 98 Intake/Output Intake/Output: Intake & Output 03/07/25 03/08/25 03/09/25 03/10/25 23:59 23:59 23:59 23:59 Intake Total 2650 400 Output Total 2800 1000 Balance -150 -600 Meds/Results Medications: Active Medications Generic Name Dose Route Start Last Admin Trade Name Freq PRN Reason Stop Dose Admin Acetaminophen 650 mg 03/09/25 00:08 03/09/25 10:29 Acetaminophen 325 Mg Tablet PO 650 mg Q4H PRN Administration Mild Pain (1-3) or Fever Allopurinol 100 mg 03/10/25 09:00 Allopurinol 100 Mg Tablet PO DAILY PENDING SALE TO [facility] Atorvastatin Calcium 40 mg 03/10/25 09:00 Atorvastatin 40 Mg Tablet PO DAILY PENDING SALE TO [facility] Bisacodyl 5 mg 03/09/25 13:51 03/09/25 14:49 Bisacodyl 5 Mg Tablet Ec PO 5 mg QAM PRN Administration Constipation Dextrose 12.5 gm 03/09/25 02:20 Dextrose 50% 25 Gm/50 Ml Syringe IV PUSH PRN PRN Hypoglycemia Protocol Empagliflozin 10 mg 03/10/25 09:00 Empagliflozin 10 Mg Tablet PO DAILY CONCHITA Glucagon 1 mg 03/09/25 02:20 Glucagon For Inj 1 Mg Vial IM PRN PRN Hypoglycemia Protocol Glucose 15 gm 03/09/25 02:20 Glucose Oral Gel 15 Gm Of Glucse In 37.5 Gm Tube PO PRN PRN Hypoglycemia Protocol Ceftriaxone Sodium 1 gm in 50 mls @ 100 mls/hr 03/10/25 01:00 03/10/25 01:00 Rocephin 1 Gm/Ns 50 Ml IVPB 100 mls/hr Q24H CONCHITA Administration Dextrose 1,000 mls @ 100 mls/hr 03/09/25 02:20 Dextrose 5% 1,000 Ml IVPB PRN PRN Hypoglycemia Protocol Insulin Aspart 3 - 6 units 03/09/25 08:00 03/09/25 16:42 Insulin Aspart (*Bkc) 100 Units/Ml SUB-Q Not Given TIDWM CONCHITA Protocol Insulin Aspart 1 - 3 units 03/09/25 21:00 03/09/25 22:06 Insulin Aspart (*Bkc) 100 Units/Ml SUB-Q Not Given HS CONCHITA Protocol Perflutren Lipid Microsphere 0 ml 03/09/25 02:16 Perflutren Lipid Microspheres 1.5 Ml Vial Diluted To 10 Ml Total Volume IV PUSH 03/12/25 02:16 ONCE PRN adequate visualization Protocol Polyethylene Glycol 17 gm 03/09/25 14:09 Polyethylene Glycol 3350 17 Gm Powd.Pack PO QAM CONCHITA Ropinirole HCl 2 mg 03/09/25 21:00 03/09/25 20:45 Ropinirole Hcl 1 Mg Tablet BY MOUTH 2 mg HS CONCHITA Administration Tramadol HCl 50 mg 03/09/25 10:42 03/09/25 22:09 Tramadol Hcl (*Crx) 50 Mg Tablet PO 50 mg Q12H PRN Administration Pain Rated 4-10 Radiology Results: ITS Impressions Head CT 03/08/25 20:48 Impression: No acute intracranial hemorrhage or suspicious mass effect. Chest X-Ray 03/08/25 20:56 IMPRESSION: No focal infiltrate or effusion. Carotid Doppler Study 03/09/25 12:37 IMPRESSION: 1. <50% stenosis in the right internal carotid artery. 2. <50% stenosis in the left internal carotid artery. Labs Labs: Laboratory Results - last 24 hr 03/09/25 03/09/25 03/09/25 05:46 11:24 16:17 WBC RBC Hgb Hct MCV MCH MCHC RDW Plt Count MPV Immature Gran % (Auto) Neut % (Auto) Lymph % (Auto) [place] % (Auto) Eos % (Auto) Baso % (Auto) Lymph # (Auto) [place] # (Auto) Eos # (Auto) Baso # (Auto) Abs Immat Gran (auto) Absolute Neuts (auto) Absolute Nucleated RBC Nucleated RBC % Sodium Potassium Chloride Carbon Dioxide Anion Gap BUN Creatinine Estim Creat Clear Calc Estimated GFR Glucose POC Capillary Glucose 84 83 Calcium Magnesium Iron 28 L TIBC 277 % Saturation 10 L Ferritin 22.50 Total Bilirubin AST ALT Alkaline Phosphatase Total Protein Albumin Vitamin B12 202.0 L Folate 12.0 03/09/25 03/10/25 03/10/25 21:25 06:19 08:00 WBC 9.3 RBC 4.10 L Hgb 11.0 L Hct 35.5 L MCV 86.6 MCH 26.8 MCHC 31.0 L RDW 16.3 H Plt Count 262 MPV 9.5 Immature Gran % (Auto) 2.4 H Neut % (Auto) 82.9 H Lymph % (Auto) 5.6 L [place] % (Auto) 4.4 Eos % (Auto) 3.7 Baso % (Auto) 1.0 Lymph # (Auto) 0.52 L [place] # (Auto) 0.4 Eos # (Auto) 0.3 Baso # (Auto) 0.1 Abs Immat Gran (auto) 0.22 H Absolute Neuts (auto) 7.7 H Absolute Nucleated RBC 0.000 Nucleated RBC % 0.0 Sodium 134 L Potassium 3.9 Chloride 105 Carbon Dioxide 21 L Anion Gap 8 BUN 22 H Creatinine 1.33 H Estim Creat Clear Calc 41 Estimated GFR 51 L Glucose 96 POC Capillary Glucose 93 94 Calcium 9.0 Magnesium 2.2 Iron TIBC % Saturation Ferritin Total Bilirubin 0.6 AST 24 ALT 21 Alkaline Phosphatase 81 Total Protein 6.3 Albumin 3.6 Vitamin B12 Folate Quality VTE Prophylaxis VTE prophylaxis: mechanical ordered Hospitalist MIPS Advance Care Plan I have confirmed that the patient's Advanced Care Plan is present, code status is documented, or surrogate decision maker is listed in patient medical record.: Yes Medication Reconciliation I have utilized all available resources to obtain, update and review the patients current medications (includes all prescriptions, OTC, herbals, cannabis, and nutritional supplements).: Yes The patient is not eligible for med reconciliation; the patient is in a emergent medical situation where delaying treatment would jeopardize the patients health.: Yes
[2025-03-10] MEDS: polyethylene glycoL 3350 17 GM POWD.PACK PO (08:55)
[2025-03-10] MEDS: ATORVASTATIN 40 MG TABLET PO (08:56)
[2025-03-10] MEDS: allopurinoL 100 MG TABLET PO (08:56)
[2025-03-10] MEDS: EMPAGLIFLOZIN 10 MG TABLET PO (08:56)
[2025-03-10] MEDS: ACETAMINOPHEN 325 MG TABLET 650 MG PO ×2 (09:19→21:37)
--- NOTE | 2025-03-10 11:20 | WPDUROPN2 ---
Progress Note: A&P Assessment and Plan (1) Ureteral mass: Code(s): N28.89 - Other specified disorders of kidney and ureter Status: Acute (2) Bladder cancer: Qualifiers: Bladder location: unspecified site Qualified Code(s): C67.9 - Malignant neoplasm of bladder, unspecified Code(s): C67.9 - Malignant neoplasm of bladder, unspecified Status: Chronic Plan - Intermittent gross hematuria - Left mid-ureteral mass (3 cm) with severe left hydronephrosis and marked renal atrophy - Stoma irritation with periostomial bleeding - Chronic burning sensation around waistline, possibly related to hernia - Hgb and Cr remain stable - Urine culture NEGATIVE for infection // - Continue IV ceftriaxone pending blood culture results - Tentative plan is to follow with [facility] regarding potential left nephrectomy (follow-up scheduled for early March 2025) pending input from Dr. Oden. Family is planning on establishing with [facility] for med/onc management of newly diagnosed left lung cancer, office visit later this week at [facility] with Dr. Finney. - Monitor stoma for continued bleeding. - No urgent urological intervention needed at this time. Case discussed with Dr. Oden Subjective Subjective Date/Time Seen: 03/10/25 11:20 Interval history: NAEO, afebrile Urine culture negative Patient comfortable on exam, OOB working with therapy staff Conduit draining light red urine, no clots Family present, updates given Exam Narrative: Const: General: comfortab le and no acute di stress HENMT: Face/Nose/Sinus: N ormal nares presen t Eyes: General: appearanc e normal, both eye s and all related structures Resp: Effort & Inspectio n: normal respirat ory effort GI: Other: Umbilical hernia : Other: right ile al conduit, some p jeremy-stomal blood n oted, draining blo od-tinged yellow u rine Skin: Other: scattered ecchymosis noted to BUE Neuro: Speech: normal spe ech Psych: Speech and movemen t: Normal speech a nd movement presen t Affect: normal affect Objective Data Vital Signs Vital Signs: Vital Signs - 24 hr 03/09/25 12:00 03/09/25 14:00 03/09/25 16:00 Temperature 99.4 F Pulse Rate 90 86 83 Respiratory Rate 18 Blood Pressure 131/60 Pulse Oximetry 96 Oxygen Delivery 03/09/25 20:00 03/09/25 22:00 03/10/25 00:00 Temperature 99.2 F Pulse Rate 87 89 103 H Respiratory Rate 16 Blood Pressure 146/67 H Pulse Oximetry 94 Oxygen Delivery 03/10/25 04:00 03/10/25 06:00 03/10/25 08:00 Temperature 97.9 F 96.4 F L Pulse Rate 94 55 L 98 Respiratory Rate 24 H 18 Blood Pressure 145/68 H 126/63 Pulse Oximetry 98 97 Oxygen Delivery 03/10/25 08:00 03/10/25 10:06 03/10/25 10:06 Temperature Pulse Rate Respiratory Rate Blood Pressure 111/74 120/62 Pulse Oximetry Oxygen Delivery Room Air Intake/Output Intake/Output: Intake & Output 03/07/25 03/08/25 03/09/25 03/10/25 23:59 23:59 23:59 23:59 Intake Total 2650 640 Output Total 2800 1000 Balance -150 -360 Meds/Results Medications: Active Medications Generic Name Dose Route Start Last Admin Trade Name Freq PRN Reason Stop Dose Admin Acetaminophen 650 mg 03/09/25 00:08 03/10/25 09:19 Acetaminophen 325 Mg Tablet PO 650 mg Q4H PRN Administration Mild Pain (1-3) or Fever Allopurinol 100 mg 03/10/25 09:00 03/10/25 08:56 Allopurinol 100 Mg Tablet PO 100 mg DAILY CONCHITA Administration Atorvastatin Calcium 40 mg 03/10/25 09:00 03/10/25 08:56 Atorvastatin 40 Mg Tablet PO 40 mg DAILY [facility]CHITA Administration Bisacodyl 5 mg 03/09/25 13:51 03/09/25 14:49 Bisacodyl 5 Mg Tablet Ec PO 5 mg QAM PRN Administration Constipation Dextrose 12.5 gm 03/09/25 02:20 Dextrose 50% 25 Gm/50 Ml Syringe IV PUSH PRN PRN Hypoglycemia Protocol Empagliflozin 10 mg 03/10/25 09:00 03/10/25 08:56 Empagliflozin 10 Mg Tablet PO 10 mg DAILY CONCHITA Administration Glucagon 1 mg 03/09/25 02:20 Glucagon For Inj 1 Mg Vial IM PRN PRN Hypoglycemia Protocol Glucose 15 gm 03/09/25 02:20 Glucose Oral Gel 15 Gm Of Glucse In 37.5 Gm Tube PO PRN PRN Hypoglycemia Protocol Ceftriaxone Sodium 1 gm in 50 mls @ 100 mls/hr 03/10/25 01:00 03/10/25 01:00 Rocephin 1 Gm/Ns 50 Ml IVPB 100 mls/hr Q24H CONCHITA Administration Dextrose 1,000 mls @ 100 mls/hr 03/09/25 02:20 Dextrose 5% 1,000 Ml IVPB PRN PRN Hypoglycemia Protocol Insulin Aspart 3 - 6 units 03/09/25 08:00 03/10/25 08:56 Insulin Aspart (*Bkc) 100 Units/Ml SUB-Q Not Given TIDWM [facility] Protocol Insulin Aspart 1 - 3 units 03/09/25 21:00 03/09/25 22:06 Insulin Aspart (*Bkc) 100 Units/Ml SUB-Q Not Given HS CONCHITA Protocol Perflutren Lipid Microsphere 0 ml 03/09/25 02:16 Perflutren Lipid Microspheres 1.5 Ml Vial Diluted To 10 Ml Total Volume IV PUSH 03/12/25 02:16 ONCE PRN adequate visualization Protocol Polyethylene Glycol 17 gm 03/09/25 14:09 03/10/25 08:55 Polyethylene Glycol 3350 17 Gm Powd.Pack PO 17 gm QAM CONCHITA Administration Ropinirole HCl 2 mg 03/09/25 21:00 03/09/25 20:45 Ropinirole Hcl 1 Mg Tablet BY MOUTH 2 mg HS CONCHITA Administration Tramadol HCl 50 mg 03/09/25 10:42 03/09/25 22:09 Tramadol Hcl (*Crx) 50 Mg Tablet PO 50 mg Q12H PRN Administration Pain Rated 4-10 Radiology Results: ITS Impressions Head CT 03/08/25 20:48 Impression: No acute intracranial hemorrhage or suspicious mass effect. Chest X-Ray 03/08/25 20:56 IMPRESSION: No focal infiltrate or effusion. Carotid Doppler Study 03/09/25 12:37 IMPRESSION: 1. <50% stenosis in the right internal carotid artery. 2. <50% stenosis in the left internal carotid artery. Labs Labs: Laboratory Results - last 24 hr 03/09/25 03/09/25 03/09/25 05:46 11:24 16:17 WBC RBC Hgb Hct MCV MCH MCHC RDW Plt Count MPV Immature Gran % (Auto) Neut % (Auto) Lymph % (Auto) [place] % (Auto) Eos % (Auto) Baso % (Auto) Lymph # (Auto) [place] # (Auto) Eos # (Auto) Baso # (Auto) Abs Immat Gran (auto) Absolute Neuts (auto) Absolute Nucleated RBC Nucleated RBC % Sodium Potassium Chloride Carbon Dioxide Anion Gap BUN Creatinine Estim Creat Clear Calc Estimated GFR Glucose POC Capillary Glucose 84 83 Calcium Magnesium Iron 28 L TIBC 277 % Saturation 10 L Ferritin 22.50 Total Bilirubin AST ALT Alkaline Phosphatase Total Protein Albumin Vitamin B12 202.0 L Folate 12.0 03/09/25 03/10/25 03/10/25 21:25 06:19 08:00 WBC 9.3 RBC 4.10 L Hgb 11.0 L Hct 35.5 L MCV 86.6 MCH 26.8 MCHC 31.0 L RDW 16.3 H Plt Count 262 MPV 9.5 Immature Gran % (Auto) 2.4 H Neut % (Auto) 82.9 H Lymph % (Auto) 5.6 L [place] % (Auto) 4.4 Eos % (Auto) 3.7 Baso % (Auto) 1.0 Lymph # (Auto) 0.52 L [place] # (Auto) 0.4 Eos # (Auto) 0.3 Baso # (Auto) 0.1 Abs Immat Gran (auto) 0.22 H Absolute Neuts (auto) 7.7 H Absolute Nucleated RBC 0.000 Nucleated RBC % 0.0 Sodium 134 L Potassium 3.9 Chloride 105 Carbon Dioxide 21 L Anion Gap 8 BUN 22 H Creatinine 1.33 H Estim Creat Clear Calc 41 Estimated GFR 51 L Glucose 96 POC Capillary Glucose 93 94 Calcium 9.0 Magnesium 2.2 Iron TIBC % Saturation Ferritin Total Bilirubin 0.6 AST 24 ALT 21 Alkaline Phosphatase 81 Total Protein 6.3 Albumin 3.6 Vitamin B12 Folate
[2025-03-10 11:22] LABS: Glucose Point of Care 85 mg/dl (65-105)
[2025-03-10] MEDS: traMADol HCL (*CRX) 50 MG TABLET PO (12:31)
--- NOTE | 2025-03-10 12:51 | P.CONCA_ITS ---
Assessment and Plan Assessment and plan (1) Syncope: Code(s): R55 - Syncope and collapse Status: Acute Assessment and Plan: History most consistent with syncope secondary to orthostatic hypotension. Sounds like he also has a history of vasovagal syncope related to pain. EKG and telemetry without any evidence of high-grade blocks, significant bradycardia, or any tachyarrhythmias that would cause syncope. Echocardiogram shows normal left ventricular systolic function with no significant valve pathology. Orthostatic blood pressure has been ordered but I do not see any documented. Educated the patient and family members about orthostatic hypotension in ways to avoid. At this point, no cardiac cause for syncope. No further cardiac evaluation is warranted. Cardiology will sign off. Please call us with questions. (2) Acute UTI: Code(s): N39.0 - Urinary tract infection, site not specified Status: Resolved Assessment and Plan: Antibiotics and management per urology (3) Hyperlipidemia: Code(s): E78.5 - Hyperlipidemia, unspecified Status: Acute Assessment and Plan: Continue statin. (4) Essential (primary) hypertension: Code(s): I10 - Essential (primary) hypertension Status: Chronic Assessment and Plan: Blood pressure is at goal. History of Present Illness History of Present Illness Consult date/time: 03/10/25 12:51 Requesting physician: Rebecca Bullock MD Consult reason: Other (syncope) Reason For Visit: UTI, altered mental status, syncopal episode Narrative: Kevin Figueredo is an 84-year-old male with hypertension, hyperlipidemia, asthma with COPD, chronic kidney disease, type 2 diabetes mellitus, restless leg syndrome, and bladder cancer status post radical cystoprostatectomy with ileal conduit in 2009. This is a patient who comes to the hospital for evaluation after a syncopal episode. Patient's son is at the bedside and was present during the event and gives the following history. Patient got up from sitting down to eat dinner, walked over to the counter and began to feel ?woozy. ? The patient's son said he then fainted but is not sure if he actually lost consciousness. According to family's report, EMS reported the patient's blood pressure upon arrival was 89/49 mmHg. Patient reports that he has had a couple of episodes similar to this in the past when he was experiencing significant pain. He has not had any further syncope or near syncope during his hospitalization. He remains hospitalized because of hematuria. Review of Systems 2 Review of Systems: All systems reviewed & are unremarkable except as noted in HPI and below PMFSH Past Medical History Medical History Acquired hypothyroidism Allergies Arthritis Chronic renal failure, stage 3 (moderate) Hepatitis Hepatitis A Other spondylosis with myelopathy, lumbar region Bladder cancer 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 Glaucoma COPD with asthma Vitamin D deficiency, unspecified Type 2 diabetes mellitus without complications (Unknown) Essential (primary) hypertension Gouty arthritis Mixed hyperlipidemia Primary localized osteoarthritis of hips, bilateral Restless legs syndrome Surgical History Surgical History History of ileal conduit (2009) History of arthroplasty of right knee History of vasectomy Status post radical cystoprostatectomy (2009) History of cataract extraction Status of other artificial opening of urinary tract History of bladder cancer (~2009) History of hernia repair (2010) laparoscopic ventral incisional hernia repair with mesh by Dr. Lennon History of bronchoscopy History of cystoscopy With transurethral bladder resection History of carpal tunnel surgery of right wrist Family History Family History Mother Family history of allergic disorder Father Family history of malignant neoplasm of stomach Hypertension Social History Social History Social History: Surrogate medical decision maker: Narcisa Figueredo, spouse. Code status: Full code. Smoking packs per day: 2 Smoking cigarettes per day: 40.0 Years smoked: 30 Smoking pack-years: 60.00 Smoking status: Former smoker Tobacco type: cigarettes Second hand tobacco smoke exposure: No Smoking end date: 09/02/82 Alcohol intake: current Drinks per week: 10 Alcohol use details: 3 cans of beer/day Substance use: never Substance use type: does not use Do You Feel Safe in your Home?: Yes Lack of Transportation: No Lack of Food: Never True Current Housing: I Have Housing Concerned About Future Housing: No Difficulty Paying Gas/Electric Bills: No Difficulty Paying for Meds: No Currently Unemployed: No Education: High School Diploma/GED Difficulty w/ Childcare or Family Care: No Living arrangements: with family Additional living arrangements comments: lives with spouse in [place] Occupation/Education: retired 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 Spiritual care concerns: No Agree to blood products: Yes Meds Home Medications and Allergies Home Medications ?Medication ?Instructions ?Recorded ?Confirmed ?Type brimonidine 0.1 % eye drops 1 drp EACH EYE BID 11/23/20 03/09/25 History (Alphagan P) latanoprost 0.005 % eye drops 1 drp EACH EYE HS 11/23/20 03/09/25 History clobetasol 0.05 % topical cream 1 applic topical DAILY PRN dry 01/23/23 03/09/25 Rx skin on hands #30 grams ergocalciferol (vitamin D2) 1,250 50,000 unit PO WEEKLY #12 caps 01/23/23 03/09/25 Rx mcg (50,000 unit) capsule diltiazem HCl 240 mg 240 mg PO DAILY #30 caps 04/02/23 03/09/25 Rx capsule,extended release 24 hr hydrochlorothiazide 12.5 mg capsule 12.5 mg PO DAILY #30 caps 04/13/23 03/09/25 Rx allopurinol 100 mg tablet 100 mg PO DAILY #90 tabs 01/08/24 03/09/25 Rx fluticasone 500 mcg-salmeterol 50 1 inh inhalation Q12H #60 ea 05/29/24 03/09/25 Rx mcg/dose blistr powdr for inhalation (Wixela Inhub) amlodipine 10 mg tablet See Rx Instructions .Route 08/25/24 03/09/25 Rx .COMPLEX #90 tabs empagliflozin 10 mg tablet 10 mg PO DAILY #90 tabs 08/25/24 03/09/25 Rx (Jardiance) albuterol sulfate 90 mcg/actuation 1 - 2 puff inhalation Q4-6H PRN 10/20/24 03/09/25 Rx aerosol inhaler Shortness Of Breath Or Wheezing #8.5 grams perindopril erbumine 8 mg tablet See Rx Instructions .Route 10/27/24 03/09/25 Rx .COMPLEX #180 tabs ropinirole 2 mg tablet See Rx Instructions .Route 10/27/24 03/09/25 Rx .COMPLEX #90 tabs atorvastatin 40 mg tablet 40 mg PO DAILY #90 tabs 12/01/24 03/09/25 Rx pregabalin 75 mg capsule 75 mg PO BID #180 caps 12/22/24 03/09/25 Rx tramadol 50 mg tablet 50 mg PO Q12H PRN pain #20 tabs 02/18/25 03/09/25 Rx Allergies Allergy/AdvReac Type Severity Reaction Status Date / Time grass pollen Allergy Mild Sneezing Verified 01/20/25 09:48 pollen extracts Allergy Mild Sneezing Verified 01/20/25 09:48 Vital Signs Vital Signs - 24 hr 03/09/25 14:00 03/09/25 16:00 03/09/25 20:00 Temperature 37.4 C Pulse Rate 86 83 87 Respiratory Rate 18 Blood Pressure 131/60 Pulse Oximetry 96 Oxygen Delivery 03/09/25 22:00 03/10/25 00:00 03/10/25 04:00 Temperature 37.3 C Pulse Rate 89 103 H 94 Respiratory Rate 16 Blood Pressure 146/67 H Pulse Oximetry 94 Oxygen Delivery 03/10/25 06:00 03/10/25 08:00 03/10/25 08:00 Temperature 36.6 C 35.8 C L Pulse Rate 55 L 98 Respiratory Rate 24 H 18 Blood Pressure 145/68 H 126/63 Pulse Oximetry 98 97 Oxygen Delivery Room Air 03/10/25 10:06 03/10/25 10:06 Temperature Pulse Rate Respiratory Rate Blood Pressure 111/74 120/62 Pulse Oximetry Oxygen Delivery Exam 2 Const: General: comfortable, no acute distress, alert and awake O rientation/consciousness: patient oriented x3 HENMT: Head: normal to inspection Eyes: General: appearance normal, both eyes and all related structures P upils: Equal, round and reactive pupils present Neck: Neck: normal visual inspection, supple and no JVD Resp: Effort & Inspection: normal respiratory effort Auscultation: clear to auscultation bilaterally and diminished lung sounds Cardio: Rate: regular rate Rhythm: regular rhythm Heart sounds: S1 normal heart sound present, S2 normal heart sound present and Murmur heart sound present systolic GI: Auscultation: normal bowel sounds Urinary Catheter: Urinary Catheter: urine red Skin: General skin exam: normal color Neuro: General: patient oriented x3 Cranial nerves: Yes Equal, round and reactive pupils present Extrem: General: normal to inspection Psych: Appearance: grossly normal Mental Status: mental status grossly normal Results Labs and Meds 03/10/25 06:19 03/10/25 06:19 Lab results: Cardiac Enzymes 03/10/25 Range/Units 06:19 AST 24 (17-59) U/L CBC 03/10/25 Range/Units 06:19 WBC 9.3 (4.5-10.0) K/mm3 RBC 4.10 L (4.6-6.20) M/mm3 Hgb 11.0 L (14.0-18.0) g/dL Hct 35.5 L (42.0-52.0) % Plt Count 262 (150-375) k/mm3 Lymph # (Auto) 0.52 L (0.9-3.2) K/mm3 [place] # (Auto) 0.4 (0.1-0.6) K/mm3 Eos # (Auto) 0.3 (0-0.3) K/mm3 Baso # (Auto) 0.1 (0.0-0.1) K/mm3 Comprehensive Metabolic Panel 03/10/25 Range/Units 06:19 Sodium 134 L (137-145) mmol/L Potassium 3.9 (3.4-5.0) mmol/L Chloride 105 (98-107) mmol/L Carbon Dioxide 21 L (22-30) mmol/L BUN 22 H (9-20) mg/dL Creatinine 1.33 H (0.7-1.3) mg/dL Glucose 96 (65-110) mg/dL Calcium 9.0 (8.4-10.2) mg/dL AST 24 (17-59) U/L ALT 21 (6-50) U/L Alkaline Phosphatase 81 (38-126) U/L Total Protein 6.3 (6.3-8.2) g/dL Albumin 3.6 (3.5-5.1) g/dL Intake and Output 03/09/25 03/10/25 03/10/25 23:59 07:59 15:59 Intake Total 120 400 440 Output Total 900 1000 Balance -780 -600 440 Intake: Oral 120 400 440 Output: Urine 900 1000 Other: Number of Bowel Movements Today 3
[2025-03-10 16:03] LABS: Osmolality, Urine. 234 mOsm/kg (50-1200)
[2025-03-10 16:23] LABS: Glucose Point of Care 113 mg/dl (65-105)
[2025-03-10 16:23] LABS: Glucose Point of Care 108 mg/dl (65-105)
--- NOTE | 2025-03-10 19:30 | P.CONONC_ITS ---
Assessment and Plan Assessment and plan (1) Bladder cancer: Qualifiers: Bladder location: unspecified site Qualified Code(s): C67.9 - Malignant neoplasm of bladder, unspecified Code(s): C67.9 - Malignant neoplasm of bladder, unspecified Status: Chronic Assessment and Plan: Patient has a history of bladder cancer status post radical cystoprostatectomy with ileal conduit in 2008 flow bladder cancer. He was admitted with syncopal episode. CT scan of the head showed no evidence of metastatic disease. Patient had PET scan done on February 05 that showed severe left hydronephrosis with 3 cm mass in the mid aspect of the remaining left ureter concerning for malignancy either primary or metastatic along with endobronchial mass in the left upper lobe of the lung. There was also 5 mm nodule in the left parotid gland. Patient had lung biopsy done last week at [facility]. I am worried about metastatic bladder cancer versus lung cancer. Patient has a remote history of smoking but 2 pack per day for about 20 years duration but quit more than 30 years ago. Patient has appointment with Dr. Finney coming Sunday for follow-up. Further management will be done by Dr. Finney. HPI Data of Consult Date/Time: 03/10/25 19:30 Requesting Physician: Ryan Davidson MD Primary Care Provider: JAKE [place] Consult Narrative Narrative: Kevin Figueredo is a 84 year old male with history of bladder cancer status post radical cystoprostatectomy with ileal conduit done in 2009 along with history of type 2 diabetes, chronic kidney disease, COPD and hypertension came into the ER with syncopal episode evaluation. Patient had PET scan done on February 06, 2025 that showed CV left hydronephrosis with markedly decreased FDG uptake in the left kidney secondary to obstructing 3 cm spiculated mass along the mid aspect of the remaining left ureter concerning for malignancy either primary or metastatic. There was endobronchial soft tissue mass in the left upper lobe could be primary or metastatic. Head CT was performed that showed no acute intracranial process or mass. There was 5 mm left parotid nodule. Patient was also diagnosed with UTI and was started on antibiotics treatment. According to patient he had lung mass biopsy done last week and has appointment to see oncologist coming Sunday. Patient has a history of smoking almost a pack per day for about 20 years duration but quit 30 years ago. Review of Systems 2 Review of Systems: Review of system as per HPI otherwise negative [facility] Past Medical History Medical History Acquired hypothyroidism Allergies Arthritis Chronic renal failure, stage 3 (moderate) Hepatitis Hepatitis A Other spondylosis with myelopathy, lumbar region Bladder cancer 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 Glaucoma COPD with asthma Vitamin D deficiency, unspecified Type 2 diabetes mellitus without complications (Unknown) Essential (primary) hypertension Gouty arthritis Mixed hyperlipidemia Primary localized osteoarthritis of hips, bilateral Restless legs syndrome Surgical History Surgical History History of ileal conduit (2009) History of arthroplasty of right knee History of vasectomy Status post radical cystoprostatectomy (2009) History of cataract extraction Status of other artificial opening of urinary tract History of bladder cancer (~2009) History of hernia repair (2010) laparoscopic ventral incisional hernia repair with mesh by Dr. Lennon History of bronchoscopy History of cystoscopy With transurethral bladder resection History of carpal tunnel surgery of right wrist Family History Family History Mother Family history of allergic disorder Father Family history of malignant neoplasm of stomach Hypertension Social History Social History Social History: Surrogate medical decision maker: Foster Terell, spouse. Code status: Full code. Smoking packs per day: 2 Smoking cigarettes per day: 40.0 Years smoked: 30 Smoking pack-years: 60.00 Smoking status: Former smoker Tobacco type: cigarettes Second hand tobacco smoke exposure: No Smoking end date: 09/02/82 Alcohol intake: current Drinks per week: 10 Alcohol use details: 3 cans of beer/day Substance use: never Substance use type: does not use Do You Feel Safe in your Home?: Yes Lack of Transportation: No Lack of Food: Never True Current Housing: I Have Housing Concerned About Future Housing: No Difficulty Paying Gas/Electric Bills: No Difficulty Paying for Meds: No Currently Unemployed: No Education: High School Diploma/GED Difficulty w/ Childcare or Family Care: No Living arrangements: with family Additional living arrangements comments: lives with spouse in [place] Occupation/Education: 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 Spiritual care concerns: No Agree to blood products: Yes Meds Home Medications and Allergies Home Medications ?Medication ?Instructions ?Recorded ?Confirmed ?Type brimonidine 0.1 % eye drops 1 drp EACH EYE BID 11/23/20 03/09/25 History (Alphagan P) latanoprost 0.005 % eye drops 1 drp EACH EYE HS 11/23/20 03/09/25 History clobetasol 0.05 % topical cream 1 applic topical DAILY PRN dry 01/23/23 03/09/25 Rx skin on hands #30 grams ergocalciferol (vitamin D2) 1,250 50,000 unit PO WEEKLY #12 caps 01/23/23 03/09/25 Rx mcg (50,000 unit) capsule diltiazem HCl 240 mg 240 mg PO DAILY #30 caps 04/02/23 03/09/25 Rx capsule,extended release 24 hr hydrochlorothiazide 12.5 mg capsule 12.5 mg PO DAILY #30 caps 04/13/23 03/09/25 Rx allopurinol 100 mg tablet 100 mg PO DAILY #90 tabs 01/08/24 03/09/25 Rx fluticasone 500 mcg-salmeterol 50 1 inh inhalation Q12H #60 ea 05/29/24 03/09/25 Rx mcg/dose blistr powdr for inhalation (Wixela Inhub) amlodipine 10 mg tablet See Rx Instructions .Route 08/25/24 03/09/25 Rx .COMPLEX #90 tabs empagliflozin 10 mg tablet 10 mg PO DAILY #90 tabs 08/25/24 03/09/25 Rx (Jardiance) albuterol sulfate 90 mcg/actuation 1 - 2 puff inhalation Q4-6H PRN 10/20/24 03/09/25 Rx aerosol inhaler Shortness Of Breath Or Wheezing #8.5 grams perindopril erbumine 8 mg tablet See Rx Instructions .Route 10/27/24 03/09/25 Rx .COMPLEX #180 tabs ropinirole 2 mg tablet See Rx Instructions .Route 10/27/24 03/09/25 Rx .COMPLEX #90 tabs atorvastatin 40 mg tablet 40 mg PO DAILY #90 tabs 12/01/24 03/09/25 Rx pregabalin 75 mg capsule 75 mg PO BID #180 caps 12/22/24 03/09/25 Rx tramadol 50 mg tablet 50 mg PO Q12H PRN pain #20 tabs 02/18/25 03/09/25 Rx Allergies Allergy/AdvReac Type Severity Reaction Status Date / Time grass pollen Allergy Mild Sneezing Verified 01/20/25 09:48 pollen extracts Allergy Mild Sneezing Verified 01/20/25 09:48 Vital Signs Vital Signs - 24 hr 03/09/25 20:00 03/09/25 22:00 03/10/25 00:00 Temperature 37.3 C Pulse Rate 87 89 103 H Respiratory Rate 16 Blood Pressure 146/67 H Pulse Oximetry 94 Oxygen Delivery 03/10/25 04:00 03/10/25 06:00 03/10/25 08:00 Temperature 36.6 C 35.8 C L Pulse Rate 94 55 L 98 Respiratory Rate 24 H 18 Blood Pressure 145/68 H 126/63 Pulse Oximetry 98 97 Oxygen Delivery 03/10/25 08:00 03/10/25 10:06 03/10/25 10:06 Temperature Pulse Rate Respiratory Rate Blood Pressure 111/74 120/62 Pulse Oximetry Oxygen Delivery Room Air 03/10/25 12:00 03/10/25 13:47 03/10/25 14:33 Temperature 36.1 C L Pulse Rate 96 94 Respiratory Rate 14 Blood Pressure 114/72 Pulse Oximetry 99 Oxygen Delivery Room Air 03/10/25 16:00 Temperature Pulse Rate 97 Respiratory Rate Blood Pressure Pulse Oximetry Oxygen Delivery Exam 2 Narrative: Lungs are clear to auscultation bilaterally Cardiovascular regular rate rhythm no murmurs Abdomen soft nontender nondistended Extremities no edema Results Labs 03/10/25 06:19 03/10/25 06:19 Labs: Short CBC 03/10/25 Range/Units 06:19 WBC 9.3 (4.5-10.0) K/mm3 Hgb 11.0 L (14.0-18.0) g/dL Hct 35.5 L (42.0-52.0) % Plt Count 262 (150-375) k/mm3 BMP 03/10/25 06:19 Sodium 134 L Potassium 3.9 Chloride 105 Carbon Dioxide 21 L BUN 22 H Creatinine 1.33 H Glucose 96 Calcium 9.0 Liver Function 03/10/25 Range/Units 06:19 Total Bilirubin 0.6 (0.2-1.3) mg/dL AST 24 (17-59) U/L ALT 21 (6-50) U/L Alkaline Phosphatase 81 (38-126) U/L Albumin 3.6 (3.5-5.1) g/dL
[2025-03-10] MEDS: rOPINIRole HCL 1 MG TABLET 2 MG BY MOUTH (21:37)
[2025-03-10 21:44] LABS: Glucose Point of Care 106 mg/dl (65-105)
[2025-03-11] VITALS (7 sets, daily range): BP systolic 116–140; BP diastolic 63–90; PULSE 88–108; RESP 16–18; TEMP 36.1–36.8; O2SAT 98–100
[2025-03-11] MEDS: traMADol HCL (*CRX) 50 MG TABLET PO (00:01)
[2025-03-11 06:13] LABS: Basophils Absolute Auto 0.1 K/mm3 (0.0-0.1); Basophils Percent Auto 1.2 % (0.2-1.2); Eosinophils Absolute Auto 0.4 K/mm3 (0-0.3); Eosinophils Percent Auto 4.4 % (0-4.4); Hematocrit 35.3 % (42.0-52.0); Immature Granulocyte Absolute 0.32 K/mm3 (0.00-0.031); Immature Granulocyte Percent A 3.9 % (0-0.5); Lymphocytes Absolute Auto 0.79 K/mm3 (0.9-3.2); Lymphocytes Percent Auto 9.6 % (18.3-44.2); Mean Corpuscular HGB Conc 31.2 g/dl (32-36); Mean Corpuscular Hemoglobin 26.9 pg (26-34); Mean Corpuscular Volume 86.3 fl (80-100); Mean Platelet Volume 9.8 fl (7.4-10.4); Monocytes Absolute Auto 0.7 K/mm3 (0.1-0.6); Monocytes Percent Auto 8.9 % (2.6-8.5); Neutrophils Absolute Auto 5.9 K/mm3 (1.3-6.7); Platelet Count Result 268 k/mm3 (150-375); Red Blood Count 4.09 M/mm3 (4.6-6.20); Red Cell Distribution Width 16.3 % (11.5-14.5); White Blood Count 8.2 K/mm3 (4.5-10.0)
[2025-03-11 06:33] LABS: Alanine Aminotransferase 23 U/L (6-50); Albumin Level 3.5 g/dL (3.5-5.1); Alkaline Phosphatase 78 U/L (38-126); Anion Gap 12 mmol/L (4-12); Aspartate Amino Transferase 26 U/L (17-59); Bilirubin,Total 0.7 mg/dL (0.2-1.3); Blood Urea Nitrogen 21 mg/dL (9-20); Carbon Dioxide 19 mmol/L (22-30); Chloride 103 mmol/L (98-107); Estimated CRCL calculation 37 ml/min; Estimated Glomerular Filt Rate 44; Glucose 82 mg/dL (65-110); Potassium 3.9 mmol/L (3.4-5.0); Sodium 134 mmol/L (137-145); Total Protein 6.4 g/dL (6.3-8.2)
[2025-03-11 07:34] LABS: Glucose Point of Care 88 mg/dl (65-105)
[2025-03-11] MEDS: polyethylene glycoL 3350 17 GM POWD.PACK PO (08:41)
[2025-03-11] MEDS: ATORVASTATIN 40 MG TABLET PO (08:42)
[2025-03-11] MEDS: EMPAGLIFLOZIN 10 MG TABLET PO (08:42)
[2025-03-11] MEDS: allopurinoL 100 MG TABLET PO (08:42)
[2025-03-11] MEDS: IRON SUCROSE COMPLEX 400 MG, IRON SUCROSE COMPLEX 100 MG in SODIUM CHLORIDE 0.9% IV 250 ML 78.57 MG IVPB (10:24)
[2025-03-11 11:15] LABS: Glucose Point of Care 104 mg/dl (65-105)
--- NOTE | 2025-03-11 15:37 | PM.DS ---
DS: Admitting Diagnosis Discharge Date 03/11/25 Admitting Diagnosis Syncope. DS: Discharge Diagnosis Discharge Diagnosis (1) Syncope: Code(s): R55 - Syncope and collapse Status: Acute DS: Summary Hospital Course Hospital Course: This is an 84-year-old male with history of hypertension, hyperlipidemia, asthma with COPD, chronic kidney disease, type 2 diabetes mellitus, restless leg syndrome, and bladder cancer status post radical cystoprostatectomy with ileal conduit in 2009 who presented to the emergency department for evaluation after syncopal episode. In the ED: Vital signs on arrival include temperature 97.9?, blood pressure 119/61, pulse 83, respiratory 20, SpO2 98% on room air. Labs are significant for a WBC count of 10.8, hemoglobin 10.0, sodium 129, carbon dioxide 21, BUN 32, creatinine 1.72, glucose 135. Urinalysis was positive for 1+ protein, 2+ glucose, 3+ blood, 3+ leukocyte esterase, 3 to 5 RBC, greater than 100 WBC, and WBC clumps with rare bacteria. Head CT and chest x-ray were without acute findings. Orthostatic vital signs were unremarkable. He was given ceftriaxone 1 g for suspected urinary tract infection and a 2 L normal saline bolus. He is being admitted in this setting for further workup and close monitoring. CT head, Carotid duplex and CXR unremarkable; ECHo showed grade I diastoluc dysfunction with normal EF. orthostatic vital signs today negative. cardiology evaluated adn noted that syncope is non cardiac related. Hyponatremia resolved Also managed for iron deficiency anemia and received 1000mg IV iron. patient is known to her [facility] oncologist and Urologist to have lung and kidney masses and she already had lung biopsy and will follow up on Sunday. ALso follows with urology at [facility] for bladder ca and has follow up scheduled. Our oncology and urology were consulted who confirmed the aforementioned care existence F/u with PCP in 3-5 days, F/u with Urology and Oncology as instructed Time Spent with Patient Time attestation: Total time spent providing and/or coordinating discharge services: DS: Data Data Completed and Pending Labs on day of discharge: Labs from last 24 hours 03/11/25 03/11/25 03/11/25 11:05 07:28 05:20 WBC 8.2 RBC 4.09 L Hgb 11.0 L Hct 35.3 L MCV 86.3 MCH 26.9 MCHC 31.2 L RDW 16.3 H Plt Count 268 MPV 9.8 Immature Gran % (Auto) 3.9 H Neut % (Auto) 72.0 Lymph % (Auto) 9.6 L Parker % (Auto) 8.9 H Eos % (Auto) 4.4 Baso % (Auto) 1.2 Lymph # (Auto) 0.79 L Parker # (Auto) 0.7 H Eos # (Auto) 0.4 H Baso # (Auto) 0.1 Abs Immat Gran (auto) 0.32 H Absolute Neuts (auto) 5.9 Absolute Nucleated RBC 0.000 Nucleated RBC % 0.0 Sodium 134 L Potassium 3.9 Chloride 103 Carbon Dioxide 19 L Anion Gap 12 BUN 21 H Creatinine 1.51 H Estim Creat Clear Calc 37 Estimated GFR 44 L Glucose 82 POC Capillary Glucose 104 88 Serum Osmolality Calcium 9.0 Total Bilirubin 0.7 AST 26 ALT 23 Alkaline Phosphatase 78 Total Protein 6.4 Albumin 3.5 Urine Osmolality 03/10/25 03/10/25 03/10/25 20:10 16:08 16:06 WBC RBC Hgb Hct MCV MCH MCHC RDW Plt Count MPV Immature Gran % (Auto) Neut % (Auto) Lymph % (Auto) Parker % (Auto) Eos % (Auto) Baso % (Auto) Lymph # (Auto) Parker # (Auto) Eos # (Auto) Baso # (Auto) Abs Immat Gran (auto) Absolute Neuts (auto) Absolute Nucleated RBC Nucleated RBC % Sodium Potassium Chloride Carbon Dioxide Anion Gap BUN Creatinine Estim Creat Clear Calc Estimated GFR Glucose POC Capillary Glucose 106 H 113 H 108 H Serum Osmolality Calcium Total Bilirubin AST ALT Alkaline Phosphatase Total Protein Albumin Urine Osmolality 03/09/25 03/09/25 05:46 03:24 WBC RBC Hgb Hct MCV MCH MCHC RDW Plt Count MPV Immature Gran % (Auto) Neut % (Auto) Lymph % (Auto) Parker % (Auto) Eos % (Auto) Baso % (Auto) Lymph # (Auto) Parker # (Auto) Eos # (Auto) Baso # (Auto) Abs Immat Gran (auto) Absolute Neuts (auto) Absolute Nucleated RBC Nucleated RBC % Sodium Potassium Chloride Carbon Dioxide Anion Gap BUN Creatinine Estim Creat Clear Calc Estimated GFR Glucose POC Capillary Glucose Serum Osmolality 289 Calcium Total Bilirubin AST ALT Alkaline Phosphatase Total Protein Albumin Urine Osmolality 234 Preliminary micro results at discharge 03/09/25 01:20 Blood Culture - Preliminary Blood 03/09/25 01:20 Blood Culture - Preliminary Blood Discharge Plan Discharge Attending physician on discharge: Rebecca Bullock Consulting providers: Rome Oden; Curly Casanova; Ruchi Hobson Discharging Clinician: Rebecca Bullock Anticipated Discharge Date/Time: 03/11/25 15:23 Patient Disposition: Home Activity: as tolerated Diet: as tolerated and diabetic Patient Instructions: Antibiotic Form Patient Language: Romanian Stand Alone Forms: General Discharge Information Follow-up/Referrals: Curly Casanova MD [Physician] - (F/u with oncology as instructed ) Rome Oden MD [Physician] - (F/u with cardiology as instructed ) Ruchi Hobson, CIRCULAR KNIFE CUTTER MACHINE-C [Advanced Practice Nurse] - (F/u with cardiology as instructed ) Deepika Guerrero, HAND CIGAR MAKING SUPERVISOR-C [Primary Care Provider] - (F/u with PCP in 3-5 days ) Discharge Medications: New diltiazem HCl [Cardizem CD] 120 mg capsule,extended release 24hr 120 mg PO DAILY 30 Days Qty: 30 1RF Continued ergocalciferol (vitamin D2) 1,250 mcg (50,000 unit) capsule 50,000 unit PO WEEKLY Qty: 12 1RF clobetasol 0.05 % cream 1 applic topical DAILY PRN (Reason: dry skin on hands) Qty: 30 1RF allopurinol 100 mg tablet 100 mg PO DAILY Qty: 90 3RF Rx Instructions: start 6 days after starting the colchicine fluticasone propion-salmeterol [Wixela Inhub] 500-50 mcg/dose blister with device 1 inh inhalation Q12H Qty: 60 12RF Rx Instructions: rinse and spit Jardiance 10 mg tablet 10 mg PO DAILY Qty: 90 1RF latanoprost 0.005 % drops 1 drp EACH EYE HS brimonidine [Alphagan P] 0.1 % drops 1 drp EACH EYE BID hydrochlorothiazide 12.5 mg capsule 12.5 mg PO DAILY Qty: 30 11RF amlodipine 10 mg tablet See Rx Instructions .ROUTE .COMPLEX Qty: 90 3RF Dose Instruction: TAKE 1 TABLET(10 MG) BY MOUTH 1 TIME EACH DAY Rx Instructions: TAKE 1 TABLET(10 MG) BY MOUTH 1 TIME EACH DAY albuterol sulfate 90 mcg/actuation HFA aerosol inhaler 1 - 2 puff INHALATION Q4-6H PRN (Reason: Shortness Of Breath Or Wheezing) Qty: 8.5 5RF perindopril erbumine 8 mg tablet See Rx Instructions .ROUTE .COMPLEX Qty: 180 3RF Dose Instruction: TAKE 1 TABLET BY MOUTH TWICE DAILY Rx Instructions: TAKE 1 TABLET BY MOUTH TWICE DAILY ropinirole 2 mg tablet See Rx Instructions .ROUTE .COMPLEX Qty: 90 1RF Dose Instruction: TAKE 1 TABLET BY MOUTH EVERY DAY AT BEDTIME Rx Instructions: TAKE 1 TABLET BY MOUTH EVERY DAY AT BEDTIME atorvastatin 40 mg tablet 40 mg PO DAILY Qty: 90 1RF pregabalin 75 mg capsule 75 mg PO BID Qty: 180 1RF tramadol 50 mg tablet 50 mg PO Q12H PRN (Reason: pain) Qty: 20 0RF Patient Comments: taking routinely at home Discontinued diltiazem HCl 240 mg capsule,extended release 24hr 240 mg PO DAILY Qty: 30 11RF Date of admission: 03/10/25 10:07 Primary Care Provider: Deepika Guerrero Admitting Provider: Ryan Davidson Attending physician on admission: Ryan Davidson Condition: Stable
[2025-03-11 16:31] LABS: Glucose Point of Care 98 mg/dl (65-105)
== END 2025-03-11 16:52 | disposition home or self-care (01) | DRG 312 ==
LOC: ANHED 20:55 → ANH3MEDSUR 03-09 01:03
PROVIDERS: Nurse Practitioner Family; Physician Assistant; Admitting Provider General Practice; Emergency Provider Registered Nurse; PCP Clinical Nurse Specialist; Visit Provider Internal Medicine
DX: I95.1 Orthostatic hypotension (principal); E87.1 Hypo-osmolality and hyponatremia; M47.16 Other spondylosis with myelopathy, lumbar region; N13.30 Unspecified hydronephrosis; N28.89 Other specified disorders of kidney and ureter; R91.8 Other nonspecific abnormal finding of lung field; R82.81 Pyuria; R31.0 Gross hematuria; D50.9 Iron deficiency anemia, unspecified; J44.9 Chronic obstructive pulmonary disease, unspecified; E11.22 Type 2 diabetes mellitus with diabetic chronic kidney disease; I12.9 Hypertensive chronic kidney disease with stage 1 through stage 4 chronic kidney disease, or unspecified chronic kidney disease; N18.32 Chronic kidney disease, stage 3b; G25.81 Restless legs syndrome; E03.9 Hypothyroidism, unspecified; H40.9 Unspecified glaucoma; E78.2 Mixed hyperlipidemia; M16.0 Bilateral primary osteoarthritis of hip; Z96.651 Presence of right artificial knee joint; Z85.51 Personal history of malignant neoplasm of bladder; Z87.891 Personal history of nicotine dependence
CPT/HCPCS: 36415; 70450; 71045; 80048; 80053; 81001; 82570; 82607; 82728; 82746; 82948; 83036; 83540; 83550; 83605; 83735; 83930; 83935; 84300; 84443; 84540; 85025; 85610; 85730; 86140; 87040; 87086; 93306; 93880; 96361; 96365; 96375; 97161; 97165; 99285; A9270; G0378; J0696; J1756; J7030; J7050

== ENCOUNTER 2025-06-04 09:06 | Outpatient (CLI) | payer MEDICARE, SELFPAY ==
--- NOTE | ~2025-06-04 | XR_ITS ---
XR lumbar spine 2-3V Indication: Radiculopathy, lumbar region, no inj, no fall, no surg 2 mon Comparison: None Findings: Dextroconvex scoliosis. Moderate loss of vertebral height. Grade 1 anterolisthesis of L5 on S1, no fracture. Moderate to severe loss of disc height throughout. Soft tissues unremarkable Impression: No acute abnormality. Reviewed, dictated and finalized at location A. Impression: No acute abnormality.
== END 2025-06-04 09:07 | disposition home or self-care (01) ==
LOC: GOSHIMG 09:07
PROVIDERS: PCP Internal Medicine; Visit Provider Clinical Nurse Specialist
DX: M54.16 Radiculopathy, lumbar region (principal)
CPT/HCPCS: 72100

== ENCOUNTER 2025-06-05 08:21 | Outpatient (CLI) | payer MEDICARE, SELFPAY ==
--- OUTSIDE RECORDS SUMMARY | 2025-06-05 08:25 | XMS_ITS | Clinical Summary ---
Author Organization [facility] Address [address] [address] Phone Care Team Providers Care Retort Fireman Name Role Phone Alexa Costa MD Primary Care Provider [phone] Allergies No known active allergies Medications albuterol [...] 1 Active ergocalciferol (VITAMIN D2) 1.25 MG (34648 UT) capsule TAKE 1 CAPSULE ONCE WEEKLY [...] and Medium Risk (2 of 3 - PCV20 or PCV21) 05/25/2020 05/25/2019 Influenza Vaccine (#1) 2025 05/25/2021 Insurance [employer] MEDICARE Care Teams Retort Fireman Relationship Specialty Start Date End Date Alexa Costa MD [address] [place] [phone] PCP - General Family Medicine 11/07/21
--- OUTSIDE RECORDS SUMMARY | 2025-06-05 08:25 | XMS_ITS | Encounter Summary ---
Author Organization [facility] Address [address] [place] [address] Phone Care Team Providers Care Cab Worker Name Role Phone Deepika Guerrero NP Unavailable [phone] Deepika Guerrero NP Primary Care Provider [phone] Raghav Andre MD Unavailable [phone] Ton Finney DO Unavailable [phone] Van Lau MD Unavailable [phone] Encounter Details Date Type Department Care Team (Late st Contact Info) Description 05/13/2025 Results Follow-Up [facility] ([facility]) - [facility] Medicine Urology [facility] Advanced Medicine 11th [place] [address] [place] [id number] Trinity Paul MD [address] [facility] [address] [place] [address] Cytology Social History Tobacco Use Types Packs/Day Years Used Date Smoking Tobacco: Never Passive Smoke Exposure: Never Smokeless Tobacco: Never AUDIT-C Answer Date Recorded Q1: How often do you have a drink containing alcohol? 4 or more times a week 04/15/2025 Q2: How many drinks containi ng alcohol do you have on a typical day when you are drinking? 1 or 2 Q3: How often do you have si x or more drinks on one occasion? Never 04/15/2025 Personal Safety Answer Date Recorded Have you ever been in or are you currently in a harmful physical or emotional relationship or is someone making you feel afraid or unsafe? 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 Not on file Not on file Not on file documented as of this encounter Plan of Treatment Not on file documented as of this encounter Visit Diagnoses Not on filedocumented in this encounter Care Teams Cab Worker Relationship Specialty Start Date End Date Deepika Guerrero NP [address] [place] [address] [address] [place] [address] PCP - General Cardiovascular Disease 02/13/25 Deepika Guerrero NP [address] [place] [address] [address] [place] [address] Nurse Practitioner Cardiovascular Disease 02/12/25 Raghav Andre MD [address] [place] [address] Consulting Physician Urology 02/24/25 Ton Finney DO [address] [place] [address] MEDICAL ONCOLOGY, [facility] [address] [place], [place] [id number] Medical Oncologist/Hematologis t Hematology and Oncology 03/31/25 Van Lau MD [address] [place] [address] [address] [place], [place] [id number] Radiation Oncologist Radiation Oncology 04/09/25 documented as of this encounter
--- OUTSIDE RECORDS SUMMARY | 2025-06-05 08:25 | XMS_ITS ---
Author Organization [facility] Address [address] [place] [address] Care Team Providers Care Wheel Cutter Name Role Phone Deepika Guerrero NP Unavailable [phone] Deepika Guerrero NP Primary Care Provider [phone] Raghav Andre MD Unavailable [phone] Ton Finney DO Unavailable [phone] Van Lau MD Unavailable [phone] Active Problems Patient Care Coordination No te Formatting of this note migh t be different from the original. Referring provider: Dr. Raghav Andre Mr. Kevin Figueredo is an 84-year-old with a lung nodule. [...] surgical evaluation. 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 Pembrolizumab 21 Day Cycles* Plan Start Date:04/08/2025 Plan Provider:Ton Finney DO Linked Problems Malignant neoplasm of overla pping sites of bladder (HCC) Treatment Medications Current Day (Day 1 , Cycle 4 - Planned for 06/18/2025) Next Day (Day 1, Cycle 5 - Planned for 07/09/2025) pembrolizumab (KEYTRUDA)pembrolizumab (KEYTRUDA) IVPB in 100 mL pembrolizumab (KEYTRUDA) 200 mg in sodium chloride 0.9% 100 mL pembrolizumab (KEYTRUDA) 200 mg in sodium chloride 0.9% 100 mL Past Treatment and Therapy Plans No past plan information found. Current Radiation Episodes * Radiation Oncology - Radiation Therapy - February 2025Overview* First Treatment Date Latest Treatment Date Treatment Site Technique Goal Episode Provider 04/20/2025 04/29/2025 Van Lau MD Treatment Courses* Course [id number]/20/2025 - 04/29/2025 Treatment Period Fraction Dose Fractions Total Dose Plans Planned Left Lung 04/20/2025 - 04/29/2025 750 8 / 6 ,000 Reference Points Delivered [id number]_6000 04/20/2025 - 04/29/2025 6,000 Lifetime Dose Tracking * Chemical Lifetime Dose Automatic Entry Manual Entr y Fluoro Time 0.832 minutes 0.832 minutes 0 minutes Air kerma at the reference point (Ka,r) 11.31 mGy 1 1.31 mGy 0 mGy
--- OUTSIDE RECORDS SUMMARY | 2025-06-05 08:25 | XMS_ITS | Encounter Summary ---
Author Organization [facility] Address [address] [facility] [address] [place] [address] Phone Care Team Providers Care Engraver Wood Name Role Phone Deepika Guerrero NP Unavailable [phone] Deepika Guerrero NP Primary Care Provider [phone] Raghav Andre MD Unavailable [phone] Ton Finney DO Unavailable [phone] Van Lau MD Unavailable [phone] Encounter Details Date Type Department Care Team (Late st Contact Info) Description 04/23/2025 Results Follow-Up 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 on file Not on file Not on file documented as of this encounter Plan of Treatment Not on file documented as of this encounter Visit Diagnoses Not on filedocumented in this encounter Care Teams Engraver Wood Relationship Specialty Start Date End Date Deepika Guerrero NP [address] [place] [address] [address] [place] [address] PCP - General Cardiovascular Disease 02/13/25 Deepika Guerrero NP [address] [place] [address] [address] [place] [address] Nurse Practitioner Cardiovascular Disease 02/12/25 Raghav Andre MD [address] [place] [address] Consulting Physician Urology 02/24/25 Ton Finney DO [address] [place] [address] MEDICAL ONCOLOGY, [email or web address] [address] [place], [place] [phone] Medical Oncologist/Hematologis t Hematology and Oncology 03/31/25 Van Lau MD [address] [place] [address] [address] [place], [place] [id number] Radiation Oncologist Radiation Oncology 04/09/25 documented as of this encounter
--- OUTSIDE RECORDS SUMMARY | 2025-06-05 08:25 | XMS_ITS | Encounter Summary ---
Author Organization [facility] Address [address] [place] [address] Phone Care Team Providers Care Naval Marine Engineer Name Role Phone Deepika Guerrero NP Unavailable [phone] Deepika Guerrero NP Primary Care Provider [phone] Raghav Andre MD Unavailable [phone] Ton Finney DO Unavailable [phone] Van Lau MD Unavailable [phone] Encounter Details Date Type Department Care Team (Late st Contact Info) Description 04/22/2025 Results Follow-Up [facility] Advanced Medicine (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 Not on file Not on file documented as of this encounter Plan of Treatment Not on file documented as of this encounter Visit Diagnoses Not on filedocumented in this encounter Care Teams Naval Marine Engineer Relationship Specialty Start Date End Date Deepika Guerrero FIELD CROPS HARVEST MACHINE OPERATOR [address] [place] [address] [address] [place] [address] PCP - General Cardiovascular Disease 02/13/25 Deepika Guerrero, FIELD CROPS HARVEST MACHINE OPERATOR [address] [place] [address] [address] [place] [address] Nurse Practitioner Cardiovascular Disease 02/12/25 Raghav Andre MD [address] [place] [address] Consulting Physician Urology 02/24/25 Ton Finney DO [address] [place] [address] MEDICAL ONCOLOGY, [facility] [address] [place], [place] [id number] Medical Oncologist/Hematologis t Hematology and Oncology 03/31/25 Van Lau MD [address] [place] [address] [address] [place], [place] [id number] Radiation Oncologist Radiation Oncology 04/09/25 documented as of this encounter
--- OUTSIDE RECORDS SUMMARY | 2025-06-05 08:26 | XMS_ITS | Clinical Summary ---
Author Organization [facility] Address [address] [place] [address] Care Team Providers Care Academic Affairs Vice President Name Role Phone Deepika Guerrero NP Unavailable [phone] Deepika Guerrero NP Primary Care Provider [phone] Raghav Andre MD Unavailable [phone] Ton Finney DO Unavailable [phone] Van Lau MD Unavailable [phone] Allergies No known active allergies Medications albuterol HFA (PROVENTIL HFA,VENTOLIN HFA,PROAIR HFA) 90 mcg/actuation inhalerIndicati ons:Chronic Obstructive Pulmonary Disease Inhale 2 puffs every 6 (six) hours as needed for shortness of breath or wheezing 1 Active atorvastatin (LIPITOR) 40 mg tabletIndicatio ns:hyperlipidem ia Take 1 tablet (40 mg total) by mouth every evening 1 Active brimonidine (ALPHAGAN) 0.2 % ophthalmic solutionIndicat ions:open angle glaucoma Administer 1 drop into both eyes 2 (two) times a day 5 Active Jardiance 10 mg tabletIndicatio ns:type 2 diabetes mellitus Take 1 tablet (10 mg total) 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 5 Active pregabalin (LYRICA) 75 mg capsuleIndicati ons:Diabetic Peripheral Neuropathy Take 1 capsule (75 mg total) by mouth 2 (two) times a day 1 Active rOPINIRole (REQUIP) 2 mg tabletIndicatio ns:Restless Legs Syndrome Take 1 tablet (2 mg total) by mouth every evening 1 Active traMADoL (ULTRAM) 50 mg tabletIndicatio ns:Neuropathic Pain Take 1 tablet (50 mg total) by mouth every 6 (six) hours as needed for pain Usually takes twice a day 5 Active latanoprost (XALATAN) 0.005 % ophthalmic solutionIndicat ions:open angle glaucoma Administer 1 drop into both eyes every evening Active Trelegy Ellipta 200-62.5-25 mcg inhalerIndicati ons:Maintenance Therapy for Asthma Inhale 1 puff every morning 5 Active perindopril (ACEON) 8 mg tabletIndicatio ns:hypertension Take 1 tablet (8 mg total) by mouth 2 (two) times a day 5 Active calcium carbonate (TUMS) 500 mg (200 mg elemental calcium) chewable tabletIndicatio ns:Heartburn Take 2 tablet/chew tab (1,000 mg total) by mouth as needed for indigestion or heartburn Active CE-BM-swqgxwioj citrate 10-100-85 mg/5 mL liquidIndicatio ns:constipation Take 5 mL by mouth as needed (Constipation) Active docusate sodium (COLACE) 50 mg capsuleIndicati ons:constipatio n Take 1 capsule (50 mg total) by mouth as needed for constipation Active acetaminophen (TYLENOL) 500 mg tabletIndicatio ns:Pain Take 2 tablets (1,000 mg total) by mouth every 6 (six) hours as needed for pain Active Active Problems Patient Care Coordination No te [...] of bladder cancer 03/13/2025 Lung nodule 02/26/2025 Encounters Date Type Department Care Team Description 05/28/2025 9:00 AM CDT Infusion [facility] at [address] [place] [address] Malignant neoplasm of overlapping sites of bladder (HCC) (Primary Dx) 05/28/2025 8:30 AM CDT Office Visit [facility] [address] [place] [address] [address] [place] [address] Ton Finney, DO Malignant neoplasm of overlapping sites of bladder (HCC) (Primary Dx) 05/28/2025 8:00 AM CDT Lab [facility] at [address] [address] Malignant neoplasm of overlapping sites of bladder (HCC) 05/28/2025 Orders Only [facility] [address] [place] [address] [address] [place] [address] Ton Finney DO 05/20/2025 Orders Only [facility] [address] [place] [address] [address] [place] [phone] Raghav Andre MD Mass of ureter (Primary Dx) 05/20/2025 Orders Only [facility] [address] [place] [address] [address] [place] [phone] Raghav Andre MD Mass of ureter (Primary Dx) 05/19/2025 Orders Only [facility] [address] [place] [address] [address] [place] [phone] Raghav Andre MD Ureteral mass (Primary Dx) 05/18/2025 9:20 AM CDT Office Visit [facility] [address] [place] [phone] Raghav Andre MD Ureter cancer, left (HCC) (Primary Dx) 05/13/2025 Results [facility] - [facility] Medicine Urology [address] [place] [address] for Advanced Medicine 11th [place] [address] [place] [address] Trinity Paul MD Cytology 05/07/2025 8:30 AM CDT Infusion [facility] at [address] [phone] Malignant neoplasm of overlapping sites of bladder (HCC) (Primary Dx) 05/07/2025 8:00 AM CDT Lab [facility] at [address] [address] Malignant neoplasm of overlapping sites of bladder (HCC) 05/06/2025 [facility] Only [facility] [address] [place] [address] [address] [place] [address] Ton Finney DO 05/06/2025 Orders Only [facility] [address] [place] [address] [address] [place] [address] Astrid Davis RN 04/30/2025 7:35 AM CDT Anesthesia Event [facility] Operating Room [address] [place] [address] Yanelis Chu MD McKenzie, Kerry A., NP 04/30/2025 7:30 AM CDT - 04/30/2025 10:05 AM CDT Surgery [facility] Operating Room [address] [place] [address] Trinity Paul MD URETEROSCOPY 04/30/2025 5:52 AM CDT - 04/30/2025 9:56 AM CDT Hospital Encounter [facility] Operating Room [address] [place] [address] Trinity Paul MD Renal stones Discharge Disposition: Discharge to home or self care 04/29/2025 7:[address] [facility] Medical Office Building 2 Radiation Oncology [address] [place] [address] Van Lau MD Laduzinsky, Susan J., MD 04/29/[address] [facility] Medical Office Building 2 Radiation Oncology [address] [place] [address] Van Lau MD 04/29/2025 Orders Only RAD ONC TREATMENTS Miscellaneous, Not In File 04/28/2025 7:[address] [facility] Medical Office Building 2 Radiation Oncology [address] [place] [address] Peggy Calhoun MD 04/28/2025 Orders Only RAD ONC TREATMENTS Miscellaneous, Not In File 04/27/2025 7:[address] [facility] Medical Office Building 2 Radiation Oncology [address] [place] [address] Peggy Calhoun MD 04/27/2025 Orders Only RAD ONC TREATMENTS Miscellaneous, Not In File 04/24/2025 7:[address] [facility] Medical Office Building 2 Radiation Oncology [address] [place] [address] Van Lau MD 04/24/[address] [facility] Medical Office Building 2 Radiation Oncology [address] [place] [address] Van Lau MD 04/24/2025 Orders Only RAD ONC TREATMENTS Miscellaneous, Not In File 04/23/2025 7:[address] [facility] Medical Office Building 2 Radiation Oncology [address] [place] [address] Alon Almanza MD 04/23/2025 Results Follow-Up [facility] [address] [place] [address] [address] [place] [address] Raghav Andre MD MRI Abdomen Kidney W WO Contrast 04/23/2025 Orders Only RAD ONC TREATMENTS Miscellaneous, Not In File 04/22/2025 7:[address] [facility] Medical Office Building 2 Radiation Oncology [address] [place] [address] Peggy Calhoun MD 04/22/2025 Orders Only [facility] [address] [place] [address] [address] [place] [address] Trinity Paul MD Acute UTI (Primary Dx) 04/22/2025 Results Follow-Up [facility] ([facility]) - [facility] Medicine Urology [address] [place] [address] Advanced Medicine 11th [place] [address] [place] [address] Trinity Paul MD Urinalysis reflex to microscopic and culture Urine, clean voided, Urinalysis, microscopic only, Urine culture Urine, clean voided 04/22/2025 Orders Only RAD ONC TREATMENTS Miscellaneous, Not In File 04/21/2025 9:[address] [facility] Medical Office Building 2 Radiation Oncology [address] [place] [address] 04/21/2025 Orders Only RAD ONC TREATMENTS Miscellaneous, Not In File 04/20/2025 2:22 PM CDT - 04/20/2025 11:59 PM CDT Hospital Encounter [facility] Medical Office Building [address] [place] [address] Renal stones Discharge Disposition: Discharge to home or self care 04/20/2025 12:15 PM CDT Treatment [facility] Office Building 2 Radiation Oncology [address] [place] [address] Van Lau MD 04/20/2025 12:[address] 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 Medical Office Building 2 Radiation Oncology [address] [place] [address] 04/15/2025 8:00 AM CDT Pre-Admission Testing [facility] Center for Preoperative Assessment and Planning [facility] ([facility]) [address] [place] [address] Preoperative testing (Primary Dx); Renal stones 04/09/2025 2:[address] [facility] Medical Office Building 2 Radiation Oncology [address] [place] [address] Van Lau MD 04/09/2025 1:[address] [facility] Medical Office Building 2 Radiation Oncology [address] [place] [address] Van Lau MD Malignant neoplasm of left lung, unspecified part of lung (HCC) 04/09/2025 11:30 AM CDT Infusion [facility] at [address] [place] [phone] Malignant neoplasm of overlapping sites of bladder (HCC) (Primary Dx) 04/09/2025 11:00 AM CDT Lab [facility] at [address] [address] Malignant neoplasm of overlapping sites of bladder (HCC) 04/08/2025 Orders Only [facility] [address] [place] [phone] Ton Finney DO 04/07/2025 7:26 AM CDT - 04/07/2025 11:59 PM CDT Hospital Encounter [facility] [address] [place] [address] Renal mass Discharge Disposition: Discharge to home or self care 04/06/2025 Documentation [facility] [address] [place] [address] Advanced Medicine 11th [place] [address] [place] [address] Trinity Paul MD 04/06/2025 Orders Only [facility] [address] [place] [address] [address] [place] [address] Zahira Schaeffer RN 04/03/2025 9:00 AM CDT [facility] [address] [place] [address] [address] [place] [address] Ton Finney DO Malignant neoplasm of overlapping sites of bladder (HCC) (Primary Dx); Malignant neoplasm of left lung, unspecified part of lung (HCC) 04/01/2025 9:20 AM CDT Office Visit [facility] [address] [facility] [address] [place] [phone] Raghav Andre MD Mass of ureter (Primary Dx) 03/30/2025 Orders Only [facility] Surgery [facility] [facility] [address] [place] [address] Raghav Andre MD 03/30/2025 Telephone [facility] [address] [place] [address] Jennifer Arrington 03/18/2025 Orders Only [facility] Group Cardiology [address] [place] [address] Ruchi Hobson, CARLOS 03/16/[address] [facility] Medical Office Building 2 Radiation Oncology [address] [place] [address] Tiffanie Pack MA 03/13/2025 3:30 PM CDT Office Visit [facility] [facility] [address] [place] [phone] Ton Finney DO Mass of ureter (Primary Dx); History of bladder cancer; Malignant neoplasm of left lung, unspecified part of lung (HCC) 03/09/2025 Telephone [facility] Medicine Surgery [address] [facility] Floor 5 [place] [address] Christine Johnson, CARLOS 03/09/2025 Telephone [facility] [address] [place] [address] Lauren Christopher 03/08/2025 - 03/08/2025 11:59 PM CDT Hospital Encounter [facility] [employer] [address] [place] [address] Discharge Disposition: Discharge to home or self care from Last 3 Months Surgical History Surgery Date Site/Laterality Comments PROSTATE BIOPSY 09/24/2008 - 10/24/2008 HERNIA REPAIR 09/24/2009 - 09/23/2010 BLADDER FULGURATION 09/24/2008 - 10/24/2008 LUNG BIOPSY 02/22/2025 - 03/23/2025 Medical History Medical History Date Comments Bladder cancer (HCC) Asthma Hypertension Type 2 diabetes mellitus Osteoarthritis Tinnitus Family History Medical History Relation Name Comments No Known Problems Brother No Known Problems Father No Known Problems Maternal Grandfather No Known Problems Maternal Grandmother No Known Problems Mother No Known Problems Paternal Grandfather No Known Problems Paternal Grandmother Relation Name Status Comments Brother Alive Father Maternal Grandfather Maternal Grandmother Mother Paternal Grandfather Paternal Grandmother Social History Tobacco Use Types Packs/Day Years [...] on file Legal Sex 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 Gender Identity Not on file Sexual Orientation Not on file 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 Not on file Not on file Not on file Obstetrics History Last Filed Vital Signs Vital Sign Reading Time Taken Comments Blood Pressure 113/63 05/28/2025 8:28 AM CDT Pulse 102 05/28/2025 8:28 AM CDT Temperature 36.4 C (97.6 F) 05/28/2025 8:28 AM CDT Respiratory Rate 18 05/28/2025 8:28 AM CDT Oxygen Saturation 98% 05/28/2025 8:28 AM CDT Inhaled Oxygen Concentration - - Weight 73.2 kg (161 lb 6 oz) 05/28/2025 8:28 AM CDT no shoes Height 182.9 cm (6') 05/18/2025 9:08 AM CDT Body Mass Index 21.89 05/18/2025 9:08 AM CDT Plan of Treatment Health Maintenance Due Date Last Done Comments Depression Screening 1941 Hepatitis B Screening 1958 Well Visit 65+ 2006 DTaP/Tdap/Td Vaccine (1 - Tdap) 11/06/2017 11/05/2017, 09/19/2007, 07/08/1996 Zoster Vaccine (1 of 2) 06/03/2018 04/08/2018, 02/22 Covid-19 Vaccine (6 - 2024-2 6 season) 2025 05/21/2023, 06/14/2022, 08/13/2021, Additional history exists Influenza Vaccine (#1) 2025 , 05/21/2023, 06/14/2022, Additional history exists Fall Risk Assessment 04/30/2026 04/30/2025, 04/09/20 Pneumococcal vaccine 65+ Completed 019, 11/04/2015, 07/09/2002 Medical Devices Implanted Type Area Director Facilities Maintenance Device Identifier Shelf Expiration Date Model / Serial / Lot Schrapnel Bilateral: Leg Procedures Procedure Name Priority Date/Time Associated Diagnosis Comments EGFR STAT 05/28/2025 8:15 AM CDT Malignant neoplasm of overlapping sites of bladder (HCC) DIFFERENTIAL AUTO Routine 05/28/2025 8:1 5 AM CDT Malignant neoplasm of overlapping sites of bladder (HCC) COMPREHENSIVE METABOLIC PANEL STAT 05/28/2025 8:15 AM CDT Malignant neoplasm of overlapping sites of bladder (HCC) CBC WITH AUTO DIFFERENTIAL Routine 05/28/2025 8:15 AM CDT Malignant neoplasm of overlapping sites of bladder (HCC) EGFR STAT 05/07/2025 7:45 AM CDT Malignant neoplasm of overlapping sites of bladder (HCC) DIFFERENTIAL AUTO Routine 05/07/2025 7:4 5 AM CDT Malignant neoplasm of overlapping sites of bladder (HCC) COMPREHENSIVE METABOLIC PANEL STAT 05/07/2025 7:45 AM CDT Malignant neoplasm of overlapping sites of bladder (HCC) CBC WITH AUTO DIFFERENTIAL Routine 05/07/2025 7:45 AM CDT Malignant neoplasm of overlapping sites of bladder (HCC) POCT GLUCOSE DEVICE Routine 04/30/2025 9 :28 AM CDT FL FLUOROSCOPY < 1 HOUR IP Routine 04/30/2025 9:06 AM CDT CYTOLOGY Routine 04/30/2025 8:29 AM CDT Renal stones [place] AN PROCEDURE PLACEHOLDER Routine 04/30/2025 8:01 AM CDT [place] AN ELECTIVE ENDOTRACHEAL AIRWAY Routine 04/30/2025 8:01 AM CDT ILEO CONDUIT 04/30/2025 7:35 AM CDT Renal stones Case Notes 04/15@1142- procedure not found- placed case in the depot and sent email to RS nurse (EF) PYELOGRAM - RETROGRADE 04/30/2025 7:35 AM CDT Renal stones Case Notes 7@1142- procedure not found- placed case in the depot and sent email to RS nurse (EF) BIOPSY - URETERAL 04/30/2025 7:3 5 AM CDT Renal stones Case Notes 7@1142- procedure not found- placed case in the depot and sent email to RS nurse (EF) URETEROSCOPY 04/30/2025 7:35 AM CDT Renal stones Case Notes 7@1142- procedure not found- placed case in the depot and sent email to RS nurse (EF) POCT GLUCOSE DEVICE Routine 04/30/2025 6 :39 AM CDT RAD ONC ARIA SESSION SUMMARY 04/29/2025 7:55 AM CDT RAD ONC ARIA SESSION SUMMARY 04/28/2025 7:54 AM CDT RAD ONC ARIA SESSION SUMMARY 04/27/2025 8:01 AM CDT RAD ONC ARIA SESSION SUMMARY 04/24/2025 7:57 AM CDT RAD ONC ARIA SESSION SUMMARY 04/23/2025 7:54 AM CDT RAD ONC ARIA SESSION SUMMARY 04/22/2025 8:14 AM CDT RAD ONC ARIA SESSION SUMMARY 04/21/2025 9:48 AM CDT RAD ONC ARIA SESSION SUMMARY 04/20/2025 12:43 PM CDT URINALYSIS, MICROSCOPIC ONLY Routine 04/20/2025 11:14 AM CDT Renal stones URINE CULTURE Routine 04/20/2025 11:14 AM CDT URINALYSIS AND REFLEX TO MICROSCOPIC AND CULTURE Routine 04/20/2025 11:14 AM CDT Renal stones POCT HEMOGLOBIN A1C Routine 04/15/2025 8 :12 AM CDT EGFR STAT 04/09/2025 10:36 AM CDT Malignant neoplasm of overlapping sites of bladder (HCC) DIFFERENTIAL AUTO Routine 04/09/2025 10:36 AM CDT Malignant neoplasm of overlapping sites of bladder (HCC) TSH Routine 04/09/2025 10:36 AM CDT Malignant neoplasm of overlapping sites of bladder (HCC) COMPREHENSIVE METABOLIC PANEL STAT 04/09/2025 10:36 AM CDT Malignant neoplasm of overlapping sites of bladder (HCC) CBC WITH AUTO DIFFERENTIAL Routine 04/09/2025 10:36 AM CDT Malignant neoplasm of overlapping sites of bladder (HCC) MRI ABDOMEN KIDNEY W WO CONTRAST Schedule Routine, Read Routine (OP Routine) 04/07/2025 9:01 AM CDT Renal mass CT HEAD WO CONTRAST Schedule Routine, Read Routine (OP Routine) 03/18/2025 3:25 PM CDT GATEWAYSEQ NGS WITH INTERPRETATION Routine 03/13/2025 4:26 PM CDT Malignant neoplasm of left lung, unspecified part of lung (HCC) CARDIOLOGY DOCUMENT SCAN Routine 03/10/2025 2:[address] OUTSIDE REFERENCE Routine 03/08/2025 12:00 AM CDT from Last 3 Months Results * (ABNORMAL) eGFR (05/28/2025 8:15 AM CDT) eGFR 42(L) >=60 mL/min/1. 73 m2 Comment: Interpretive Data [...] of Race in Diagnosing Kidney Disease, JASN 202). The CKD-EPI equation should not be used for patients with unstable renal function and has not been validated in children and those over 70. Current interpretive data was last reviewed 2021. Testing performed by: [facility], [address] [place] [address], [place]., [address] Blood 05/28/2025 8:15 AM CDT 05/28/2025 8:18 AM CDT us Ton Finney DO LAB BLOOD ORDERABLES Final R esult [facility] [address] [facility] Department [place] [address] * (ABNORMAL) Differential, auto (05/28/2025 8:15 AM CDT) Neutrophil abs 7.90(H) 1.50 - 6.50 K/cumm Comment:Testing performed by : [address] [address] Imm gran abs 0.13(H) 0.00 - 0.10 K/cumm BRADY Comment:Testing performed by : [address] [address] Lymphocyte abs 0.60(L) 0.80 - 3.30 K/cumm BRADY Comment:Testing performed by : [address] [address] Monocyte abs 0.87(H) 0.20 - 0.80 K/cumm [facility] Comment:Testing performed by : [address] [address] Eosinophil abs 0.33 0.00 - 0.50 K/cumm [facility] Comment:Testing performed by : [address] [address] Basophil abs 0.08 0.00 - 0.10 K/cumm [facility] Comment:Testing performed by : [address] [address] Neutrophil pct 79.7 % [facility] Comment: Interpretive Data Percent cell count reference ranges are not reported, since discordance with absolute values may lead to misinterpretation of CBC data. Current Interpretive Data was last revised on 2018. Testing performed by: [address] [address] Imm gran pct 1.3 % [facility] Comment: Interpretive Data Percent cell count reference ranges are not reported, since discordance with absolute values may lead to misinterpretation of CBC data. Current Interpretive Data was last revised on 2018. Testing performed by: [address] [address] Lymphocyte pct 6.1 % [facility] Comment: Interpretive Data Percent cell count reference ranges are not reported, since discordance with absolute values may lead to misinterpretation of CBC data. Current Interpretive Data was last revised on 2018. Testing performed by: [address] [address] Monocyte pct 8.8 % BRADY Comment: Interpretive Data Percent cell count reference ranges are not reported, since discordance with absolute values may lead to misinterpretation of CBC data. Current Interpretive Data was last revised on 2018. Testing performed by: [address] [address] Eosinophil pct 3.3 % BRADY Comment: Interpretive Data Percent cell count reference ranges are not reported, since discordance with absolute values may lead to misinterpretation of CBC data. Current Interpretive Data was last revised on 2018. Testing performed by: [address] [address] Basophil pct 0.8 % BR[facility]Y Comment: Interpretive Data Percent cell count reference ranges are not reported, since discordance with absolute values may lead to misinterpretation of CBC data. Current Interpretive Data was last revised on 2018. Testing performed by: [address] [address] Blood 05/28/2025 8:15 AM CDT 05/28/2025 8:18 AM CDT Ton Finney DO LAB BLOOD ORDERABLES Final R esult [facility] [address] [facility] Department of Laboratories [place], [place] [id number] * (ABNORMAL) CBC with auto differential (05/28/2025 8:15 AM CDT) WBC 9.91(H) 3.80 - 9.90 K/cumm Comment:Testing performed by : [address] [address] Hgb 10.8(L) 13.0 - 17.5 g/dL BRADY Comment:Testing performed by : [address] [address] Hct 33.7(L) 38.9 - 50.3 % BRADY Comment:Testing performed by : [address] [address] Plt 270 150 - 400 K/cumm BRADY Comment:Testing performed by : [address] [address] MPV 9.5 9.1 - 12.3 fL BRADY Comment:Testing performed by : [address] [address] RBC 4.26(L) 4.30 - 5.80 M/cumm BRADY Comment:Testing performed by : [address] [address] MCV 79.1(L) 81.3 - 96.4 fL BRADY Comment:Testing performed by : [address] [address] MCH 25.4(L) 27.1 - 33.3 pg BRADY Comment:Testing performed by : [address] [address] MCHC 32.0(L) 32.3 - 35.7 g/dL BRADY Comment:Testing performed by : [address] [address] RDW CV 18.9(H) 11.1 - 14.9 % BRADY Comment:Testing performed by : [address] [address] RDW SD 54.1(H) 35.7 - 48.1 fL BRADY Comment:Testing performed by : [address] [address] NRBC abs 0.00 0.00 - 0.01 K/cumm BRADY Comment:Testing performed by : [address] [address] ANC Prelim 7.90(H) 1.50 - 6.50 K/cumm BRADY Comment: Interpretive Data The rapid ANC is a preliminary automated count and may vary from the final ANC (Neut Abs) reported in the WBC differential that follows. Current interpretive data was last revised 2024. Testing performed by: [address] [address] Blood 05/28/2025 8:15 AM CDT 05/28/2025 8:18 AM CDT Ton Finney DO LAB BLOOD ORDERABLES Final R esult BRADY [address] [facility] Department [place] [address] * (ABNORMAL) Comprehensive metabolic panel (05/28/2025 8:15 AM CDT) Sodium 134(L) 135 - 145 mmol/L Comment:Testing performed by : [address] [address] Potassium, pl 4.4 3.3 - 4.9 mmol/L BRADY Comment:Testing performed by : [address] [address] Chloride 100 97 - 110 mmol/L BRADY Comment:Testing performed by : [address] [address] CO2 19(L) 22 - 32 mmol/L BRADY Comment:Testing performed by : [address] [address] Anion gap 15 2 - 15 mmol/L BRADY Comment:Testing performed by : [address] [address] BUN 30(H) 6 - 25 mg/dL BRADY Comment:Testing performed by : [address] [address] Creatinine 1.60(H) 0.80 - 1.30 mg/dL BRADY Comment:Testing performed by : [address] [address] Glucose 109 70 - 199 mg/dL BRADY Comment: Interpretive Data Fasting glucose >/= 126 [...] was last revised 2022. Testing performed by: [facility], [address] [place] [address]., [address] Calcium 9.4 8.5 - 10.3 mg/dL BRADY Comment:Testing performed by : [address] [address] Bilirubin, total 0.4 0.1 - 1.2 mg/dL BRADY Comment:Testing performed by : [address] [address] Protein, pl 6.8 6.5 - 8.5 g/dL BRADY Comment:Testing performed by : [address] [address] Albumin 3.7 3.5 - 5.0 g/dL BRADY Comment:Testing performed by : [address] [address] Alk phos 76 40 - 130 Units/L BRADY Comment:Testing performed by : [address] [address] ALT 16 7 - 55 Units/L BRADY Comment:Testing performed by : [address] [address] AST 15 10 - 50 Units/L BRADY Comment:Testing performed by : [address] [address] Blood 05/28/2025 8:15 AM CDT 05/28/2025 8:18 AM CDT us Ton Finney DO LAB BLOOD ORDERABLES Final R esult BRADY BERTRAND [address] [facility] Department of Laboratories [place], [place] [id number] * (ABNORMAL) eGFR (05/07/2025 7:45 AM CDT) [facility] eGFR 42(L) >=60 mL/min/1. 73 m2 Comment: Interpretive Data [...] was last reviewed 2021. Testing performed by: [address] [address] Blood 05/07/2025 7:45 AM CDT 05/07/2025 7:50 AM CDT us Ton Finney DO LAB BLOOD ORDERABLES Final R esult BRADY [address] [facility] Department [place] [address] * (ABNORMAL) Differential, auto (05/07/2025 7:45 AM CDT) Neutrophil abs 7.45(H) 1.50 - 6.50 K/cumm Comment:Testing performed by : [address] [address] Imm gran abs 0.23(H) 0.00 - 0.10 K/cumm BRADY BERTRAND Comment:Testing performed by : [address] [address] Lymphocyte abs 0.51(L) 0.80 - 3.30 K/cumm BRADY Comment:Testing performed by : [address] [address] Monocyte abs 0.70 0.20 - 0.80 K/cumm [facility] Comment:Testing performed by : [address], [place]., [address] Eosinophil abs 0.34 0.00 - 0.50 K/cumm [facility] Comment:Testing performed by : [address], [place]., [address] Basophil abs 0.06 0.00 - 0.10 K/cumm [facility] Comment:Testing performed by : [address] [address] Neutrophil pct 80.2 % [facility] Comment: Interpretive Data Percent cell count reference ranges are not reported, since discordance with absolute values may lead to misinterpretation of CBC data. Current Interpretive Data was last revised on 2018. Testing performed by: [address] [address] Imm gran pct 2.5 % [facility] Comment: Interpretive Data Percent cell count reference ranges are not reported, since discordance with absolute values may lead to misinterpretation of CBC data. Current Interpretive Data was last revised on 2018. Testing performed by: [address] [address] Lymphocyte pct 5.5 % [facility] Comment: Interpretive Data Percent cell count reference ranges are not reported, since discordance with absolute values may lead to misinterpretation of CBC data. Current Interpretive Data was last revised on 2018. Testing performed by: [address] [address] Monocyte pct 7.5 % [facility] Comment: Interpretive Data Percent cell count reference ranges are not reported, since discordance with absolute values may lead to misinterpretation of CBC data. Current Interpretive Data was last revised on 2018. Testing performed by: [address] [address] Eosinophil pct 3.7 % [facility] Comment: Interpretive Data Percent cell count reference ranges are not reported, since discordance with absolute values may lead to misinterpretation of CBC data. Current Interpretive Data was last revised on 2018. Testing performed by: [address] [address] Basophil pct 0.6 % BRADY Comment: Interpretive Data Percent cell count reference ranges are not reported, since discordance with absolute values may lead to misinterpretation of CBC data. Current Interpretive Data was last revised on 2018. Testing performed by: [address] [address] Blood 05/07/2025 7:45 AM CDT 05/07/2025 7:50 AM CDT us Ton Finney DO LAB BLOOD ORDERABLES Final R esult BRADY [address] [facility] Department [place] [address] * (ABNORMAL) CBC with auto differential (05/07/2025 7:45 AM CDT) WBC 9.29 3.80 - 9.90 K/cumm Comment:Testing performed by : [address] [address] Hgb 10.1(L) 13.0 - 17.5 g/dL BRADY Comment:Testing performed by : [address] [address] Hct 30.9(L) 38.9 - 50.3 % BRADY Comment:Testing performed by : [address] [address] Plt 276 150 - 400 K/cumm BRADY Comment:Testing performed by : [address] [address] MPV 9.3 9.1 - 12.3 fL BRADY Comment:Testing performed by : [address] [address] RBC 3.86(L) 4.30 - 5.80 M/cumm BRADY BERTRAND Comment:Testing performed by : [address] [address] MCV 80.1(L) 81.3 - 96.4 fL BRADY Comment:Testing performed by : [address] [address] MCH 26.2(L) 27.1 - 33.3 pg BRADY Comment:Testing performed by : [address] [address] MCHC 32.7 32.3 - 35.7 g/dL BRADY Comment:Testing performed by : [address] [address] RDW CV 18.4(H) 11.1 - 14.9 % BRADY Comment:Testing performed by : [address] [address] RDW SD 53.8(H) 35.7 - 48.1 fL BRADY Comment:Testing performed by : [address] [address] NRBC abs 0.00 0.00 - 0.01 K/cumm BRADY Comment:Testing performed by : [address] [address] ANC Prelim 7.45(H) 1.50 - 6.50 K/cumm BRADY Comment: Interpretive Data The rapid ANC is a preliminary automated count and may vary from the final ANC (Neut Abs) reported in the WBC differential that follows. Current interpretive data was last revised 2024. Testing performed by: [address] [address] Blood 05/07/2025 7:45 AM CDT 05/07/2025 7:50 AM CDT Ton Finney DO LAB BLOOD ORDERABLES Final R esult [facility] [address] [facility] Department [place] [address] * (ABNORMAL) Comprehensive metabolic panel (05/07/2025 7:45 AM CDT) Pathologist [facility] Sodium 132(L) 135 - 145 mmol/L Comment:Testing performed by : [address] [address] Potassium, pl 4.6 3.3 - 4.9 mmol/L BRADY Comment:Testing performed by : [address] [address] Chloride 98 97 - 110 mmol/L BRADY Comment:Testing performed by : [address], [place]., [address] CO2 21(L) 22 - 32 mmol/L BRADY Comment:Testing performed by : [address] [address] Anion gap 13 2 - 15 mmol/L BRADY Comment:Testing performed by : [address], [place]., [address] BUN 32(H) 6 - 25 mg/dL BRADY Comment:Testing performed by : [address] [address] Creatinine 1.60(H) 0.80 - 1.30 mg/dL BRADY Comment:Testing performed by : [address] [address] Glucose 125 70 - 199 mg/dL [facility] Comment: Interpretive Data Fasting glucose >/= [...] was last revised 2022. Testing performed by: [address] [address] Calcium 8.8 8.5 - 10.3 mg/dL BRADY Comment:Testing performed by : [address] [address] Bilirubin, total 0.4 0.1 - 1.2 mg/dL BRADY Comment:Testing performed by : [address] [address] Protein, pl 6.4(L) 6.5 - 8.5 g/dL BRADY Comment:Testing performed by : [address] [address] Albumin 3.3(L) 3.5 - 5.0 g/dL BRADY Comment:Testing performed by : [address] [address] Alk phos 72 40 - 130 Units/L BRADY Comment:Testing performed by : [address] [address] ALT 28 7 - 55 Units/L BRADY Comment:Testing performed by : [address] [address] AST 20 10 - 50 Units/L BRADY Comment:Testing performed by : [address], [address] Blood 05/07/2025 7:45 AM CDT 05/07/2025 7:50 AM CDT Ton Finney DO LAB BLOOD ORDERABLES Final R esult Performing Organization Address City/[facility]/ZIP Co de Phone Number BRADY [address] [facility] Department [place] [address] * POCT glucose (04/30/2025 9:28 AM CDT) Glucose, POC 91 70 - 199 mg/dL Blood 04/30/2025 9:28 AM CDT 04/30/2025 9:28 AM CDT Trinity Paul MD LAB POCT ORDERABLES - DEVICE Fin al Result [facility] Department [place] [address] * [place] Fluoroscopy < 1 Hour (04/30/2025 9:06 AM CDT) Narrative RAD_PACS_[facility] - 04/30/2025 9:07 AM CDT The images from this study are not interpreted by Radiology. Please refer to the physician's procedure / OR operative note. Trinity Paul MD IMG FLUOROSCOPY PROCEDURES Final Result RAD_PACS_[facility] * Cytology (04/30/2025 8:29 AM CDT) Fluid (Urine, catherized (Cytology)) 04/30/2025 8:29 AM CDT Narrative PATHOLOGY [facility] - 05/06/2025 9:46 AM CDT EPIC results best viewed via link to PDF [facility] [place] [address] Note to Patients: This report may contain [...] Gender: Cassius : 1940 (Age: 84) Address: [address] [place] [address] Hospital #: [id number] Taken:04/30/2025 Received:04/30/2025 Reported: 05/06/2025 Patient Type: [facility] Service: Surgery Location: [facility] OR POD1 Physician(s): Apurva Jaquez, CLIFTON-Elier FINAL DIAGNOSIS A. Urine, left ureter: - Rare atypical urothelial cells (see comment) B. Ureter, left, biopsy: - Predominantly fibrinous debris with rare atypical urothelial cells (see comment) Comments The urine and biopsy specimens show predominantly degenerating debris with rare groups of atypical urothelial cells with some nuclear enlargement, hyperchromasia, and nuclear irregularity. The biopsy (cell block) is relatively sparse but shows some necrotic debris. No lamina propria is present in the biopsy specimen. Due to paucity of atypical cells present, the findings are best characterized as atypical urothelial cells. Additional levels were performed and evaluated. fece/05/05/2025 09:02 By this signature, I attest that the above diagnosis is based upon my personal examination of the slides(and/or other material indicated in the diagnosis). Grzegorz Brito MD Report Electronically Reviewed and Signed Out By Grzegorz Brito MD 05/06/2025 09:46:48 Luisa Lee MS, CT (ASCP) Gross Description A. Left ureter urine aspirate: 80 ml bloody fluid in CytoRich Red vial - 1 Pap stained Cytospin. (pc) B. Left ureteral biopsy: 80 ml of formalin fluid with several tissue pieces(s) measuring less than 0.1 cm - 1 cell block. (vo) Clinical Diagnosis and History The patient is a 84-year-old man with history of bladder cancer status post radical cystectomy and ileal conduit who presents with hydronephrosis and large ureteral mass. REPORT IMAGES AND SCANNED DOCUMENTS, IF INCLUDED, ONLY VIEWABLE IN PDF VERSION OF REPORT The performance characteristics of some immunohistochemical stains, in-situ hybridization and fluorescence in-situ hybridization tests and immunophenotyping by flow cytometry cited in this report (if any) were determined by the Surgical Pathology and Flow Cytometry Departments at [facility] as part of an ongoing senior quality manager program and in compliance with federally mandated [...] Surgical Pathology and Flow Cytometry Departments of [facility]. It has not been cleared or approved by the U. S. Food and Drug Administration. Trinity Paul MD LAB CYTOLOGY ORDERABLES Final Re sult PATHOLOGY [facility] IO [address]rd Floor [place], [place] [phone] * [place] AN ELECTIVE ENDOTRACHEAL AIRWAY, [place] AN PROCEDURE PLACEHOLDER (04/30/2025 8:01 AM CDT) Narrative Shelly Rolle CRNA - 04/30/2025 8:01 AM CDT Shelly Rolle CRNA 04/30/2025 8:02 AM Airway Patient location: OR Urgency: elective Indications for airway management: anesthesia Difficult airway: no Staff: Supervising provider: Yanelis Cuh MD Placed by: SAILBOAT CAPTAIN: Shelly Rolle CRNA Emergent airway documentation: Risks and benefits discussed: yes Consent obtained: yes Consent given by: patient Airway prep: Preoxygenated: yes Patient position: sniffing Mask difficulty assessment: 0 - not attempted Spontaneous ventilation during airway: absent Sedation level during airway: GA Final airway details: Final airway type: endotracheal airway Tube type: ETT ETT size: 7.5 mm Cuffed: yes Technique used for successful ETT placement: direct laryngoscopy Devices/Methods used in placement: intubating stylet Insertion site: oral Blade type: Almodovar Blade size: 2 Cormack-Lehane (direct): grade I - full view of glottis Initial cuff pressure: 25 cm H2O Cuff volume: 6 mL Cuff inflated with: air ETT to teeth: 24 cm ETT to gums: 24 cm Placement verified by: auscultation and CO2 detection Airway secured with: silk tape Number of attempts: 1 us Yanelis Chu MD ANESTHESIA ORDERABLES Edited Result - Final * POCT glucose (04/30/2025 6:39 AM CDT) Glucose, POC 102 70 - 199 mg/dL Blood 04/30/2025 6:39 AM CDT 04/30/2025 6:39 AM CDT us Trinity Paul MD LAB POCT ORDERABLES - DEVICE Fin al Result BRADY [facility] Department [place] [address] * RAD ONC ARIA SESSION SUMMARY (04/29/2025 7:55 AM CDT) Course Name C1_L_[id number]_ 2024 ARIA Course Plan Date 04/09/2025 3:33 PM ARIA Elapsed Days 9 ARIA Treatment Start Date 04/20/2025 ARIA Treatment Site [id number] ARIA Dose Given To Date (cGy) 6,000 ARIA Session Dosage Given (cGy) 750 ARIA Plan ID Left Lung ARIA Fractions Treated 8 ARIA Prescribed Dose Per Fraction (cGy) 750 ARIA Prescribed Total Dose (cGy) 6,000 ARIA 04/29/2025 7:55 AM CDT us Not In File Miscellaneous RADIATION ONCOLOGY ORD ERABLES Final Result Performing Organization Address [facility] Co de Phone Number ARIA * RAD ONC ARIA SESSION SUMMARY (04/28/2025 7:54 AM CDT) Course Name [id number] ARIA Course Plan Date 04/09/2025 3:33 PM ARIA Elapsed Days 8 ARIA Treatment Start Date 04/20/2025 ARIA Treatment Site [id number] ARIA Dose Given To Date (cGy) 5,250 ARIA Session Dosage Given (cGy) 750 ARIA Plan ID Left Lung ARIA Fractions Treated 7 ARIA Prescribed Dose Per Fraction (cGy) 750 ARIA Prescribed Total Dose (cGy) 6,000 ARIA 04/28/2025 7:54 AM CDT us Not In File Miscellaneous RADIATION ONCOLOGY ORD ERABLES Final Result Performing Organization Address City/State/[facility] Co de Phone Number ARIA * RAD ONC ARIA SESSION SUMMARY (04/27/2025 8:01 AM CDT) Course Name C1_L_LUNG_ 2024 ARIA Course Plan Date 04/09/2025 3:33 PM ARIA Elapsed Days 7 ARIA Treatment Start Date 04/20/2025 ARIA Treatment Site [id number] ARIA Dose Given To Date (cGy) 4,500 ARIA Session Dosage Given (cGy) 750 ARIA Plan ID Left Lung ARIA Fractions Treated 6 ARIA Prescribed Dose Per Fraction (cGy) 750 ARIA Prescribed Total Dose (cGy) 6,000 ARIA 04/27/2025 8:01 AM CDT us Not In File Miscellaneous RADIATION ONCOLOGY ORD ERABLES Final Result Performing Organization Address City[facility] Co de Phone Number HAFSA * RAD ONC ARIA SESSION SUMMARY (04/24/2025 7:57 AM CDT) Course Name C1_L_LUNG_ 2024 ARIA Course Plan Date 04/09/2025 3:33 PM ARIA Elapsed Days 4 ARIA Treatment Start Date 04/20/2025 ARIA Treatment Site [id number] ARIA Dose Given To Date (cGy) 3,750 ARIA Session Dosage Given (cGy) 750 ARIA Plan ID Left Lung ARIA Fractions Treated 5 ARIA Prescribed Dose Per Fraction (cGy) 750 ARIA Prescribed Total Dose (cGy) 6,000 ARIA 04/24/2025 7:57 AM CDT us Not In File Miscellaneous RADIATION ONCOLOGY ORD ERABLES Final Result Performing Organization Address [facility] Co de Phone Number HAFSA * RAD ONC ARIA SESSION SUMMARY (04/23/2025 7:54 AM CDT) Course Name C1_L_LUNG_ 2024 ARIA Course Plan Date 04/09/2025 3:33 PM ARIA Elapsed Days 3 ARIA Treatment Start Date 04/20/2025 ARIA Treatment Site [id number] ARIA Dose Given To Date (cGy) 3,000 ARIA Session Dosage Given (cGy) 750 ARIA Plan ID Left Lung ARIA Fractions Treated 4 ARIA Prescribed Dose Per Fraction (cGy) 750 ARIA Prescribed Total Dose (cGy) 6,000 ARIA 04/23/2025 7:54 AM CDT us Not In File Miscellaneous RADIATION ONCOLOGY ORD ERABLES Final Result ARIA * RAD ONC ARIA SESSION SUMMARY (04/22/2025 8:14 AM CDT) Course Name C1_L_LUNG_ 2024 ARIA Course Plan Date 04/09/2025 3:33 PM ARIA Elapsed Days 2 ARIA Treatment Start Date 04/20/2025 ARIA Treatment Site [id number]_6000 ARIA Dose Given To Date (cGy) 2,250 ARIA Session Dosage Given (cGy) 750 ARIA Plan ID Left Lung ARIA Fractions Treated 3 ARIA Prescribed Dose Per Fraction (cGy) 750 ARIA Prescribed Total Dose (cGy) 6,000 ARIA 04/22/2025 8:14 AM CDT us Not In File Miscellaneous RADIATION ONCOLOGY ORD ERABLES Final Result Performing Organization Address [facility] Co de Phone Number ARIA * RAD ONC ARIA SESSION SUMMARY (04/21/2025 9:48 AM CDT) Course Name C1_L_LUNG_ 2024 ARIA Course Plan Date 04/09/2025 3:33 PM ARIA Elapsed Days 1 ARIA Treatment Start Date 04/20/2025 ARIA Treatment Site [id number]_6000 ARIA Dose Given To Date (cGy) 1,500 ARIA Session Dosage Given (cGy) 750 ARIA Plan ID Left Lung ARIA Fractions Treated 2 ARIA Prescribed Dose Per Fraction (cGy) 750 ARIA Prescribed Total Dose (cGy) 6,000 ARIA 04/21/2025 9:48 AM CDT us Not In File Miscellaneous RADIATION ONCOLOGY ORD ERABLES Final Result Performing Organization Address City[facility] Co de Phone Number ARIA * RAD ONC ARIA SESSION SUMMARY (04/20/2025 12:43 PM CDT) Course Name C1_L_LUNG_ 2024 ARIA Course Plan Date 04/09/2025 3:33 PM ARIA Elapsed Days 0 ARIA Treatment Start Date 04/20/2025 ARIA Treatment Site [id number]_6000 ARIA Dose Given To Date (cGy) 750 ARIA Session Dosage Given (cGy) 750 ARIA Plan ID Left Lung ARIA Fractions Treated 1 ARIA Prescribed Dose Per Fraction (cGy) 750 ARIA Prescribed Total Dose (cGy) 6,000 ARIA 04/20/2025 12:4 3 PM CDT us Not In File Miscellaneous RADIATION ONCOLOGY ORD ERABLES Final Result ARIA * (ABNORMAL) Urinalysis reflex to microscopic and culture Urine, clean voided (04/20/2025 11:14 AM CDT) Color, ur Yellow Yellow Comment:Testing performed by : [address] [address] Clarity, ur Cloudy(A) Clear BRADY Comment:Testing performed by : [address] [address] Specific gravity, ur 1.006 1.003 - 1.030 BRADY Comment:Testing performed by : [address] [address] pH, urine 5.5 BRADY Comment: Interpretive Data U rine pH is affected by diet, medications, systemic acid-base disturbances, and renal tubular function. pH may affect urinary stone formation. For example, urine pH below 6.0 may help reduce the tendency for calcium phosphate stones and pH greater than 6.0 may reduce the tendency for uric acid stone formation. Source: Kent [employer]ota Current Interpretive Data was last revised on 2017 Testing performed by: [address] [address] Protein, ur ql Trace(A) Negative BRADY Comment:Testing performed by : [address] [address] Glucose, ur ql 4+(A) Negative BRADY Comment:Testing performed by : [address] [address] Ketones, ur Negative Negative BRADY Comment:Testing performed by : [address] [address] Bilirubin, ur Negative Negative BRADY Comment:Testing performed by : [address], [place]., [address] Blood, ur 2+(A) Negative BRADY Comment:Testing performed by : [address], [place]., [address] Urobilinogen, ur <2.0 <2.0 mg/dL BRADY Comment:Testing performed by : [address], [place]., [address] Nitrite, ur Positive(A) Negative BRADY Comment:Testing performed by : [address] [address] Leukocyte esterase, ur 4+(A) Negative BRADY Comment:Testing performed by : [address], [place]., [address] UA reflex comment Reflex to microscopic UA will be performed. BRADY Comment:Testing performed by : [address] [address] Urine, clean voided 04/20/2025 11:14 AM CDT 04/20/2025 7:35 PM CDT Trinity Paul MD LAB MICROBIOLOGY - GENERAL ORDER TERRY Final Result BRADY [address] [facility] Department [place] [address] * (ABNORMAL) Urinalysis, microscopic only (04/20/2025 11:14 AM CDT) WBC, ur >50(A) 0 - 5 /HPF Comment:Testing performed by : [address] [address] RBC, ur 3-5(A) 0 - 2 /HPF BRADY BERTRAND Comment:Testing performed by : [address] [address] Bacteria, ur 4+(A) BRADY Comment:Testing performed by : [address] [address] Mucous, ur Present(A) BRADY Comment:Testing performed by : [facility], [address] [place] [address]., [address] Culture Reflex Comment Reflex to urine culture will be performed. BRADY Comment:Testing performed by : [facility], [address] [place] [address]., [address] Urine, clean voided 04/20/2025 11:14 AM CDT 04/20/2025 7:35 PM CDT Trinity Paul MD LAB URINE ORDERABLES Final Resul t Performing Organization Address City/[facility] Co de Phone Number BRADY [address] [place] [employer] [place] [address] * (ABNORMAL) Urine culture Urine, clean voided (04/20/2025 11:14 AM CDT) Report Final Report: Growth indicates contamination with mixed bacterial lissette. Please submit a new specimen with special attention given to the collection process and to prompt transport to the laboratory. (.) Comment:Testing performed by : [facility], [address] [place]., [address] Organism GROWTH INDICATES CONTAMINATION WITH MIXED LISSETTE. BRADY BERTRAND Urine, clean voided 04/20/2025 11:14 AM CDT 04/21/2025 12:04 AM CDT Narrative BRADY - 04/21/2025 11:58 PM CDT Urine culture reflexed based upon urinalysis results. Testing performed by [facility] ([phone]) Trinity Paul MD LAB MICROBIOLOGY - GENERAL ORDER TERRY Final Result Performing Organization Address City/[facility]/ZIP Co de Phone Number [address] [place] [employer] [place] [address] * (ABNORMAL) POCT hemoglobin A1c (04/15/2025 8:12 AM CDT) Hgb A1C, POC 6.1(H) 4.0 - 5.6 % Est Average Gluc POC 128 mg/dL BRADY JOEH Comment: The ADA recommends reporting an estimated Average Glucose (eAG) with all Hemoglobin A1c results using the equation derived from a study of 507 normal and diabetic adults. Minority populations were underrepresented and children were not included. (Diabetes Care 31:2707-2011, 2008). The eAG is not equivalent to a fasting glucose. Blood 04/15/2025 8:12 AM CDT 04/15/2025 8:12 AM CDT Trinity Paul MD POINT OF CARE TEST ORDERABLES Fi nal Result [facility] Department [place] [address] * (ABNORMAL) eGFR (04/09/2025 10:36 AM CDT) eGFR 42(L) >=60 mL/min/1. 73 m2 Comment: Interpretive Data [...] was last reviewed 2021. Testing performed by: [facility], [address] [place] [address]., [address] Blood 04/09/2025 10:3 6 AM CDT 04/09/2025 10:40 AM CDT us Ton L. Sharmin DO LAB BLOOD ORDERABLES Final R esult BRADY [address] [facility] Department [place] [address] * (ABNORMAL) Differential, auto (04/09/2025 10:36 AM CDT) Neutrophil abs 8.11(H) 1.50 - 6.50 K/cumm Comment:Testing performed by : [address] [address] Imm gran abs 0.25(H) 0.00 - 0.10 K/cumm BRADY Comment:Testing performed by : [address] [address] Lymphocyte abs 0.94 0.80 - 3.30 K/cumm BRADY Comment:Testing performed by : [address] [address] Monocyte abs 0.82(H) 0.20 - 0.80 K/cumm BRADY Comment:Testing performed by : [address] [address] Eosinophil abs 0.29 0.00 - 0.50 K/cumm [facility] Comment:Testing performed by : [address] [address] Basophil abs 0.10 0.00 - 0.10 K/cumm [facility] Comment:Testing performed by : [address] [address] Neutrophil pct 77.1 % [facility] Comment: Interpretive Data Percent cell count reference ranges are not reported, since discordance with absolute values may lead to misinterpretation of CBC data. Current Interpretive Data was last revised on 2018. Testing performed by: [address] [address] Imm gran pct 2.4 % [facility] Comment: Interpretive Data Percent cell count reference ranges are not reported, since discordance with absolute values may lead to misinterpretation of CBC data. Current Interpretive Data was last revised on 2018. Testing performed by: [address] [address] Lymphocyte pct 8.9 % [facility] Comment: Interpretive Data Percent cell count reference ranges are not reported, since discordance with absolute values may lead to misinterpretation of CBC data. Current Interpretive Data was last revised on 2018. Testing performed by: [address] [address] Monocyte pct 7.8 % [facility] Comment: Interpretive Data Percent cell count reference ranges are not reported, since discordance with absolute values may lead to misinterpretation of CBC data. Current Interpretive Data was last revised on 2018. Testing performed by: [address] [address] Eosinophil pct 2.8 % [facility] Comment: Interpretive Data Percent cell count reference ranges are not reported, since discordance with absolute values may lead to misinterpretation of CBC data. Current Interpretive Data was last revised on 2018. Testing performed by: [address] [address] Basophil pct 1.0 % [facility] Comment: Interpretive Data Percent cell count reference ranges are not reported, since discordance with absolute values may lead to misinterpretation of CBC data. Current Interpretive Data was last revised on 2018. Testing performed by: [address] [address] Blood 04/09/2025 10:3 6 AM CDT 04/09/2025 10:40 AM CDT Ton Finney DO LAB BLOOD ORDERABLES Final R esult [facility] [address] [facility] Department [place] [address] * (ABNORMAL) CBC with auto differential (04/09/2025 10:36 AM CDT) WBC 10.51(H) 3.80 - 9.90 K/cumm Comment:Testing performed by : [address] [address] Hgb 11.7(L) 13.0 - 17.5 g/dL [facility] Comment:Testing performed by : [address] [address] Hct 36.3(L) 38.9 - 50.3 % [facility] Comment:Testing performed by : [address] [address] Plt 342 150 - 400 K/cumm [facility] Comment:Testing performed by : [address] [address] MPV 10.3 9.1 - 12.3 fL [facility] Comment:Testing performed by : [address] [address] RBC 4.38 4.30 - 5.80 M/cumm [facility] Comment:Testing performed by : [address] [address] MCV 82.9 81.3 - 96.4 fL [facility] Comment:Testing performed by : [address] [address] MCH 26.7(L) 27.1 - 33.3 pg [facility] Comment:Testing performed by : [address] [address] MCHC 32.2(L) 32.3 - 35.7 g/dL [facility] Comment:Testing performed by : [address] [address] RDW CV 18.2(H) 11.1 - 14.9 % [facility] Comment:Testing performed by : [address] [address] RDW SD 54.0(H) 35.7 - 48.1 fL [facility] Comment:Testing performed by : [address] [address] NRBC abs 0.00 0.00 - 0.01 K/cumm [facility] Comment:Testing performed by : [address] [address] ANC Prelim 8.11(H) 1.50 - 6.50 K/cumm [facility] Comment: Interpretive Data The rapid ANC is a preliminary automated count and may vary from the final ANC (Neut Abs) reported in the WBC differential that follows. Current interpretive data was last revised 2024. Testing performed by: [address] [address] Blood 04/09/2025 10:3 6 AM CDT 04/09/2025 10:40 AM CDT Ton MaldonadoYamil Finney LAB BLOOD ORDERABLES Final R esult Performing Organization Address [facility] Co de Phone Number MAURA[address] [place] [place] [address] * TSH (04/09/2025 10:36 AM CDT) Pathologist [facility] Thyroid Stimulating Hormone 2.49 0.30 - 4.20 mcIUnit/mL Comment:Testing performed by : [address] [address] Blood 04/09/2025 10:3 6 AM CDT 04/09/2025 11:35 AM CDT Ton Finney LAB BLOOD ORDERABLES Final [facility] Performing Organization Address [facility] de Phone Number MAURA[address] [address] * (ABNORMAL) Comprehensive metabolic panel (04/09/2025 10:36 AM CDT) Pathologist [facility] Sodium 132(L) 135 - 145 mmol/L Comment:Testing performed by : [address] [address] Potassium, pl 4.4 3.3 - 4.9 mmol/L BR[facility]Y Comment:Testing performed by : [address] [address] Chloride 98 97 - 110 mmol/L [facility] Comment:Testing performed by : [address] [address] CO2 21(L) 22 - 32 mmol/L [facility] Comment:Testing performed by : [address] [address] Anion gap 13 2 - 15 mmol/L [facility] Comment:Testing performed by : [address] [address] BUN 28(H) 6 - 25 mg/dL [facility] Comment:Testing performed by : [address] [address] Creatinine 1.60(H) 0.80 - 1.30 mg/dL [facility] Comment:Testing performed by : [address] [address] Glucose 118 70 - 199 mg/dL [facility] Comment: Interpretive Data Fasting glucose >/= 126 [...] was last revised 2022. Testing performed by: [address] [address] Calcium 9.1 8.5 - 10.3 mg/dL [facility]Y Comment:Testing performed by : [address] [address] Bilirubin, total 0.5 0.1 - 1.2 mg/dL [facility]Y Comment:Testing performed by : [address] [address] Protein, pl 6.7 6.5 - 8.5 g/dL [facility] Comment:Testing performed by : [address] [address] Albumin 3.7 3.5 - 5.0 g/dL [facility] Comment:Testing performed by : [address] [address] Alk phos 83 40 - 130 Units/L BR[facility]Y Comment:Testing performed by : [address] [address] ALT 23 7 - 55 Units/L BRADY BERTRAND Comment:Testing performed by : [facility], [address] [place] [address]., [address] AST 18 10 - 50 Units/L BRADY Comment:Testing performed by : [facility], [address] [place] [address]., [address] Blood 04/09/2025 10:3 6 AM CDT 04/09/2025 10:40 AM CDT Ton Finney DO LAB BLOOD ORDERABLES Final R esult [facility]Y [address] [facility] Department [place] [address] * MRI Abdomen Kidney W WO Contrast (04/07/2025 9:01 AM CDT) Anatomical Region Laterality Modality Body N/A Magnetic Resonan ce 04/23/2025 11:3 4 AM CDT Narrative 04/23/2025 11:56 AM CDT EXAM DESCRIPTION: MRI ABDOMEN KIDNEY W WO CONTRAST REASON FOR STUDY: Renal mass suspected (Ped 0-17y) Left non functioning kidney, suspect renal mass 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 Recent diagnosis of enhancing left ureter mass and FDG avid endobronchial left upper lobe lesion. 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 TECHNIQUE: MRI of the abdomen performed without and with intravenous contrast according to the renal protocol. All images stored on PACS. CONTRAST TYPE/DOSE: 16mL of GADOTERATE MEGLUMINE 0.5 MMOL/ML INTRAVENOUS SOLUTION (SO) injected via intravenous COMPARISON: 08/12/2010 01/14/2025 02/05/2025 FINDINGS: LOWER CHEST: Partially visualized near-complete atelectasis of the right lower lobe, new from prior (such as 1301 image 88). LIVER: Mild iron deposition. Scattered cysts. No concerning lesion. GALLBLADDER/BILE DUCTS: No significant biliary ductal dilatation. SPLEEN: No significant abnormality. PANCREAS: No significant ductal dilatation or discrete lesion. ADRENALS: No measurable nodule. KIDNEYS/URETERS: Similar-appearing severe left hydroureteronephrosis with associated renal atrophy secondary to a distal left ureteral heterogeneous mass. Mass measures approximately 4.0 x 3.5 x 3.2 cm (401 image 13 and 301 image 3). Mass demonstrates heterogeneous T2 hyperintense signal, diffusion restriction, and heterogeneous enhancement and is concerning for urothelial malignancy. Multiple vascular and soft tissue interfaces including: Encasement and occlusion of the distal left ureter. Approximately 180 degree interface with the infrarenal abdominal aorta (301 image 6). Encasement of the left common iliac artery. Less than 90 degree interface with the right common iliac artery. Encasement of the KAT with associated severe luminal narrowing (1001 image 8). Numerous left-sided simple and mildly complex renal cysts replacing most of the renal parenchyma. Small right-sided simple cysts. GASTROINTESTINAL: Partially visualized postsurgical changes status post ileal conduit formation in the right lower quadrant. No significant bowel wall thickening or dilation. LYMPH NODES: No pathologically enlarged lymphadenopathy. PERITONEUM/RETROPERITONEUM: No signficant ascites. VASCULATURE: Multifocal atherosclerotic changes of the abdominal aorta and its major branches. No abdominal aortic aneurysm. Vascular interfaces as above. Severe stenosis of the proximal SMA (1001 image 54). MUSCULOSKELETAL: Multilevel degenerative changes of the visualized spine with up to severe spinal canal narrowing at L4-L5. No aggressive appearing enhancing osseous lesions. OTHER: No significant abnormality. IMPRESSION: 1. Similar-appearing severe left hydroureteronephrosis secondary to a distal left ureteral mass concerning for urothelial malignancy. Mass demonstrates multiple vascular and soft tissue interfaces as described above. 2. No convincing evidence of metastatic disease within the abdomen. 3. Partially visualized near-complete atelectasis of the right lower lobe, new from prior. Recommend correlation with patient's symptoms and dedicated chest CT as clinically appropriate. 4. Incidental and chronic findings including severe stenosis of the proximal SMA. THIS IS AN ELECTRONICALLY VERIFIED FINAL REPORT 04/23/2025 11:56 AM - Electronically signed by Yuri ANN T: Report ID: [id number] Reading Location: [id number] Procedure Note Yuri Weinberg MD - 04/23/2025 EXAM DESCRIPTION: MRI ABDOMEN KIDNEY W WO CONTRAST REASON FOR STUDY: Renal mass suspected (Ped 0-17y) Left non functioning kidney, suspect renal mass history of muscleinvasive bladder cancer diagnosed in 2009 status post cystoprostatectomy and ileal conduit. Recent diagnosis of enhancing left ureter mass and FDG avid endobronchial left upper lobe lesion. 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 TECHNIQUE: MRI of the abdomen performed without and with intravenous contrast according to the renal protocol. All images stored on PACS. CONTRAST TYPE/DOSE: 16mL of GADOTERATE MEGLUMINE 0.5 MMOL/ML INTRAVENOUS SOLUTION (SO) injected via intravenous COMPARISON: 08/12/2010 01/14/2025 02/05/2025 FINDINGS: LOWER CHEST: Partially visualized near-complete atelectasis ofthe right lower lobe, new from prior (such as 1301 image 88). LIVER: Mild iron deposition. Scattered cysts. No concerning lesion. GALLBLADDER/BILE DUCTS: No significant biliary ductal dilatation. SPLEEN: No significant abnormality. PANCREAS: No significant ductal dilatation or discrete lesion. ADRENALS: No measurable nodule. KIDNEYS/URETERS: Similar-appearing severe left hydroureteronephrosis with associated renal atrophy secondary to a distal left ureteral heterogeneous mass. Mass measures approximately 4.0 x 3.5 x 3.2 cm (401 image 13 [id number] image 3). Mass demonstrates heterogeneous T2 hyperintense signal,diffusion restriction, and heterogeneous enhancement and is concerning forurothelial malignancy. Multiple vascular and soft tissue interfaces including: Encasement and occlusion of the distal left ureter. Approximately 180 degree interface with the infrarenal abdominal aorta(301 image 6). Encasement of the left common iliac artery. Less than 90 degree interface with the right common iliac artery. Encasement of the KAT with associated severe luminal narrowing (1001 image8). Numerous left-sided simple and mildly complex renal cysts replacing mostof the renal parenchyma. Small right-sided simple cysts. GASTROINTESTINAL: Partially visualized postsurgical changes status postileal conduit formation in the right lower quadrant. No significant bowel wall thickening or dilation. LYMPH NODES: No pathologically enlarged lymphadenopathy. PERITONEUM/RETROPERITONEUM: No signficant ascites. VASCULATURE: Multifocal atherosclerotic changes of the abdominal aortaand its major branches. No abdominal aortic aneurysm. Vascular interfaces as above. Severe stenosis of the proximal SMA (1001 image 54). MUSCULOSKELETAL: Multilevel degenerative changes of the visualized spinewith up to severe spinal canal narrowing at L4-L5. No aggressive appearing enhancing osseous lesions. OTHER: No significant abnormality. IMPRESSION: 1. Similar-appearing severe left hydroureteronephrosis secondary to adistal left ureteral mass concerning for urothelial malignancy. Mass demonstrates multiple vascular and soft tissue interfaces as described above. 2. No convincing evidence of metastatic disease within the abdomen. 3. Partially visualized near-complete atelectasis of the right lowerlobe, new from prior. Recommend correlation with patient's symptoms anddedicated chest CT as clinically appropriate. 4. Incidental and chronic findings including severe stenosis of theproximal SMA. THIS IS AN ELECTRONICALLY VERIFIED FINAL REPORT 04/23/2025 11:56 AM - Electronically signed by Yuri Weinberg M.D. NS T: Report ID: [id number] Reading Location: [id number] Raghav Andre MD IMG MRI PROCEDURES F inal Result * CT Head WO Contrast (03/18/2025 3:25 PM CDT) Anatomical Region Laterality Modality Head and Neck N/A Computed Tomogra phy us Provider Transcribed Order IMG CT PROCEDURES Fin al Result * [facility] NGS with interpretation (03/13/2025 4:26 PM CDT) Tissue (Tissue for [facility]) 03/13/2025 4:26 PM CDT 03/23/2025 9:55 AM CDT Narrative [facility] - 04/01/2025 10:47 PM CDT [facility] Pathology Services [address] [place] [address] Final Report Patient Name: CELESTE BYRD Address: [address] [place] [address]- Gender: M : 1940 (Age: 84) Accessioned: 03/23/2025 Taken: 03/13/2025 Received: 03/23/2025 Physician(s): Dr. Ton Finney, D.O. Service: WU Location: [facility] #: [id number] Patient Type: [facility] Molecular DiagnosticsReported:04/01/2025 Varients Detected: TUMOR ORIGIN: LUNG/CARDIOTHORACIC CLINICALLY SIGNIFICANT RESULTS (ASCO/AMP TIER I/II) VARIANTS ARID1A [id number]+32delinsTT 15.33% CDKN2A p.G55Afs*91 71.06% TP53 p.S215N 64.48% TP53 p.R282G 31.85% COPY NUMBER ALTERATIONS Not reported STRUCTURAL VARIANTS Not reported MICROSATELLITE STATUS Not reported TUMOR MUTATIONAL BURDEN Not reported OVERALL INTERPRETATION Note: sequencing was performed with an amount of input DNA below the standard for this assay, which may limit assay performance. A limited report is issued. No variants associated with FDA-approved or NCCN compendium-listed treatments for squamous cell carcinoma are identified. 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 Dale Bowman M.D.Report Electronically Reviewed and Signed Out By Dale Bowman M.D. 04/01/2025 22:46:06 us Ton Finney DO LAB GENETIC TESTING Final Re sult [facility] [address] [place] [address] * Cardiology Document Scan (03/10/2025 2:56 PM CDT) Anatomical Region Laterality Modality Other us Ruchi Hobson NP CV CARDIAC SERVICES PROCEDUR ES Final Result * Neuro CT Outside Reference (03/08/2025 12:00 AM CDT) Narrative ROBERTO_JAVIER_MHE - 03/20/2025 9:49 AM CDT This order has been auto-finalized and does not contain a result. us Provider Transcribed Order IMG CT PROCEDURES Fin al Result CLIFTON_SOLANGE_ELZAB_MHE from Last 3 Months Insurance [facility] MEDICARE ADVANTAGE Care Teams Academic Affairs Vice President Relationship Specialty Start Date End Date Deepika Guerrero NP [address] [place] [address] [address] [place], [place] [id number] PCP - General Cardiovascular Disease 02/13/25 Deepika Guerrero NP [address] [place] [address] [address] [place] [address] Nurse Practitioner Cardiovascular Disease 02/12/25 Raghav Andre MD [address] [place] [address] Consulting Physician Urology 02/24/25 Ton Finney DO [address] [place] [address] MEDICAL ONCOLOGY, [facility] [address] [place], [place] [id number] Medical Oncologist/Hematologis t Hematology and Oncology 03/31/25 Van Lau MD [address] [place] [address] [address] [place] [address] Radiation Oncologist Radiation Oncology 04/09/25
[2025-06-05 18:10] LABS: Hematocrit 37.1 % (42.0-52.0); Hemoglobin 11.2 g/dL (14.0-18.0); Mean Corpuscular HGB Conc 30.2 g/dl (32-36); Mean Corpuscular Hemoglobin 25.2 pg (26-34); Mean Corpuscular Volume 83.4 fl (80-100); Platelet Count Result 295 k/mm3 (150-375); Red Blood Count 4.45 M/mm3 (4.6-6.20); White Blood Count 9.4 K/mm3 (4.5-10.0)
[2025-06-05 18:33] LABS: Hemoglobin A1C 6.2 % (<5.7)
[2025-06-05 18:54] LABS: Total Protein Urine Random 31 mg/dL; Ur Ttl Prot Creatinine Ratio 0.73 mg/mg (0-0.20)
[2025-06-05 19:05] LABS: Albumin Level 3.9 g/dL (3.5-5.1); Anion Gap 11 mmol/L (4-12); Blood Urea Nitrogen 26 mg/dL (9-20); Calcium 9.4 mg/dL (8.4-10.2); Carbon Dioxide 21 mmol/L (22-30); Chloride 103 mmol/L (98-107); Estimated Glomerular Filt Rate 45; Glucose 94 mg/dL (65-110); Potassium 4.4 mmol/L (3.4-5.0); Sodium 135 mmol/L (137-145)
[2025-06-05 19:06] LABS: Alanine Aminotransferase 23 U/L (6-50); Albumin Level 3.9 g/dL (3.5-5.1); Alkaline Phosphatase 70 U/L (38-126); Anion Gap 11 mmol/L (4-12); Aspartate Amino Transferase 42 U/L (17-59); Bilirubin,Total 0.7 mg/dL (0.2-1.3); Blood Urea Nitrogen 27 mg/dL (9-20); Calcium 9.3 mg/dL (8.4-10.2); Carbon Dioxide 20 mmol/L (22-30); Chloride 104 mmol/L (98-107); Cholesterol 123 mg/dL (0-200); Estimated Glomerular Filt Rate 46; Glucose 94 mg/dL (65-110); HDL Direct 48 mg/dL; Potassium 4.5 mmol/L (3.4-5.0); Sodium 135 mmol/L (137-145); Total Protein 7.2 g/dL (6.3-8.2); Triglycerides 79 mg/dL (<150)
[2025-06-05 19:17] LABS: Parathyroid Intact 31.2 pg/mL (14.5-75.2)
== END 2025-06-05 08:22 | disposition home or self-care (01) ==
PROVIDERS: Internal Medicine Nephrology; PCP Internal Medicine; Visit Provider Clinical Nurse Specialist
DX: E11.22 Type 2 diabetes mellitus with diabetic chronic kidney disease (principal); N18.32 Chronic kidney disease, stage 3b
CPT/HCPCS: 36415; 80053; 80061; 80069; 82570; 83036; 83970; 84156; 85027